=== PATIENT | female | born 1940 | race Caucasian/White ===

== ENCOUNTER → 2018-03-03 10:41 | Outpatient (CLI) | payer MEDICARE, SELFPAY ==
--- NOTE | 2018-03-03 | DI.RAD.S_ITS ---
PROCEDURE: XR CHEST 2V INDICATIONS: LEFT PLEURAL EFFUSION TECHNIQUE: 2 views of the chest were acquired. COMPARISON: [facility], CR, XR CHEST 1V, 02/14/2018, 14:13. Chest CT from 02/02/20 FINDINGS: Surgical changes and devices: None. Lungs and pleura: Small left pleural effusion which is likely partially loculated. Elevation of the left hemidiaphragm. Improved mostly mid left lung pulmonary opacities. The right lung is clear.. Mediastinum: Mediastinal contours are normal. Heart size is normal. Bones and chest wall: No suspicious bony abnormalities. Soft tissues appear unremarkable. IMPRESSION: Improved left pleural effusion which is likely partially loculated. Improving left lung pulmonary opacities. Dictated by: Juan Nova M.D. on 03/03/2018 at 10:24 Approved by: Juan Nova M.D. on 03/03/2018 at 10:26
== END ==
PROVIDERS: PCP Family Medicine; Visit Provider Family Medicine
DX: J90 Pleural effusion, not elsewhere classified (principal)
CPT/HCPCS: 71046

== ENCOUNTER → 2018-04-17 10:15 | Outpatient (CLI) | payer MEDICARE, SELFPAY ==
--- NOTE | 2018-04-17 | DI.RAD.S_ITS ---
PROCEDURE: XR CHEST 2V INDICATIONS: history of left effusion TECHNIQUE: 2 views of the chest were acquired. COMPARISON: [facility], CR, XR CHEST 2V, 03/03/2018, 10:29. FINDINGS: Surgical changes and devices: None. Lungs and pleura: Further improvement in left lung opacities with resolving loculated left pleural effusion. 5 cm rounded opacity in the left parahilar region is likely a pseudotumor from loculated fluid but indeterminate. Right lung field remains clear. Mediastinum: Mediastinal contours are normal. Heart size is normal. Calcifications in the mitral annulus. Aortic calcifications. Bones and chest wall: No suspicious bony abnormalities. Calcification overlies the right humeral head compatible with calcific tendinopathy. Thoracic kyphosis and degenerative changes. Soft tissues appear unremarkable. IMPRESSION: Interval improvement, areas of loculated left pleural effusion remain. Dictated by: Mason Galdamez M.D. on 04/17/2018 at 11:18 Approved by: Mason Galdamez M.D. on 04/17/2018 at 11:22
== END ==
PROVIDERS: Family Provider Family Medicine; PCP Family Medicine; Visit Provider Family Medicine
DX: J90 Pleural effusion, not elsewhere classified (principal)
CPT/HCPCS: 71046

== ENCOUNTER → 2018-05-18 11:04 | Outpatient (CLI) | payer MEDICARE, SELFPAY ==
--- NOTE | 2018-05-18 | DI.RAD.S_ITS ---
PROCEDURE: XR LUMBAR SPINE 2-3V INDICATIONS: LOW BACK PAIN TECHNIQUE: 2 views of the lumbar spine were acquired. COMPARISON: [facility], SAJAN, L-SPINE 2-3 VIEWS, 09/23/2017, 15:33. [facility], BRIANNA, XR L-SPINE 2-3V, 01/07/2006, 13:41. FINDINGS: Bones: 5 [id number] vertebrae are present. There is mild levoconvex curvature with grade 1 anterolisthesis at L3-4. L3 vertebral body compression fracture is unchanged. Degenerative sclerosis facet joints L4-5 and L5-S1. Sclerosis over the inferior right SI joint and chronic lytic and sclerotic appearance of the right ischium and pubic bone appear unchanged. Soft tissues: Overlying bowel gas pattern is normal. Vascular calcifications. IMPRESSION: 1. No acute lumbar fracture, compression deformity of L3 appearing unchanged from prior. Degenerative changes. 2. Lytic and sclerotic lesion in the right pubis and ischium appear stable Dictated by: Mason Galdamez M.D. on 05/18/2018 at 11:24 Approved by: Mason Galdamez M.D. on 05/18/2018 at 11:30
== END ==
PROVIDERS: PCP Family Medicine; Visit Provider Family Medicine
DX: M54.5 Low back pain (principal); M43.16 Spondylolisthesis, lumbar region; M48.56XS Collapsed vertebra, not elsewhere classified, lumbar region, sequela of fracture; M47.816 Spondylosis without myelopathy or radiculopathy, lumbar region; M47.817 Spondylosis without myelopathy or radiculopathy, lumbosacral region
CPT/HCPCS: 72100

== ENCOUNTER → 2018-05-25 10:14 | Outpatient (CLI) | payer MEDICARE, SELFPAY ==
--- NOTE | 2018-05-25 | DI.MG.S_ITS ---
BILATERAL DIGITAL SCREENING MAMMOGRAM 3D/2D WITH CAD POST LUMPECTOMY: 05/25/2018 CLINICAL: Routine screening. Personal history of breast cancer. Comparison is made to exams dated: 05/06/2016 mammogram, 03/19/2015 mammogram, and 03/18/2014 mammogram - [facility]. The tissue of both breasts is heterogeneously dense. This may lower the sensitivity of mammography. Current study was also evaluated with a Computer Aided Detection (CAD) system. There are benign vascular calcifications in both breasts. There also are benign calcifications in the right breast. Additionally, there are post operative findings in the right breast. No significant masses, calcifications, or other findings are seen in either breast. There has been no significant interval change. IMPRESSION: BENIGN There is no mammographic evidence of malignancy. A 1 year screening mammogram is recommended. This exam was interpreted at Station ID: [id number]. NOTE: For mammograms, a report in lay terms will be sent to the patient. Approximately 15% of breast malignancies will not be visualized mammographically. In the management of a palpable breast mass, a negative mammogram must not discourage biopsy of a clinically suspicious lesion. Electronically Signed By: Michelle boone/easton:05/25/2018 10:57:22 letter sent: Normal Exam ACR BI-RADS Category 2: Benign Finding(s) [id number]
== END ==
PROVIDERS: Family Provider Family Medicine; PCP Family Medicine; Visit Provider Family Medicine
DX: Z12.31 Encounter for screening mammogram for malignant neoplasm of breast (principal); Z85.3 Personal history of malignant neoplasm of breast
CPT/HCPCS: 77063; 77067

== ENCOUNTER 2018-06-21 11:09 | Inpatient (IN) | payer MEDICARE, SELFPAY ==
[2018-06-21] VITALS (19 sets, daily range): BP systolic 99–174; BP diastolic 50–119; PULSE 77–180; RESP 15–21; TEMP 36.3–37.3; O2SAT 90–99; BMI 22.4
--- NOTE | 2018-06-21 | DI.RAD.S_ITS ---
PROCEDURE: XR CHEST 1V INDICATIONS: FRACTURE LEFT HIP TECHNIQUE: One view of the chest was acquired. COMPARISON: [facility], CT, THORAX WITHOUT CONTRAST, 02/01/2018, 17:49. [facility], CR, XR CHEST 1V, 02/14/2018, 14:13. [facility], CR, XR CHEST 2V, 04/17/2018, 10:46. FINDINGS: Surgical changes and devices: None. Lungs and pleura: No pleural effusions or pneumothorax. No change in the left mid and upper lung density with left pleural thickening. Mediastinum: Mediastinal contours appear normal. Heart size is normal. Bones and chest wall: No suspicious bony lesions. Overlying soft tissues appear unremarkable. IMPRESSION: 1. No change in left pleural-parenchymal density. Dictated by: Regino Roberts M.D. on 06/21/2018 at 12:08 Approved by: Regino Roberts M.D. on 06/21/2018 at 12:08
--- NOTE | 2018-06-21 11:30 | ED.FALL ---
HPI - Fall General Chief Complaint: Fall Stated Complaint: GLF/ hip injury Time Seen by Provider: 06/21/18 11:30 Source: patient and EMS Mode of arrival: EMS Limitations: no limitations History of Present Illness HPI Narrative: Patient states she fell 2 nights ago after losing her balance on the toilet. She states that her is away on a hunting trip, and she is not able to get herself up off the floor. She scooted into the kitchen and then to her bedroom, but could not get back up on the bed. She states her cellphone was out of reach. She states that her finally called someone to come check on her after trying to reach her for day and a half and not been able to. Patient states the main thing that is bothering her is that her left hip has been hurting. She denies any chest pain or shortness of breath. She was not ill at the time of the fall. No cough, fever, nausea, vomiting, or diarrhea. No dysuria. She has not been dizzy. Patient states she was not able to eat or drink during the time since she fell. Related Data Home Medications Medication Instructions Recorded Confirmed citalopram 20 mg PO QDAY #0 10/14/17 06/21/18 diltiazem HCl 300 mg PO QDAY #0 10/14/17 06/21/18 metoprolol tartrate 100 mg PO BID #0 10/14/17 06/21/18 warfarin [Coumadin] 5 mg PO QDAY #0 10/14/17 06/21/18 mirtazapine 15 mg PO HS #0 01/31/18 06/21/18 furosemide 20 mg PO DAILY 06/21/18 06/21/18 Allergies Allergy/AdvReac Type Severity Reaction Status Date / Time cefuroxime [CEFUROXIME] Allergy Intermediate Unverified 01/18/18 13:07 doxycycline [DOXYCYCLINE] Allergy Intermediate Unverified 01/18/18 13:07 Review of Systems Review of Systems All systems reviewed & are unremarkable except as noted in HPI and below Constitutional Denies chills, Denies fever(s), Denies lethargy and Denies weakness Eyes Denies change in vision, Denies eye discharge, Denies irritation and Denies loss of vision ENT Ears, Nose, Mouth, and Throat: Denies change in voice, Denies neck pain and Denies sore throat Cardiovascular Denies chest pain, Denies irregular heart rhythm, Denies lightheadedness, Denies palpitations, Denies dyspnea, Denies dyspnea on exertion and Denies orthopnea Respiratory Denies cough, Denies dyspnea, Denies dyspnea on exertion and Denies wheezing Gastrointestinal Gastrointestinal: Denies abdominal pain, Denies change in bowel habits, Denies diarrhea, Denies nausea and Denies vomiting Genitourinary Denies hematuria, Denies flank pain, Denies urinary incontinence and Denies urinary urgency Musculoskeletal Denies neck pain Comments: left hip pain Integumentary/Breasts Denies pruritus, Denies erythema, Denies rash and Denies wounds Neurologic Denies confusion, Denies loss of vision and Denies weakness Psychiatric Denies anxiety, Denies confusion, Denies depression, Denies homicidal ideation and Denies suicidal ideation Endocrine Denies palpitations Hematologic/Lymphatic Denies easy bruising Allergic/Immunologic Denies wheezing Exam Initial Vital Signs Initial Vital Signs: Vital Signs Temperature 97.5 F L 06/21/18 11:25 Pulse Rate 172 H 06/21/18 11:25 Respiratory Rate 20 06/21/18 11:25 Blood Pressure 163/119 H 06/21/18 11:25 Pulse Oximetry 99 06/21/18 11:25 Const General: cooperative and well developed Nutritional Appearance: well nourished Orientation: alert, awake ( patient answers questions appropriately, is grossly oriented.) and not confused [facility] [place] Head: normocephalic and atraumatic Ears: external ears normal Nose: external nose normal and No nasal discharge Face and sinus: face symmetric and No dry mucous membranes Mouth: oral mucosae normal and moist mucous membranes Eyes General: appearance normal, both eyes and all related structures Eyelids: eyelids normal Conjunctivae: conjunctivae normal Sclera: sclerae normal Pupils: PERRL EOM: EOM intact bilaterally Neck Neck: normal visual inspection, trachea midline, No lymphadenopathy, No midline deformity and No JVD Lymphatic: No lymphedema Chest Chest: normal inspection of the chest Resp Effort & Inspection: normal respiratory effort, able to speak in complete sentences, no respiratory distress and no use of accessory muscles Auscultation: clear to auscultation bilaterally, no rales, no rhonchi and no wheezes Cardio Rate: regular rate and tachycardic Rhythm: abnormal rhythm irregularly irregular Heart Sounds: no click, no gallops, no murmurs and no rubs Pulses: normal peripheral pulses GI Inspection: non-distended Palpation: soft, no hepatosplenomegaly, No guarding, No pulsatile mass and No tender Auscultation: normal bowel sounds Back/Spine/Pelvis Back: No CVA tenderness Cervical Spine: cervical ROM normal and No pain with cervical ROM Thoracic/Lumbar Spine: thoracic and lumbar spine normal to inspection Skin General: no rashes or lesions noted, No jaundice and No petechiae Neuro General: alert, oriented x3, gait normal and no focal motor deficits Speech: speech normal Extrem General: no pedal edema and no calf tenderness Other: Tenderness over left hip. Mild shortening and external rotation. Distal pulses intact in bilateral lower extremities. Psych Appearance: well kempt Mental Status: mental status grossly normal Attitude: cooperative Thought Content: normal and suicidality Judgment: judgment good [facility] Medical History Chronic atrial fibrillation (Acute) History of alcohol dependence (Acute) Hypertension (Acute) Nicotine dependence with current use (Acute) Surgical History History of bowel resection (Acute) Social History household members: spouse Smoking Status: Current every day smoker alcohol intake: current Course Course Narrative: patient was worked up for her fall and tachycardia, as well as her hip pain. She was found to have a fractured left hip, and a mildly elevated CPK. She was given 2 L of IV normal saline in the emergency department, and was treated 1st with 20 mg and then 25 mg of Cardizem for her atrial fib with rapid ventricular response. The patient responded initially to the 2nd dose of Cardizem, but her heart rate began to climb back up again, into the 120s to 140s. At this point I ordered a diltiazem drip. I spoke with Dr. Moreira who was construction operations manager for Internal Medicine, and she agreed to admit the patient to her service. I also spoke with Dr. Tovar, who was on-call for Orthopedics, and he stated that he would consult on the patient for her hip fracture well admitted. Orders Ordered: ED Orders 06/21/18 11:30 Complete Blood Count AUTO DIFF Stat Comprehensive Metabolic Panel Stat Troponin & CK Cardiac Panel Stat 06/21/18 11:42 XR hip w pel if done LT 2V Stat 06/21/18 11:46 CT head/brain wo con Stat 06/21/18 12:16 Urinalysis and Microscopic Stat Urine Culture Stat 06/21/18 16:55 MRSA PCR Urgent 06/21/18 17:15 Consult to Technician'S Helper Routine 06/22/18 06:00 Comprehensive Metabolic Panel Routine Prothrombin Time INR Routine Acetaminophen (Tylenol) 650 mg PO Q6HR PRN PRN Reason: As Needed for Fever/Mild Pain Bisacodyl (Dulcolax) 10 mg [place] DAILY PRN PRN Reason: Constipation Citalopram Hydrobromide (Celexa) 20 mg PO DAILY HANNAH Enoxaparin Sodium (Lovenox) 40 mg SUBCUT DAILY HANNAH Famotidine (Pepcid) 20 mg in 50 mls @ 200 mls/hr IV Q12HR HANNAH Lactated Ringer's (Lactated Ringers) 1,000 mls @ 100 mls/hr IV CONT HANNAH Last Admin: 06/21/18 16:49 Dose: 100 mls/hr Diltiazem HCl 125 mg/ Dextrose 125 mls @ 5 mls/hr IV TITRATE HANNAH; Protocol Lorazepam (Ativan) 1.2 mg 0.02 mg/kg (1.2 mg) IV Q6HR PRN PRN Reason: Sedation Lorazepam (Ativan) 0 mg IV CIWAPRN PRN; Protocol PRN Reason: Alcohol Withdrawal Last Admin: 06/21/18 18:09 Dose: 1 mg Lorazepam (Ativan) 0 mg PO CIWAPRN PRN; Protocol PRN Reason: Alcohol Withdrawal Metoprolol Tartrate (Lopressor) 50 mg PO Q6HR HANNAH Last Admin: 06/21/18 18:08 Dose: 50 mg Mirtazapine (Remeron) 15 mg PO BEDTIME HANNAH Morphine Sulfate (Morphine) 2 mg IV Q4HR PRN PRN Reason: Pain, Moderate (4-6) Last Admin: 06/21/18 16:05 Dose: 2 mg Discontinued Medications Diltiazem HCl (Cardizem) 20 mg IV NOW ONE Stop: 06/21/18 11:42 Last Admin: 06/21/18 11:42 Dose: 20 mg Diltiazem HCl (Cardizem) 25 mg IV NOW ONE Stop: 06/21/18 13:10 Last Admin: 06/21/18 13:11 Dose: 25 mg Hydromorphone HCl (Dilaudid) 1 mg IV NOW ONE Stop: 06/21/18 14:30 Last Admin: 06/21/18 14:34 Dose: 1 mg Sodium Chloride (Normal Saline 0.9%) 1,000 mls @ 1,000 mls/hr IV BOLUS ONE Stop: 06/21/18 12:41 Last Infusion: 06/21/18 13:18 Dose: 0 mls/hr Admin: 06/21/18 12:20 Dose: 1,000 mls/hr Sodium Chloride (Normal Saline 0.9%) 1,000 mls @ 1,000 mls/hr IV BOLUS ONE Stop: 06/21/18 13:55 Last Infusion: 06/21/18 14:47 Dose: 0 mls/hr Admin: 06/21/18 13:10 Dose: 1,000 mls/hr Sodium Chloride (Normal Saline 0.9%) 1,000 mls @ 1,000 mls/hr IV BOLUS ONE Stop: 06/21/18 14:09 Last Infusion: 06/21/18 14:25 Dose: 0 mls/hr Admin: 06/21/18 13:20 Dose: 1,000 mls/hr Diltiazem HCl 125 mg/ Dextrose 125 mls @ 5 mls/hr IV TITRATE HANNAH; Protocol Last Admin: 06/21/18 16:00 Dose: 5 mg/hr, 5 mls/hr Metoprolol Tartrate (Lopressor) 50 mg PO NOW ONE Stop: 06/21/18 15:25 Last Admin: 06/21/18 15:31 Dose: 50 mg Trimethoprim/Sulfamethoxazole (Bactrim Ds) 1 tab PO NOW ONE Stop: 06/21/18 14:40 Last Admin: 06/21/18 14:45 Dose: 1 tab Vital Signs - 8 hr 06/21/18 12:44 06/21/18 13:11 06/21/18 13:12 Temperature Pulse Rate 141 H 156 H 106 H Respiratory Rate 21 19 Blood Pressure 169/104 H Blood Pressure [Right Arm] 174/115 H 139/82 Pulse Oximetry 97 95 06/21/18 13:40 06/21/18 14:21 06/21/18 14:39 Temperature Pulse Rate 119 H 135 H 135 H Respiratory Rate 18 20 16 Blood Pressure Blood Pressure [Right Arm] 144/92 H 165/79 H 110/83 Pulse Oximetry 94 95 91 06/21/18 15:16 06/21/18 15:40 06/21/18 16:13 Temperature 99.1 F Pulse Rate 152 H 140 H 125 H Respiratory Rate 15 18 Blood Pressure 148/77 H 146/102 H Blood Pressure [Right Arm] 147/90 H Pulse Oximetry 90 L 93 06/21/18 16:17 06/21/18 17:00 06/21/18 18:02 Temperature Pulse Rate 115 H 95 H 84 Respiratory Rate 18 Blood Pressure 143/69 H 117/58 L 149/50 H Blood Pressure [Right Arm] Pulse Oximetry 06/21/18 19:00 Temperature Pulse Rate 77 Respiratory Rate Blood Pressure 99/66 Blood Pressure [Right Arm] Pulse Oximetry MDM - Fall Medical Records Attestation: I reviewed the patient's medical records. Lab Data Attestation: I reviewed the patient's lab results. Result diagrams: 06/21/18 11:30 06/21/18 11:30 Lab Results 06/21/18 06/21/18 06/21/18 Range/Units 11:30 11:30 12:16 WBC 16.8 H (4.5-11.0) X10^3/uL RBC 4.53 (4.0-5.2) X10^6/uL Hgb 15.1 (12.0-16.0) g/dL Hct 44.2 (36-46) % MCV 97.7 (80-100) fL MCH 33.3 (26-34) PG MCHC 34.1 (30-36) % RDW 14.0 (11.6-14.8) % Plt Count 284 (150-400) X10^3/uL Neut % (Auto) 87.9 H (50-75) % Lymph % (Auto) 5.1 L (25-40) % [place] % (Auto) 6.6 (3-14) % Eos % (Auto) 0.0 L (2-4) % Baso % (Auto) 0.4 (0-2) % Neut # (Auto) 54684 H (6154-1065) /uL Sodium 136 L (137-145) mmol/L Potassium 4.6 (3.4-5.1) mmol/L Chloride 95 L (98-107) mmol/L Carbon Dioxide 27 (22-32) mmol/L BUN 15 (7-17) mg/dL Creatinine 0.70 (0.52-1.04) mg/dL Estimated GFR > 60.0 (>60) mL/min BUN/Creatinine Ratio 21.4 (6-22) Glucose 136 H (80-110) mg/dL Calcium 10.4 H (8.4-10.2) mg/dL Total Bilirubin 1.7 H (0.2-1.3) mg/dL AST 39 H (14-36) IU/L ALT 22 (9-52) IU/L Alkaline Phosphatase 101 (38-126) U/L Total Creatine Kinase 170 H (30-135) U/L CK-MB (CK-2) 3.93 H (<2.37) ng/mL CK-MB (CK-2) Rel Index 2.3 (1.5-5.0) % Troponin I 0.038 H (0.01-0.034) ng/mL Total Protein 8.1 (6.3-8.2) g/dL Albumin 4.5 (3.5-5.0) g/dL Globulin 3.6 (1.7-4.1) g/dL Albumin/Globulin Ratio 1.3 (1.0-2.8) Urine Color Yellow Urine Appearance Sl cloudy Urine pH 7.5 (4.5-8.0) Ur Specific Lucinda 1.010 (1.000-1.035) Urine Protein 1+ H (Negative) Urine Glucose (UA) Negative (Normal) g/dL Urine Ketones 1+ H (NEGATIVE) Urine Occult Blood 1+ H (Negative) Urine Nitrate Negative (Negative) Urine Bilirubin Negative (NEGATIVE) Urine Urobilinogen 0.2 (0.2) E.U./dL Ur Leukocyte Esterase 1+ H (NEGATIVE) Urine RBC 1-5/hpf (0-5/HPF) Urine WBC 5-10/hpf H (0-5/HPF) Urine Bacteria None seen (None) Granular Casts 1-5/lpf (None) Ur Culture Indicated? Specimen cultured Micro UA Comment Not Reportable Nasal Screen MRSA (PCR) (Negative) 06/21/18 Range/Units 16:55 WBC (4.5-11.0) X10^3/uL RBC (4.0-5.2) X10^6/uL Hgb (12.0-16.0) g/dL Hct (36-46) % MCV (80-100) fL MCH (26-34) PG MCHC (30-36) % RDW (11.6-14.8) % Plt Count (150-400) X10^3/uL Neut % (Auto) (50-75) % Lymph % (Auto) (25-40) % [place] % (Auto) (3-14) % Eos % (Auto) (2-4) % Baso % (Auto) (0-2) % Neut # (Auto) (7326-4131) /uL Sodium (137-145) mmol/L Potassium (3.4-5.1) mmol/L Chloride (98-107) mmol/L Carbon Dioxide (22-32) mmol/L BUN (7-17) mg/dL Creatinine (0.52-1.04) mg/dL Estimated GFR (>60) mL/min BUN/Creatinine Ratio (6-22) Glucose (80-110) mg/dL Calcium (8.4-10.2) mg/dL Total Bilirubin (0.2-1.3) mg/dL AST (14-36) IU/L ALT (9-52) IU/L Alkaline Phosphatase (38-126) U/L Total Creatine Kinase (30-135) U/L CK-MB (CK-2) (<2.37) ng/mL CK-MB (CK-2) Rel Index (1.5-5.0) % Troponin I (0.01-0.034) ng/mL Total Protein (6.3-8.2) g/dL Albumin (3.5-5.0) g/dL Globulin (1.7-4.1) g/dL Albumin/Globulin Ratio (1.0-2.8) Urine Color Urine Appearance Urine pH (4.5-8.0) Ur Specific Lucinda (1.000-1.035) Urine Protein (Negative) Urine Glucose (UA) (Normal) g/dL Urine Ketones (NEGATIVE) Urine Occult Blood (Negative) Urine Nitrate (Negative) Urine Bilirubin (NEGATIVE) Urine Urobilinogen (0.2) E.U./dL Ur Leukocyte Esterase (NEGATIVE) Urine RBC (0-5/HPF) Urine WBC (0-5/HPF) Urine Bacteria (None) Granular Casts (None) Ur Culture Indicated? Micro UA Comment Nasal Screen MRSA (PCR) Positive for mrsa H (Negative) Imaging Data CT scan - head: Attestation: I personally reviewed and interpreted this imaging study as follows: My impression: Negative Radiologist's impression: PROCEDURE: CT HEAD/BRAIN WO CON INDICATIONS: trauma TECHNIQUE: Noncontrast 4.5 mm thick angled axial sections acquired from the foramen magnum to the vertex, with coronal and sagittal reformats. For radiation dose reduction, the following was used: automated exposure control, adjustment of mA and/or kV according to patient size. COMPARISON: None. FINDINGS: Image quality: Excellent. CSF spaces: Basal cisterns are patent. No extra-axial fluid collections. The ventricles are symmetric in size and shape. Brain: No intracranial bleeds or masses. There is cerebral volume loss for age, with resultant ventricular and sulcal prominence. There are periventricular and deep white matter chronic small vessel ischemic changes. There is intracranial internal carotid artery atherosclerosis. Skull and face: Calvarium and visualized facial bones appear intact, without suspicious lesions. Sinuses: Visualized sinuses and mastoids are clear. IMPRESSION: No acute intracranial abnormality. Dictated by: Regino Roberts M.D. on 06/21/2018 at 12:09 Approved by: Regino Roberts M.D. on 06/21/2018 at 12:09 left hip x-ray with pelvis: Attestation: I personally reviewed and interpreted this imaging study as follows: My impression: left hip fracture Radiologist's impression: ROCEDURE: XR HIP W PEL IF DONE LT 2V INDICATIONS: fall/pain TECHNIQUE: AP pelvis with lateral view(s) of the left hip(s). COMPARISON: None. FINDINGS: Bones: Moderately displaced left intertrochanteric and subtrochanteric hip fracture. Soft tissues: The visualized bowel gas pattern is normal. No suspicious soft tissue calcifications. IMPRESSION: Left hip fracture. Dictated by: Regino Roberts M.D. on 06/21/2018 at 12:07 Approved by: Regino Roberts M.D. on 06/21/2018 at 12:08 Chest x-ray: Attestation: I personally reviewed and interpreted this imaging study as follows: My impression: negative Radiologist's impression: PROCEDURE: XR CHEST 1V INDICATIONS: FRACTURE LEFT HIP TECHNIQUE: One view of the chest was acquired. COMPARISON: [facility], CT, THORAX WITHOUT CONTRAST, 02/01/2018, 17:49. [facility], CR, XR CHEST 1V, 02/14/2018, 14:13. [facility], CR, XR CHEST 2V, 04/17/2018, 10:46. FINDINGS: Surgical changes and devices: None. Lungs and pleura: No pleural effusions or pneumothorax. No change in the left mid and upper lung density with left pleural thickening. Mediastinum: Mediastinal contours appear normal. Heart size is normal. Bones and chest wall: No suspicious bony lesions. Overlying soft tissues appear unremarkable. IMPRESSION: 1. No change in left pleural-parenchymal density. Dictated by: Regino Roberts M.D. on 06/21/2018 at 12:08 Approved by: Regino Roberts M.D. on 06/21/2018 at 12:08 ECG Data Attestation: I personally reviewed and interpreted this ECG as follows: ( see below) Prior ECG tracings: not available for review Interpretation: 12 lead EKG performed on June 21, 2018 at 11:21 a.m.: irregular ventricular rhythm with a rate of 164 beats per minute . Pr interval not calculated P-waves not present QRS duration 72 millisecond QTC interval 352 milliseconds axis normal interpretation: Atrial fibrillation with rapid ventricular response, septal myocardial infarction, probably old; abnormal EKG interpreted by ED MD Critical Care Time Critical Care Time: Yes Total Critical Care Time: 45 ( min) Attestation: cardiovascular instability with high probability of deterioration and demise; critical care time includes ordering of EKG, labs, and imaging studies; interpretation of the above studies; discussion of case with consultants; discussion of case with patient; treatment of condition. Discharge Plan Departure Patient Disposition: Admitted As Inpatient Clinical Impression: Atrial fibrillation with rapid ventricular response, Closed hip fracture requiring operative repair, Acute UTI Discharge Date/Time: 06/21/18 15:51 Interventions: ED Discharge Assessment Last Done: 06/21/18 15:51 Admit Date/Time: 06/21/18 15:25 Admit Provider: Sis Moreira
[2018-06-21] MEDS: dilTIAZem 5 MG/ML SDV 20 MG IV (11:42)
--- NOTE | 2018-06-21 11:42 | DI.RAD.S_ITS ---
PROCEDURE: XR HIP W PEL IF DONE LT 2V INDICATIONS: fall/pain TECHNIQUE: AP pelvis with lateral view(s) of the left hip(s). COMPARISON: None. FINDINGS: Bones: Moderately displaced left intertrochanteric and subtrochanteric hip fracture. Soft tissues: The visualized bowel gas pattern is normal. No suspicious soft tissue calcifications. IMPRESSION: Left hip fracture. Dictated by: Regino Roberts M.D. on 06/21/2018 at 12:07 Approved by: Regino Roberts M.D. on 06/21/2018 at 12:08
--- NOTE | 2018-06-21 11:46 | DI.CT.S_ITS ---
PROCEDURE: CT HEAD/BRAIN WO CON INDICATIONS: trauma TECHNIQUE: Noncontrast 4.5 mm thick angled axial sections acquired from the foramen magnum to the vertex, with coronal and sagittal reformats. For radiation dose reduction, the following was used: automated exposure control, adjustment of mA and/or kV according to patient size. COMPARISON: None. FINDINGS: Image quality: Excellent. CSF spaces: Basal cisterns are patent. No extra-axial fluid collections. The ventricles are symmetric in size and shape. Brain: No intracranial bleeds or masses. There is cerebral volume loss for age, with resultant ventricular and sulcal prominence. There are periventricular and deep white matter chronic small vessel ischemic changes. There is intracranial internal carotid artery atherosclerosis. Skull and face: Calvarium and visualized facial bones appear intact, without suspicious lesions. Sinuses: Visualized sinuses and mastoids are clear. IMPRESSION: No acute intracranial abnormality. Dictated by: Regino Roberts M.D. on 06/21/2018 at 12:09 Approved by: Regino Roberts M.D. on 06/21/2018 at 12:09
[2018-06-21 11:51] LABS: Add Manual Diff / Slide Review NO; Basophils Percent Auto 0.4 % (0-2); Hematocrit 44.2 % (36-46); Hemoglobin 15.1 g/dL (12.0-16.0); Lymphocytes Percent Auto 5.1 % (25-40); Mean Corpuscular HGB Conc 34.1 % (30-36); Mean Corpuscular Hemoglobin 33.3 PG (26-34); Mean Corpuscular Volume 97.7 fL (80-100); Monocytes Percent Auto 6.6 % (3-14); Neutrophils Absolute Auto 14800 /uL (3000-5900); Neutrophils Percent Auto 87.9 % (50-75); Platelet Count 284 X10^3/uL (150-400); Red Blood Cell Count 4.53 X10^6/uL (4.0-5.2); White Blood Cell Count 16.8 X10^3/uL (4.5-11.0)
[2018-06-21 11:57] LABS: Alanine Aminotransferase 22 IU/L (9-52); Albumin 4.5 g/dL (3.5-5.0); Albumin Globulin Ratio 1.3 (1.0-2.8); Alkaline Phosphatase 101 U/L (38-126); Aspartate Aminotransferase 39 IU/L (14-36); BUN Creatinine Ratio 21.4 (6-22); Bilirubin Total 1.7 mg/dL (0.2-1.3); Blood Urea Nitrogen 15 mg/dL (7-17); Calcium 10.4 mg/dL (8.4-10.2); Carbon Dioxide 27 mmol/L (22-32); Chloride 95 mmol/L (98-107); Creatine Kinase 170 U/L (30-135); Estimated Glomerular Filt Rate > 60.0 mL/min (>60); Globulin 3.6 g/dL (1.7-4.1); Glucose 136 mg/dL (80-110); Potassium 4.6 mmol/L (3.4-5.1); Sodium 136 mmol/L (137-145); Total Protein 8.1 g/dL (6.3-8.2)
[2018-06-21 12:09] LABS: Troponin I 0.038 ng/mL (0.01-0.034)
[2018-06-21 12:13] LABS: CKMB % Relative Index 2.3 % (1.5-5.0); Creatine Kinase MB 3.93 ng/mL (<2.37)
[2018-06-21 12:14] LABS: HEMOLYSIS 78 (0-50)
[2018-06-21] MEDS: SODIUM CHLORIDE 0.9% 1,000 ML 1000 ML IV ×3 (12:20→13:20)
[2018-06-21 12:27] LABS: Bacteria Urine None Seen
[2018-06-21 12:28] LABS: Appearance Urine UA SL CLOUDY; Bilirubin Urine UA NEGATIVE (NEGATIVE); Color Urine UA YELLOW; Glucose Urine UA NEGATIVE (Normal); Ketones Urine UA 1+ (NEGATIVE); Leukocyte Esterase Urine UA 1+ (NEGATIVE); Nitrite Urine UA Negative (Negative); Occult Blood Urine UA 1+ (Negative); Protein Urine UA 1+ (Negative); Urobilinogen Urine UA 0.2 E.U./dL (0.2); pH Urine UA 7.5 (4.5-8.0)
[2018-06-21 12:35] LABS: Culture Indicated Urine Specimen Cultured; Granular Casts Urine 1-5/LPF; RBC Urine 1-5/HPF (0-5/HPF); WBC Urine 5-10/HPF (0-5/HPF)
[2018-06-21] MEDS: dilTIAZem 5 MG/ML SDV 25 MG IV (13:11)
[2018-06-21] MEDS: HYDROMORPHONE 1 MG INJ IV (14:34)
[2018-06-21] MEDS: SULFA/TRIMETH 800/160 (DS) TABLET 1 TAB PO (14:45)
[2018-06-21] MEDS: METOPROLOL 50 MG TABLET PO ×2 (15:31→18:08)
--- NOTE | 2018-06-21 15:56 | PM.HP.1 ---
History of Present Illness Date Patient Seen: 06/21/18 Time Patient Seen: 15:57 Chief complaint: GLF/ hip injury Narrative: Patient is a 78 y/o female who was home alone and fell from the toilet. She was down on the ground for 2 days before she could get help and be brought into the hospital. The patient has a history of atrial fibrillation which is managed on cardizem and metoprolol. As she was down on the ground for 2 days the patient was unable to drink or get her usual medications. Upon arrival to the ED she was found to be in rapid atrial fibrillation. The patient was given two doses of IV cardizem without response. In addition, she was found to have a right intratrochanteric fracture. She fell hitting her head. patient takes coumadin for her chronic atrial fibrillation. The head CT was negative for a bleed. The patient was admitted to the hospital for further evaluation. Patient History Medical History Chronic atrial fibrillation (Acute) History of alcohol dependence (Acute) Hypertension (Acute) Nicotine dependence with current use (Acute) Surgical History History of bowel resection (Acute) Family & Social History Safety & Behavioral: Feels Safe in Current Yes Environment Tobacco & Substance use: Smoking Status Current every day smoker alcohol intake frequency a few times a month Substance Use Type does not use Meds Home Medications Medication Instructions Recorded Confirmed Type citalopram 20 mg PO QDAY #0 10/14/17 06/21/18 History diltiazem HCl 300 mg PO QDAY #0 10/14/17 06/21/18 History metoprolol tartrate 100 mg PO BID #0 10/14/17 06/21/18 History warfarin [Coumadin] 5 mg PO QDAY #0 10/14/17 06/21/18 History mirtazapine 15 mg PO HS #0 01/31/18 06/21/18 History furosemide 20 mg PO DAILY 06/21/18 06/21/18 History Allergies Allergy/AdvReac Type Severity Reaction Status Date / Time cefuroxime [CEFUROXIME] Allergy Intermediate Unverified 01/18/18 13:07 doxycycline [DOXYCYCLINE] Allergy Intermediate Unverified 01/18/18 13:07 Review of Systems Review of Systems All systems reviewed & are unremarkable except as noted in HPI and below Exam Vital Signs (past 8 hours): - 06/21/18 11:25 06/21/18 11:42 06/21/18 12:44 Temperature 97.5 F L Pulse Rate 172 H 180 H 141 H Respiratory Rate 20 21 Blood Pressure 163/119 H 159/109 H Blood Pressure [Right Arm] 174/115 H Pulse Oximetry 99 97 06/21/18 13:11 06/21/18 13:12 06/21/18 13:40 Temperature Pulse Rate 156 H 106 H 119 H Respiratory Rate 19 18 Blood Pressure 169/104 H Blood Pressure [Right Arm] 139/82 144/92 H Pulse Oximetry 95 94 06/21/18 14:21 06/21/18 14:39 06/21/18 15:16 Temperature Pulse Rate 135 H 135 H 152 H Respiratory Rate 20 16 15 Blood Pressure Blood Pressure [Right Arm] 165/79 H 110/83 147/90 H Pulse Oximetry 95 91 90 L Oxygen Delivery Method Room Air Narrative Exam Narrative: Patient is awake and alert. AT times she appears to be confused HEENT: NC/AT, EOMI, Oropharyx dry mucus membranes, neck supple Lungs: clear to auscultation CV: tachycardic irregularly, irregular nl S1 S@ Abd: soft/ non tender/ non distended, well healed suprapubic scar, No HSM Ext: multiple excoriations of both lower extremities, multiple ecchymoses of arms, dry scaling lesions of legs, right leg rotated and shortend Neuro: Awake, alert, and appropriate, at times confused Cranial nerves intact. Strength equal unable to move right leg Sensation intact Psychiatric: confused at times, shaky, no active hallucinations Objective Labs Result Diagrams: 06/21/18 11:30 06/21/18 11:30 Labs: Laboratory Results - last 24 hr 06/21/18 06/21/18 06/21/18 11:30 11:30 12:16 WBC 16.8 H RBC 4.53 Hgb 15.1 Hct 44.2 MCV 97.7 MCH 33.3 MCHC 34.1 RDW 14.0 Plt Count 284 Neut % (Auto) 87.9 H Lymph % (Auto) 5.1 L Hickman % (Auto) 6.6 Eos % (Auto) 0.0 L Baso % (Auto) 0.4 Neut # (Auto) 90553 H Sodium 136 L Potassium 4.6 Chloride 95 L Carbon Dioxide 27 BUN 15 Creatinine 0.70 Estimated GFR > 60.0 BUN/Creatinine Ratio 21.4 Glucose 136 H Calcium 10.4 H Total Bilirubin 1.7 H AST 39 H ALT 22 Alkaline Phosphatase 101 Total Creatine Kinase 170 H CK-MB (CK-2) 3.93 H CK-MB (CK-2) Rel Index 2.3 Troponin I 0.038 H Total Protein 8.1 Albumin 4.5 Globulin 3.6 Albumin/Globulin Ratio 1.3 Urine Color Yellow Urine Appearance Sl cloudy Urine pH 7.5 Ur Specific [place] 1.010 Urine Protein 1+ H Urine Glucose (UA) Negative Urine Ketones 1+ H Urine Occult Blood 1+ H Urine Nitrate Negative Urine Bilirubin Negative Urine Urobilinogen 0.2 Ur Leukocyte Esterase 1+ H Urine RBC 1-5/hpf Urine WBC 5-10/hpf H Urine Bacteria None seen Granular Casts 1-5/lpf Ur Culture Indicated? Specimen cultured Micro UA Comment Not Reportable Assessment & Plan (1) Atrial fibrillation with rapid ventricular response: Problem details: Will continue metoprolol 50 mg every six hours. Will start Cardizem drip Coumadin on hold until after surgery Current visit: Yes Status: Acute (2) Acute UTI: Problem details: will start levofloxacin for possible UTI Current visit: Yes Status: Acute (3) Closed hip fracture requiring operative repair: Problem details: Ortho consult, pain control, hold anticoagulation but will place on DVT prophylaxis for tonight Qualifiers: Encounter type: initial encounter Fracture healing: Laterality: left Qualified Code(s): S72.002A - Fracture of unspecified part of neck of left femur, initial encounter for closed fracture Current visit: Yes Status: Acute (4) HTN (hypertension): Problem details: Continue metoprolol and cardizem Current visit: No Status: Acute (5) Alcohol withdrawal: Problem details: Will start Ativan prn as needed for agitation Current visit: Yes Status: Acute (6) Osteoporosis: Problem details: Calcium , vit D, bisphosphonate Current visit: Yes Status: Acute
[2018-06-21] MEDS: dilTIAZem 125 MG in DEXTROSE 5 % IN WATER 100 ML IV (16:00)
[2018-06-21] MEDS: MORPHINE 2 MG/ML INJ IV (16:05)
[2018-06-21] MEDS: LACTATED RINGERS 1,000 ML 100 ML IV (16:49)
--- NOTE | 2018-06-21 17:41 | PC.NURSE ---
1540- Patient arrived to unit via stretcher. Patient is alert and cooperative. Patient moved to the bed in room 105 using a sliding board. Left hip is externally rotated and painful. Left elbow abrasion noted and left shoulder contusion. Patient states her hip is where her pain is right now. Will monitor.
--- NOTE | 2018-06-21 17:43 | PC.NURSE ---
1740- Patient states she is seeing worms in her strawberry dessert. Patient is adament that there are worms crawling and she sees them. Patient is aware she is in [place] and she knows that she fell at home and fractured her left hip. Patient has no tremors or sweats. Dr. Moreira notified and CIDCA protocol is ordered. Will monitor.
[2018-06-21] MEDS: LORazepam 2 MG/ML SYRINGE IV (18:09)
[2018-06-21] MEDS: MIRTAZAPINE 15 MG TABLET PO (21:47)
[2018-06-22] VITALS (24 sets, daily range): BP systolic 118–180; BP diastolic 63–94; PULSE 84–133; RESP 16–22; TEMP 35.9–37.2; O2SAT 94–99; BMI 24.7
--- NOTE | 2018-06-22 | DI.RAD.S_ITS ---
PROCEDURE: XR HIP W PEL IF DONE LT 2V INDICATIONS: LEFT HIP ORIF IMN TECHNIQUE: 4 views of the hip were acquired. COMPARISON: [facility], CR, XR HIP W PEL IF DONE LT 2V, 06/21/2018, 11:25. FINDINGS: 4 intraoperative fluoroscopy images demonstrate open reduction and internal fixation of left femoral neck fracture. There is improved alignment. Surgical hardware are in expected position. IMPRESSION: Open reduction and internal fixation of left femoral neck fracture. Dictated by: Amanda Castaneda M.D. on 06/22/2018 at 18:51 Approved by: Amanda Castaneda M.D. on 06/22/2018 at 18:52
[2018-06-22] MEDS: METOPROLOL 50 MG TABLET PO ×3 (00:01→12:31)
[2018-06-22] MEDS: FAMOTIDINE 20 MG/50 ML PIGGYBACK 200 MG IV ×2 (00:01→12:31)
[2018-06-22] MEDS: LORazepam 2 MG/ML SYRINGE IV (00:24)
[2018-06-22] MEDS: LACTATED RINGERS 1,000 ML 100 ML IV ×2 (02:15→12:31)
[2018-06-22 06:20] LABS: INR 1.4 (0.9-1.3); Prothrombin Time 15.6 SECONDS (10.1-12.7)
[2018-06-22 06:31] LABS: Alanine Aminotransferase 27 IU/L (9-52); Albumin 2.7 g/dL (3.5-5.0); Albumin Globulin Ratio 1.1 (1.0-2.8); Alkaline Phosphatase 57 U/L (38-126); Aspartate Aminotransferase 27 IU/L (14-36); Bilirubin Total 0.6 mg/dL (0.2-1.3); Blood Urea Nitrogen 12 mg/dL (7-17); Calcium 8.6 mg/dL (8.4-10.2); Carbon Dioxide 28 mmol/L (22-32); Chloride 106 mmol/L (98-107); Estimated Glomerular Filt Rate > 60.0 mL/min (>60); Globulin 2.4 g/dL (1.7-4.1); Glucose 90 mg/dL (80-110); HEMOLYSIS < 15 (0-50); Potassium 3.9 mmol/L (3.4-5.1); Sodium 136 mmol/L (137-145); Total Protein 5.1 g/dL (6.3-8.2)
[2018-06-22] MEDS: dilTIAZem 125 MG in DEXTROSE 5 % IN WATER 100 ML IV ×2 (07:55→20:29)
[2018-06-22] MEDS: MORPHINE 2 MG/ML INJ IV ×2 (08:23→12:31)
--- NOTE | 2018-06-22 09:21 | PC.NURSE ---
Addendum entered by [place] Markham R.N. 06/22/18 15:25: Pt left to OR 1515 with OR staff in no acute distress. Original Note: Addendum entered by [place] Markham R.N. 06/22/18 12:18: Dr. Tovar rounded. Consent obtained. Plan for OR today approx 1530. Original Note: Called and spoke with Dr. Moreira [id number] requesting clarification of orders for consult to ortho and pt/family requesting to be seen by Dr. Montelongo (pt's PCP). No consult order in chart for either. Dr. Moreira states that she spoke with Dr. Tovar yesterday about this patient. TO received for consult to ortho. Dr. Moreira instructs to call Dr. Montelongo and let him know about patient. Spoke with Dr. Doherty to ensure pt on the list to be seen today. Dr. Caputo states she will e-mail Dr. Tovar regarding pt and that she is not national secretary for ortho today. Called to Dr. Montelongo's office and left message for Dr. Mccaryt to return phone call regarding pt. Spoke with Dr. Mccarty at 0930- he states he will round either at noon or after clinic today. Gave update to Dr. Mccarty about assessment findings, VS, labs, plan of care.
--- NOTE | 2018-06-22 13:25 | P.PN_ITS ---
Subjective Date Patient Seen: 06/22/18 Time Patient Seen: 13:18 Interval history: Patient admitted from emergency room following a ground level fall and that unable to get up for approximately 2 days. Patient's alcoholic with alcohol abuse and had been drinking prior. Subsequently suggestion of urinary tract infection not treated at this point inter patient also has history of atrial fibrillation and had continued fib with a rapid ventricular rate. Has been getting some diltiazem over the last 24 hr. Rate is in the 90- 100 range now negative cardiac enzymes. Patient is back on her oral medications consisting of metoprolol for rate control as well. trochanteric hip fracture which will be repaired this afternoon sedation secondary to pain medications alcohol withdrawal issues. MRSA positive nasal screening. Exam Vital Signs (past 8 hours): - 06/22/18 06:00 06/22/18 07:14 06/22/18 07:55 Temperature 97.6 F Pulse Rate 100 H 98 H 91 H Respiratory Rate 17 19 Blood Pressure 118/73 133/67 133/67 Pulse Oximetry 98 98 06/22/18 08:00 06/22/18 08:25 06/22/18 09:12 Temperature Pulse Rate 97 H 92 H Respiratory Rate 22 17 Blood Pressure 159/94 H 180/79 H Pulse Oximetry 96 98 99 06/22/18 11:00 06/22/18 12:06 Temperature 98.7 F Pulse Rate 87 94 H Respiratory Rate 20 16 Blood Pressure 132/94 H 132/94 H Pulse Oximetry 98 97 Oxygen Delivery Method Nasal Cannula Oxygen Flow Rate 2 Narrative Exam Narrative: Patient is sedated from pain meds PERRLA line Speech a little bit sedated but clear Neck without significant bruising or mass Lungs Clear little bit of crackles at bases Heart shows an irregularly irregular rate rhythm no murmur some good distal edema Abdomen nontender no hepatosplenomegaly or mass Neuro shows patient responded well answer questions appropriately speech is a little bit groggy but I think that is sedation from her pain meds. Patient does have history of alcohol abuse and had been drinking up to her admission is on a CIWA protocol and had did get a dose of benzodiazepine last evening. Objective Labs Result Diagrams: 06/21/18 11:30 06/22/18 06:00 Labs: Laboratory Results - last 24 hr 06/21/18 06/21/18 06/22/18 16:55 21:38 06:00 PT 15.6 H INR 1.4 H Sodium Potassium Chloride Carbon Dioxide BUN Creatinine Estimated GFR BUN/Creatinine Ratio Glucose Calcium Total Bilirubin AST ALT Alkaline Phosphatase Troponin I 0.030 Total Protein Albumin Globulin Albumin/Globulin Ratio Nasal Screen MRSA (PCR) Positive for mrsa H 06/22/18 06:00 PT INR Sodium 136 L Potassium 3.9 Chloride 106 Carbon Dioxide 28 BUN 12 Creatinine 0.60 Estimated GFR > 60.0 BUN/Creatinine Ratio 20.0 Glucose 90 Calcium 8.6 Total Bilirubin 0.6 AST 27 ALT 27 Alkaline Phosphatase 57 Troponin I Total Protein 5.1 L Albumin 2.7 L Globulin 2.4 Albumin/Globulin Ratio 1.1 Nasal Screen MRSA (PCR) Assessment & Plan Plan: Assessment/Plan Narrative: Assessment 1. Intertrochanteric hip fracture left side going to have surgical repair of that this afternoon. Complicating factors could be her atrial fibrillation which she has good rate control at this point her anticoagulation and his gutter INR is down into the 1 6 range. Assessment 2. Atrial fibrillation is think that her rate control is good probably will be adequate to manage with oral medicines after her hip repair Assessment 3. Urinary tract infection. Will continue with the oral antibiotics consisting of Levaquin Assessment 4. Alcoholism again on withdrawal protocols Assessment 5. Hypertension treated with calcium channel mitchel and and beta- mitchel will monitor pressure for now with good rate control Assessment 6. Urinary tract infection Assessment 7. Depression will continue on current antidepressant medication. Quality VTE Deep Vein Thrombosis/Pulmonary Embolism Present on Admission: No
--- NOTE | 2018-06-22 15:53 | CM.IDA ---
Addendum entered by ANA Miranda 06/23/18 14:04: Dr Hester would like this LIGHT FIXTURE SERVICER to review ETOH treatment options w/pt and spouse tomorrow when pt more awake and alert. This LIGHT FIXTURE SERVICER requested a conversation together so that Dr Hester can discuss his concerns to include the negative impact of pt's ongoing heavy drinking. Dr Hester agreeable to this. Pt will require SNF stay. Attempted to reach spouse Jake, had to LM. Will continue to check in at bedside. PT eval was pending during this LIGHT FIXTURE SERVICER's visit to ICU this morning. Following closely. BRANDON Original Note: DCP Assessment Note: Pt is a 78 yo female, resident of [place] and patient of Dr Hester. Pt admitted after a GLF at home and found down for two days. Insurance is Medicare. Holding DCP assessment today, pt scheduled in the OR to repair hip. Pt's baseline and DCP options TBD. Following closely. ANA Miranda Discharge Planning/Care Management CM Discharge Assessment Start: 06/22/18 15:41 Freq: Status: Active Protocol: Document 06/22/18 15:41 BRANDON (Rec: 06/22/18 15:53 BRANDON [id number]) Discharge Planning Assessment Assigned Validation Intern ANA Jiang DPOA/Assigned Designee Name jaylyn Vaughan Contact Information [phone] Advance Directives? No Advance Directives on File No History Provided By Patient Medical Record Prior Living Arrangements House Household Members spouse Type of transporation used prior to Drives own vehicle admit Independent with ADL's Yes: According to prior notes Is patient alert and oriented? Yes: According to prior notes Comment Surgery today, will f/u w/pt and spouse Tuesday to complete assessment and discuss DCP options. Comment ETOH up to admit, amount of use unknown. CIWA protocal Barriers to Discharge Yes Comment ETOH w/ h/o falls and fractures. Admits to drinking before her fall off the toilet , down for two days. Hip surgery today, likely require SNF if pt agreeable. Discharge Plan [facility] Additional Comment Pending further assessment after hip surgery. Inpatient Status as of 06/21/18 Comment Will likely need SNF after surgery. Will assess further Whiteboard Updated in Patient Room with Yes name and ext. # of Validation Intern Review Status In Process
[2018-06-22] MEDS: CEFAZOLIN 2 GM/100 ML FROZ.PIGGY IV (16:51)
--- NOTE | 2018-06-22 18:48 | P.OP_ITS ---
Operative Date/Time/Diagnoses Date of procedure: 06/22/18 Time of procedure: 17:44 Pre-op diagnosis: left femur intertrochanter fracture Post-op diagnosis: same Procedure & Clinicians Procedure: Left femur open reduction internal fixation with intramedullary nailing Same procedure as scheduled: Yes Indications: Ms. Kent had a fall from standing and sustained displaced left femur intertrochanteric fracture. After discussing risks benefits of treatment options, patient elected proceed with surgical treatment. Surgeon: Hiram Tovar Click Yes if Unassisted: Yes Anesthesia Type: General Operative Notes Closure Type: primary Specimen(s): none sent Implants & Drains: Synthes TFN nail Applied: catheter Estimated Blood Loss (mL): 50 Blood products transfused: none Procedure in detail: Patient was seen in the preoperative area. Risks and benefits of the surgery was discussed with the patient. Informed consent was obtained from the patient and placed in the chart. Surgical site was marked. Patient was taken to the operative room. General anesthesia was administered. Prophylactic antibiotic was given to the patient less than 30 min before the incision was made. Patient was placed into a supine position on the fracture table. Patient's hip was then prepped and draped in the sterile fashion. Time- out was performed at this time. Using the fracture table, a closed reduction maneuver was performed to the left proximal femur fracture. This was done by distracting internally rotating and adducting the left hip. After the fracture reduction was completed and confirmed with AP and lateral C-arm imaging, Patient's hip was then prepped and draped in the sterile fashion. A 3 in incision just proximal to the greater trochanter was made on the lateral aspect of the patient's hip. Starting guidewire was inserted through the incision onto the greater trochanter. The guidewire was driven into the intramedullary canal and confirmed with AP and lateral C-arm imaging. The canal opening Reamer was used to open the canal from the proximal to distal fashion. A 11 mm 130 degree synthes TFN nail was assembled on the back table and inserted into the mid intramedullary canal from a proximal distal fashion. The lateral targeting guide was used to place the cephalomedullary device by placing a lateral incision after targeting guide was used to measure the location of the incision. The fascia was incised in line with skin incision the targeting guide was inserted and docked onto the lateral aspect of the lateral cortex of the proximal femur and a guidewire was drilled through the lateral cortex into the femoral head through the femoral neck in the center location on both AP and lateral imaging. Depth gauge was used to measure the length of the cephalomedullary device a 90 mm cephalomedullary piece was chosen and placed through the lateral cortex into the femoral head through the IM nail. A distal locking screw was then placed using the same targeting guide after drilling in bicortical fashion. Depth gauge was used to measure the length. 38 mm screw was inserted. After all the hardware was placed, AP and lateral C-arm imaging was used to confirm placement of the hardware and reduction of the fracture. Good placement of the hardware and good reduction of the fracture was confirmed. The wound was then irrigated with sterile normal saline. The deep fascia was closed with 1-0 Vicryl, subcutaneous tissue was closed with 2-0 Vicryl and skin was closed with skin meet. Sterile dressing was applied the patient's skin and patient was woken up from sedation and transferred to recovery room stable condition. Complications: none Condition: stable Disposition: ICU Plan for aftercare: Admit to ICU for a-fib management
[2018-06-22] MEDS: LACTATED RINGERS 1,000 ML 125 ML IV (19:00)
[2018-06-22] MEDS: HYDROMORPHONE 2 MG INJ 0.5 MG IV ×2 (20:42→22:56)
--- NOTE | 2018-06-22 20:44 | PC.NURSE ---
Addendum entered by Antoinette Myrick R.N. 06/22/18 23:01: 2240 - Pt awake calm and pleasant. Able to talk about her dogs. Able to follow directions. Allowing a new IV to be placed in left forearm. Pt states that her leg hurts, and again asking were her bottle of beer went. IV diluadid given for pain. Cardizem gtt reinitated at 5 mg/hr. BP on right ankle 140/95 hr 119. Set up for sips of water. Agreeable to have NC replaced at 2L. Original Note: Addendum entered by Antoinette Myrick R.N. 06/22/18 22:14: 2200 - Pt continues to be agitated. Thinking that we are trying to kill her, also repeatedly asking for a beer, or anything we have to drink. Pt pulling at tubes and wires. Dislodged both wrist IV's that were secured with coban and gauze wraps. HR 120's elevating intermittently to the 140's during increased agitation. Pt stating that she wants to go home and go to bed. Pinching and attempting to scratch staff. 4 staff members in room attempting to maintain lines and prevent pt injury. Dr. Church notified. Orders obtained. UE pre-operatively with multiple scattered bruises and skin tears, increasing with restlessness and agitation. Pt not allowing for any time drsg, repeatedly picking at skin and dressing. Original Note: 1829 - Pt arrived from OR. Drowsy. O2 sats on cool fingers in the 80's on RA. Heart rate with pulse ox correlating with nurse behavioral health care. Place on NC, sats remain below 90%. Placed on Non-rebreather encouraging pt to deep breath and cough. Weak moist cough, snoring-type breathing. Pt disoriented to place and situation. brand strategist showing a-fib. Anesthesiologist reports Cardizem gtt was off in OR, pt currently hypertensive. Awaiting transfer orders. Clarified orders with Dr. Tovar. Dr. Tovar request clarification of rate control medication be review with hospitalist. 2014 - Dr. Church notified of pt current vital signs, reviewed medications. Also notified that pt is confused and paranoid, Pt states that we are trying to poison her and that she needs to go home. Pt refusing to take po meds, you are trying to put a spell on me. Calling out Leave me alone. 2039 - Restarted Cardizem gtt at 5mg. Pt restless and anxious. Pulling at tubes and wires. HR 110-120, BP 151/77. Pt reports being in pain. Attempt to reorient to place and situation pt states, Why are you trying to kill me? Pt dislodged IV to right wrist. Unable to remove IV at this time r/t agitation. 2099 - BP on right LE. 168/109, HR 125. Pt continues to be agitated. one on one at this time to maintain current IV.
[2018-06-22] MEDS: LORazepam 2 MG/ML SYRINGE 1 MG IM (22:20)
[2018-06-23] VITALS (11 sets, daily range): BP systolic 106–144; BP diastolic 48–89; PULSE 65–120; RESP 12–27; TEMP 36.2–36.4; O2SAT 90–98
[2018-06-23] MEDS: CLINDAMYCIN 900 MG/50 ML PIGGYBACK 50 MG IV ×2 (01:15→09:20)
[2018-06-23] MEDS: LACTATED RINGERS 1,000 ML 125 ML IV ×3 (02:47→19:55)
[2018-06-23] MEDS: HYDROMORPHONE 2 MG INJ 0.5 MG IV ×2 (03:39→13:52)
[2018-06-23 05:37] LABS: Hematocrit 30.3 % (36-46); Hemoglobin 10.2 g/dL (12.0-16.0); Mean Corpuscular HGB Conc 33.8 % (30-36); Mean Corpuscular Volume 100.7 fL (80-100); Platelet Count 198 X10^3/uL (150-400); Red Blood Cell Count 3.01 X10^6/uL (4.0-5.2); Red Cell Distribution Width 13.6 % (11.6-14.8); White Blood Cell Count 10.9 X10^3/uL (4.5-11.0)
[2018-06-23] MEDS: METOPROLOL 50 MG TABLET 100 MG PO ×2 (08:10→21:46)
[2018-06-23] MEDS: OXYCODONE IR 5 MG TABLET PO (08:10)
[2018-06-23] MEDS: ENOXAPARIN 40 MG/0.4 ML SYRINGE SUBCUT (08:11)
[2018-06-23] MEDS: dilTIAZem CD 120 MG CAP PO (08:11)
[2018-06-23] MEDS: CITALOPRAM 20 MG TABLET PO (08:11)
[2018-06-23] MEDS: dilTIAZem CD 180 MG CAP PO (08:12)
[2018-06-23] MEDS: FUROSEMIDE 20 MG TABLET PO (08:12)
--- NOTE | 2018-06-23 10:40 | PT.IIE ---
Current Diagnoses Alcohol dependence with withdrawal, unspecified (06/21/18) Essential (primary) hypertension (06/21/18) Unspecified atrial fibrillation (06/21/18) Age-related osteoporosis without current pathological fracture (06/21/18) Urinary tract infection, site not specified (06/21/18) Fracture of unspecified part of neck of left femur, initial encounter for closed fracture (06/21/18) Surgery Performed Operation Date: 06/22/18 16:45 Actual Procedures p Hip IMN(Left) - Hiram Tovar MD Surgical History (Last Reviewed 06/21/18 @ 19:54 by Natalie Black MD) History of bowel resection (Acute) Medical History (Last Reviewed 06/21/18 @ 19:54 by Natalie Black MD) Chronic atrial fibrillation (Acute) History of alcohol dependence (Acute) Hypertension (Acute) Nicotine dependence with current use (Acute) Physical Therapy Inpatient Evaluation/Re-Eval M1 PT/OT-IP Prior Functional Status Start: 06/23/18 14:30 Freq: NEEDED Status: Active Protocol: Document 06/23/18 10:40 AB (Rec: 06/23/18 14:45 AB [id number]) Medical Review Prior Functional Status Medical History Reviewed Yes Communication able to make needs know but pt is with confusion Mobility and Gait stated that she is modified independent with all mobilities and ambulation without AD Social History Household Members spouse Living Arrangements House Number of Floors (Floors) One Floor Number of Stairs To Enter/Railing? no steps to enter Home Environment Standard Height Toilet Walk in Shower Home Equipment Four Wheel Walker Shower Seat without Backrest Hand Held Shower Grab Bars In Shower Employment Status Retired M2 PT-IP Current Condition Start: 06/23/18 14:30 Freq: NEEDED Status: Active Protocol: Document 06/23/18 10:40 AB (Rec: 06/23/18 14:45 AB [id number]) Physical Therapy Current Condition Current Condition Evaluation Date 06/23/18 Treatment Diagnosis s/p L hip ORIF with intramedullary nailing; difficulty in walking Onset Date 06/22/18 Weight Bearing Status Weight Bearing Status Touch Down Weight Bearing M3 PT-IP Subjective Start: 06/23/18 14:30 Freq: NEEDED Status: Active Protocol: Document 06/23/18 10:40 AB (Rec: 06/23/18 14:45 AB [id number]) Subjective Physical Therapy Visit Type Type Initial Evaluation Visit Start Time 10:40 Visit Stop Time 12:03 Total Visit Minutes 83 Number of LOSS PREVENTION LEAD Visits 0 Therapy Pain Assessment Pain When Pain Assessed During Mobility Pain Present Pain Present Pain Reported Location Left Hip Scale Used pain scale not stated Pain Behaviors Guarding Pain Management Techniques Re-positioning Timing of Activity with Medications M4 PT-IP Mobility and Gait Start: 06/23/18 14:30 Freq: NEEDED Status: Active Protocol: Document 06/23/18 10:40 AB (Rec: 06/23/18 14:45 AB [id number]) PT-Bed Mobility Assessment Rolling Level of Assist Maximal Assistance 2 Person Assistance Supine to Sit Supine to Sit Total Assistance Bedrails Sit to Supine Sit to Supine Total Assistance 2 Person Assistance Scooting Scooting to Edge of Bed Dependent PT-Transfer Assessment Sit to and From Stand Sit to and from Stand Maximum Assistance Total Assistance 2 Person Assistance Use of Upper Extremities Equipment Transfer Assistive Device Gait Belt Front Wheeled Walker Orthotic/Prosthetic Devices or Brace: No Transfers Transfer Destination Chair Transfer Technique Stand Pivot Transfer Ability Level of Assist Maximum Assistance Total Assistance 2 Person Assistance Use of Upper Extremities Comments Mobility Comments pt required several attempts for si to stand needing 2person max to total A and another person to maintain NWB on LLE. pt is touch down wt bearing per ortho doctor's order but pt unable to maintain and follow weight bearing restriction and PT opted to just do NWB for safety. Gait Assessment Comments Gait Comments unable at this time PT-Balance Assessment Sitting Balance and Reactions Static Sitting Balance Ability Fair Dynamic Sitting Balance Ability Fair Standing Balance and Reactions Static Standing Balance Ability Poor Dynamic Standing Balance Ability Poor Device Used FWW M5 PT-IP Objective Assessments Start: 06/23/18 14:30 Freq: NEEDED Status: Active Protocol: Document 06/23/18 10:40 AB (Rec: 06/23/18 14:45 AB [id number]) Orientation Orientation/Cognition Level of Alertness Confusional State Orientation Name Safety Awareness Decreased Safety Awareness Memory Description Short Term Impaired Custodial Impaired Gross Range of Motion Lower Extremity ROM Assessment Left Impaired Impairments pain and tightness limiting mobility on LLE Strength Lower Extremity Strength Assessment Bilaterally Impaired M6 PT-IP Treatment Start: 06/23/18 14:30 Freq: NEEDED Status: Active Protocol: Document 06/23/18 10:40 AB (Rec: 06/23/18 14:45 AB [id number]) Physical Therapy Treatment Education Education Provided Precautions Weight Bearing Status Post-Op Packet Safety M7 PT-IP Assessment and Plan Start: 06/23/18 14:30 Freq: NEEDED Status: Active Protocol: Document 06/23/18 10:40 AB (Rec: 06/23/18 14:45 AB [id number]) PT Summary Assessment and Plan Potential Rehabilitation Potential Fair Status of Condition at Evaluation Evolving Summary Impairments Pain ROM Strength Balance Coordination Sensation Tone Cognition Bed Mobility Transfers Gait Activity Tolerance Assessment Summary pt requiring extensive assist x 2-3 person for mobility and will require SNF rehab to improve strength and function. Goals Bed Mobility Goal Moderate Assistance Transfer Goal Moderate Assistance Front Wheeled Walker Gait Goal Moderate Assistance Front Wheel Walker Gait Distance 20 Days to Meet Goals 5 Frequency of Treatment Frequency Of Treatment Twice a Day Treatment Plan Physical Therapy Treatment Plan Bed Mobility Training Transfer Training Gait Training Therapeutic Exercise Balance Retraining Post Op Education Discharge Planning Hot or Cold Pack Neuromuscular Re-ed Coordination Retraining Manual Therapy Recommendations To Nursing Amount of Assist Needed 3 or More Person Assist Mechanical Lift Discharge Recommendations PT Discharge Recommendations SNF Rehab
--- NOTE | 2018-06-23 10:58 | PM.PNPO.1 ---
Subjective Date Patient Seen: 06/23/18 Time Patient Seen: 10:58 Interval history: Patient is HS 2, PD 1. S/P ORIF left hip for intertrochanteric fracture. Nurse on duty would like oxycodone 10mg ordered for patient if needed. She has oxycodone 5 mg for pain and dilaudid for breakthrough pain which in combo is making her too drowsy. PT will work with her today. In ICU to monitor AFib. Under hospitalist service. 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 In bed. A&O x3. Appears comfortable. Reid in. Ecchymosis in left shoulder. Able to move Left UE without problems. Left hip dressing CDI. Mod swelling in left thigh. 5/5 left ankle strength. NV status intact. Prosper calves soft and nontender. Objective Labs Result Diagrams: 06/23/18 04:37 06/22/18 06:00 Labs: Laboratory Results - last 24 hr 06/23/18 04:37 WBC 10.9 RBC 3.01 L Hgb 10.2 L Hct 30.3 L MCV 100.7 H D MCH 34.0 MCHC 33.8 RDW 13.6 Plt Count 198 Assessment & Plan Post-op Postoperative Procedures Operation Date: 06/22/18 16:45 Actual Procedures Side Surgeon p Hip IMN Left Hiram Tovar MD PD 1. Oxycodone 10mg q3h prn ordered as needed. Ambulate with PT, Toe touch WTB. D/C reid when more mobile. DVT prophylaxis. May need SNF. Quality VTE Deep Vein Thrombosis/Pulmonary Embolism Present on Admission: No
[2018-06-23] MEDS: OXYCODONE IR 5 MG TABLET 10 MG PO ×3 (11:17→21:58)
--- NOTE | 2018-06-23 13:21 | PC.NURSE ---
Addendum entered by Felton Markham R.N. 06/23/18 15:27: Pt c/o urinary urgency. Decreased UOP this shift. Currently receiving LR bolus. Irrigated reid per aseptic technique with 60ml of SNS. Reid flushed easily and drained back yellow tinged fluid of 60 ML. Plan to bladder scan. Reported to oncoming RN. Original Note: Addendum entered by Felton Markham R.N. 06/23/18 14:04: Dr. Hester rounded. Reported low UOP. Orders received for IVF bolus. Reviewed Urine Cx sensitivity and abx with respect to allergies. Clarified ICU status vs floor care status. VORB for floor care with tele. Original Note: Pt forgetful at times. Can you help me move some of these things? I need to go home. Pt is reoriented very easily and then able to recall yesterdays events with minimal cues. Denies hallucinations/delusions. No tremors, sweats, or tactile/auditory disturbances. CIWA rating 3. C/o L hip pain relieved by oxycodone administration, rest, and ice. Pt intermittently pulls of nasal cannula and desats to 85%. With reapplication, SPO2 remains 95% and greater. Up to chair with physical therapy requiring extensive assistance. PT only for transfers or with use of mech lift. Pt is using call light appropriately.
--- NOTE | 2018-06-23 13:29 | PM.PN.1 ---
Subjective Date Patient Seen: 06/23/18 Time Patient Seen: 13:29 Interval history: Patient waking and somewhat sleepy this morning. Had a rough day yesterday. No pain today. Overall feeling well. Knows where she is. No other changes. Exam Vital Signs (past 8 hours): - 06/23/18 06:00 06/23/18 08:00 06/23/18 12:27 Temperature 97.2 F L 97.4 F L 97.6 F Pulse Rate 94 H 102 H 93 H Respiratory Rate 27 H 21 16 Blood Pressure 110/54 L 136/65 129/88 Pulse Oximetry 97 96 94 Oxygen Delivery Method Nasal Cannula Oxygen Flow Rate 2 Narrative Exam Narrative: Alert fatigued elderly female no acute distress. Pupils are equal response to light. Mucous membranes moist. Neck supple without adenopathy. Lungs are clear. Heart regular rhythm with moderately well controlled rate. Abdomen is soft positive bowel sounds nontender. Extremities with multiple bruises but no definitive abnormality. Left elbow with 10 cm eschar area no signs of infection nontender. Neurologic exam nonfocal. Does alert and oriented x3. Objective Labs Result Diagrams: 06/23/18 04:37 06/22/18 06:00 Labs: Laboratory Results - last 24 hr 06/23/18 04:37 WBC 10.9 RBC 3.01 L Hgb 10.2 L Hct 30.3 L MCV 100.7 H D MCH 34.0 MCHC 33.8 RDW 13.6 Plt Count 198 Assessment & Plan Plan: Assessment/Plan Narrative: Alcoholism. On CIWA protocol. Will watch today closely this should be the worst day of all if this is going to be and will follow from there. We will discuss treatment with patient tomorrow. Atrial fibrillation. Rate control moderately good will switch to orals today and follow from there. Urinary tract infection. Will follow culture currently culture not available for February. Hypertension. Stable. Will follow. Depression. Continue current meds. Intratrochanteric hip fracture left side. Stable. Lead as per orthopedist. Disposition. I suspect this will be a few more days. Get together clear and then follow from there. Will probably need residential placement will see how things go. Quality VTE Deep Vein Thrombosis/Pulmonary Embolism Present on Admission: No
--- NOTE | 2018-06-23 13:30 | PT.IPTN ---
Current Diagnoses Alcohol dependence with withdrawal, unspecified (06/21/18) Essential (primary) hypertension (06/21/18) Unspecified atrial fibrillation (06/21/18) Age-related osteoporosis without current pathological fracture (06/21/18) Urinary tract infection, site not specified (06/21/18) Fracture of unspecified part of neck of left femur, initial encounter for closed fracture (06/21/18) Surgery Performed Operation Date: 06/22/18 16:45 Actual Procedures p Hip IMN(Left) - Hiram Tovar MD Physical Therapy Treatment Note M2 PT-IP Current Condition Start: 06/23/18 14:30 Freq: NEEDED Status: Active Protocol: Document 06/23/18 10:40 AB (Rec: 06/23/18 14:45 AB [id number]) Physical Therapy Current Condition Current Condition Evaluation Date 06/23/18 Treatment Diagnosis s/p L hip ORIF with intramedullary nailing; difficulty in walking Onset Date 06/22/18 Weight Bearing Status Weight Bearing Status Touch Down Weight Bearing M3 PT-IP Subjective Start: 06/23/18 14:30 Freq: NEEDED Status: Active Protocol: Document 06/23/18 13:30 AB (Rec: 06/23/18 14:58 AB [id number]) Subjective Physical Therapy Visit Type Type Treatment Note Visit Start Time 13:30 Visit Stop Time 13:45 Total Visit Minutes 15 Number of APPLICATION ENGINEER Visits 0 Therapy Pain Assessment Pain When Pain Assessed During Mobility Pain Present Pain Present Pain Reported Location Left Hip Scale Used pain scale not stated Pain Management Techniques Re-positioning M4 PT-IP Mobility and Gait Start: 06/23/18 14:30 Freq: NEEDED Status: Active Protocol: Document 06/23/18 13:30 AB (Rec: 06/23/18 14:58 AB [id number]) PT-Bed Mobility Assessment Sit to Supine Sit to Supine Total Assistance 2 Person Assistance Bedrails Scooting Scooting to Edge of Bed Dependent PT-Transfer Assessment Sit to and From Stand Sit to and from Stand Maximum Assistance Total Assistance 2 Person Assistance Use of Upper Extremities Equipment Transfer Assistive Device Gait Belt Front Wheeled Walker Orthotic/Prosthetic Devices or Brace: No Transfers Transfer Destination Bed Transfer Technique Stand Pivot Transfer Ability Level of Assist Maximum Assistance Total Assistance 2 Person Assistance Use of Upper Extremities Comments Mobility Comments pt required assist to maintain NWB on LLE. completed stand pivot transfer using FWW with 2 person max to total A and another person support LLE for NWB. M5 PT-IP Objective Assessments Start: 06/23/18 14:30 Freq: NEEDED Status: Active Protocol: Document 06/23/18 10:40 AB (Rec: 06/23/18 14:45 AB [id number]) Orientation Orientation/Cognition Level of Alertness Confusional State Orientation Name Safety Awareness Decreased Safety Awareness Memory Description Short Term Impaired Ballast Cleaning Machine Operator Impaired Gross Range of Motion Lower Extremity ROM Assessment Left Impaired Impairments pain and tightness limiting mobility on LLE Strength Lower Extremity Strength Assessment Bilaterally Impaired M6 PT-IP Treatment Start: 06/23/18 14:30 Freq: NEEDED Status: Active Protocol: Document 06/23/18 10:40 AB (Rec: 06/23/18 14:45 AB [id number]) Physical Therapy Treatment Education Education Provided Precautions Weight Bearing Status Post-Op Packet Safety M7 PT-IP Assessment and Plan Start: 06/23/18 14:30 Freq: NEEDED Status: Active Protocol: Document 06/23/18 13:30 AB (Rec: 06/23/18 14:58 AB [id number]) PT Summary Assessment and Plan Potential Rehabilitation Potential Fair Summary Impairments Pain ROM Strength Balance Coordination Sensation Cognition Bed Mobility Transfers Gait Activity Tolerance Assessment Summary pt continues to require 2 person max A to total A with transfers and bed mobility. pt will require SNF rehab to improve strength and mobility. Goals Bed Mobility Goal Moderate Assistance Transfer Goal Moderate Assistance Front Wheeled Walker Gait Goal Moderate Assistance Front Wheel Walker Gait Distance 20 Days to Meet Goals 5 Frequency of Treatment Frequency Of Treatment Twice a Day Treatment Plan Physical Therapy Treatment Plan Bed Mobility Training Transfer Training Gait Training Therapeutic Exercise Balance Retraining Post Op Education Discharge Planning Hot or Cold Pack Neuromuscular Re-ed Coordination Retraining Manual Therapy Recommendations To Nursing Amount of Assist Needed 3 or More Person Assist Mechanical Lift Discharge Recommendations PT Discharge Recommendations SNF Rehab
[2018-06-23] MEDS: LACTATED RINGERS 1,000 ML 500 ML IV (14:14)
[2018-06-23] MEDS: MOXIFLOXACIN HCL 400 MG TABLET PO (14:14)
[2018-06-23] MEDS: MIRTAZAPINE 15 MG TABLET PO (21:46)
--- NOTE | 2018-06-23 22:40 | PC.NURSE ---
Pt awake, HS care and repositioning. Snack of pudding provided. Pt with sats in the 80's on 3L. Assist with I.S. weak response. Vol. 500. O2 increased to 4L NC, pt is primarily a mouth breather. Urine output 100cc, pt denies pressure. BP 125/69 HR 95. Positioned for comfort. Refusing SCD's. Call light in reach. [id number] - paged to notify of low urine output.
[2018-06-24] VITALS (15 sets, daily range): BP systolic 95–123; BP diastolic 45–80; PULSE 71–97; RESP 14–95; TEMP 35.9–37.2; O2SAT 18–96
--- NOTE | 2018-06-24 | DI.RAD.S_ITS ---
PROCEDURE: XR CHEST 1V INDICATIONS: increase O2 TECHNIQUE: One view of the chest was acquired. COMPARISON: [facility], CR, XR CHEST 1V, 06/21/2018, 11:25. FINDINGS: Surgical changes and devices: None. Lungs and pleura: Bilateral airspace infiltrates, right and left, consistent with pneumonia. Compared to the last exam on 06/21/2018, airspace opacities are increased in left lung and new in right lung. No pleural effusions or pneumothorax. Mediastinum: Mediastinal contours appear normal. Heart size is normal. Bones and chest wall: No suspicious bony lesions. Overlying soft tissues appear unremarkable. IMPRESSION: Worsening of left pneumonia and new right pneumonia. Dictated by: Amanda Castaneda M.D. on 06/24/2018 at 11:20 Approved by: Amanda Castaneda M.D. on 06/24/2018 at 11:21
[2018-06-24] MEDS: LORazepam 2 MG/ML SYRINGE 1 MG IV (00:28)
[2018-06-24] MEDS: OXYCODONE IR 5 MG TABLET PO ×2 (01:09→21:04)
[2018-06-24] MEDS: ONDANSETRON 4 MG ODT PO (01:12)
[2018-06-24] MEDS: LACTATED RINGERS 1,000 ML 125 ML IV (03:48)
[2018-06-24 05:27] LABS: Add Manual Diff / Slide Review NO; Basophils Percent Auto 0.1 % (0-2); Eosinophils Percent Auto 0.1 % (2-4); Hematocrit 28.3 % (36-46); Hemoglobin 9.8 g/dL (12.0-16.0); Lymphocytes Percent Auto 6.9 % (25-40); Mean Corpuscular HGB Conc 34.6 % (30-36); Mean Corpuscular Hemoglobin 34.6 PG (26-34); Monocytes Percent Auto 6.5 % (3-14); Neutrophils Absolute Auto 15300 /uL (3000-5900); Neutrophils Percent Auto 86.4 % (50-75); Platelet Count 207 X10^3/uL (150-400); Red Blood Cell Count 2.83 X10^6/uL (4.0-5.2); Red Cell Distribution Width 13.2 % (11.6-14.8); White Blood Cell Count 17.7 X10^3/uL (4.5-11.0)
[2018-06-24 05:31] LABS: Blood Urea Nitrogen 23 mg/dL (7-17); Calcium 8.8 mg/dL (8.4-10.2); Carbon Dioxide 26 mmol/L (22-32); Chloride 103 mmol/L (98-107); Estimated Glomerular Filt Rate 53.6 mL/min (>60); Glucose 112 mg/dL (80-110); HEMOLYSIS < 15 (0-50); Potassium 4.1 mmol/L (3.4-5.1); Sodium 135 mmol/L (137-145)
--- NOTE | 2018-06-24 07:20 | PC.NURSE ---
NOC Shift: Pt awake, confused hallucinating seeing boats, family in room. CIWA 6 to 11. VSS, Afib on tele. Having trouble clearing secretions and decreased sats. RT notified to increase O2 with [place] NC, assess. IVF's continue, urine output adaquate, reid catheter advanced. Left hip dsg CDI. Floor care/tele.
[2018-06-24] MEDS: METOPROLOL 50 MG TABLET 100 MG PO ×2 (08:30→21:05)
[2018-06-24] MEDS: FUROSEMIDE 20 MG TABLET PO (08:30)
[2018-06-24] MEDS: MOXIFLOXACIN HCL 400 MG TABLET PO (08:30)
[2018-06-24] MEDS: CITALOPRAM 20 MG TABLET PO (08:30)
[2018-06-24] MEDS: dilTIAZem CD 180 MG CAP PO (08:31)
[2018-06-24] MEDS: dilTIAZem CD 120 MG CAP PO (08:31)
[2018-06-24] MEDS: ALBUTEROL/IPRATROPIUM 3 ML AMPUL INH ×4 (08:33→21:15)
--- NOTE | 2018-06-24 09:59 | PM.PN.1 ---
Subjective Date Patient Seen: 06/24/18 Time Patient Seen: 09:59 Interval history: Patient groggy this morning but alert and oriented. Otherwise had a better night but was hallucinating yesterday. O2 requirement has been increasing over the last 24 hr. He did have Respiratory therapy in this morning and seemed to help. Patient not complaining of any chest pain headaches visual changes numbness or tingling. Overall pain control is good. Exam Vital Signs (past 8 hours): - 06/24/18 04:22 06/24/18 04:43 06/24/18 08:00 Temperature 97.9 F 97.9 F Pulse Rate 79 97 H Respiratory Rate 17 14 Blood Pressure 106/59 L 123/60 Pulse Oximetry 89 L 92 87 L 06/24/18 08:47 Temperature Pulse Rate Respiratory Rate Blood Pressure Pulse Oximetry 91 Oxygen Delivery Method High Flow Nasal Cannula Oxygen Flow Rate 8 Narrative Exam Narrative: Alert elderly female in no acute distress Eyes are equal posterior pharynx was normal mucous membranes moist neck supple without adenopathy lungs show diffuse expiratory wheeze and crackles no retractions. Heart irregular rhythm with no murmurs clicks rubs or gallops. Controlled rate. Abdomen is soft positive bowel sounds nontender. Extremities without cyanosis clubbing edema. Objective Labs Result Diagrams: 06/24/18 04:49 06/24/18 04:49 Labs: Laboratory Results - last 24 hr 06/24/18 06/24/18 04:49 04:49 WBC 17.7 H D RBC 2.83 L Hgb 9.8 L Hct 28.3 L MCV 100.0 MCH 34.6 H MCHC 34.6 RDW 13.2 Plt Count 207 Neut % (Auto) 86.4 H Lymph % (Auto) 6.9 L [place] % (Auto) 6.5 Eos % (Auto) 0.1 L Baso % (Auto) 0.1 Neut # (Auto) 49731 H Sodium 135 L Potassium 4.1 Chloride 103 Carbon Dioxide 26 BUN 23 H Creatinine 1.00 Estimated GFR 53.6 L BUN/Creatinine Ratio 23.0 H Glucose 112 H Calcium 8.8 Assessment & Plan Plan: Assessment/Plan Narrative: Increased oxygen requirement. Possible pneumonia. Borderline coverage of staph in urine will add vancomycin. Moxifloxacin should give us good coverage was going to switch to Rocephin but she is allergic will hold for now but may need to increase coverage depending on how things go. Chest x-ray today. We will obtain BNP. Give Lasix 20 mg with increased weight and decreased urine output. Not helping us that she is having to require benzodiazepines for respiratory depression. Will continue respiratory therapy and re-evaluate in the next few hours. Atrial fibrillation. Overall appears to be stable. On orals. We will follow. Alcoholic withdrawal. Still having some issues. Hopefully today will be the last day will have to aggressively treat and can slowly pull benzodiazepines which should help her respiratory status or ability to move. Urinary tract infection. Now on Vanco and moxifloxacin should be covered. Discussed with pharmacist. Hypertension stable. Intertrochanteric hip fracture left side stable. As per orthopedist. Depression. Stable. Disposition. Pretty sick at this time. Seems to be slightly worse. I discussed with . Certainly in a bad combination of needing to give respiratory depressants in the time when she needs her respiratory status improved. Hopefully antibiotics which will help. Will follow and re-evaluate. Biggest issue right now is also fluid status. If can't get an idea of where we are will need lat[place] [employer] studies professor. understands. Questions answered. Certainly will be a few days. Quality VTE Deep Vein Thrombosis/Pulmonary Embolism Present on Admission: No
[2018-06-24] MEDS: ENOXAPARIN 100 MG/ML SYRINGE 75 MG SUBCUT (10:25)
[2018-06-24] MEDS: FUROSEMIDE 20 MG/2 ML VIAL IV (10:25)
[2018-06-24] MEDS: VANCOMYCIN 1,000 MG/200 ML FROZ.PIGGY 200 MG IV (11:39)
--- NOTE | 2018-06-24 11:52 | OT.IP.TRT ---
Current Diagnoses Alcohol dependence with withdrawal, unspecified (06/21/18) Essential (primary) hypertension (06/21/18) Unspecified atrial fibrillation (06/21/18) Age-related osteoporosis without current pathological fracture (06/21/18) Urinary tract infection, site not specified (06/21/18) Fracture of unspecified part of neck of left femur, initial encounter for closed fracture (06/21/18) Surgery Performed Operation Date: 06/22/18 16:45 Actual Procedures p Hip IMN(Left) - Hiram Tovar MD Occupational Therapy Treatment Note M3 OT- IP Subjective and Pain Start: 06/24/18 11:46 Freq: Status: Active Protocol: Document 06/24/18 11:47 [facility] (Rec: 06/24/18 11:51 [facility] [id number]) OT- Subjective Occupational Therapy Visit Type Type Patient Unavailable Notes Pt on HOLD due to medical issues, to reattempt OT eval when pt medically stable.
--- NOTE | 2018-06-24 12:10 | PM.PNPO.1 ---
Subjective Date Patient Seen: 06/24/18 Time Patient Seen: 12:11 Interval history: Pt is HD 3, PD 2. S/P Left hip ORIF for intertrochanter fracture by Dr. Tovar. Patient is on nasal O2 for depressed respiratory status to pneumonia. Is receivng IV antibiotics and Lasix. Exam Vital Signs (past 8 hours): - 06/24/18 04:22 06/24/18 04:43 06/24/18 08:00 Temperature 97.9 F 97.9 F Pulse Rate 79 97 H Respiratory Rate 17 14 Blood Pressure 106/59 L 123/60 Pulse Oximetry 89 L 92 87 L 06/24/18 08:47 06/24/18 12:00 Temperature 97.8 F Pulse Rate 88 Respiratory Rate 21 Blood Pressure 121/66 Pulse Oximetry 91 91 Oxygen Delivery Method High Flow Nasal Cannula Oxygen Flow Rate 8 Narrative Exam Narrative: Pt in bed. Very groggy. Cannot really follow commands. Appears comfortable. Left hip dressing CDI. Mod swelling in left thigh. Prosper calves soft and nontender. Cas[place] in. Objective Labs Result Diagrams: 06/24/18 04:49 06/24/18 04:49 Labs: Laboratory Results - last 24 hr 06/24/18 06/24/18 06/24/18 04:49 04:49 04:49 WBC 17.7 H D RBC 2.83 L Hgb 9.8 L Hct 28.3 L MCV 100.0 MCH 34.6 H MCHC 34.6 RDW 13.2 Plt Count 207 Neut % (Auto) 86.4 H Lymph % (Auto) 6.9 L [place] % (Auto) 6.5 Eos % (Auto) 0.1 L Baso % (Auto) 0.1 Neut # (Auto) 89773 H Sodium 135 L Potassium 4.1 Chloride 103 Carbon Dioxide 26 BUN 23 H Creatinine 1.00 Estimated GFR 53.6 L BUN/Creatinine Ratio 23.0 H Glucose 112 H Calcium 8.8 B-Natriuretic Peptide 343.0 H Assessment & Plan Post-op Postoperative Procedures Operation Date: 06/22/18 16:45 Actual Procedures Side Surgeon p Hip IMN Left Hiram Tovar MD PD 2. Continue DVT prophylaxis. PT with TTWTB when able. Medical issues being managed by Family. Continue pain med as needed. Continue IV abx for pnuemonia. May need SNF when medically stable. Quality VTE Deep Vein Thrombosis/Pulmonary Embolism Present on Admission: No
--- NOTE | 2018-06-24 12:28 | PT.IPTN ---
Current Diagnoses Alcohol dependence with withdrawal, unspecified (06/21/18) Essential (primary) hypertension (06/21/18) Unspecified atrial fibrillation (06/21/18) Age-related osteoporosis without current pathological fracture (06/21/18) Urinary tract infection, site not specified (06/21/18) Fracture of unspecified part of neck of left femur, initial encounter for closed fracture (06/21/18) Surgery Performed Operation Date: 06/22/18 16:45 Actual Procedures p Hip IMN(Left) - Hiram Tovar MD Physical Therapy Treatment Note M2 PT-IP Current Condition Start: 06/23/18 14:30 Freq: NEEDED Status: Active Protocol: Document 06/23/18 10:40 AB (Rec: 06/23/18 14:45 AB [id number]) Physical Therapy Current Condition Current Condition Evaluation Date 06/23/18 Treatment Diagnosis s/p L hip ORIF with intramedullary nailing; difficulty in walking Onset Date 06/22/18 Weight Bearing Status Weight Bearing Status Touch Down Weight Bearing M3 PT-IP Subjective Start: 06/23/18 14:30 Freq: NEEDED Status: Active Protocol: Document 06/24/18 12:26 AB (Rec: 06/24/18 12:28 AB [id number]) Subjective Physical Therapy Visit Type Notes check with nurse and stated that pt will be on hold for PT for today due to decrease O2 sat and they are trying to decrease fluid out of her.
--- NOTE | 2018-06-24 12:58 | CM.DPC ---
DCP Cont: Spoke w/spouse Jake yesterday at pt's bedside, explained role. Pt sitting up, pretty groggy and difficult to understand. Gave medicare choice list for SNF, pt and spouse agreeable to SNF stay upon pt's DC. Jake would like [facility]. Encouraged a b/u choice as [facility] has been full. Jake unable to give any b/u choices yesterday but planned to talk to a few friends to get other recommendations. LM w/Jake this morning requesting call back to discuss SNF planning. LM for [facility] to give referral. DEREJE Sommers states Jake was here when Dr Hester was here and likely will not come back today. Pt will likely remain here for at least another 48 hrs, she has clinically worsened and may require a Hospitalist consult. Following closely. Still need to secure SNF. PASSR complete. Sasha Tabares, APPLICATIONS INSTRUCTOR
[2018-06-24] MEDS: methylPREDNISolone 125 MG/2 ML VIAL 60 MG IV (13:45)
[2018-06-24] MEDS: levoFLOXacin 500 MG/100 ML PIGGYBACK 100 MG IV (13:45)
[2018-06-24] MEDS: LACTATED RINGERS 1,000 ML 100 ML IV (13:50)
--- NOTE | 2018-06-24 14:44 | PC.NURSE ---
Day Shift Note Pt has exhibited increasing oxygen needs throughout shift. Initially required 8L HFNC to keep oxygen sats at 92%. Lungs coarse bilaterally with exp. wheezes and rhonchi. Wheezing improved after neb treatment given by RT. Lasix administered per MD order w/ good urine output resulting and CXR obtained. Pt confused asking who's house am I at?, unable to reorient. Did recognize , Jake. Drowsy and sleeping most of shift. Oxygen sats decreased to 68% when head put down to reposition this afternoon, very slow to recover. Currently 86% on 15L NC, RT placing on heated high flow at this time. Dr. Hester notified of the above, ABG obtained per order and repeated back to MD. Pt ICU status.
[2018-06-24 15:14] LABS: HCO3 ABG 25 mmol/L (23-27); PCO2 ABG 38.4 mmHg (35-45); PO2 ABG 48 mmHg (80-105); TCO2 ABG 26 mmol/L (23-27); pH ABG 7.42 (7.35-7.45)
[2018-06-24 15:15] LABS: Oxygen Saturation ABG 84 % (95-100)
--- NOTE | 2018-06-24 16:14 | PM.CN ---
History of Present Illness Date Patient Seen: 06/24/18 Time Patient Seen: 16:15 Chief complaint: GLF/ hip injury Reason for consult: Pneumonia and respiratory failure Requesting provider: Santiago Hester Narrative: Patient is a 78-year-old female admitted on 06/21/2018 due to left hip fracture after ground level fall. She was found down at home and apparently was on the ground for 2 days before able to get help. She had hip fracture repair the following day after admission. Her hospital course was initially complicated by chronic atrial fibrillation with RVR and acute alcohol withdrawal. Yesterday evening she became more hypoxic with significant increase in her O2 requirement up to point where today she is on 90% high-flow nasal cannula. Her arterial blood gas this afternoon showed pH 7.42, pCO2 38 and PO2 48 on 50% FiO2. Her chest x-ray on admission showed rounded left upper lobe and left mid lung densities which were apparently present on a thoracic CT in January 2018. At that time she had been admitted for pneumonia with a left pleural effusion. However her chest x-ray today shows bilateral airspace infiltrates concerning for pneumonia. Also her WBC was 16.8 on admission, down to 10.0 on June 23, and today up to 17.7 with left shift. Patient is on Levaquin and vancomycin at this time. She did have urine culture from admission which grew staphylococcal epidermidis 100,000 organisms although no bacteria and only 5-10 WBC on microscopic UA. In regards to atrial fibrillation she was initially on IV diltiazem but has been rate controlled back on her oral Cardizem and metoprolol. She had transthoracic ECHO during admission on 02/03/2018 which showed LVEF 55-60%, severe LAE, left pleural effusion. Also she has been getting IV fluids preop and postop with drop in urine output today but did put out 900 cc after 20 mg IV Lasix earlier today. Also blood pressure has been dropping. Most recent vitals with BP 95/45, pulse 75, respiration 21, sat low 90s on 90% FiO2. She has been afebrile. [facility] Medical History Chronic atrial fibrillation (Acute) History of alcohol dependence (Acute) Hypertension (Acute) Nicotine dependence with current use (Acute) Surgical History History of bowel resection (Acute) Social History household members: spouse Smoking Status: Current every day smoker alcohol intake: current Meds Home Medications Medication Instructions Recorded Confirmed Type citalopram 20 mg PO QDAY #0 10/14/17 06/21/18 History diltiazem HCl 300 mg PO QDAY #0 10/14/17 06/21/18 History metoprolol tartrate 100 mg PO BID #0 10/14/17 06/21/18 History warfarin [Coumadin] 5 mg PO QDAY #0 10/14/17 06/21/18 History mirtazapine 15 mg PO HS #0 01/31/18 06/21/18 History furosemide 20 mg PO DAILY 06/21/18 06/21/18 History Allergies Allergy/AdvReac Type Severity Reaction Status Date / Time cefuroxime [CEFUROXIME] Allergy Intermediate Verified 06/24/18 11:57 doxycycline [DOXYCYCLINE] Allergy Intermediate Verified 06/24/18 11:57 Review of Systems Review of Systems Unable to obtain due to altered mental status but nurses do mention a cough Exam Vital Signs (past 8 hours): - 06/24/18 08:47 06/24/18 12:00 06/24/18 13:11 Temperature 97.8 F Pulse Rate 88 Respiratory Rate 21 Blood Pressure 121/66 Pulse Oximetry 91 91 93 06/24/18 15:30 Temperature 98.9 F Pulse Rate 75 Respiratory Rate 75 H Blood Pressure 95/45 L Pulse Oximetry 18 L Oxygen Delivery Method High Flow Nasal Cannula Oxygen Flow Rate 10 Narrative Exam Narrative: GENERAL: Alert but confused female with labored breathing HEAD: Atraumatic. Normocephalic. EYES: Pupils equal, round and reactive. Extraocular motions intact. No scleral icterus. No injection or drainage. OROPHARYNX: Unremarkable NECK: Trachea midline. No JVD or lymphadenopathy. CARDIOVASCULAR: Regular rate and rhythm without murmurs, gallops, or rubs. RESPIRATORY: Bilateral diminished breath sounds with scattered crackles, no wheeze GASTROINTESTINAL: Abdomen nondistended, soft, non-tender. No organomegaly. EXTREMITIES: Trace to 1+ bilateral pretibial edema NEUROLOGICAL: Oriented x1 to person only, nonfocal SKIN: warm, dry, no rash Objective Imaging Chest x-ray: My impression: No cardiomegaly, bilateral airspace infiltrates, no obvious effusion Radiologist's impression: Surgical changes and devices: None. Lungs and pleura: Bilateral airspace infiltrates, right and left, consistent with pneumonia. Compared to the last exam on 06/21/2018, airspace opacities are increased in left lung and new in right lung. No pleural effusions or pneumothorax. Mediastinum: Mediastinal contours appear normal. Heart size is normal. Bones and chest wall: No suspicious bony lesions. Overlying soft tissues appear unremarkable. IMPRESSION: Worsening of left pneumonia and new right pneumonia. Labs Result Diagrams: 06/24/18 04:49 06/24/18 04:49 Labs: Laboratory Results - last 24 hr 06/24/18 06/24/18 06/24/18 04:49 04:49 04:49 WBC 17.7 H D RBC 2.83 L Hgb 9.8 L Hct 28.3 L MCV 100.0 MCH 34.6 H MCHC 34.6 RDW 13.2 Plt Count 207 Neut % (Auto) 86.4 H Lymph % (Auto) 6.9 L [place] % (Auto) 6.5 Eos % (Auto) 0.1 L Baso % (Auto) 0.1 Neut # (Auto) 08804 H ABG pH ABG pCO2 ABG pO2 ABG HCO3 ABG Total CO2 ABG O2 Saturation ABG Base Excess FiO2 Sodium 135 L Potassium 4.1 Chloride 103 Carbon Dioxide 26 BUN 23 H Creatinine 1.00 Estimated GFR 53.6 L BUN/Creatinine Ratio 23.0 H Glucose 112 H Calcium 8.8 B-Natriuretic Peptide 343.0 H 06/24/18 14:36 WBC RBC Hgb Hct MCV MCH MCHC RDW Plt Count Neut % (Auto) Lymph % (Auto) [place] % (Auto) Eos % (Auto) Baso % (Auto) Neut # (Auto) ABG pH 7.42 ABG pCO2 38.4 ABG pO2 48 L* ABG HCO3 25 ABG Total CO2 26 ABG O2 Saturation 84 L* ABG Base Excess 0.0 FiO2 0.50 Sodium Potassium Chloride Carbon Dioxide BUN Creatinine Estimated GFR BUN/Creatinine Ratio Glucose Calcium B-Natriuretic Peptide Assessment & Plan Plan: Assessment/Plan Narrative: 1. Acute hypoxic respiratory failure likely due to pneumonia: Patient developed respiratory failure in hospital. Chest x-ray with bilateral infiltrates consistent with pneumonia. She may have aspirated perioperative Robyn and also when she was heavily sedated on lorazepam for alcohol withdrawal. Differential diagnosis of pulmonary embolism less likely with these chest x-ray findings. Also dropping blood pressure and lack of improvement in saturations with IV Lasix more consistent with sepsis and pneumonia diagnosis. Current O2 requirement 90% FiO2 very concerning for patient potentially requiring intubation. However, at this time she is maintaining saturations on high-flow nasal cannula. She had significant wheezing when examined earlier by Dr. Hester and started on IV Solu-Medrol and at this time not having wheezing. Plan: Continue treatment of pneumonia as below and supportive therapy with supplemental O2 nebulizer and Solu-Medrol. 2. Probable aspiration pneumonia: Recommend continue IV Levaquin but increase dose to 750 mg daily. Also add clindamycin 600 mg IV every 8 hr for anaerobic coverage due to severity of her pneumonia. 3. Sepsis due to pneumonia: Patient with acute hypotension, hypoxia and elevated WBC in setting of severe pneumonia. Treat pneumonia as above and provide IV fluids to maintain blood pressure. She may need intermittent IV Lasix while on IV fluids. 4. Urinary tract infection, unlikely: I do not think she has UTI. She grew Staph epidermidis on admission urine culture but no bacteria and only 5-10 WBC on microscopic. Staph saprophyticus would be more common type of staph in UTI. Recommend discontinuing vancomycin to avoid renal toxicity. 5. Chronic atrial fibrillation with RVR: Heart rate controlled with long-acting diltiazem 300 mg daily and metoprolol tartrate 100 mg twice daily. May need to hold her cut back on rate control medications while patient hypotensive. She is on full-dose Lovenox for stroke prophylaxis. 6. Acute alcohol withdrawal: She has has not needed IV lorazepam today. She does not appear in active withdrawal at this time. 7. Acute encephalopathy: Patient quite confused likely due to pneumonia and sepsis. Patient is critically ill due to severe respiratory failure, sepsis and pneumonia. Total critical care management of about 60 min during course of today's encounter. Will review recommendations with consulting provider, Dr. Santiago Hester.
[2018-06-24] MEDS: CLINDAMYCIN 600 MG/50 ML PIGGYBACK 50 MG IV (17:45)
[2018-06-24 17:49] LABS: Procalcitonin 0.08 ng/mL (<0.5)
[2018-06-24] MEDS: levoFLOXacin 250 MG/50 ML PIGGYBACK 50 MG IV (18:37)
--- NOTE | 2018-06-24 18:42 | PC.NURSE ---
Addendum entered by Eloisa Max R.N. 06/24/18 22:05: Gave pt meds crushed in applesauce with a few teaspoons of pudding thick cranberry juice. No s/s aspiration. No coughing. Pt has been asking for water, says she has not eaten in 4 days. Original Note: greta note pt repositioned to right side and sats dropped to 83%. Now using only the bed for turning with a thin pillow under hip. Dr. Schaffer in to see pt. Notified Dr. Schaffer of B/P and HR trending down. Pt is very confused, does not know that she is in the hospital. When told she is in the hospital, pt says, well, shouldn't I see a doctor or something? This happened [address] Schaffer left.
[2018-06-24] MEDS: MIRTAZAPINE 15 MG TABLET PO (21:05)
[2018-06-24] MEDS: ENOXAPARIN 80 MG/0.8 ML SYRINGE 75 MG SUBCUT (21:05)
[2018-06-24] MEDS: LACTATED RINGERS 1,000 ML 40 ML IV (22:45)
[2018-06-25] VITALS (23 sets, daily range): BP systolic 100–122; BP diastolic 38–77; PULSE 61–113; RESP 10–21; TEMP 30–37.4; O2SAT 72–99
[2018-06-25] MEDS: ALBUTEROL/IPRATROPIUM 3 ML AMPUL INH ×6 (00:57→21:21)
[2018-06-25] MEDS: LORazepam 2 MG/ML SYRINGE 1 MG IV ×2 (01:40→19:48)
[2018-06-25] MEDS: CLINDAMYCIN 600 MG/50 ML PIGGYBACK 50 MG IV ×3 (01:41→18:21)
[2018-06-25] MEDS: HYDROMORPHONE 2 MG INJ 0.5 MG IV (02:37)
[2018-06-25] MEDS: OXYCODONE IR 5 MG TABLET PO ×5 (03:24→22:09)
--- NOTE | 2018-06-25 04:36 | PC.NURSE ---
NOC Shift: Pt. awake, confused and restless throughout most of the shift. Continues to require increased O2 needs. Currently increased per RT to 50L flow, 85% FIO2 per heated HiFlo NC. Sats labile to pt activity 85% to 94%. Pt continues to pull off NC, wants to get up asking for a cigarette and needing to make dinner for . Difficult to re-orient with cues. Pt also having increased pain in Left hip w/o relief w/IV Diluadid. Given po Percolone crushed in carrier while sitting up at 90 degrees. No difficulties noted w/swallow. ICU status for resp. status.
[2018-06-25 05:32] LABS: Add Manual Diff / Slide Review NO; Basophils Percent Auto 0.2 % (0-2); Hematocrit 27.6 % (36-46); Hemoglobin 9.4 g/dL (12.0-16.0); Lymphocytes Percent Auto 3.1 % (25-40); Mean Corpuscular Hemoglobin 33.9 PG (26-34); Mean Corpuscular Volume 99.8 fL (80-100); Monocytes Percent Auto 5.2 % (3-14); Neutrophils Absolute Auto 13800 /uL (3000-5900); Neutrophils Percent Auto 91.5 % (50-75); Platelet Count 201 X10^3/uL (150-400); Red Blood Cell Count 2.76 X10^6/uL (4.0-5.2); Red Cell Distribution Width 13.5 % (11.6-14.8); White Blood Cell Count 15.1 X10^3/uL (4.5-11.0)
[2018-06-25 05:43] LABS: Alanine Aminotransferase 29 IU/L (9-52); Albumin 2.7 g/dL (3.5-5.0); Albumin Globulin Ratio 1.1 (1.0-2.8); Alkaline Phosphatase 61 U/L (38-126); Aspartate Aminotransferase 44 IU/L (14-36); BUN Creatinine Ratio 25.6 (6-22); Bilirubin Total 0.5 mg/dL (0.2-1.3); Blood Urea Nitrogen 23 mg/dL (7-17); Calcium 8.8 mg/dL (8.4-10.2); Carbon Dioxide 26 mmol/L (22-32); Chloride 104 mmol/L (98-107); Estimated Glomerular Filt Rate > 60.0 mL/min (>60); Globulin 2.5 g/dL (1.7-4.1); Glucose 146 mg/dL (80-110); HEMOLYSIS < 15 (0-50); Sodium 137 mmol/L (137-145); Total Protein 5.2 g/dL (6.3-8.2)
[2018-06-25 05:58] LABS: Procalcitonin < 0.05 ng/mL (<0.5)
--- NOTE | 2018-06-25 07:57 | PM.PN.1 ---
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 This morning she seems less confused, oriented to person and place, though not completely out of delirium. O2 requirements remain at 85%. Blood pressure is improved. Noted to have some brief 2 sec pauses on cardiac monitoring during the night. Exam Vital Signs (past 8 hours): - 06/25/18 00:40 06/25/18 00:58 06/25/18 01:00 Temperature 98.2 F Pulse Rate 70 62 61 Respiratory Rate 18 18 16 Blood Pressure 100/51 L 120/59 L Pulse Oximetry 82 L 95 06/25/18 02:04 06/25/18 03:53 06/25/18 03:55 Temperature 97.5 F L Pulse Rate 66 Respiratory Rate 21 Blood Pressure 108/66 Pulse Oximetry 97 94 94 06/25/18 04:36 06/25/18 05:35 06/25/18 06:59 Temperature Pulse Rate 85 89 Respiratory Rate 20 16 Blood Pressure Pulse Oximetry 96 92 95 06/25/18 07:25 Temperature 99.3 F Pulse Rate 86 Respiratory Rate 16 Blood Pressure 122/43 L Pulse Oximetry 98 Fraction of Inspired Oxygen 0.9 Oxygen Delivery Method Heated High Flow Oxygen Flow Rate 50 Narrative Exam Narrative: GENERAL: Patient is fatigued and falls asleep easily EYES: Pupils equal CARDIOVASCULAR: Regular rate and rhythm RESPIRATORY: Faint bilateral wheezing GASTROINTESTINAL: Abdomen nondistended, soft, non-tender. No organomegaly. EXTREMITIES: Trace bilateral pretibial edema NEUROLOGICAL: Oriented x [address], nonfocal SKIN: warm, dry, no rash Objective Labs Result Diagrams: 06/25/18 05:05 06/25/18 05:05 Labs: Laboratory Results - last 24 hr 06/24/18 06/24/18 06/24/18 04:49 04:49 14:36 WBC RBC Hgb Hct MCV MCH MCHC RDW Plt Count Neut % (Auto) Lymph % (Auto) [place] % (Auto) Eos % (Auto) Baso % (Auto) Neut # (Auto) ABG pH 7.42 ABG pCO2 38.4 ABG pO2 48 L* ABG HCO3 25 ABG Total CO2 26 ABG O2 Saturation 84 L* ABG Base Excess 0.0 FiO2 0.50 Sodium Potassium Chloride Carbon Dioxide BUN Creatinine Estimated GFR BUN/Creatinine Ratio Glucose Calcium Total Bilirubin AST ALT Alkaline Phosphatase B-Natriuretic Peptide 343.0 H Total Protein Albumin Globulin Albumin/Globulin Ratio Procalcitonin 0.08 06/25/18 06/25/18 06/25/18 05:05 05:05 05:05 WBC 15.1 H RBC 2.76 L Hgb 9.4 L Hct 27.6 L MCV 99.8 MCH 33.9 MCHC 34.0 RDW 13.5 Plt Count 201 Neut % (Auto) 91.5 H Lymph % (Auto) 3.1 L [place] % (Auto) 5.2 Eos % (Auto) 0.0 L Baso % (Auto) 0.2 Neut # (Auto) 71367 H ABG pH ABG pCO2 ABG pO2 ABG HCO3 ABG Total CO2 ABG O2 Saturation ABG Base Excess FiO2 Sodium 137 Potassium 4.0 Chloride 104 Carbon Dioxide 26 BUN 23 H Creatinine 0.90 Estimated GFR > 60.0 BUN/Creatinine Ratio 25.6 H Glucose 146 H Calcium 8.8 Total Bilirubin 0.5 AST 44 H ALT 29 Alkaline Phosphatase 61 B-Natriuretic Peptide Total Protein 5.2 L Albumin 2.7 L Globulin 2.5 Albumin/Globulin Ratio 1.1 Procalcitonin < 0.05 Assessment & Plan Plan: Assessment/Plan Narrative: 1. Acute hypoxic respiratory failure: Patient developed respiratory failure in hospital presumed due to aspiration with subsequent ARDS and possible aspiration pneumonia. Chest x-ray with diffuse bilateral infiltrates. Current O2 requirement 85% FiO2 is marginally better from yesterday. 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 Plan: Continue high-flow nasal cannula, antibiotics, nebulizers, Solu-Medrol 60 mg b.i.d.. Ordered additional Lasix 20 mg IV x1. LR is running at 40 cc/hour while she is NPO. 2. Possible aspiration pneumonia: She remains afebrile, improving WBC. Her calcitonin is less than 0.05 which makes me uncertain whether she has pneumonia or just ARDS from aspiration. However, it makes sense to continue the Levaquin and clindamycin for 5-7 day course due to severity of her respiratory failure. 3. Sepsis: Patient has improvement in her blood pressures. 4. Urinary tract infection, unlikely: I do not think she has UTI. She grew Staph epidermidis on admission urine culture but no bacteria and only 5-10 WBC on microscopic. Staph saprophyticus would be more common type of staph in UTI. Recommend discontinuing vancomycin to avoid renal toxicity. 5. Chronic atrial fibrillation with RVR: Heart rate has been controlled with long-acting diltiazem 300 mg daily and metoprolol tartrate 100 mg twice daily. She did have some brief pauses on cardiac monitoring. Recommend decreasing her diltiazem ER to 180 mg daily (stopping the 120 mg tablet) while continuing current dose of metoprolol. She is on full-dose Lovenox for stroke prophylaxis. 6. Acute alcohol withdrawal: She received lorazepam during the night. It is somewhat difficult to separate out acute withdrawal from other encephalopathy. More oriented this a.m.. 7. Acute encephalopathy: Continue judicious use of lorazepam for significant agitation. Patient is critically ill due to severe respiratory failure, sepsis and pneumonia. Total critical care management of 30-60 min during course of today's encounter. Quality VTE Deep Vein Thrombosis/Pulmonary Embolism Present on Admission: No
[2018-06-25] MEDS: CITALOPRAM 20 MG TABLET PO (08:17)
[2018-06-25] MEDS: ENOXAPARIN 80 MG/0.8 ML SYRINGE 75 MG SUBCUT ×2 (08:17→22:03)
[2018-06-25] MEDS: dilTIAZem CD 180 MG CAP PO (08:17)
--- NOTE | 2018-06-25 08:17 | P.PN_ITS ---
Subjective Date Patient Seen: 06/25/18 Time Patient Seen: 07:57 Interval history: Patient with persistent confusion and restlessness during the date night sitter. This morning she seems less confused, oriented to person and place , though not completely out of delirium. O2 requirements remain at 85%. Blood pressure is improved. Noted to have some brief 2 sec pauses on cardiac monitoring during the night. Exam Vital Signs (past 8 hours): - 06/25/18 00:40 06/25/18 00:58 06/25/18 01:00 Temperature 98.2 F Pulse Rate 70 62 61 Respiratory Rate 18 18 16 Blood Pressure 100/51 L 120/59 L Pulse Oximetry 82 L 95 06/25/18 02:04 06/25/18 03:53 06/25/18 03:55 Temperature 97.5 F L Pulse Rate 66 Respiratory Rate 21 Blood Pressure 108/66 Pulse Oximetry 97 94 94 06/25/18 04:36 06/25/18 05:35 06/25/18 06:59 Temperature Pulse Rate 85 89 Respiratory Rate 20 16 Blood Pressure Pulse Oximetry 96 92 95 06/25/18 07:25 Temperature 99.3 F Pulse Rate 86 Respiratory Rate 16 Blood Pressure 122/43 L Pulse Oximetry 98 Fraction of Inspired Oxygen 0.9 Oxygen Delivery Method Heated High Flow Oxygen Flow Rate 50 Narrative Exam Narrative: GENERAL: Patient is fatigued and falls asleep easily EYES: Pupils equal CARDIOVASCULAR: Regular rate and rhythm RESPIRATORY: Faint bilateral wheezing GASTROINTESTINAL: Abdomen nondistended, soft, non-tender. No organomegaly. EXTREMITIES: Trace bilateral pretibial edema NEUROLOGICAL: Oriented x [address], nonfocal SKIN: warm, dry, no rash Objective Labs Result Diagrams: 06/25/18 05:05 06/25/18 05:05 Labs: Laboratory Results - last 24 hr 06/24/18 06/24/18 06/24/18 04:49 04:49 14:36 WBC RBC Hgb Hct MCV MCH MCHC RDW Plt Count Neut % (Auto) Lymph % (Auto) [place] % (Auto) Eos % (Auto) Baso % (Auto) Neut # (Auto) ABG pH 7.42 ABG pCO2 38.4 ABG pO2 48 L* ABG HCO3 25 ABG Total CO2 26 ABG O2 Saturation 84 L* ABG Base Excess 0.0 FiO2 0.50 Sodium Potassium Chloride Carbon Dioxide BUN Creatinine Estimated GFR BUN/Creatinine Ratio Glucose Calcium Total Bilirubin AST ALT Alkaline Phosphatase B-Natriuretic Peptide 343.0 H Total Protein Albumin Globulin Albumin/Globulin Ratio Procalcitonin 0.08 06/25/18 06/25/18 06/25/18 05:05 05:05 05:05 WBC 15.1 H RBC 2.76 L Hgb 9.4 L Hct 27.6 L MCV 99.8 MCH 33.9 MCHC 34.0 RDW 13.5 Plt Count 201 Neut % (Auto) 91.5 H Lymph % (Auto) 3.1 L [place] % (Auto) 5.2 Eos % (Auto) 0.0 L Baso % (Auto) 0.2 Neut # (Auto) 03777 H ABG pH ABG pCO2 ABG pO2 ABG HCO3 ABG Total CO2 ABG O2 Saturation ABG Base Excess FiO2 Sodium 137 Potassium 4.0 Chloride 104 Carbon Dioxide 26 BUN 23 H Creatinine 0.90 Estimated GFR > 60.0 BUN/Creatinine Ratio 25.6 H Glucose 146 H Calcium 8.8 Total Bilirubin 0.5 AST 44 H ALT 29 Alkaline Phosphatase 61 B-Natriuretic Peptide Total Protein 5.2 L Albumin 2.7 L Globulin 2.5 Albumin/Globulin Ratio 1.1 Procalcitonin < 0.05 Assessment & Plan Plan: Assessment/Plan Narrative: 1. Acute hypoxic respiratory failure: Patient developed respiratory failure in hospital presumed due to aspiration with subsequent ARDS and possible aspiration pneumonia. Chest x-ray with diffuse bilateral infiltrates. Current O2 requirement 85% FiO2 is marginally better from yesterday. Low urine output 200 cc on date night sitter. Plan: Continue high-flow nasal cannula, antibiotics, nebulizers, Solu-Medrol 60 mg b.i.d.. Ordered additional Lasix 20 mg IV x1. LR is running at 40 cc/hour while she is NPO. 2. Possible aspiration pneumonia: She remains afebrile, improving WBC. Her calcitonin is less than 0.05 which makes me uncertain whether she has pneumonia or just ARDS from aspiration. However, it makes sense to continue the Levaquin and clindamycin for 5-7 day course due to severity of her respiratory failure. 3. Sepsis: Patient has improvement in her blood pressures. 4. Urinary tract infection, unlikely: I do not think she has UTI. She grew Staph epidermidis on admission urine culture but no bacteria and only 5-10 WBC on microscopic. Staph saprophyticus would be more common type of staph in UTI. Recommend discontinuing vancomycin to avoid renal toxicity. 5. Chronic atrial fibrillation with RVR: Heart rate has been controlled with long-acting diltiazem 300 mg daily and metoprolol tartrate 100 mg twice daily. She did have some brief pauses on cardiac monitoring. Recommend decreasing her diltiazem ER to 180 mg daily (stopping the 120 mg tablet) while continuing current dose of metoprolol. She is on full-dose Lovenox for stroke prophylaxis. 6. Acute alcohol withdrawal: She received lorazepam during the night. It is somewhat difficult to separate out acute withdrawal from other encephalopathy. More oriented this a.m.. 7. Acute encephalopathy: Continue judicious use of lorazepam for significant agitation. Patient is critically ill due to severe respiratory failure, sepsis and pneumonia. Total critical care management of 30-60 min during course of today' s encounter. Quality VTE Deep Vein Thrombosis/Pulmonary Embolism Present on Admission: No
[2018-06-25] MEDS: FUROSEMIDE 20 MG TABLET PO (08:18)
[2018-06-25] MEDS: METOPROLOL 50 MG TABLET 100 MG PO ×2 (08:18→22:06)
[2018-06-25] MEDS: FUROSEMIDE 20 MG/2 ML VIAL IV ×2 (08:18→15:53)
[2018-06-25] MEDS: methylPREDNISolone 125 MG/2 ML VIAL 60 MG IV ×2 (08:18→22:10)
--- NOTE | 2018-06-25 08:51 | P.PN_ITS ---
Subjective Date Patient Seen: 06/25/18 Time Patient Seen: 08:50 Interval history: She is still in the ICU for respiratory depression and pneumonia. Not moving very well with physical therapy. Exam Vital Signs (past 8 hours): - 06/25/18 00:58 06/25/18 01:00 06/25/18 02:04 Temperature Pulse Rate 62 61 Respiratory Rate 18 16 Blood Pressure 120/59 L Pulse Oximetry 95 97 06/25/18 03:53 06/25/18 03:55 06/25/18 04:36 Temperature 97.5 F L Pulse Rate 66 Respiratory Rate 21 Blood Pressure 108/66 Pulse Oximetry 94 94 96 06/25/18 05:35 06/25/18 06:59 06/25/18 07:25 Temperature 99.3 F Pulse Rate 85 89 86 Respiratory Rate 20 16 16 Blood Pressure 122/43 L Pulse Oximetry 92 95 98 Fraction of Inspired Oxygen 0.9 Oxygen Delivery Method Heated High Flow Oxygen Flow Rate 50 Const Orientation: alert and confused Extrem Other: Left hip dressing clean dry intact. Easily wiggles ankle and toes. 1+ DP pulse. Soft calf Objective Labs Result Diagrams: 06/25/18 05:05 06/25/18 05:05 Labs: Laboratory Results - last 24 hr 06/24/18 06/24/18 06/24/18 04:49 04:49 14:36 WBC RBC Hgb Hct MCV MCH MCHC RDW Plt Count Neut % (Auto) Lymph % (Auto) Bartholomew % (Auto) Eos % (Auto) Baso % (Auto) Neut # (Auto) ABG pH 7.42 ABG pCO2 38.4 ABG pO2 48 L* ABG HCO3 25 ABG Total CO2 26 ABG O2 Saturation 84 L* ABG Base Excess 0.0 FiO2 0.50 Sodium Potassium Chloride Carbon Dioxide BUN Creatinine Estimated GFR BUN/Creatinine Ratio Glucose Calcium Total Bilirubin AST ALT Alkaline Phosphatase B-Natriuretic Peptide 343.0 H Total Protein Albumin Globulin Albumin/Globulin Ratio Procalcitonin 0.08 06/25/18 06/25/18 06/25/18 05:05 05:05 05:05 WBC 15.1 H RBC 2.76 L Hgb 9.4 L Hct 27.6 L MCV 99.8 MCH 33.9 MCHC 34.0 RDW 13.5 Plt Count 201 Neut % (Auto) 91.5 H Lymph % (Auto) 3.1 L Bartholomew % (Auto) 5.2 Eos % (Auto) 0.0 L Baso % (Auto) 0.2 Neut # (Auto) 47725 H ABG pH ABG pCO2 ABG pO2 ABG HCO3 ABG Total CO2 ABG O2 Saturation ABG Base Excess FiO2 Sodium 137 Potassium 4.0 Chloride 104 Carbon Dioxide 26 BUN 23 H Creatinine 0.90 Estimated GFR > 60.0 BUN/Creatinine Ratio 25.6 H Glucose 146 H Calcium 8.8 Total Bilirubin 0.5 AST 44 H ALT 29 Alkaline Phosphatase 61 B-Natriuretic Peptide Total Protein 5.2 L Albumin 2.7 L Globulin 2.5 Albumin/Globulin Ratio 1.1 Procalcitonin < 0.05 Assessment & Plan Post-op Postoperative Procedures Operation Date: 06/22/18 16:45 Actual Procedures Side Surgeon p Hip IMN Left Hiram Tovar MD from an orthopedic standpoint, she is stable with respect to the hip fracture. Continue to mobilize with physical therapy. The main issue really is her respiratory function and pneumonia. Continue with ICU care. Quality VTE Deep Vein Thrombosis/Pulmonary Embolism Present on Admission: No
--- NOTE | 2018-06-25 10:39 | P.PN_ITS ---
Subjective Date Patient Seen: 06/25/18 Time Patient Seen: 10:32 Interval history: Patient sleepy but alert this morning. Does know where she is. Still having some hallucinations. Some difficulty with movement. Denies any chest pain or shortness of breath. Orthopnea or other change. Still on moderate respiratory support. Tele shows 2 sec pauses today Exam Vital Signs (past 8 hours): - 06/25/18 03:53 06/25/18 03:55 06/25/18 04:36 Temperature 97.5 F L Pulse Rate 66 Respiratory Rate 21 Blood Pressure 108/66 Pulse Oximetry 94 94 96 06/25/18 05:35 06/25/18 06:59 06/25/18 07:25 Temperature 99.3 F Pulse Rate 85 89 86 Respiratory Rate 20 16 16 Blood Pressure 122/43 L Pulse Oximetry 92 95 98 06/25/18 08:00 06/25/18 10:05 Temperature Pulse Rate 78 Respiratory Rate 16 Blood Pressure Pulse Oximetry 99 94 Fraction of Inspired Oxygen 90 Oxygen Delivery Method Heated High Flow Oxygen Flow Rate 50 Narrative Exam Narrative: Alert female fatigued in appearance in no acute respiratory distress with high-flow oxygen in place. Mucous membranes moist. Neck supple without adenopathy JVD or bruits. Lungs show diffuse decreased breath sounds but no definitive rhonchi or wheeze. Heart irregular rhythm rate controlled. Abdomen is soft positive bowel sounds nontender. Extremities without cyanosis clubbing edema. Objective Labs Result Diagrams: 06/25/18 05:05 06/25/18 05:05 Labs: Laboratory Results - last 24 hr 06/24/18 06/24/18 06/24/18 04:49 04:49 14:36 WBC RBC Hgb Hct MCV MCH MCHC RDW Plt Count Neut % (Auto) Lymph % (Auto) [place] % (Auto) Eos % (Auto) Baso % (Auto) Neut # (Auto) ABG pH 7.42 ABG pCO2 38.4 ABG pO2 48 L* ABG HCO3 25 ABG Total CO2 26 ABG O2 Saturation 84 L* ABG Base Excess 0.0 FiO2 0.50 Sodium Potassium Chloride Carbon Dioxide BUN Creatinine Estimated GFR BUN/Creatinine Ratio Glucose Calcium Total Bilirubin AST ALT Alkaline Phosphatase B-Natriuretic Peptide 343.0 H Total Protein Albumin Globulin Albumin/Globulin Ratio Procalcitonin 0.08 06/25/18 06/25/18 06/25/18 05:05 05:05 05:05 WBC 15.1 H RBC 2.76 L Hgb 9.4 L Hct 27.6 L MCV 99.8 MCH 33.9 MCHC 34.0 RDW 13.5 Plt Count 201 Neut % (Auto) 91.5 H Lymph % (Auto) 3.1 L [place] % (Auto) 5.2 Eos % (Auto) 0.0 L Baso % (Auto) 0.2 Neut # (Auto) 30158 H ABG pH ABG pCO2 ABG pO2 ABG HCO3 ABG Total CO2 ABG O2 Saturation ABG Base Excess FiO2 Sodium 137 Potassium 4.0 Chloride 104 Carbon Dioxide 26 BUN 23 H Creatinine 0.90 Estimated GFR > 60.0 BUN/Creatinine Ratio 25.6 H Glucose 146 H Calcium 8.8 Total Bilirubin 0.5 AST 44 H ALT 29 Alkaline Phosphatase 61 B-Natriuretic Peptide Total Protein 5.2 L Albumin 2.7 L Globulin 2.5 Albumin/Globulin Ratio 1.1 Procalcitonin < 0.05 Assessment & Plan Plan: Assessment/Plan Narrative: acute hypoxic respiratory failure. Secondary to pneumonia. Possible aspiration. O2 requirements slightly improved. Could be combination of COPD, aspiration pneumonia and possible ARDS. Relatively sick. His fluid status has been better with Lasix yesterday and will be repeated today. Will follow from there. Appreciate Dr. Schaffer help and input. Atrial fibrillation. Decreased diltiazem today. Otherwise seems to be stable. Rate is pretty well controlled. Lovenox for stroke prevention. I think initial troponin and CPK elevation was secondary to combination of being down and rapid heart rate with atrial fibrillation. Aspiration pneumonia possible. On antibiotic should be covered well. Combination of clindamycin and Levaquin. Will continue. Sepsis. Blood pressures have stabilized. We will see how things go. Really depends on her oxygen status. Bacteria. Do not feel the is a UTI will follow. Acute alcoholic withdrawal. Really complicating her respiratory status secondary to Ativan. Will need to watch closely and follow from there. Metabolic encephalopathy. Probably combination of infection and acute withdrawal syndrome and lorazepam. Will watch closely. DVT prophylaxis. On treatment. GI prophylaxis will hold for now. Disposition. Still very sick. Have not turned the full corner but will need to watch closely. Appreciate Internal Medicine help. Hopefully will improve over the next Quality VTE Deep Vein Thrombosis/Pulmonary Embolism Present on Admission: No
--- NOTE | 2018-06-25 11:30 | PT.IPTN ---
Current Diagnoses Alcohol dependence with withdrawal, unspecified (06/21/18) Essential (primary) hypertension (06/21/18) Unspecified atrial fibrillation (06/21/18) Age-related osteoporosis without current pathological fracture (06/21/18) Urinary tract infection, site not specified (06/21/18) Fracture of unspecified part of neck of left femur, initial encounter for closed fracture (06/21/18) Surgery Performed Operation Date: 06/22/18 16:45 Actual Procedures p Hip IMN(Left) - Hiram Tovar MD Physical Therapy Treatment Note M2 PT-IP Current Condition Start: 06/23/18 14:30 Freq: NEEDED Status: Active Protocol: Document 06/23/18 10:40 AB (Rec: 06/23/18 14:45 AB [id number]) Physical Therapy Current Condition Current Condition Evaluation Date 06/23/18 Treatment Diagnosis s/p L hip ORIF with intramedullary nailing; difficulty in walking Onset Date 06/22/18 Weight Bearing Status Weight Bearing Status Touch Down Weight Bearing M3 PT-IP Subjective Start: 06/23/18 14:30 Freq: NEEDED Status: Active Protocol: Document 06/25/18 11:30 RCC (Rec: 06/25/18 12:20 RCC [id number]) Subjective Physical Therapy Visit Type Type Cancellation Notes pt up to chair with nursing just prior to this PT attempting treatment, O2 saturation down to the 70s. Josefina lift was utilized, which at this point is likely the safest option for pt and staff given medical condition. Will attempt to assist later with mobility, possibly manual transfer if improving medically, if not, likely Josefina back to bed. Goals Bed Mobility Goal Moderate Assistance Transfer Goal Moderate Assistance Front Wheeled Walker Gait Goal Moderate Assistance Front Wheel Walker Gait Distance 20 Days to Meet Goals 5 Frequency of Treatment Frequency Of Treatment Twice a Day Treatment Plan Physical Therapy Treatment Plan Bed Mobility Training Transfer Training Gait Training Therapeutic Exercise Balance Retraining Post Op Education Discharge Planning Hot or Cold Pack Neuromuscular Re-ed Coordination Retraining Manual Therapy Recommendations To Nursing Amount of Assist Needed 3 or More Person Assist Mechanical Lift Discharge Recommendations PT Discharge Recommendations SNF Rehab
[2018-06-25] MEDS: levoFLOXacin 750 MG/150 ML PIGGYBACK 100 MG IV (13:02)
--- NOTE | 2018-06-25 15:25 | PT.IPTN ---
Current Diagnoses Alcohol dependence with withdrawal, unspecified (06/21/18) Essential (primary) hypertension (06/21/18) Unspecified atrial fibrillation (06/21/18) Age-related osteoporosis without current pathological fracture (06/21/18) Urinary tract infection, site not specified (06/21/18) Fracture of unspecified part of neck of left femur, initial encounter for closed fracture (06/21/18) Surgery Performed Operation Date: 06/22/18 16:45 Actual Procedures p Hip IMN(Left) - Hiram Tovar MD Physical Therapy Treatment Note M2 PT-IP Current Condition Start: 06/23/18 14:30 Freq: NEEDED Status: Active Protocol: Document 06/25/18 15:25 RCC (Rec: 06/25/18 15:38 RCC [id number]) Physical Therapy Current Condition Current Condition Evaluation Date 06/23/18 Treatment Diagnosis s/p L hip ORIF with intramedullary nailing; difficulty in walking Onset Date 06/22/18 Weight Bearing Status Weight Bearing Status Touch Down Weight Bearing M3 PT-IP Subjective Start: 06/23/18 14:30 Freq: NEEDED Status: Active Protocol: Document 06/25/18 15:25 RCC (Rec: 06/25/18 15:38 RCC [id number]) Subjective Physical Therapy Visit Type Type Treatment Note Visit Start Time 15:15 Visit Stop Time 15:25 Total Visit Minutes 10 Notes CNAs with pt in sling on arrival. Number of [employer] NET DEVELOPER Visits 0 Physical Therapy Visit Comments Patient Comments pt states ouch with movement of the LLE. M4 PT-IP Mobility and Gait Start: 06/23/18 14:30 Freq: NEEDED Status: Active Protocol: Document 06/25/18 15:25 RCC (Rec: 06/25/18 15:38 RCC [id number]) PT-Bed Mobility Assessment Rolling Level of Assist Maximal Assistance 2 Person Assistance Scooting Scooting to Edge of Bed Dependent PT-Transfer Assessment Transfers Transfer Destination Bed Bedside Commode Transfer Technique Mechanical Lift Comments Mobility Comments Overhead lift utilized due to pt's lethargy, decreasing O2 saturation with just mechanical lift. M5 PT-IP Objective Assessments Start: 06/23/18 14:30 Freq: NEEDED Status: Active Protocol: Document 06/23/18 10:40 AB (Rec: 06/23/18 14:45 AB [id number]) Orientation Orientation/Cognition Level of Alertness Confusional State Orientation Name Safety Awareness Decreased Safety Awareness Memory Description Short Term Impaired Contracts Law Professor Impaired Gross Range of Motion Lower Extremity ROM Assessment Left Impaired Impairments pain and tightness limiting mobility on LLE Strength Lower Extremity Strength Assessment Bilaterally Impaired M6 PT-IP Treatment Start: 06/23/18 14:30 Freq: NEEDED Status: Active Protocol: Document 06/23/18 10:40 AB (Rec: 06/23/18 14:45 AB [id number]) Physical Therapy Treatment Education Education Provided Precautions Weight Bearing Status Post-Op Packet Safety M7 PT-IP Assessment and Plan Start: 06/23/18 14:30 Freq: NEEDED Status: Active Protocol: Document 06/25/18 15:25 RCC (Rec: 06/25/18 15:38 RCC [id number]) PT Summary Assessment and Plan Summary Assessment Summary Pt was transferred using mechanical lift this date due to decreasing O2 saturation with any level of activity on high flow of O2. Pt likely to not tolerate manual transfer today, therefore mechanical lift utilized. Pt requires 2 assist with all bed mobility. Goals Bed Mobility Goal Moderate Assistance Transfer Goal Moderate Assistance Front Wheeled Walker Gait Goal Moderate Assistance Front Wheel Walker Gait Distance 20 Days to Meet Goals 5 Treatment Plan Other Recommendations and Next Treatment sitting activities- sitting Focus EOB, static balance; if medically ready, may attempt transfer (has required 2-3 assist) Recommendations To Nursing Amount of Assist Needed 3 or More Person Assist Mechanical Lift Discharge Recommendations PT Discharge Recommendations SNF Rehab
[2018-06-25 17:27] LABS: pH ABG 7.45 (7.35-7.45)
[2018-06-25 17:28] LABS: Fractionated Inspired Oxygen 0.5; HCO3 ABG 27 mmol/L (23-27); Oxygen Saturation ABG 90 % (95-100); PCO2 ABG 37.9 mmHg (35-45); PO2 ABG 55 mmHg (80-105); TCO2 ABG 28 mmol/L (23-27)
--- NOTE | 2018-06-25 21:31 | PC.NURSE ---
Addendum entered by Eloisa Max R.N. 06/26/18 16:00: Pt partially pulled off left hip drsg, with small amount of serosanguinous fluid seen on sheets. Bulky drsg removed, leaving Xeroform gauze in place over sutures. Gauze drsg mostly saturated with serosanguinous fluid. New gauze pads applied and cover with [place] barrier drsgs. Original Note: Addendum entered by Eloisa Max R.N. 06/25/18 22:23: pt given pills whole in pudding thick juice. Pt chewed up pills and spit them out. HR running 110s sustained. O2 sats 88-91 on 90% FiO2. Original Note: greta note pt's high flow nasal cannula came partially dislodged during transfer from chair to bed with mechanical lift. O2 sats down to 76%. Pt alert and confused. Pt slow to recover back on heated high flow cannula. Resp rate 17. Discussed bipap pros/cons with RT Sarkis. Called Dr. Schaffer and received order for bipap per RT. Current B/P 100/61, HR 93. Bipap started per RT. ABG done one hour post bipap initiation. Results called to Dr. Schaffer. New order received to increase epap to 10. Settings now 60%, rate 10, 12/10 pressures. Duoderm applied to bridge of nose for ulcer prevention. 19:40- pt pulled off bipap, says I can't breathe with that on. Refusing to wear bipap. Staff trying to put heated high flow cannula back on pt due to sats of 72% on room air. Pt scratching and trying to bite staff. 3 person assist to get cannula on pt. Pt intermittently removing cannula, saying it makes her nose itch. Ativan given.
[2018-06-25] MEDS: MIRTAZAPINE 15 MG TABLET PO (22:05)
[2018-06-25] MEDS: SODIUM CHLORIDE 0.9% FLUSH 10 ML IV (22:07)
[2018-06-26] VITALS (15 sets, daily range): BP systolic 112–148; BP diastolic 58–94; PULSE 92–114; RESP 14–25; TEMP 36.2–36.8; O2SAT 91–97
--- NOTE | 2018-06-26 | DI.ECHO.S_ITS ---
[place] [facility]---------+ [facility] +---------+ : : [address] : [place] : : : : [id number] : : : : Phone: [phone]---------+ Echocardiogram Report + + :Name: GILMAR GALLOWAY Study Date: 06/26/2018 Height: 65 in : :[facility] Weight: 166 lb : : Gender: Female BSA: 1.8 m2 : :: 1940 Age: 78 yrs BP: 128/79 mmHg: :Reason For Study: Assess volume and ejection fraction : :Ordering Physician: Dr. Diggs : :Sarbjit Performed By: Oriana Roman : + + Interpretation Summary The limited echocardiogram is done to assess volume status and ejection fraction in the setting of atrial fibrillation with RVR. The ejection fraction is estimated to be 70-75%. There are no focal wall motion abnormalities. The left atrium is severely dilated. Procedure: A two-dimensional transthoracic echocardiogram with color flow and Doppler was performed in limited views only. The limited echocardiogram is done to assess volume status and ejection fraction in the setting of atrial fibrillation with RVR. The study quality was technically adequate. A contrast injection of Definity was performed to improve assessment of LV function. Comparison is made with the echocardiogram of 02/03/2018. The patient was in atrial fibrillation with heart rates between 100-130 bpm during the exam. Left Ventricle: The left ventricular cavity is small. The ejection fraction is estimated to be 70-75%. There are no focal wall motion abnormalities. Atria: The left atrium is severely dilated. MMode/2D Measurements & Calculations LVIDd: 3.1 cm LVIDs: 1.7 cm FS: 45.1 % IVSd: 0.87 cm LVPWd: 1.00 cm LV santiago. diameter/BSA (cm/m^2): 1.7 LV sys. diameter/BSA (cm/m^2): 0.92 Reading Physician:04:53 PM
[2018-06-26] MEDS: CLINDAMYCIN 600 MG/50 ML PIGGYBACK 50 MG IV ×3 (01:06→17:25)
[2018-06-26] MEDS: ALBUTEROL/IPRATROPIUM 3 ML AMPUL INH ×6 (01:21→21:22)
[2018-06-26] MEDS: LACTATED RINGERS 1,000 ML 40 ML IV (04:41)
[2018-06-26 05:53] LABS: Add Manual Diff / Slide Review NO; Basophils Percent Auto 0.1 % (0-2); Hematocrit 28.8 % (36-46); Hemoglobin 9.7 g/dL (12.0-16.0); Lymphocytes Percent Auto 2.8 % (25-40); Mean Corpuscular HGB Conc 33.7 % (30-36); Mean Corpuscular Hemoglobin 33.3 PG (26-34); Mean Corpuscular Volume 98.6 fL (80-100); Monocytes Percent Auto 4.7 % (3-14); Neutrophils Absolute Auto 13800 /uL (3000-5900); Neutrophils Percent Auto 92.4 % (50-75); Platelet Count 275 X10^3/uL (150-400); Red Blood Cell Count 2.92 X10^6/uL (4.0-5.2); Red Cell Distribution Width 13.7 % (11.6-14.8)
[2018-06-26 05:54] LABS: BUN Creatinine Ratio 27.5 (6-22); Blood Urea Nitrogen 22 mg/dL (7-17); Carbon Dioxide 31 mmol/L (22-32); Chloride 103 mmol/L (98-107); Estimated Glomerular Filt Rate > 60.0 mL/min (>60); Glucose 151 mg/dL (80-110); HEMOLYSIS < 15 (0-50); Potassium 3.2 mmol/L (3.4-5.1); Sodium 140 mmol/L (137-145)
--- NOTE | 2018-06-26 07:52 | PM.PN.1 ---
Subjective Date Patient Seen: 06/26/18 Time Patient Seen: 07:52 Interval history: Patient did okay overnight and not required any lorazepam. Not much improvement in O2 requirements, still on around 80% FiO2 with high-flow nasal cannula. I think RT tried her on BiPAP last night but seems like she could not tolerate. Complains of pain in her leg. Exam Vital Signs (past 8 hours): - 06/26/18 00:20 06/26/18 01:21 06/26/18 04:01 Temperature 97.2 F L Pulse Rate 98 H 105 H Respiratory Rate 17 18 Blood Pressure 117/58 L Pulse Oximetry 92 94 95 06/26/18 05:24 Temperature Pulse Rate 100 H Respiratory Rate 22 Blood Pressure Pulse Oximetry 92 Fraction of Inspired Oxygen 75 Oxygen Delivery Method Heated High Flow Oxygen Flow Rate 45 Narrative Exam Narrative: GENERAL: Patient is asleep but awakens easily but then dozes off in mid sentence EYES: Pupils equal CARDIOVASCULAR: Regular rate and rhythm RESPIRATORY: Few scattered rhonchi GASTROINTESTINAL: Abdomen nondistended, soft, non-tender. No organomegaly. EXTREMITIES: Trace bilateral pretibial edema NEUROLOGICAL: Oriented to person and maybe place, nonfocal SKIN: warm, dry, no rash Objective Labs Result Diagrams: 06/26/18 05:10 06/26/18 05:10 Labs: Laboratory Results - last 24 hr 06/25/18 06/26/18 06/26/18 17:15 05:10 05:10 WBC 15.0 H RBC 2.92 L Hgb 9.7 L Hct 28.8 L MCV 98.6 MCH 33.3 MCHC 33.7 RDW 13.7 Plt Count 275 Neut % (Auto) 92.4 H Lymph % (Auto) 2.8 L [place] % (Auto) 4.7 Eos % (Auto) 0.0 L Baso % (Auto) 0.1 Neut # (Auto) 20748 H ABG pH 7.45 ABG pCO2 37.9 ABG pO2 55 L ABG HCO3 27 ABG Total CO2 28 H ABG O2 Saturation 90 L ABG Base Excess 3.0 FiO2 0.5 Sodium 140 Potassium 3.2 L Chloride 103 Carbon Dioxide 31 BUN 22 H Creatinine 0.80 Estimated GFR > 60.0 BUN/Creatinine Ratio 27.5 H Glucose 151 H Calcium 9.0 Assessment & Plan Plan: Assessment/Plan Narrative: 1. Acute hypoxic respiratory failure: Patient developed respiratory failure on or around 06/24/2018 presumed due to aspiration with subsequent ARDS and possible aspiration pneumonia. Chest x-ray with bilateral infiltrates. Continued very high O2 requirement 80-90% FiO2 over last few days. She is also positive on her fluid balance, probably 10 kg up on her weight, and getting daily IV Lasix. IV steroids seemed to help the wheezing. Plan: Continue high-flow nasal cannula, antibiotics, nebulizers, Solu-Medrol 60 mg b.i.d.. Ordered additional Lasix 40 mg IV x1. LR is now running at 21 cc/hour while she is NPO in addition to fluids she is getting from IV antibiotics. Continue IV Lasix as BP tolerates with monitoring of lytes and renal function. Ordered oral potassium for low K. 2. Possible aspiration pneumonia: She remains afebrile, improving or stable WBC. Her calcitonin was less than 0.05 which makes me uncertain whether she has pneumonia or just ARDS from aspiration. However, it makes sense to continue the Levaquin and clindamycin (antibiotics started on 06/24/2018) for 5-7 day course due to severity of her respiratory failure. 3. Systemic inflammatory response syndrome: Patient has normalization of blood pressures since June 25. 4. Urinary tract infection, unlikely: I do not think she has UTI. She grew Staph epidermidis on admission urine culture but no bacteria and only 5-10 WBC on microscopic. Staph saprophyticus would be more common type of staph in UTI. Vancomycin was previous discontinued. 5. Chronic atrial fibrillation with RVR: Heart rate is controlled with long-acting diltiazem 180 mg daily and metoprolol tartrate 100 mg twice daily. I reduced Lovenox dose for stroke prophylaxis to 75 mg once daily. BMP in 300 range. She had transthoracic ECHO during prior admission on 02/03/2018 which showed LVEF 55-60%, severe LAE, left pleural effusion. 6. Acute alcohol withdrawal: This seems resolved her improving. It is somewhat difficult to separate out acute withdrawal from other encephalopathy. More oriented the past couple of days. 7. Acute encephalopathy: Improving. Did well yesterday sitting up in chair. 8. Nutrition: Currently NPO except pills awaiting speech therapy swallow evaluation. Consider short-term TPN. PICC line placement 06/26/2018. Patient is critically ill due to severe respiratory failure, sepsis and pneumonia. Total critical care management of 30-60 min during course of today's encounter. Quality VTE Deep Vein Thrombosis/Pulmonary Embolism Present on Admission: No
--- NOTE | 2018-06-26 08:01 | PM.PN.1 ---
Subjective Date Patient Seen: 06/26/18 Time Patient Seen: 08:01 Interval history: Patient with no complaints today. No other significant new changes. Did not require any Ativan last night. Sleepy this morning. Has not got up and move. No other changes. Was in the chair for a couple hours yesterday. Sats still completely drop despite 90% O2. Exam Vital Signs (past 8 hours): - 06/26/18 00:20 06/26/18 01:21 06/26/18 04:01 Temperature 97.2 F L Pulse Rate 98 H 105 H Respiratory Rate 17 18 Blood Pressure 117/58 L Pulse Oximetry 92 94 95 06/26/18 05:24 Temperature Pulse Rate 100 H Respiratory Rate 22 Blood Pressure Pulse Oximetry 92 Fraction of Inspired Oxygen 75 Oxygen Delivery Method Heated High Flow Oxygen Flow Rate 45 Narrative Exam Narrative: Alert female elderly sleepy but interactive appropriate no acute distress. Mucous membranes moist. Neck is supple without adenopathy. Lungs are with basilar crackles worse on the right with rhonchi. No wheeze. Heart is irregular rate is overall controlled. Abdomen is soft positive bowel sounds nontender. Extremities without cyanosis clubbing edema. No calf tenderness. Objective Labs Result Diagrams: 06/26/18 05:10 06/26/18 05:10 Labs: Laboratory Results - last 24 hr 06/25/18 06/26/18 06/26/18 17:15 05:10 05:10 WBC 15.0 H RBC 2.92 L Hgb 9.7 L Hct 28.8 L MCV 98.6 MCH 33.3 MCHC 33.7 RDW 13.7 Plt Count 275 Neut % (Auto) 92.4 H Lymph % (Auto) 2.8 L [place] % (Auto) 4.7 Eos % (Auto) 0.0 L Baso % (Auto) 0.1 Neut # (Auto) 16923 H ABG pH 7.45 ABG pCO2 37.9 ABG pO2 55 L ABG HCO3 27 ABG Total CO2 28 H ABG O2 Saturation 90 L ABG Base Excess 3.0 FiO2 0.5 Sodium 140 Potassium 3.2 L Chloride 103 Carbon Dioxide 31 BUN 22 H Creatinine 0.80 Estimated GFR > 60.0 BUN/Creatinine Ratio 27.5 H Glucose 151 H Calcium 9.0 Assessment & Plan Plan: Assessment/Plan Narrative: Hypokalemia. Potassium ordered this morning. Will recheck a.m.. acute hypoxic respiratory failure. Not greatly improved. White count about the same. IV Lasix this morning. Patient is on Lovenox she would not be pulmonary embolus. Probably ARDS versus COPD with pneumonia. We will see how things go. No change in antibiotics at this time. Atrial fibrillation. Adequately controlled. On Lovenox. Will not make any changes at this time. Aspiration pneumonia possible. White count is stable. No real change otherwise. Will continue antibiotics and hopefully slowly make change. Sepsis. Blood pressures have stabilized. We will see how things go. Really depends on her oxygen status. Bacteria. Do not feel the is a UTI will follow. Acute alcoholic withdrawal. Still somewhat slow to respond but alert and oriented. I am hoping her withdrawal should be either over or done today. Will see how things go. Metabolic encephalopathy. Probably combination of infection and acute withdrawal syndrome has not received a lot a lorazepam. We will follow. DVT prophylaxis. On treatment. GI prophylaxis will hold for now. Disposition. S lungs really not changing quickly. This could be a slow process. Certainly if it worsens will be a big deal. Will follow from here. Re-evaluate in a.m.. Appreciate senior professional services consultant help. Quality VTE Deep Vein Thrombosis/Pulmonary Embolism Present on Admission: No
[2018-06-26] MEDS: METOPROLOL 50 MG TABLET 100 MG PO ×2 (08:05→21:50)
[2018-06-26] MEDS: dilTIAZem CD 180 MG CAP PO (08:05)
[2018-06-26] MEDS: CITALOPRAM 20 MG TABLET PO (08:05)
[2018-06-26] MEDS: POTASSIUM CHLORIDE 20 MEQ TAB PO ×2 (08:05→21:49)
[2018-06-26] MEDS: FUROSEMIDE 40 MG/4 ML VIAL IV (08:05)
--- NOTE | 2018-06-26 08:09 | P.PN_ITS ---
Subjective Date Patient Seen: 06/26/18 Time Patient Seen: 07:52 Interval history: Patient did okay overnight and not required any lorazepam. Not much improvement in O2 requirements, still on around 80% FiO2 with high- flow nasal cannula. I think RT tried her on BiPAP last night but seems like she could not tolerate. Complains of pain in her leg. Exam Vital Signs (past 8 hours): - 06/26/18 00:20 06/26/18 01:21 06/26/18 04:01 Temperature 97.2 F L Pulse Rate 98 H 105 H Respiratory Rate 17 18 Blood Pressure 117/58 L Pulse Oximetry 92 94 95 06/26/18 05:24 Temperature Pulse Rate 100 H Respiratory Rate 22 Blood Pressure Pulse Oximetry 92 Fraction of Inspired Oxygen 75 Oxygen Delivery Method Heated High Flow Oxygen Flow Rate 45 Narrative Exam Narrative: GENERAL: Patient is asleep but awakens easily but then dozes off in mid sentence EYES: Pupils equal CARDIOVASCULAR: Regular rate and rhythm RESPIRATORY: Few scattered rhonchi GASTROINTESTINAL: Abdomen nondistended, soft, non-tender. No organomegaly. EXTREMITIES: Trace bilateral pretibial edema NEUROLOGICAL: Oriented to person and maybe place, nonfocal SKIN: warm, dry, no rash Objective Labs Result Diagrams: 06/26/18 05:10 06/26/18 05:10 Labs: Laboratory Results - last 24 hr 06/25/18 06/26/18 06/26/18 17:15 05:10 05:10 WBC 15.0 H RBC 2.92 L Hgb 9.7 L Hct 28.8 L MCV 98.6 MCH 33.3 MCHC 33.7 RDW 13.7 Plt Count 275 Neut % (Auto) 92.4 H Lymph % (Auto) 2.8 L [place] % (Auto) 4.7 Eos % (Auto) 0.0 L Baso % (Auto) 0.1 Neut # (Auto) 03233 H ABG pH 7.45 ABG pCO2 37.9 ABG pO2 55 L ABG HCO3 27 ABG Total CO2 28 H ABG O2 Saturation 90 L ABG Base Excess 3.0 FiO2 0.5 Sodium 140 Potassium 3.2 L Chloride 103 Carbon Dioxide 31 BUN 22 H Creatinine 0.80 Estimated GFR > 60.0 BUN/Creatinine Ratio 27.5 H Glucose 151 H Calcium 9.0 Assessment & Plan Plan: Assessment/Plan Narrative: 1. Acute hypoxic respiratory failure: Patient developed respiratory failure on or around 06/24/2018 presumed due to aspiration with subsequent ARDS and possible aspiration pneumonia. Chest x-ray with bilateral infiltrates. Continued very high O2 requirement 80-90% FiO2 over last few days. She is also positive on her fluid balance, probably 10 kg up on her weight, and getting daily IV Lasix. IV steroids seemed to help the wheezing. Plan: Continue high- flow nasal cannula, antibiotics, nebulizers, Solu-Medrol 60 mg b.i.d.. Ordered additional Lasix 40 mg IV x1. LR is now running at 21 cc/hour while she is NPO in addition to fluids she is getting from IV antibiotics. Continue IV Lasix as BP tolerates with monitoring of lytes and renal function. Ordered oral potassium for low K. 2. Possible aspiration pneumonia: She remains afebrile, improving or stable WBC. Her calcitonin was less than 0.05 which makes me uncertain whether she has pneumonia or just ARDS from aspiration. However, it makes sense to continue the Levaquin and clindamycin (antibiotics started on 06/24/2018) for 5- 7 day course due to severity of her respiratory failure. 3. Systemic inflammatory response syndrome: Patient has normalization of blood pressures since June 25. 4. Urinary tract infection, unlikely: I do not think she has UTI. She grew Staph epidermidis on admission urine culture but no bacteria and only 5-10 WBC on microscopic. Staph saprophyticus would be more common type of staph in UTI. Vancomycin was previous discontinued. 5. Chronic atrial fibrillation with RVR: Heart rate is controlled with long- acting diltiazem 180 mg daily and metoprolol tartrate 100 mg twice daily. I reduced Lovenox dose for stroke prophylaxis to 75 mg once daily. BMP in 300 range. She had transthoracic ECHO during prior admission on 02/03/2018 which showed LVEF 55-60%, severe LAE, left pleural effusion. 6. Acute alcohol withdrawal: This seems resolved her improving. It is somewhat difficult to separate out acute withdrawal from other encephalopathy. More oriented the past couple of days. 7. Acute encephalopathy: Improving. Did well yesterday sitting up in chair. 8. Nutrition: Currently NPO except pills awaiting speech therapy swallow evaluation. Consider short-term TPN. PICC line placement 06/26/2018. Patient is critically ill due to severe respiratory failure, sepsis and pneumonia. Total critical care management of 30-60 min during course of today' s encounter. Quality VTE Deep Vein Thrombosis/Pulmonary Embolism Present on Admission: No
[2018-06-26] MEDS: OXYCODONE IR 5 MG TABLET 10 MG PO (08:20)
[2018-06-26 08:22] LABS: Magnesium 1.6 mg/dL (1.6-2.3)
--- NOTE | 2018-06-26 09:00 | SLP.IPNOTE ---
Attempted clinical bedside swallow evaluation. Pt receiving PICC line. Will re-attempt later this morning.
--- NOTE | 2018-06-26 09:42 | DI.RAD.S_ITS ---
PROCEDURE: XR CHEST FOR PICC 1V INDICATIONS: picc line placement COMPARISON: [facility], , CHEST FOR PICC PLACEMENT, 04/29/2017, 2:17. FINDINGS: PICC was placed by the intravenous therapy team from the right side. Fluoroscopic spot film demonstrates tip of PICC in the proximal axillary vein. IMPRESSION: 1. Tip of PICC lies within the proximal axillary vein. 2. Diffuse opacification noted in the visualized right lung compatible with pulmonary edema. ARDS cannot be excluded. Dictated by: Lisa Chavez MD, PhD on 06/26/2018 at 10:04 Approved by: Lisa Chavez MD, PhD on 06/26/2018 at 10:05
[2018-06-26] MEDS: methylPREDNISolone 125 MG/2 ML VIAL 60 MG IV ×2 (09:58→21:47)
[2018-06-26] MEDS: SODIUM CHLORIDE 0.9% FLUSH 10 ML IV ×2 (10:59→21:46)
--- NOTE | 2018-06-26 11:13 | OT.IP.EVAL ---
Current Diagnoses Alcohol dependence with withdrawal, unspecified (06/21/18) Essential (primary) hypertension (06/21/18) Unspecified atrial fibrillation (06/21/18) Age-related osteoporosis without current pathological fracture (06/21/18) Urinary tract infection, site not specified (06/21/18) Fracture of unspecified part of neck of left femur, initial encounter for closed fracture (06/21/18) Surgery Performed Operation Date: 06/22/18 16:45 Actual Procedures p Hip IMN(Left) - Hiram Tovar MD Past Medical History (Last Reviewed 06/21/18 @ 19:54 by Natalie Black MD) Chronic atrial fibrillation (Acute) History of alcohol dependence (Acute) Hypertension (Acute) Nicotine dependence with current use (Acute) Surgical History (Last Reviewed 06/21/18 @ 19:54 by Natalie Black MD) History of bowel resection (Acute) Occupational Therapy Inpatient Evaluation/Re-Eval M1 PT/OT-IP Prior Functional Status Start: 06/23/18 14:30 Freq: NEEDED Status: Active Protocol: Document 06/23/18 10:40 AB (Rec: 06/23/18 14:45 AB [id number]) Medical Review Prior Functional Status Medical History Reviewed Yes Communication able to make needs know but pt is with confusion Mobility and Gait stated that she is modified independent with all mobilities and ambulation without AD Social History Household Members spouse Living Arrangements House Number of Floors (Floors) One Floor Number of Stairs To Enter/Railing? no steps to enter Home Environment Standard Height Toilet Walk in Shower Home Equipment Four Wheel Walker Shower Seat without Backrest Hand Held Shower Grab Bars In Shower Employment Status Retired M1 PT/OT-IP Prior Functional Status Start: 06/24/18 11:46 Freq: NEEDED Status: Active Protocol: Document 06/26/18 10:49 [facility] (Rec: 06/26/18 11:12 [facility] [email or web address]) Medical Review Prior Functional Status Medical History Reviewed Yes Communication able to make needs know but pt is with confusion Mobility and Gait stated that she is modified independent with all mobilities and ambulation without AD Social History Household Members spouse Living Arrangements House Number of Floors (Floors) One Floor Number of Stairs To Enter/Railing? no steps to enter Home Environment Standard Height Toilet Walk in Shower Home Equipment Four Wheel Walker Shower Seat without Backrest Hand Held Shower Grab Bars In Shower Employment Status Retired M2 OT-IP Current Condition Start: 06/24/18 11:46 Freq: Status: Active Protocol: Document 06/26/18 10:49 CCC (Rec: 06/26/18 11:12 [facility] [id number]) Occupational Therapy Current Condition Current Condition Evaluation Date 06/26/18 Treatment Diagnosis weakness,s/p Left hip ORIF Diagnosis Onset Date 06/21/18 Weight Bearing Status Weight Bearing Status Touch Down Weight Bearing M3 OT- IP Subjective and Pain Start: 06/24/18 11:46 Freq: Status: Active Protocol: Document 06/26/18 10:49 [facility] (Rec: 06/26/18 11:12 [facility] [id number]) OT- Subjective Occupational Therapy Visit Type Type Initial Evaluation Visit Start Time 10:03 Visit Stop Time 10:26 Total Visit Minutes 23 Occupational Therapy Visit Comments Patient Comments Pt agreeable to get up after nurse encouraging pt to work with therapy. OT Pain Assessment Pain When Pain Assessed At Rest Pain Present Pain Present Denied Pain M4 OT- IP ADL's Start: 06/24/18 11:46 Freq: Status: Active Protocol: Document 06/26/18 10:49 CCC (Rec: 06/26/18 11:12 [facility] [id number]) OT [id number] Comments OT Self-Feeding Comments NPO at this time, TBA by [employer] for swallowing. OT ADL-Dressing General Eval Lower Body Dressing Ability Total Assistance Comments OT Dressing Comments Total assist for LB dressing able to help minimally for UB dressing needs of gown due to weakness. OT ADL-Toileting General Evaluation Toileting Ability Total Assistance Comments OT Toileting Comments Pt has catheter. M6 OT- IP Functional Cognition Start: 06/24/18 11:46 Freq: Status: Active Protocol: Document 06/26/18 10:49 CCC (Rec: 06/26/18 11:12 [facility] [email or web address]) Cognitive Factors Limiting Selfcare Function Cognitive Ability Level of Alertness Alert Patient Orientation Name Attention Span Ability Capable of Focused Attention Unable to Sustain Attention Ability to Follow Commands Able to Follow One Step Commands with Increased Time Able to Follow One Step Commands with Repetition Cognitive Comments Cognitive Assessment Comments Pt able to follow simple concrete commands and having to need lots of encouragement to participate in engaging in therapy at this time. OT- Vision and Hearing OT- Hearing Assessment OT- Hearing Assessment WFL M7 OT- IP Mobility and Balance Start: 06/24/18 11:46 Freq: Status: Active Protocol: Document 06/26/18 10:49 [facility] (Rec: 06/26/18 11:12 [facility] [id number]) OT- Bed Mobility Assessment Supine to Sit Supine to Sit Assist Maximum Assistance 2 Person Assistance Scooting Scooting to Edge of Bed Maximum Assistance 2 Person Assistance OT-Transfer Assessment Technique Transfer Destination Chair Transfer Technique Mechanical Lift Comments Mobility Comments Pt able to initiate to move RLE and needing assist to move LLE and for trunk as HOB up. OT- Balance Assessment Sitting Balance and Reactions Static Sitting Balance Ability Poor Dynamic Sitting Balance Ability Poor Comments Other Balance Tests/Deviations/Treatment Initially pt needing MODA : after set-up to sit at edge of bed and briefly able to sit with close SBA. Pt's posture flexed and tends to lean to the right. M8 OT- IP Objective Assessments Start: 06/24/18 11:46 Freq: Status: Active Protocol: Document 06/26/18 10:49 [facility] (Rec: 06/26/18 11:12 [facility] [id number]) OT Gross Range of Motion Upper Extremity Range of Motion Assessment Bilaterally Impaired ROM Impairments AROM 0-100 shoulder flexion. OT Strength Hand Crew Lead Strength Hand Dominance Left Comments Strength Comments BUE strength 3+/5 for LUE and 4-/5 for RUE. * Pt has skin very fragile. M9 OT- IP Assessment and Plan Start: 06/24/18 11:46 Freq: Status: Active Protocol: Document 06/26/18 10:49 [facility] (Rec: 06/26/18 11:12 [facility] [email or web address]) OT Summary Assessment and Plan Potential Rehabilitation Potential Fair Analytic Complexity at Evaluation Moderate Summary OT Impairments Strength Balance Functional Cognition Functional Mobility Grooming Dressing Toileting Bathing Toilet Transfers Shower Transfers Progress Towards Goals Slow Progress due to Pain Slow Progress due to Medical Issues Slow Progress due to Activity Tolerance Slow Progress due to Cognition Assessment Summary Pt MOD complexity due to main barriers of pain, decreased trunk control, strength, activity tolerance and needing extensive assist for all ADl' s and functional mobility and needing use of Josefina Lift to transfer at this time. Once medically stable pt will require skilled rehab. Goals Grooming Goal Standby Assistance Patient/Caregiver Education Goal Demonstrate Post-Op Precautions Caregiver Independent Assisting Patient OT-Other Goals BUE exercises to help improve ADL and transfer function. MODA X 2 with FWW to be able to transfer to recliner, BSC , and bed. Days to Meet Goals 10 Frequency of Treatment Frequency Of Treatment Once a Day Treatment Plan OT Treatment Plan ADL Training Functional Cognition Training Functional Mobility Therapeutic Exercises Patient/Family Education Discharge Planning Other Treatment Recommendations and Next Show pt BUE exercises. Treatment Focus Attempt grooming needs while sitting at edge of bed. Discharge Recommendations OT Discharge Recommendations SNF Rehab
--- NOTE | 2018-06-26 11:57 | PM.PNPO.1 ---
Subjective Date Patient Seen: 06/26/18 Time Patient Seen: 11:57 Interval history: Patient states her pain is mild. Denies fever chills. Exam Vital Signs (past 8 hours): - 06/26/18 04:01 06/26/18 05:24 06/26/18 08:00 Temperature 97.2 F L 97.8 F Pulse Rate 105 H 100 H 110 H Respiratory Rate 18 22 24 Blood Pressure 117/58 L 138/79 Pulse Oximetry 95 92 92 06/26/18 08:51 06/26/18 10:42 Temperature Pulse Rate 102 H Respiratory Rate 16 Blood Pressure Pulse Oximetry 95 91 Fraction of Inspired Oxygen 80 Oxygen Delivery Method Heated High Flow Oxygen Flow Rate 45 Narrative Exam Narrative: 70-year-old female resting comfortably in bedside chair. Patient is in no apparent distress. Left hip dressing is clean, dry and intact. Motor functions intact distal left lower extremity. Sensation is grossly intact to light touch distal left lower extremity. Objective Labs Result Diagrams: 06/26/18 05:10 06/26/18 05:10 Labs: Laboratory Results - last 24 hr 06/25/18 06/26/18 06/26/18 17:15 05:10 05:10 WBC 15.0 H RBC 2.92 L Hgb 9.7 L Hct 28.8 L MCV 98.6 MCH 33.3 MCHC 33.7 RDW 13.7 Plt Count 275 Neut % (Auto) 92.4 H Lymph % (Auto) 2.8 L [place] % (Auto) 4.7 Eos % (Auto) 0.0 L Baso % (Auto) 0.1 Neut # (Auto) 46261 H ABG pH 7.45 ABG pCO2 37.9 ABG pO2 55 L ABG HCO3 27 ABG Total CO2 28 H ABG O2 Saturation 90 L ABG Base Excess 3.0 FiO2 0.5 Sodium 140 Potassium 3.2 L Chloride 103 Carbon Dioxide 31 BUN 22 H Creatinine 0.80 Estimated GFR > 60.0 BUN/Creatinine Ratio 27.5 H Glucose 151 H Calcium 9.0 Magnesium 06/26/18 05:10 WBC RBC Hgb Hct MCV MCH MCHC RDW Plt Count Neut % (Auto) Lymph % (Auto) [place] % (Auto) Eos % (Auto) Baso % (Auto) Neut # (Auto) ABG pH ABG pCO2 ABG pO2 ABG HCO3 ABG Total CO2 ABG O2 Saturation ABG Base Excess FiO2 Sodium Potassium Chloride Carbon Dioxide BUN Creatinine Estimated GFR BUN/Creatinine Ratio Glucose Calcium Magnesium 1.6 Assessment & Plan Post-op Postoperative Procedures Operation Date: 06/22/18 16:45 Actual Procedures Side Surgeon p Hip IMN Left Hiram Tovar MD Postop day 4.Status post left femur open reduction internal fixation with intramedullary nailing. Mobilize with physical therapy. Patient to be toe-touch weight-bearing. Patient being monitored by Medicine for multiple medical issues. Will likely need [facility] facility placement when stable for discharge. Quality VTE Deep Vein Thrombosis/Pulmonary Embolism Present on Admission: No
--- NOTE | 2018-06-26 12:01 | P.PN_ITS ---
Subjective Date Patient Seen: 06/26/18 Time Patient Seen: 11:57 Interval history: Patient states her pain is mild. Denies fever chills. Exam Vital Signs (past 8 hours): - 06/26/18 04:01 06/26/18 05:24 06/26/18 08:00 Temperature 97.2 F L 97.8 F Pulse Rate 105 H 100 H 110 H Respiratory Rate 18 22 24 Blood Pressure 117/58 L 138/79 Pulse Oximetry 95 92 92 06/26/18 08:51 06/26/18 10:42 Temperature Pulse Rate 102 H Respiratory Rate 16 Blood Pressure Pulse Oximetry 95 91 Fraction of Inspired Oxygen 80 Oxygen Delivery Method Heated High Flow Oxygen Flow Rate 45 Narrative Exam Narrative: 70-year-old female resting comfortably in bedside chair. Patient is in no apparent distress. Left hip dressing is clean, dry and intact. Motor functions intact distal left lower extremity. Sensation is grossly intact to light touch distal left lower extremity. Objective Labs Result Diagrams: 06/26/18 05:10 06/26/18 05:10 Labs: Laboratory Results - last 24 hr 06/25/18 06/26/18 06/26/18 17:15 05:10 05:10 WBC 15.0 H RBC 2.92 L Hgb 9.7 L Hct 28.8 L MCV 98.6 MCH 33.3 MCHC 33.7 RDW 13.7 Plt Count 275 Neut % (Auto) 92.4 H Lymph % (Auto) 2.8 L [place] % (Auto) 4.7 Eos % (Auto) 0.0 L Baso % (Auto) 0.1 Neut # (Auto) 50806 H ABG pH 7.45 ABG pCO2 37.9 ABG pO2 55 L ABG HCO3 27 ABG Total CO2 28 H ABG O2 Saturation 90 L ABG Base Excess 3.0 FiO2 0.5 Sodium 140 Potassium 3.2 L Chloride 103 Carbon Dioxide 31 BUN 22 H Creatinine 0.80 Estimated GFR > 60.0 BUN/Creatinine Ratio 27.5 H Glucose 151 H Calcium 9.0 Magnesium 06/26/18 05:10 WBC RBC Hgb Hct MCV MCH MCHC RDW Plt Count Neut % (Auto) Lymph % (Auto) [place] % (Auto) Eos % (Auto) Baso % (Auto) Neut # (Auto) ABG pH ABG pCO2 ABG pO2 ABG HCO3 ABG Total CO2 ABG O2 Saturation ABG Base Excess FiO2 Sodium Potassium Chloride Carbon Dioxide BUN Creatinine Estimated GFR BUN/Creatinine Ratio Glucose Calcium Magnesium 1.6 Assessment & Plan Post-op Postoperative Procedures Operation Date: 06/22/18 16:45 Actual Procedures Side Surgeon p Hip IMN Left Hiram Tovar MD Postop day 4.Status post left femur open reduction internal fixation with intramedullary nailing. Mobilize with physical therapy. Patient to be toe- touch weight-bearing. Patient being monitored by Medicine for multiple medical issues. Will likely need [facility] facility placement when stable for discharge. Quality VTE Deep Vein Thrombosis/Pulmonary Embolism Present on Admission: No
[2018-06-26] MEDS: OXYCODONE IR 5 MG TABLET PO ×3 (13:01→21:46)
[2018-06-26] MEDS: levoFLOXacin 750 MG/150 ML PIGGYBACK 150 MG IV (13:02)
--- NOTE | 2018-06-26 14:05 | ST.IPIE ---
Care Team Visit Care Team Role Provider Type Hiram Tovar MD Other Providers Physician Specialty: Orthopedic Surgery Address: [address] [place] [address], [id number] Email: [email or web address] Black MD Emergency Provider Physician Specialty: Emergency Medicine Address: [address] [place] [address], [id number] Email: Santiago Hester MD Attending Provider Physician Family Provider Primary Care Provider Specialty: Family Practice Address: [facility] [place], [address] Email: [email or web address] [email or web address] MD Admit Provider Physician Other Providers Specialty: Internal Medicine Address: [address] [place] [address], [id number] Email: Current Diagnoses Alcohol dependence with withdrawal, unspecified (06/21/18) Essential (primary) hypertension (06/21/18) Unspecified atrial fibrillation (06/21/18) Age-related osteoporosis without current pathological fracture (06/21/18) Urinary tract infection, site not specified (06/21/18) Fracture of unspecified part of neck of left femur, initial encounter for closed fracture (06/21/18) Past Medical History (Last Reviewed 06/21/18 @ 19:54 by Natalie Black MD) Chronic atrial fibrillation (Acute Medical) History of alcohol dependence (Acute Medical) Hypertension (Acute Medical) Nicotine dependence with current use (Acute Medical) ST IP Initial Evaulation Report MANAGER MACHINE Clinical Swallow Evaluation Start: 06/26/18 09:00 Freq: Status: Active Protocol: Document 06/26/18 13:39 MRM (Rec: 06/26/18 14:05 MRM [id number]) Clinical Swallow Evaluation Session Time Visit Start Time 12:30 Visit Stop Time 13:10 Total Visit Minutes [address] Hester Reason for Referral Aspriation Pneumonia Setting Assessment Location Acute Care Visit Type Note Type Initial Evaluation Next Note Type Next Note Type Treatment Note Patient Information Identification Type Name ID Wristband History Patient is a 78 year old female admitted to [facility] after falling at home . She was down for 2 days before being found. When she arrived at the ER, it was determined that she had a left hip fracture and was afibrile . Over the course of her stay, she developed a UTI, sepsis and metabolic encephalopathy. She also went into alcoholic withdrawal. On 06/24/18, she went into respiratory failure with suspected aspiration/ aspiration pneumonia. She was made NPO until speech could evaluate. PAST MEDICAL HISTORY: Chronic atrial fibrillation History of alcohol dependence (Acute) Hypertension Nicotine dependence with current use (Acute) Subjective Observations Patient was awake and alert, sitting in chair with feet up. MANAGER MACHINE repositioned with feet down to improve sitting posture. Patient complained of pain during evaluation and RN provided pain medication. Patient awake and oriented, able to state name, location, and recount what happened prior to coming to the hospital. Able to follow verbal directions well. Became tired during evaluation and requested to discontinue before all trials were administered. Patient's 02 sats averaged 78- 85 througout the evaluation. With cues to close her mouth and take deep breaths, she was able to improve 02 saturations. Evaluation Liquids Trialed Ice Chips Thin Solids Trialed Puree Dysphagia Mechanical Administration Type Tea Spoon Straw Dependent Feeding Oral Impairment WFL Oral Strategies Upright at 90 degrees Double Swallow Lingual Sweep Controlled Bite/Sip Size Alternate Liquids/Solids Oral Phase Comments Mildly reduced lingual coordination and strength. Pharyngeal Impairment WFL Pharyngeal Strategies Sitting Upright (90 deg) Effortful Swallow Small Bites and Sips Alternate Liquids/Solids Pharyngeal Phase Comments Mildly reduced hyolaryngeal excursion Findings Dysphagia Type Mild oropharyngeal dysphagia Rehabilitation Potential Excellent Impressions Patient presents with mild oropharyngeal dysphagia significant for mildly reduced hyolaryngeal excursion and mildly reduced lingual coordination and strength. TRIALS: Ice chips, thin liquid via tsp and straw, puree applesauce, soft fruit, medication whole in applesauce. Patient dependent for feeding, by request. Able to tolerate oral care by MANAGER MACHINE, but observed difficulty with mouth wash swish and spit. Suction provided to assist. Able to tolerate thin liquids via spoon and straw. Observed cough with thin liquids x1, largely due to patient's repositioning in chair due to pain. MANAGER MACHINE and PARAFFIN PLANT SWEATER OPERATOR repositioned patient and RN provided pain medication. After this, no further s/s of aspiration observed throughout evaluation . Able to tolerate additional trials of thin liquid via straw, puree textures via spoon and soft fruit successfully. No change in vocal quality, no significant decline in respiratory status. RECOMMEND: Thin liquids, straw okay, dysphagia advanced textures. Medications in carrier. Please monitor patient during meals for assistance and cues for alertness to maintain safe intake. Position upright at 90 degrees for all meals to assist in safety. Slow rate of intake, small bites and sips, assist with tray setup. Cues for double swallow, effortful swallow. Check mouth for pocketing. Monitor patient's vitals and lungs. If any decline, MANAGER MACHINE will reassess. If no change, MANAGER MACHINE will continue to follow up for treatment. MANAGER MACHINE will follow up. Diet Recommendations Liquids Order Thin Diet Order Dysphagia Advanced Medication Recommendations Whole in Carrier Additional Dietary Needs Chopped Food 1:1 Assistance Encourage to Self-Feed Reminders to Use Strategies Aspiration Precautions Recommended Precautions Upright at 90 Degrees Alternate Liquids/Solids Frequent Rest Periods Small Bites/Sips Effortful Swallow Double Swallow Lingual Sweep Check for Pocketing Additional Precautions Cue for alertness Treatment Plan Placement Recommendations after Usp Facility Discharge Appropriate for Therapy Yes Therapy Recommendations Dysphagia treatment Dysphagia Goals Patient will tolerate the safest, least restrictive diet without overt s/s of aspiration. Patient will implement effortful swallow/tunde maneuvor to improve hyolaryngeal excurion. Patient will trial more solid textures for potential diet upgrade, when appropriate. MANAGER MACHINE Oral Motor Exam Start: 06/26/18 09:00 Freq: Status: Active Protocol: Document 06/26/18 13:39 [facility] (Rec: 06/26/18 14:05 [facility] [id number]) Oral Motor Examination Face Facial Symmetry Symmetrical Facial Movement Controlled Mouth Teeth Characteristics Intact/Normal Pucker Lips Reduced ROM Smile Reduced ROM Puff Cheeks Reduced Strength Tongue Size Normal Comments Overall strength reduced, but functional for use Tongue Movement Protrusion/Retraction Strength Mildly Reduced Protrusion/Retraction Range of Movement Reduced Protrusion/Retraction Coordination WFL Lateralization Strength Mildly Reduced Lateralization Range of Movement Reduced Comments Overall strength reduced, but functional for use Palate Soft Palate Description Normal Hard Palate Description Normal Velopharyngeal Movement Normal Hyolaryngeal Movement Hyolaryngeal Movement Normal Elevation Reduced Excursion Hyolaryngeal Movement Comments Mildly reduced hyolaryngeal excursion observed through palpation Volitional Cough/Swallow Comments Cough/throat clear productive
--- NOTE | 2018-06-26 15:29 | PT.IPTN ---
Current Diagnoses Alcohol dependence with withdrawal, unspecified (06/21/18) Essential (primary) hypertension (06/21/18) Unspecified atrial fibrillation (06/21/18) Age-related osteoporosis without current pathological fracture (06/21/18) Urinary tract infection, site not specified (06/21/18) Fracture of unspecified part of neck of left femur, initial encounter for closed fracture (06/21/18) Surgery Performed Operation Date: 06/22/18 16:45 Actual Procedures p Hip IMN(Left) - Hiram Tovar MD Physical Therapy Treatment Note M2 PT-IP Current Condition Start: 06/23/18 14:30 Freq: NEEDED Status: Active Protocol: Document 06/25/18 15:25 RCC (Rec: 06/25/18 15:38 RCC [id number]) Physical Therapy Current Condition Current Condition Evaluation Date 06/23/18 Treatment Diagnosis s/p L hip ORIF with intramedullary nailing; difficulty in walking Onset Date 06/22/18 Weight Bearing Status Weight Bearing Status Touch Down Weight Bearing M3 PT-IP Subjective Start: 06/23/18 14:30 Freq: NEEDED Status: Active Protocol: Document 06/26/18 10:03 CLB (Rec: 06/26/18 15:28 CLB [id number]) Subjective Physical Therapy Visit Type Type Treatment Note Visit Start Time 10:03 Visit Stop Time 10:26 Total Visit Minutes 23 Notes Pt agreed to transfer to chair with RN encouragement. Number of COATING OPERATOR Visits 1 Physical Therapy Visit Comments Patient Comments pt states ouch with movement of the LLE. Therapy Pain Assessment Pain When Pain Assessed During Mobility Pain Present Pain Present Pain Reported Location Left Hip Scale Used unable to give number Pain Behaviors Calling Out Facial Grimacing Pain Management Techniques Modification of Treatment Re-positioning Timing of Activity with Medications M4 PT-IP Mobility and Gait Start: 06/23/18 14:30 Freq: NEEDED Status: Active Protocol: Document 06/26/18 10:03 CLB (Rec: 06/26/18 15:28 CLB [id number]) PT-Bed Mobility Assessment Rolling Level of Assist Maximal Assistance 2 Person Assistance Supine to Sit Supine to Sit Maximum Assistance 2 Person Assistance Scooting Scooting to Edge of Bed Dependent PT-Transfer Assessment Transfers Transfer Destination Chair Transfer Technique Mechanical Lift Comments Mobility Comments Mechanical lift used due to pt 's decrease in O2 sats with sitting up. M5 PT-IP Objective Assessments Start: 06/23/18 14:30 Freq: NEEDED Status: Active Protocol: Document 06/23/18 10:40 AB (Rec: 06/23/18 14:45 AB [id number]) Orientation Orientation/Cognition Level of Alertness Confusional State Orientation Name Safety Awareness Decreased Safety Awareness Memory Description Short Term Impaired Customer Support Engineer Impaired Gross Range of Motion Lower Extremity ROM Assessment Left Impaired Impairments pain and tightness limiting mobility on LLE Strength Lower Extremity Strength Assessment Bilaterally Impaired M6 PT-IP Treatment Start: 06/23/18 14:30 Freq: NEEDED Status: Active Protocol: Document 06/23/18 10:40 AB (Rec: 06/23/18 14:45 AB [id number]) Physical Therapy Treatment Education Education Provided Precautions Weight Bearing Status Post-Op Packet Safety M7 PT-IP Assessment and Plan Start: 06/23/18 14:30 Freq: NEEDED Status: Active Protocol: Document 06/26/18 10:03 CLB (Rec: 06/26/18 15:28 CLB [id number]) PT Summary Assessment and Plan Summary Assessment Summary Pt was transferred using mechanical lift this date due to decreasing O2 saturation with any level of activity on high flow of O2. Pt requires 2 assist with all bed mobility . Goals Bed Mobility Goal Moderate Assistance Transfer Goal Moderate Assistance Front Wheeled Walker Gait Goal Moderate Assistance Front Wheel Walker Gait Distance 20 Days to Meet Goals 5 Frequency of Treatment Frequency Of Treatment Twice a Day Treatment Plan Other Recommendations and Next Treatment sitting activities- sitting Focus EOB, static balance; if medically ready, may attempt transfer (has required 2-3 assist) Recommendations To Nursing Amount of Assist Needed 3 or More Person Assist Mechanical Lift Discharge Recommendations PT Discharge Recommendations SNF Rehab
--- NOTE | 2018-06-26 16:14 | PT.IPTN ---
Current Diagnoses Alcohol dependence with withdrawal, unspecified (06/21/18) Essential (primary) hypertension (06/21/18) Unspecified atrial fibrillation (06/21/18) Age-related osteoporosis without current pathological fracture (06/21/18) Urinary tract infection, site not specified (06/21/18) Fracture of unspecified part of neck of left femur, initial encounter for closed fracture (06/21/18) Surgery Performed Operation Date: 06/22/18 16:45 Actual Procedures p Hip IMN(Left) - Hiram Tovar MD Physical Therapy Treatment Note M2 PT-IP Current Condition Start: 06/23/18 14:30 Freq: NEEDED Status: Active Protocol: Document 06/25/18 15:25 RCC (Rec: 06/25/18 15:38 RCC [id number]) Physical Therapy Current Condition Current Condition Evaluation Date 06/23/18 Treatment Diagnosis s/p L hip ORIF with intramedullary nailing; difficulty in walking Onset Date 06/22/18 Weight Bearing Status Weight Bearing Status Touch Down Weight Bearing M3 PT-IP Subjective Start: 06/23/18 14:30 Freq: NEEDED Status: Active Protocol: Document 06/26/18 16:04 LJ (Rec: 06/26/18 16:13 LJ [id number]) Subjective Physical Therapy Visit Type Type Treatment Note Visit Start Time 15:30 Visit Stop Time 15:52 Total Visit Minutes 22 Notes Pt just returned to bed by nursing Physical Therapy Visit Comments Patient Comments Pt agreeable to do therapy exercises in bed M4 PT-IP Mobility and Gait Start: 06/23/18 14:30 Freq: NEEDED Status: Active Protocol: Document 06/26/18 16:13 LJ (Rec: 06/26/18 16:14 LJ [id number]) PT-Transfer Assessment Comments Mobility Comments Pt remained in bed for exercises Gait Assessment Comments Gait Comments unable at this time M5 PT-IP Objective Assessments Start: 06/23/18 14:30 Freq: NEEDED Status: Active Protocol: Document 06/23/18 10:40 AB (Rec: 06/23/18 14:45 AB [id number]) Orientation Orientation/Cognition Level of Alertness Confusional State Orientation Name Safety Awareness Decreased Safety Awareness Memory Description Short Term Impaired Nursing Home Impaired Gross Range of Motion Lower Extremity ROM Assessment Left Impaired Impairments pain and tightness limiting mobility on LLE Strength Lower Extremity Strength Assessment Bilaterally Impaired M6 PT-IP Treatment Start: 06/23/18 14:30 Freq: NEEDED Status: Active Protocol: Document 06/26/18 16:04 FIDELINA (Rec: 06/26/18 16:13 LJ [id number]) Physical Therapy Treatment Exercises Exercises Ankle Pumps Gluteal Sets Quad Sets Heel Slides Supine Hip Abduction M7 PT-IP Assessment and Plan Start: 06/23/18 14:30 Freq: NEEDED Status: Active Protocol: Document 06/26/18 16:04 FIDELINA (Rec: 06/26/18 16:13 LJ [id number]) PT Summary Assessment and Plan Summary Assessment Summary Pt very sleepy during exercises. Required ModA with LLE during AAROM. Pt able to complete 5 reps of heel slides , GS,QS and pelvic tilts before fatiguing. Goals Bed Mobility Goal Moderate Assistance Transfer Goal Moderate Assistance Front Wheeled Walker Gait Goal Moderate Assistance Front Wheel Walker Gait Distance 20 Days to Meet Goals 5 Frequency of Treatment Frequency Of Treatment Twice a Day Treatment Plan Other Recommendations and Next Treatment sitting activities- sitting Focus EOB, static balance; if medically ready, may attempt transfer (has required 2-3 assist) Recommendations To Nursing Amount of Assist Needed 3 or More Person Assist Mechanical Lift Discharge Recommendations PT Discharge Recommendations SNF Rehab
[2018-06-26] MEDS: SODIUM CHLORIDE 0.9% 500 ML 1000 ML IV (17:29)
[2018-06-26] MEDS: ENOXAPARIN 80 MG/0.8 ML SYRINGE 75 MG SUBCUT (21:50)
[2018-06-26] MEDS: MIRTAZAPINE 15 MG TABLET PO (21:51)
[2018-06-27] VITALS (12 sets, daily range): BP systolic 111–133; BP diastolic 58–80; PULSE 78–128; RESP 10–21; TEMP 36.3–36.7; O2SAT 92–98
[2018-06-27] MEDS: OXYCODONE IR 5 MG TABLET 10 MG PO ×6 (00:40→19:15)
[2018-06-27] MEDS: CLINDAMYCIN 600 MG/50 ML PIGGYBACK 50 MG IV ×3 (00:50→17:17)
[2018-06-27] MEDS: ALBUTEROL/IPRATROPIUM 3 ML AMPUL INH ×5 (02:01→17:51)
[2018-06-27 05:42] LABS: Hematocrit 28.6 % (36-46); Hemoglobin 9.6 g/dL (12.0-16.0); Mean Corpuscular HGB Conc 33.7 % (30-36); Mean Corpuscular Hemoglobin 33.5 PG (26-34); Mean Corpuscular Volume 99.6 fL (80-100); Platelet Count 313 X10^3/uL (150-400); Red Blood Cell Count 2.87 X10^6/uL (4.0-5.2); Red Cell Distribution Width 13.6 % (11.6-14.8); White Blood Cell Count 12.1 X10^3/uL (4.5-11.0)
[2018-06-27 05:43] LABS: Add Manual Diff / Slide Review YES
[2018-06-27 05:45] LABS: BUN Creatinine Ratio 38.8 (6-22); Blood Urea Nitrogen 31 mg/dL (7-17); Calcium 9.1 mg/dL (8.4-10.2); Carbon Dioxide 33 mmol/L (22-32); Chloride 101 mmol/L (98-107); Estimated Glomerular Filt Rate > 60.0 mL/min (>60); Glucose 169 mg/dL (80-110); HEMOLYSIS 20 (0-50); Potassium 3.7 mmol/L (3.4-5.1); Sodium 140 mmol/L (137-145)
[2018-06-27 06:31] LABS: Hypochromasia 1+; Nucleated Red Blood Cells 1 #/Diff
--- NOTE | 2018-06-27 06:33 | PC.NURSE ---
Patient has been awake most of the night, oriented to person and place, but became more forgetful and restless toward am. Medicated with oxycodone per prn order for Lt hip pain, she dozed briefly after administration. HHFNC on 70-75% FIO2, 50L, SpO2 >92% when able to get a good pleth, oximeter is on forehead. A-fib RVR, rate goes up to 120 briefly after neb tx.
--- NOTE | 2018-06-27 07:37 | PM.PNPO.1 ---
Subjective Date Patient Seen: 06/27/18 Time Patient Seen: 07:37 Interval history: Patient's pain is moderate. Denies fever chills. Exam Vital Signs (past 8 hours): - 06/26/18 23:40 06/26/18 23:45 06/27/18 02:01 Temperature 97.9 F Pulse Rate 92 H 97 H Respiratory Rate 22 18 Blood Pressure 148/94 H Pulse Oximetry 92 92 06/27/18 04:00 06/27/18 05:34 06/27/18 07:15 Temperature 97.4 F L 98.1 F Pulse Rate 100 H 108 H 128 H Respiratory Rate 20 20 21 Blood Pressure 130/63 133/71 Pulse Oximetry 92 95 Fraction of Inspired Oxygen 75 Oxygen Delivery Method Heated High Flow Oxygen Flow Rate 50 Narrative Exam Narrative: 70-year-old female resting comfortably in bed in no apparent distress. Left hip dressing is clean, dry and intact. Motor functions intact distal left lower extremity. The left leg is warm and dry. Sensation is grossly intact to light touch. Objective Labs Result Diagrams: 06/27/18 05:15 06/27/18 05:15 Labs: Laboratory Results - last 24 hr 06/26/18 06/27/18 06/27/18 05:10 05:15 05:15 WBC 12.1 H RBC 2.87 L Hgb 9.6 L Hct 28.6 L MCV 99.6 MCH 33.5 MCHC 33.7 RDW 13.6 Plt Count 313 Neut % (Auto) Not Reportable Lymph % (Auto) Not Reportable [place] % (Auto) Not Reportable Eos % (Auto) Not Reportable Baso % (Auto) Not Reportable Seg Neutrophils % 83.0 H Band Neutrophils % 6.0 Lymphocytes % (Manual) 8.0 L Monocytes % (Manual) 3.0 Nucleated RBCs 1 H RBC Morphology Not Reportable Hypochromasia 1+ H Sodium 140 Potassium 3.7 Chloride 101 Carbon Dioxide 33 H BUN 31 H Creatinine 0.80 Estimated GFR > 60.0 BUN/Creatinine Ratio 38.8 H Glucose 169 H Calcium 9.1 Magnesium 1.6 Assessment & Plan Post-op Postoperative Procedures Operation Date: 06/22/18 16:45 Actual Procedures Side Surgeon p Hip IMN Left Hiram Tovar MD postop day 5. Status post left femur open reduction internal fixation with intramedullary nailing. Mobilize with physical therapy. Patient to be toe-touch weight-bearing. Patient continues to be monitored by [facility] for acute hypoxic respiratory failure, atrial fibrillation, possible aspiration pneumonia, sepsis, acute alcohol withdrawal, metabolic encephalopathy. Quality VTE Deep Vein Thrombosis/Pulmonary Embolism Present on Admission: No
--- NOTE | 2018-06-27 07:41 | P.PN_ITS ---
Subjective Date Patient Seen: 06/27/18 Time Patient Seen: 07:37 Interval history: Patient's pain is moderate. Denies fever chills. Exam Vital Signs (past 8 hours): - 06/26/18 23:40 06/26/18 23:45 06/27/18 02:01 Temperature 97.9 F Pulse Rate 92 H 97 H Respiratory Rate 22 18 Blood Pressure 148/94 H Pulse Oximetry 92 92 06/27/18 04:00 06/27/18 05:34 06/27/18 07:15 Temperature 97.4 F L 98.1 F Pulse Rate 100 H 108 H 128 H Respiratory Rate 20 20 21 Blood Pressure 130/63 133/71 Pulse Oximetry 92 95 Fraction of Inspired Oxygen 75 Oxygen Delivery Method Heated High Flow Oxygen Flow Rate 50 Narrative Exam Narrative: 70-year-old female resting comfortably in bed in no apparent distress. Left hip dressing is clean, dry and intact. Motor functions intact distal left lower extremity. The left leg is warm and dry. Sensation is grossly intact to light touch. Objective Labs Result Diagrams: 06/27/18 05:15 06/27/18 05:15 Labs: Laboratory Results - last 24 hr 06/26/18 06/27/18 06/27/18 05:10 05:15 05:15 WBC 12.1 H RBC 2.87 L Hgb 9.6 L Hct 28.6 L MCV 99.6 MCH 33.5 MCHC 33.7 RDW 13.6 Plt Count 313 Neut % (Auto) Not Reportable Lymph % (Auto) Not Reportable [place] % (Auto) Not Reportable Eos % (Auto) Not Reportable Baso % (Auto) Not Reportable Seg Neutrophils % 83.0 H Band Neutrophils % 6.0 Lymphocytes % (Manual) 8.0 L Monocytes % (Manual) 3.0 Nucleated RBCs 1 H RBC Morphology Not Reportable Hypochromasia 1+ H Sodium 140 Potassium 3.7 Chloride 101 Carbon Dioxide 33 H BUN 31 H Creatinine 0.80 Estimated GFR > 60.0 BUN/Creatinine Ratio 38.8 H Glucose 169 H Calcium 9.1 Magnesium 1.6 Assessment & Plan Post-op Postoperative Procedures Operation Date: 06/22/18 16:45 Actual Procedures Side Surgeon p Hip IMN Left Hiram Tovar MD postop day 5. Status post left femur open reduction internal fixation with intramedullary nailing. Mobilize with physical therapy. Patient to be toe- touch weight-bearing. Patient continues to be [place] [facility] for acute hypoxic respiratory failure, atrial fibrillation, possible aspiration pneumonia, sepsis, acute alcohol withdrawal, metabolic encephalopathy. Quality VTE Deep Vein Thrombosis/Pulmonary Embolism Present on Admission: No
[2018-06-27] MEDS: POTASSIUM CHLORIDE 20 MEQ TAB PO (07:53)
[2018-06-27] MEDS: dilTIAZem CD 180 MG CAP PO (07:54)
[2018-06-27] MEDS: CITALOPRAM 20 MG TABLET PO (07:54)
[2018-06-27] MEDS: methylPREDNISolone 125 MG/2 ML VIAL 60 MG IV ×2 (07:55→20:13)
[2018-06-27] MEDS: METOPROLOL 50 MG TABLET 100 MG PO ×2 (07:56→20:13)
[2018-06-27] MEDS: SODIUM CHLORIDE 0.9% FLUSH 10 ML IV ×2 (07:57→20:14)
[2018-06-27] MEDS: FUROSEMIDE 40 MG TABLET PO (07:58)
[2018-06-27] MEDS: FUROSEMIDE 20 MG/2 ML VIAL IV (08:19)
--- NOTE | 2018-06-27 08:33 | PM.PN.1 ---
Subjective Date Patient Seen: 06/27/18 Time Patient Seen: 08:33 Interval history: Patient more alert today. Oxygen requirement is down to 60%. No complaints of pain except in her back from sitting. Has not been mobilizing much. No other significant changes or complaints. Heart rate is in the 120s this morning. Exam Vital Signs (past 8 hours): - 06/27/18 02:01 06/27/18 04:00 06/27/18 05:34 Temperature 97.4 F L Pulse Rate 97 H 100 H 108 H Respiratory Rate 18 20 20 Blood Pressure 130/63 Pulse Oximetry 92 92 06/27/18 07:15 Temperature 98.1 F Pulse Rate 128 H Respiratory Rate 21 Blood Pressure 133/71 Pulse Oximetry 95 Fraction of Inspired Oxygen 75 Oxygen Delivery Method Heated High Flow Oxygen Flow Rate 50 Narrative Exam Narrative: Alert mildly fatigued female no acute distress. HEENT exam is unremarkable. Neck supple without adenopathy. Lungs diffuse crackles. Heart irregular rhythm with increased rate no murmurs clicks rubs or gallops . abdomen is soft positive bowel sounds nontender. Extremities no cyanosis or clubbing. Mild edema bilaterally. Objective Labs Result Diagrams: 06/27/18 05:15 06/27/18 05:15 Labs: Laboratory Results - last 24 hr 06/27/18 06/27/18 05:15 05:15 WBC 12.1 H RBC 2.87 L Hgb 9.6 L Hct 28.6 L MCV 99.6 MCH 33.5 MCHC 33.7 RDW 13.6 Plt Count 313 Neut % (Auto) Not Reportable Lymph % (Auto) Not Reportable [place] % (Auto) Not Reportable Eos % (Auto) Not Reportable Baso % (Auto) Not Reportable Seg Neutrophils % 83.0 H Band Neutrophils % 6.0 Lymphocytes % (Manual) 8.0 L Monocytes % (Manual) 3.0 Nucleated RBCs 1 H RBC Morphology Not Reportable Hypochromasia 1+ H Sodium 140 Potassium 3.7 Chloride 101 Carbon Dioxide 33 H BUN 31 H Creatinine 0.80 Estimated GFR > 60.0 BUN/Creatinine Ratio 38.8 H Glucose 169 H Calcium 9.1 Assessment & Plan Plan: Assessment/Plan Narrative: acute hypoxic respiratory failure. Secondary to pneumonia. Possible aspiration. O2 requirement is improved today. Patient actually looks a lot better. Hopefully with more mobilization will get better. Continue steroids antibiotics and respiratory therapy. We will just take time. No significant change at this time. Atrial fibrillation. Heart rate is up. Unclear what this represents whether not we will need to increase her Cardizem back again. We will see how the day goes. Overall is tolerating it. Question long-term will be whether or not to restart Coumadin with her history of falls and alcohol use. Certainly high risk. Will have to discuss with her and . Aspiration pneumonia possible. Slowly improving. Hip fracture. Need to mobilize more. Will get up and mobilize today hopefully start. Sepsis. Resolving. Appears to be mostly stable. Bacteria. Do not feel the is a UTI will follow. Acute alcoholic withdrawal. I think today's the 1st day where things seem to be improved. Will need as much medicine will see how things go. Will have to discuss treatment if she is interested Metabolic encephalopathy. Improved today. Still not completely back to her normal self. We will see how things go. DVT prophylaxis. On treatment. GI prophylaxis will hold for now. Disposition. Still not completely out of the perkins but making progress. There is really no change other than time suspect will be ready to discharge until later this week if not early next week. Quality VTE Deep Vein Thrombosis/Pulmonary Embolism Present on Admission: No
--- NOTE | 2018-06-27 09:55 | OT.IP.TRT ---
Current Diagnoses Alcohol dependence with withdrawal, unspecified (06/21/18) Essential (primary) hypertension (06/21/18) Unspecified atrial fibrillation (06/21/18) Age-related osteoporosis without current pathological fracture (06/21/18) Urinary tract infection, site not specified (06/21/18) Fracture of unspecified part of neck of left femur, initial encounter for closed fracture (06/21/18) Surgery Performed Operation Date: 06/22/18 16:45 Actual Procedures p Hip IMN(Left) - Hiram Tovar MD Occupational Therapy Treatment Note M2 OT-IP Current Condition Start: 06/24/18 11:46 Freq: Status: Active Protocol: Document 06/26/18 10:49 CCC (Rec: 06/26/18 11:12 [facility] [id number]) Occupational Therapy Current Condition Current Condition Evaluation Date 06/26/18 Treatment Diagnosis weakness,s/p Left hip ORIF Diagnosis Onset Date 06/21/18 Weight Bearing Status Weight Bearing Status Touch Down Weight Bearing M3 OT- IP Subjective and Pain Start: 06/24/18 11:46 Freq: Status: Active Protocol: Document 06/27/18 09:55 PJM (Rec: 06/27/18 14:24 PJM [id number]) OT- Subjective Occupational Therapy Visit Type Type Treatment Note Visit Start Time 09:15 Visit Stop Time 09:55 Total Visit Minutes 40 Notes Pt now on DMA diet with thin liquids as long as sitting upright per RN. Occupational Therapy Visit Comments Patient/Caregiver Goals to go home OT Pain Assessment Pain When Pain Assessed After Treatment Pain Present Pain Present Pain Reported Location Left Hip Scale Used pt unable to rate pain, c/o mild discomfort M4 OT- IP ADL's Start: 06/24/18 11:46 Freq: Status: Active Protocol: Document 06/27/18 09:55 PJM (Rec: 06/27/18 14:24 PJM [id number]) OT ADL-Grooming General Evaluation Grooming Ability Minimal Assistance Areas Needing Assistance Retrieving/Set-up of Grooming Items Combing/Brushing Hair Face Washing Comments OT Grooming Comments Pt needs verbal cues to avoid O2 tubing and oximeter. OT ADL-Dressing General Eval Upper Body Dressing Ability Maximum Assistance Lower Body Dressing Ability Total Assistance OT ADL-Toileting General Evaluation Toileting Ability Total Assistance Areas Needing Assistance Empty Catheter or Colostomy Perform Perineal Hygiene Comments OT Toileting Comments pt has reid OT ADL-Bathing General Evaluation Bathing Ability Total Assistance M6 OT- IP Functional Cognition Start: 06/24/18 11:46 Freq: Status: Active Protocol: Document 06/26/18 10:49 CCC (Rec: 06/26/18 11:12 [facility] [id number]) Cognitive Factors Limiting Selfcare Function Cognitive Ability Level of Alertness Alert Patient Orientation Name Attention Span Ability Capable of Focused Attention Unable to Sustain Attention Ability to Follow Commands Able to Follow One Step Commands with Increased Time Able to Follow One Step Commands with Repetition Cognitive Comments Cognitive Assessment Comments Pt able to follow simple concrete commands and having to need lots of encouragement to participate in engaging in therapy at this time. OT- Vision and Hearing OT- Hearing Assessment OT- Hearing Assessment WFL M7 OT- IP Mobility and Balance Start: 06/24/18 11:46 Freq: Status: Active Protocol: Document 06/27/18 09:55 PJM (Rec: 06/27/18 14:24 PJM [id number]) OT- Bed Mobility Assessment Rolling Type of Rolling Roll to Right Roll to Left Level of Assistance Maximum Assistance 2 Person Assistance Bedrails Supine to Sit Supine to Sit Assist Maximum Assistance 2 Person Assistance Scooting Scooting to Edge of Bed Maximum Assistance 2 Person Assistance OT-Transfer Assessment Technique Transfer Technique Mechanical Lift OT- Gait Assessment Comments Gait Ability Comments Pt non ambulatory at present. OT- Balance Assessment Sitting Balance and Reactions Static Sitting Balance Ability Fair Dynamic Sitting Balance Ability Poor Comments Other Balance Tests/Deviations/Treatment Pt demonstrating improved : sitting balacne once up on EOB today. Pt able to sit with CGA to close SBA for 2-3 min at a time but fatigues quickly . M9 OT- IP Assessment and Plan Start: 06/24/18 11:46 Freq: Status: Active Protocol: Document 06/27/18 09:55 PJM (Rec: 06/27/18 14:24 PJM [id number]) OT Summary Assessment and Plan Potential Rehabilitation Potential Good Summary OT Impairments Pain Strength Balance Functional Cognition Functional Mobility Grooming Dressing Toileting Bathing Toilet Transfers Shower Transfers Progress Towards Goals Slow Progress due to Medical Issues Assessment Summary Pt continues to require max assist of 2 for bed mobility but with much improved sitting balance once seated edge of bed today. Pt able to participate in grooming tasks seated EOB with min assist. Pt desats on 70% FIO2 to 70's when sidelying and to low 80's /high 70's with bed mobility. RN increased O2 to 80% with pt then keeping sats in mid 80's to low 90's with verbal cues for pursed lip breathing. Pt with O2 sats in high 90's once pt seated comfortably in recliner. Pt not yet able to tolerate standing trials; requires mechanical lift for transfers today. Pt intermittently drowsy but able to state place, month, min cues for date. Conversation mildy confused at times. Pt will need SNF at discharge for further rehab services. Discharge Recommendations OT Discharge Recommendations SNF Rehab
--- NOTE | 2018-06-27 11:54 | PT.IPTN ---
Current Diagnoses Alcohol dependence with withdrawal, unspecified (06/21/18) Essential (primary) hypertension (06/21/18) Unspecified atrial fibrillation (06/21/18) Age-related osteoporosis without current pathological fracture (06/21/18) Urinary tract infection, site not specified (06/21/18) Fracture of unspecified part of neck of left femur, initial encounter for closed fracture (06/21/18) Surgery Performed Operation Date: 06/22/18 16:45 Actual Procedures p Hip IMN(Left) - Hiram Tovar MD Physical Therapy Treatment Note M2 PT-IP Current Condition Start: 06/23/18 14:30 Freq: NEEDED Status: Active Protocol: Document 06/25/18 15:25 RCC (Rec: 06/25/18 15:38 RCC [id number]) Physical Therapy Current Condition Current Condition Evaluation Date 06/23/18 Treatment Diagnosis s/p L hip ORIF with intramedullary nailing; difficulty in walking Onset Date 06/22/18 Weight Bearing Status Weight Bearing Status Touch Down Weight Bearing M3 PT-IP Subjective Start: 06/23/18 14:30 Freq: NEEDED Status: Active Protocol: Document 06/27/18 11:25 CLB (Rec: 06/27/18 11:54 CLB [id number]) Subjective Physical Therapy Visit Type Type Treatment Note Visit Start Time 09:25 Visit Stop Time 09:50 Total Visit Minutes 25 Notes Co-treated with OT Number of INTERNET DEVELOPER Visits 3 Physical Therapy Visit Comments Patient Comments Pt agreeable to sit on EOB for sitting balance. Therapy Pain Assessment Pain When Pain Assessed During Mobility Pain Present Pain Present Pain Reported Location Left Hip Scale Used unable to give number Pain Management Techniques Modification of Treatment Re-positioning Timing of Activity with Medications M4 PT-IP Mobility and Gait Start: 06/23/18 14:30 Freq: NEEDED Status: Active Protocol: Document 06/27/18 11:25 CLB (Rec: 06/27/18 11:54 CLB [id number]) PT-Bed Mobility Assessment Rolling Level of Assist Maximal Assistance 2 Person Assistance Supine to Sit Supine to Sit Maximum Assistance 2 Person Assistance Scooting Scooting to Edge of Bed Maximum Assistance PT-Transfer Assessment Transfers Transfer Destination Chair Transfer Technique Mechanical Lift Comments Mobility Comments Pt O2 sats continue to decrease with rolling and sitting. Gait Assessment Comments Gait Comments unable at this time M5 PT-IP Objective Assessments Start: 06/23/18 14:30 Freq: NEEDED Status: Active Protocol: Document 06/23/18 10:40 AB (Rec: 06/23/18 14:45 AB [id number]) Orientation Orientation/Cognition Level of Alertness Confusional State Orientation Name Safety Awareness Decreased Safety Awareness Memory Description Short Term Impaired Detention Impaired Gross Range of Motion Lower Extremity ROM Assessment Left Impaired Impairments pain and tightness limiting mobility on LLE Strength Lower Extremity Strength Assessment Bilaterally Impaired M6 PT-IP Treatment Start: 06/23/18 14:30 Freq: NEEDED Status: Active Protocol: Document 06/26/18 16:04 LJ (Rec: 06/26/18 16:13 LJ [id number]) Physical Therapy Treatment Exercises Exercises Ankle Pumps Gluteal Sets Quad Sets Heel Slides Supine Hip Abduction M7 PT-IP Assessment and Plan Start: 06/23/18 14:30 Freq: NEEDED Status: Active Protocol: Document 06/27/18 11:25 CLB (Rec: 06/27/18 11:54 CLB [id number]) PT Summary Assessment and Plan Summary Assessment Summary Pt was transferred using mechanical lift due to decreasing O2 saturation with any level of activity on high flow of O2. However pt was able to sit CGA at EOB for several minutes with cues for breathing and was able to increase O2 sats quicker than yesterday. Goals Bed Mobility Goal Moderate Assistance Transfer Goal Moderate Assistance Front Wheeled Walker Gait Goal Moderate Assistance Front Wheel Walker Gait Distance 20 Days to Meet Goals 5 Frequency of Treatment Frequency Of Treatment Twice a Day Treatment Plan Other Recommendations and Next Treatment sitting activities- sitting Focus EOB, static balance; if medically ready, may attempt transfer (has required 2-3 assist) Recommendations To Nursing Amount of Assist Needed 3 or More Person Assist Mechanical Lift Discharge Recommendations PT Discharge Recommendations SNF Rehab
--- NOTE | 2018-06-27 13:00 | ST.IPDYTX ---
Care Team Visit Care Team Role Provider Type Hiram Tovar MD Other Providers Physician Specialty: Orthopedic Surgery Address: [address] [place] [address], [id number] Email: [email or web address] Natalie Black MD Emergency Provider Physician Specialty: Emergency Medicine Address: [address] [place] [address], [id number] Email: Santiago Hester MD Attending Provider Physician Family Provider Primary Care Provider Specialty: Family Practice Address: [facility] [place], [address] Email: [email or web address] Sis Moreira MD Admit Provider Physician Other Providers Specialty: Internal Medicine Address: [address] [place] [address], [facility] Email: INSTRUCTOR BALLROOM DANCING Dysphagia Treatment INSTRUCTOR BALLROOM DANCING Dysphagia Treatment Start: 06/26/18 09:00 Freq: Status: Active Protocol: Document 06/27/18 12:50 MRM (Rec: 06/27/18 12:59 MRM [id number]) Dysphagia Treatment Session Time Visit Start Time 12:20 Visit Stop Time 12:35 Total Visit Minutes 15 Setting Assessment Location Acute Care Visit Type Note Type Treatment Note Next Note Type Next Note Type Treatment Note Patient Information Identification Type Name ID Card Treatment Liquids Trialed Thin Solids Trialed Dysphagia Advanced Administration Type Cup Single Sip Oral Strategies Upright at 90 degrees Lingual Sweep Controlled Bite/Sip Size Alternate Liquids/Solids Pharyngeal Strategies Sitting Upright (90 deg) Double Swallow Effortful Swallow Small Bites and Sips Alternate Liquids/Solids Treatment Activities Independent in trials of thin liquid, soup and dysphagia advanced sandwich. Assessment Patient Response to Treatment Excellent Rehab Potential Excellent Assessment of Improvement Patient is currently tolerating diet of thin liquids and dysphagia advanced textures without difficulty. Patient reported posisitvely when asked about how she feels she is able to eat and drink. Nursing reported that she has consistently tolerated current diet without difficulty. Tolerating medication whole in carrier without difficulty. Patient stated she prefers this way of taking medication. INSTRUCTOR BALLROOM DANCING observed patient eating lunch. Independent in all PO intake. Able to toleate thin liquids via cup, split pea soup and soft sandwich. No overt s/s of aspiration. No change in vocal quality, no oral residue observed. Patient currently tolerating diet without difficult and improved overall strength. At this time, no diet change is required. Patient pleased with diet and nursing continues to report good tolerance. INSTRUCTOR BALLROOM DANCING obsereved no difficutly or insufficient textures. Continue current diet; INSTRUCTOR BALLROOM DANCING will follow up tomorrow. Diet Recommendations Recommendations Continue Current Diet Liquids Order Thin Diet Order Dysphagia Advanced Medication Recommendations Whole in Carrier Aspiration Precautions Recommended Precautions Upright at 90 Degrees Alternate Liquids/Solids Small Bites/Sips Effortful Swallow Double Swallow Check for Pocketing Treatment Plan Placement Recommendation after Discharge [facility] Facility Appropriate for Continued Therapy Yes Therapy Recommendations Dysphagia treatment Dysphagia Goals Patient will tolerate the safest, least restrictive diet without overt s/s of aspiration. Patient will implement effortful swallow/tunde maneuvor to improve hyolaryngeal excurion. Patient will trial more solid textures for potential diet upgrade, when appropriate.
[2018-06-27] MEDS: levoFLOXacin 750 MG/150 ML PIGGYBACK 150 MG IV (13:10)
--- NOTE | 2018-06-27 13:10 | CM.DPC ---
DCP/continued: Reviewed chart. Spoke with Dr. Hester this AM. He reports that patient doing better but that he does not anticipate d/c anytime this week. Possibly over the weekend or next week. AUTO MECHANICS TEACHER spoke with [facility] yesterday and they confirm that they can accept when patient medically stable. Spoke with spouse/Jake over the phone and he is aware and agreeable. [facility] brochure left in room. P: [facility] when medically stable. CM to follow closely and continue to update spouse every few days. ANA Amado
[2018-06-27] MEDS: SODIUM CHLORIDE 0.9% 250 ML 21 ML IV (13:15)
[2018-06-27] MEDS: dilTIAZem CD 120 MG CAP PO (14:17)
[2018-06-27] MEDS: BISACODYL 5 MG TABLET 10 MG PO (16:10)
--- NOTE | 2018-06-27 17:29 | PT.IPTN ---
Current Diagnoses Alcohol dependence with withdrawal, unspecified (06/21/18) Essential (primary) hypertension (06/21/18) Unspecified atrial fibrillation (06/21/18) Age-related osteoporosis without current pathological fracture (06/21/18) Urinary tract infection, site not specified (06/21/18) Fracture of unspecified part of neck of left femur, initial encounter for closed fracture (06/21/18) Surgery Performed Operation Date: 06/22/18 16:45 Actual Procedures p Hip IMN(Left) - Hiram Tovar MD Physical Therapy Treatment Note M2 PT-IP Current Condition Start: 06/23/18 14:30 Freq: NEEDED Status: Active Protocol: Document 06/25/18 15:25 RCC (Rec: 06/25/18 15:38 RCC [id number]) Physical Therapy Current Condition Current Condition Evaluation Date 06/23/18 Treatment Diagnosis s/p L hip ORIF with intramedullary nailing; difficulty in walking Onset Date 06/22/18 Weight Bearing Status Weight Bearing Status Touch Down Weight Bearing M3 PT-IP Subjective Start: 06/23/18 14:30 Freq: NEEDED Status: Active Protocol: Document 06/27/18 16:15 CLB (Rec: 06/27/18 17:29 CLB [id number]) Subjective Physical Therapy Visit Type Type Treatment Note Visit Start Time 16:15 Visit Stop Time 16:38 Total Visit Minutes 23 Number of SOLDERER PRODUCTION LINE Visits 4 Physical Therapy Visit Comments Patient Comments Pt willing to try to stand from chair. Therapy Pain Assessment Pain When Pain Assessed During Mobility Pain Present Pain Present Pain Reported Location Left Hip Intensity 9 Scale Used Numeric (1 - 10) Pain Management Techniques Modification of Treatment Re-positioning Timing of Activity with Medications M4 PT-IP Mobility and Gait Start: 06/23/18 14:30 Freq: NEEDED Status: Active Protocol: Document 06/27/18 16:15 CLB (Rec: 06/27/18 17:29 CLB [id number]) PT-Transfer Assessment Sit to and From Stand Sit to and from Stand Maximum Assistance 2 Person Assistance Use of Upper Extremities Equipment Transfer Assistive Device Gait Belt Front Wheeled Walker Transfers Transfer Destination Bed Transfer Technique Mechanical Lift Comments Mobility Comments Pt O2 sats decrease with activity. Pt able to stand x1 with assist x3 but needed to sit due to pain. Pt placed in bed with mechanical lift. Gait Assessment Comments Gait Comments unable at this time M5 PT-IP Objective Assessments Start: 06/23/18 14:30 Freq: NEEDED Status: Active Protocol: Document 06/23/18 10:40 AB (Rec: 06/23/18 14:45 AB [id number]) Orientation Orientation/Cognition Level of Alertness Confusional State Orientation Name Safety Awareness Decreased Safety Awareness Memory Description Short Term Impaired Night Nurse Impaired Gross Range of Motion Lower Extremity ROM Assessment Left Impaired Impairments pain and tightness limiting mobility on LLE Strength Lower Extremity Strength Assessment Bilaterally Impaired M6 PT-IP Treatment Start: 06/23/18 14:30 Freq: NEEDED Status: Active Protocol: Document 06/27/18 16:15 CLB (Rec: 06/27/18 17:29 CLB [id number]) Physical Therapy Treatment Exercises Exercises Ankle Pumps Quad Sets Heel Slides Supine Hip Abduction Other Treatments Other Treatment Performed Pt able to sit on edge of chair SBA M7 PT-IP Assessment and Plan Start: 06/23/18 14:30 Freq: NEEDED Status: Active Protocol: Document 06/27/18 16:15 CLB (Rec: 06/27/18 17:29 CLB [id number]) PT Summary Assessment and Plan Summary Assessment Summary Pt was able to stand x1 Max A x3 but was unable to maintain standing. Mechanical lift used for transfers. RN and HIGH SCHOOL LIBRARY MEDIA SPECIALIST assisted with transfer. Goals Bed Mobility Goal Moderate Assistance Transfer Goal Moderate Assistance Front Wheeled Walker Gait Goal Moderate Assistance Front Wheel Walker Gait Distance 20 Days to Meet Goals 5 Frequency of Treatment Frequency Of Treatment Twice a Day Treatment Plan Other Recommendations and Next Treatment sitting activities- sitting Focus EOB, static balance; if medically ready, may attempt transfer (has required 2-3 assist) Recommendations To Nursing Amount of Assist Needed 3 or More Person Assist Mechanical Lift Discharge Recommendations PT Discharge Recommendations SNF Rehab
--- NOTE | 2018-06-27 19:50 | PC.NURSE ---
Pt intermittently removes NC. Sats decreased quickly into the 70's, with continued downward trend, without supplemental O2. Needs encouragement to leave O2 in place. Recovers with replacement of NC and deep breath. HR in the low 100's. A-fib. Reinforced safety and call light use. Call light in reach.
[2018-06-27] MEDS: ENOXAPARIN 80 MG/0.8 ML SYRINGE 75 MG SUBCUT (20:12)
[2018-06-27] MEDS: MIRTAZAPINE 15 MG TABLET PO (20:13)
[2018-06-27] MEDS: HYDROMORPHONE 2 MG INJ 0.5 MG IV (23:52)
[2018-06-28] VITALS (14 sets, daily range): BP systolic 95–153; BP diastolic 62–87; PULSE 73–106; RESP 12–19; TEMP 36.1–36.8; O2SAT 93–100
[2018-06-28] MEDS: SODIUM CHLORIDE 0.9% 250 ML 21 ML IV ×2 (00:30→13:27)
[2018-06-28] MEDS: CLINDAMYCIN 600 MG/50 ML PIGGYBACK 50 MG IV ×3 (00:30→17:18)
[2018-06-28] MEDS: HYDROMORPHONE 2 MG INJ 0.5 MG IV (03:50)
[2018-06-28 06:04] LABS: Add Manual Diff / Slide Review NO; Basophils Percent Auto 0.2 % (0-2); Hemoglobin 9.7 g/dL (12.0-16.0); Lymphocytes Percent Auto 4.2 % (25-40); Mean Corpuscular HGB Conc 33.4 % (30-36); Mean Corpuscular Hemoglobin 33.2 PG (26-34); Mean Corpuscular Volume 99.6 fL (80-100); Monocytes Percent Auto 5.1 % (3-14); Neutrophils Absolute Auto 10200 /uL (3000-5900); Neutrophils Percent Auto 90.5 % (50-75); Platelet Count 318 X10^3/uL (150-400); Red Blood Cell Count 2.91 X10^6/uL (4.0-5.2); Red Cell Distribution Width 13.7 % (11.6-14.8); White Blood Cell Count 11.3 X10^3/uL (4.5-11.0)
[2018-06-28] MEDS: ALBUTEROL/IPRATROPIUM 3 ML AMPUL INH ×3 (06:04→19:19)
[2018-06-28 06:10] LABS: BUN Creatinine Ratio 42.2 (6-22); Blood Urea Nitrogen 38 mg/dL (7-17); Calcium 9.2 mg/dL (8.4-10.2); Carbon Dioxide 35 mmol/L (22-32); Chloride 101 mmol/L (98-107); Estimated Glomerular Filt Rate > 60.0 mL/min (>60); Glucose 142 mg/dL (80-110); HEMOLYSIS 21 (0-50); Potassium 3.9 mmol/L (3.4-5.1); Sodium 140 mmol/L (137-145)
[2018-06-28] MEDS: OXYCODONE IR 5 MG TABLET 10 MG PO ×4 (06:20→21:42)
--- NOTE | 2018-06-28 06:28 | PC.NURSE ---
Patient slept much better than previous night, 0.5mg IV Dilaudid given twice for Lt hip pain 8/10m 10mg PO oxycodone given with applesauce in am. HHFNC 55% with SpO2 >90% while she is sleeping, oximeter on earlobe. Coarse crackles throughout, harsh loose non-productive cough.
[2018-06-28] MEDS: dilTIAZem CD 180 MG CAP PO (08:16)
[2018-06-28] MEDS: FUROSEMIDE 40 MG TABLET PO (08:16)
[2018-06-28] MEDS: methylPREDNISolone 125 MG/2 ML VIAL 60 MG IV ×2 (08:16→21:39)
[2018-06-28] MEDS: CITALOPRAM 20 MG TABLET PO (08:16)
[2018-06-28] MEDS: METOPROLOL 50 MG TABLET 100 MG PO ×2 (08:17→21:40)
[2018-06-28] MEDS: FUROSEMIDE 20 MG/2 ML VIAL IV (08:17)
[2018-06-28] MEDS: SODIUM CHLORIDE 0.9% FLUSH 10 ML IV ×2 (08:18→21:41)
[2018-06-28] MEDS: DOCUSATE 100 MG CAPSULE PO (08:19)
[2018-06-28] MEDS: dilTIAZem CD 120 MG CAP PO (08:19)
[2018-06-28] MEDS: BISACODYL 5 MG TABLET 10 MG PO (08:19)
--- NOTE | 2018-06-28 10:15 | P.PN_ITS ---
Subjective Date Patient Seen: 06/28/18 Time Patient Seen: 10:09 Interval history: Patient actually up in chair this morning. Feeling better. More alert. Reading. Alert and oriented. Oxygen down to 42% which is a significant reduction. No other significant change. No chest pain. No shortness of breath. Exam Vital Signs (past 8 hours): - 06/28/18 03:58 06/28/18 06:10 06/28/18 07:21 Temperature 97.6 F 97 F L Pulse Rate 105 H 100 H 98 H Respiratory Rate 17 14 12 Blood Pressure 153/87 H 125/73 Pulse Oximetry 94 97 100 06/28/18 08:32 06/28/18 08:33 Temperature Pulse Rate Respiratory Rate Blood Pressure Pulse Oximetry 98 96 Fraction of Inspired Oxygen 45 Oxygen Delivery Method Heated High Flow Oxygen Flow Rate 50 Narrative Exam Narrative: Alert female no acute distress elderly much more awake and alert this morning. HEENT exam is mucous membranes moist. Neck supple without adenopathy. Lungs with diffuse mild crackles but otherwise no rhonchi or wheeze much better air exchange. Heart irregular rate and rhythm without murmurs clicks rubs or gallops. Abdomen is soft positive bowel sounds nontender. Extremities without cyanosis clubbing edema. Objective Labs Result Diagrams: 06/28/18 05:40 06/28/18 05:40 Labs: Laboratory Results - last 24 hr 06/28/18 06/28/18 05:40 05:40 WBC 11.3 H RBC 2.91 L Hgb 9.7 L Hct 29.0 L MCV 99.6 MCH 33.2 MCHC 33.4 RDW 13.7 Plt Count 318 Neut % (Auto) 90.5 H Lymph % (Auto) 4.2 L [place] % (Auto) 5.1 Eos % (Auto) 0.0 L Baso % (Auto) 0.2 Neut # (Auto) 37284 H Sodium 140 Potassium 3.9 Chloride 101 Carbon Dioxide 35 H BUN 38 H Creatinine 0.90 Estimated GFR > 60.0 BUN/Creatinine Ratio 42.2 H Glucose 142 H Calcium 9.2 Assessment & Plan Plan: Assessment/Plan Narrative: acute hypoxic respiratory failure. Secondary to pneumonia. Possible aspiration. O2 requirement much improved today. Looking much better. Hoping we can get her to a nasal cannulae. Can switch her to floor care. Hoping tomorrow can switch to p.o. steroids. Depending on how long she stays made to stay on IV antibiotics until discharge. Would like to get at least 10 days of treatment. Will see how she does. Atrial fibrillation. Heart rate control is improved today. Seems to be much better we will see how the afternoon goes. I think around okay rate control. I am not sure how well she was controlled prior but it is difficult to say with her drinking. Also question now is whether to put her back on Coumadin or not. She states she will quit drinking will have to kind of see if we have trouble need to just stop treatment if stable can start Coumadin tomorrow. Aspiration pneumonia possible. Will need 10 days of treatment. Seems to be doing well at this time. White count is going down. Still not out of the perkins yet. Although she is on steroids. Hopefully can either consider oral or discontinue IV until discharge. Anticipate discharge will be at least a few more days. Hip fracture. Need to mobilize more. Will need to mobilize Sepsis. Resolving. Appears to be mostly stable. Bacteria. Do not feel the is a UTI will follow. Acute alcoholic withdrawal. She is not interested in treatment. Will see how things go. We discussed importance of her stopping drinking impact on her life she understands we will continue to follow Metabolic encephalopathy. Much improved. Will follow DVT prophylaxis. On treatment. GI prophylaxis will hold for now. Disposition. Appears to be making significant progress. Tomorrow can hopefully switch to orals will continue physical therapy and anticipate discharge later this week to [facility]. Quality VTE Deep Vein Thrombosis/Pulmonary Embolism Present on Admission: No
--- NOTE | 2018-06-28 11:38 | PM.PNPO.1 ---
Subjective Date Patient Seen: 06/28/18 Time Patient Seen: 09:50 Interval history: Patient's pain is mild. Otherwise without complaints. Exam Vital Signs (past 8 hours): - 06/28/18 03:58 06/28/18 06:10 06/28/18 07:21 Temperature 97.6 F 97 F L Pulse Rate 105 H 100 H 98 H Respiratory Rate 17 14 12 Blood Pressure 153/87 H 125/73 Pulse Oximetry 94 97 100 06/28/18 08:32 06/28/18 08:33 Temperature Pulse Rate Respiratory Rate Blood Pressure Pulse Oximetry 98 96 Fraction of Inspired Oxygen 45 Oxygen Delivery Method Heated High Flow Oxygen Flow Rate 50 Narrative Exam Narrative: Patient resting comfortably in bed. Patient in no apparent distress. Left hip dressing is clean, dry and intact. Left leg is warm and dry. Sensation grossly intact to light touch distal left lower extremity. Objective Labs Result Diagrams: 06/28/18 05:40 06/28/18 05:40 Labs: Laboratory Results - last 24 hr 06/28/18 06/28/18 05:40 05:40 WBC 11.3 H RBC 2.91 L Hgb 9.7 L Hct 29.0 L MCV 99.6 MCH 33.2 MCHC 33.4 RDW 13.7 Plt Count 318 Neut % (Auto) 90.5 H Lymph % (Auto) 4.2 L [place] % (Auto) 5.1 Eos % (Auto) 0.0 L Baso % (Auto) 0.2 Neut # (Auto) 36061 H Sodium 140 Potassium 3.9 Chloride 101 Carbon Dioxide 35 H BUN 38 H Creatinine 0.90 Estimated GFR > 60.0 BUN/Creatinine Ratio 42.2 H Glucose 142 H Calcium 9.2 Assessment & Plan Post-op Postoperative Procedures Operation Date: 06/22/18 16:45 Actual Procedures Side Surgeon p Hip IMN Left Hiram Tovar MD Postop day 6. Patient is status post left femur open reduction internal fixation with intramedullary nailing. Patient may mobilize with physical therapy with toe-touch weight-bearing only. Patient should follow up with [facility] in 10-14 days. Patient continues to be managed by hospitalist for other medical issues. Patient will be discharged likely to alf facility when stable. Quality VTE Deep Vein Thrombosis/Pulmonary Embolism Present on Admission: No
--- NOTE | 2018-06-28 11:42 | P.PN_ITS ---
Subjective Date Patient Seen: 06/28/18 Time Patient Seen: 09:50 Interval history: Patient's pain is mild. Otherwise without complaints. Exam Vital Signs (past 8 hours): - 06/28/18 03:58 06/28/18 06:10 06/28/18 07:21 Temperature 97.6 F 97 F L Pulse Rate 105 H 100 H 98 H Respiratory Rate 17 14 12 Blood Pressure 153/87 H 125/73 Pulse Oximetry 94 97 100 06/28/18 08:32 06/28/18 08:33 Temperature Pulse Rate Respiratory Rate Blood Pressure Pulse Oximetry 98 96 Fraction of Inspired Oxygen 45 Oxygen Delivery Method Heated High Flow Oxygen Flow Rate 50 Narrative Exam Narrative: Patient resting comfortably in bed. Patient in no apparent distress. Left hip dressing is clean, dry and intact. Left leg is warm and dry. Sensation grossly intact to light touch distal left lower extremity. Objective Labs Result Diagrams: 06/28/18 05:40 06/28/18 05:40 Labs: Laboratory Results - last 24 hr 06/28/18 06/28/18 05:40 05:40 WBC 11.3 H RBC 2.91 L Hgb 9.7 L Hct 29.0 L MCV 99.6 MCH 33.2 MCHC 33.4 RDW 13.7 Plt Count 318 Neut % (Auto) 90.5 H Lymph % (Auto) 4.2 L [place] % (Auto) 5.1 Eos % (Auto) 0.0 L Baso % (Auto) 0.2 Neut # (Auto) 28550 H Sodium 140 Potassium 3.9 Chloride 101 Carbon Dioxide 35 H BUN 38 H Creatinine 0.90 Estimated GFR > 60.0 BUN/Creatinine Ratio 42.2 H Glucose 142 H Calcium 9.2 Assessment & Plan Post-op Postoperative Procedures Operation Date: 06/22/18 16:45 Actual Procedures Side Surgeon p Hip IMN Left Hiram Tovar MD Postop day 6. Patient is status post left femur open reduction internal fixation with intramedullary nailing. Patient may mobilize with physical therapy with toe-touch weight-bearing only. Patient should follow up with [facility] in 10-14 days. Patient continues to be managed by hospitalist for other medical issues. Patient will be discharged likely to alf facility when stable. Quality VTE Deep Vein Thrombosis/Pulmonary Embolism Present on Admission: No
[2018-06-28] MEDS: levoFLOXacin 750 MG/150 ML PIGGYBACK 100 MG IV (13:27)
--- NOTE | 2018-06-28 14:01 | OT.IP.TRT ---
Current Diagnoses Alcohol dependence with withdrawal, unspecified (06/21/18) Essential (primary) hypertension (06/21/18) Unspecified atrial fibrillation (06/21/18) Age-related osteoporosis without current pathological fracture (06/21/18) Urinary tract infection, site not specified (06/21/18) Fracture of unspecified part of neck of left femur, initial encounter for closed fracture (06/21/18) Surgery Performed Operation Date: 06/22/18 16:45 Actual Procedures p Hip IMN(Left) - Hiram Tovar MD Occupational Therapy Treatment Note M2 OT-IP Current Condition Start: 06/24/18 11:46 Freq: Status: Active Protocol: Document 06/26/18 10:49 [facility] (Rec: 06/26/18 11:12 [facility] [id number]) Occupational Therapy Current Condition Current Condition Evaluation Date 06/26/18 Treatment Diagnosis weakness,s/p Left hip ORIF Diagnosis Onset Date 06/21/18 Weight Bearing Status Weight Bearing Status Touch Down Weight Bearing M3 OT- IP Subjective and Pain Start: 06/24/18 11:46 Freq: Status: Active Protocol: Document 06/28/18 14:01 PJM (Rec: 06/28/18 15:48 PJ [id number]) OT- Subjective Occupational Therapy Visit Type Type Treatment Note Visit Start Time 12:34 Visit Stop Time 14:01 Total Visit Minutes 27 Notes Pt awake and alert in recliner ; mildly restless and wants to get back into bed soon. Pt on ~35% FIO2 via high flow nasal cannula today per RN. Occupational Therapy Visit Comments Patient/Caregiver Goals to go home, be able to walk OT Pain Assessment Pain When Pain Assessed After Treatment Pain Present Pain Present Pain Reported Location Left Hip Intensity 4 Scale Used Numeric (1 - 10) Description Aching Acute Pain Behaviors Holding Area Restlessness Management Techniques Distraction Re-positioning Timing of Activity with Medications M4 OT- IP ADL's Start: 06/24/18 11:46 Freq: Status: Active Protocol: Document 06/28/18 14:01 PJM (Rec: 06/28/18 15:48 PJ [id number]) OT ADL-Grooming General Evaluation Grooming Ability Standby Assistance Areas Needing Assistance Combing/Brushing Hair Face Washing Comments OT Grooming Comments Occasional cues to avoid O2 line with washcloth. OT ADL-Oral Care Comments Oral Care Comments pt declined this session OT ADL-Toileting General Evaluation Toileting Ability Total Assistance Areas Needing Assistance Empty Catheter or Colostomy Perform Perineal Hygiene M6 OT- IP Functional Cognition Start: 06/24/18 11:46 Freq: Status: Active Protocol: Document 06/28/18 14:01 PJ (Rec: 06/28/18 15:48 [facility] [id number]) Cognitive Factors Limiting Selfcare Function Cognitive Ability Level of Alertness Alert Patient Orientation Name Year Place Attention Span Ability Capable of Focused Attention Ability to Follow Commands Able to Follow One Step Commands Memory Description Short Term Impaired Safety Awareness Decreased Recall of Precautions Decreased Ability to Apply Precautions Underestimates Need for Assistance Problem Solving Ability Needs Assist to Identify Solutions Cognitive Comments Cognitive Assessment Comments Pt more alert today, conversation still confused at times. Needs cues for month, date today. Able to read wall clock accurately. . M9 OT- IP Assessment and Plan Start: 06/24/18 11:46 Freq: Status: Active Protocol: Document 06/28/18 14:01 PJ (Rec: 06/28/18 15:48 [facility] [id number]) OT Summary Assessment and Plan Potential Rehabilitation Potential Good Summary OT Impairments Pain Strength Balance Functional Cognition Functional Mobility Grooming Dressing Toileting Bathing Toilet Transfers Shower Transfers Progress Towards Goals Progressing Toward Goals Assessment Summary Pt making slow steady daily progress with improved alertness today but conversation still confused at times and pt needs min verbal cues for orientation facts. Pt SBA for seated grooming and able to participate in BUE ex with 1/2# weight for unilateral shoulder flexion and biceps curls x 10 reps. Pt also completed seated knee extension ex with full excursion on RLE and ~1/2 range on LLE x10 reps and seated ankle pumps x10. Pt asking for exercise bands for BUE to increase strength/ endurance. Supplemental O2 requirement significantly decreased today to ~35% FIO2 with O2 sats in high 80's/low 90's throughout seated grooming and BUE ex. Pt continues to need mechanical lift for transfers. Goals Grooming Goal Standby Assistance Dressing Goal Minimal Assistance Bathing Goal Minimal Assistance OT-Other Goals Dressing goal is for upper body only. Bathing goal is for upper body sponge bath. Days to Meet Goals 10 Frequency of Treatment Frequency Of Treatment Once a Day Treatment Plan OT Treatment Plan ADL Training Functional Cognition Training Functional Mobility Therapeutic Exercises Patient/Family Education Discharge Planning Discharge Recommendations OT Discharge Recommendations SNF Rehab
--- NOTE | 2018-06-28 15:01 | PT.IPTN ---
Current Diagnoses Alcohol dependence with withdrawal, unspecified (06/21/18) Essential (primary) hypertension (06/21/18) Unspecified atrial fibrillation (06/21/18) Age-related osteoporosis without current pathological fracture (06/21/18) Urinary tract infection, site not specified (06/21/18) Fracture of unspecified part of neck of left femur, initial encounter for closed fracture (06/21/18) Surgery Performed Operation Date: 06/22/18 16:45 Actual Procedures p Hip IMN(Left) - Hiram Tovar MD Physical Therapy Treatment Note M2 PT-IP Current Condition Start: 06/23/18 14:30 Freq: NEEDED Status: Active Protocol: Document 06/25/18 15:25 [facility] (Rec: 06/25/18 15:38 [facility] [id number]) Physical Therapy Current Condition Current Condition Evaluation Date 06/23/18 Treatment Diagnosis s/p L hip ORIF with intramedullary nailing; difficulty in walking Onset Date 06/22/18 Weight Bearing Status Weight Bearing Status Touch Down Weight Bearing M3 PT-IP Subjective Start: 06/23/18 14:30 Freq: NEEDED Status: Active Protocol: Document 06/28/18 09:15 LJ (Rec: 06/28/18 15:01 LJ [id number]) Subjective Physical Therapy Visit Type Type Treatment Note Visit Start Time 09:15 Visit Stop Time 09:38 Total Visit Minutes 23 Number of CREAM GATHERER Visits 5 Physical Therapy Visit Comments Patient Comments Pt willing to try to stand from bed M4 PT-IP Mobility and Gait Start: 06/23/18 14:30 Freq: NEEDED Status: Active Protocol: Document 06/28/18 09:15 LJ (Rec: 06/28/18 15:01 LJ [id number]) PT-Bed Mobility Assessment Supine to Sit Supine to Sit Moderate Assistance 2 Person Assistance Scooting Scooting to Edge of Bed Moderate Assistance PT-Transfer Assessment Sit to and From Stand Sit to and from Stand Maximum Assistance 2 Person Assistance Use of Upper Extremities Equipment Transfer Assistive Device Gait Belt Front Wheeled Walker Gait Assessment Comments Gait Comments unable at this time M5 PT-IP Objective Assessments Start: 06/23/18 14:30 Freq: NEEDED Status: Active Protocol: Document 06/23/18 10:40 AB (Rec: 06/23/18 14:45 AB [id number]) Orientation Orientation/Cognition Level of Alertness Confusional State Orientation Name Safety Awareness Decreased Safety Awareness Memory Description Short Term Impaired Network Operations Analyst Impaired Gross Range of Motion Lower Extremity ROM Assessment Left Impaired Impairments pain and tightness limiting mobility on LLE Strength Lower Extremity Strength Assessment Bilaterally Impaired M6 PT-IP Treatment Start: 06/23/18 14:30 Freq: NEEDED Status: Active Protocol: Document 06/28/18 09:15 FIDELINA (Rec: 06/28/18 15:01 LJ [id number]) Physical Therapy Treatment Exercises Exercises Gluteal Sets Short Arc Quads Other Treatments Other Treatment Performed Pt hoyered from bed to chair after 3 times sit<>clinical science consultant bed M7 PT-IP Assessment and Plan Start: 06/23/18 14:30 Freq: NEEDED Status: Active Protocol: Document 06/28/18 09:15 FIDELINA (Rec: 06/28/18 15:01 [id number]) PT Summary Assessment and Plan Summary Assessment Summary Pt able to stand at side of bed w/maxA x 2 max cues and blocking knee. Nurses used genie to transfer to chair Goals Bed Mobility Goal Moderate Assistance Transfer Goal Moderate Assistance Front Wheeled Walker Gait Goal Moderate Assistance Front Wheel Walker Gait Distance 20 Days to Meet Goals 5 Frequency of Treatment Frequency Of Treatment Twice a Day Treatment Plan Other Recommendations and Next Treatment sitting activities- sitting Focus EOB, static balance; if medically ready, may attempt transfer (has required 2-3 assist) Recommendations To Nursing Amount of Assist Needed 3 or More Person Assist Mechanical Lift Discharge Recommendations PT Discharge Recommendations SNF Rehab
--- NOTE | 2018-06-28 15:04 | PT.IPTN ---
Current Diagnoses Alcohol dependence with withdrawal, unspecified (06/21/18) Essential (primary) hypertension (06/21/18) Unspecified atrial fibrillation (06/21/18) Age-related osteoporosis without current pathological fracture (06/21/18) Urinary tract infection, site not specified (06/21/18) Fracture of unspecified part of neck of left femur, initial encounter for closed fracture (06/21/18) Surgery Performed Operation Date: 06/22/18 16:45 Actual Procedures p Hip IMN(Left) - Hiram Tovar MD Physical Therapy Treatment Note M2 PT-IP Current Condition Start: 06/23/18 14:30 Freq: NEEDED Status: Active Protocol: Document 06/25/18 15:25 RCC (Rec: 06/25/18 15:38 RCC [id number]) Physical Therapy Current Condition Current Condition Evaluation Date 06/23/18 Treatment Diagnosis s/p L hip ORIF with intramedullary nailing; difficulty in walking Onset Date 06/22/18 Weight Bearing Status Weight Bearing Status Touch Down Weight Bearing M3 PT-IP Subjective Start: 06/23/18 14:30 Freq: NEEDED Status: Active Protocol: Document 06/28/18 16:21 AB (Rec: 06/28/18 16:25 AB [id number]) Subjective Physical Therapy Visit Type Type Treatment Note Visit Start Time 15:04 Visit Stop Time 15:31 Total Visit Minutes 27 Number of HOUSE MOVING SUPERVISOR Visits 0 Therapy Pain Assessment Pain When Pain Assessed During Mobility Pain Present Pain Present Pain Reported Location Left Hip Scale Used pain scale not stated Description Tightness Pain Behaviors Guarding Pain Management Techniques Re-positioning M4 PT-IP Mobility and Gait Start: 06/23/18 14:30 Freq: NEEDED Status: Active Protocol: Document 06/28/18 16:21 AB (Rec: 06/28/18 16:25 AB [id number]) PT-Bed Mobility Assessment Supine to Sit Supine to Sit Maximum Assistance 1 Person Assistance 2 Person Assistance Head of Bed Elevated Bedrails Sit to Supine Sit to Supine Maximum Assistance 2 Person Assistance Bedrails Scooting Scooting to Edge of Bed Maximum Assistance Scooting Up and Down in Bed Maximum Assistance PT-Transfer Assessment Sit to and From Stand Sit to and from Stand Maximum Assistance 2 Person Assistance Use of Upper Extremities Comments Mobility Comments attempted sit<>stand x 3 provided max A x 2 and max cues but pt unable to fully stand despite max A x 2 provided. pt also not able to maintain LLE weight bearing restriction of touch down weight bearing. Gait Assessment Comments Gait Comments unable at this time M5 PT-IP Objective Assessments Start: 06/23/18 14:30 Freq: NEEDED Status: Active Protocol: Document 06/23/18 10:40 AB (Rec: 06/23/18 14:45 AB [id number]) Orientation Orientation/Cognition Level of Alertness Confusional State Orientation Name Safety Awareness Decreased Safety Awareness Memory Description Short Term Impaired Hairspring Setter Impaired Gross Range of Motion Lower Extremity ROM Assessment Left Impaired Impairments pain and tightness limiting mobility on LLE Strength Lower Extremity Strength Assessment Bilaterally Impaired M6 PT-IP Treatment Start: 06/23/18 14:30 Freq: NEEDED Status: Active Protocol: Document 06/28/18 16:21 AB (Rec: 06/28/18 16:25 AB [id number]) Physical Therapy Treatment Education Education Provided Weight Bearing Status Safety M7 PT-IP Assessment and Plan Start: 06/23/18 14:30 Freq: NEEDED Status: Active Protocol: Document 06/28/18 16:21 AB (Rec: 06/28/18 16:25 AB [id number]) PT Summary Assessment and Plan Potential Rehabilitation Potential Fair Summary Impairments Pain ROM Strength Balance Coordination Sensation Tone Cognition Bed Mobility Transfers Gait Activity Tolerance Progress Towards Goals Slow Progress due to Medical Issues Assessment Summary pt continues to require 2 person assist with mobility and unable to stand fully despite 2 person extensive assist provided. pt will require SNF rehab to improve strength and function. Goals Bed Mobility Goal Moderate Assistance Transfer Goal Moderate Assistance Front Wheeled Walker Gait Goal Moderate Assistance Front Wheel Walker Gait Distance 20 Days to Meet Goals 5 Frequency of Treatment Frequency Of Treatment Twice a Day Treatment Plan Other Recommendations and Next Treatment sitting activities- sitting Focus EOB, static balance; if medically ready, may attempt transfer (has required 2-3 assist) Recommendations To Nursing Amount of Assist Needed 3 or More Person Assist Mechanical Lift Discharge Recommendations PT Discharge Recommendations SNF Rehab
[2018-06-28] MEDS: ENOXAPARIN 80 MG/0.8 ML SYRINGE 75 MG SUBCUT (21:36)
[2018-06-28] MEDS: MIRTAZAPINE 15 MG TABLET PO (21:41)
[2018-06-29] VITALS (15 sets, daily range): BP systolic 114–147; BP diastolic 34–89; PULSE 95–114; RESP 16–23; TEMP 36.2–36.7; O2SAT 87–100
[2018-06-29] MEDS: CLINDAMYCIN 600 MG/50 ML PIGGYBACK 50 MG IV ×3 (01:00→18:16)
[2018-06-29] MEDS: ALBUTEROL/IPRATROPIUM 3 ML AMPUL INH ×3 (05:55→18:16)
[2018-06-29 08:48] LABS: Add Manual Diff / Slide Review NO; Basophils Percent Auto 0.1 % (0-2); Hematocrit 29.4 % (36-46); Lymphocytes Percent Auto 4.9 % (25-40); Mean Corpuscular HGB Conc 33.9 % (30-36); Mean Corpuscular Hemoglobin 33.5 PG (26-34); Mean Corpuscular Volume 98.6 fL (80-100); Monocytes Percent Auto 5.6 % (3-14); Neutrophils Absolute Auto 10600 /uL (3000-5900); Neutrophils Percent Auto 89.4 % (50-75); Platelet Count 293 X10^3/uL (150-400); Red Blood Cell Count 2.98 X10^6/uL (4.0-5.2); Red Cell Distribution Width 13.8 % (11.6-14.8); White Blood Cell Count 11.8 X10^3/uL (4.5-11.0)
--- NOTE | 2018-06-29 08:51 | P.PN_ITS ---
Subjective Date Patient Seen: 06/29/18 Time Patient Seen: 08:45 Interval history: Patient rested better through the night still on 42% oxygen with heated and humidified in maintaining good saturations. No fevers chills still resting this morning with a heart rate blood pressure been good and oxygen saturations have been stable will continue to wean slowly patient has only been sitting at the edge of the bed once since she has been here morning labs still pending Exam Vital Signs (past 8 hours): - 06/29/18 04:00 06/29/18 05:55 06/29/18 07:52 Temperature 97.1 F L 97.8 F Pulse Rate 95 H 109 H Respiratory Rate 23 20 Blood Pressure 144/89 H 147/88 H Pulse Oximetry 96 94 96 Fraction of Inspired Oxygen 45 Oxygen Delivery Method Heated High Flow Oxygen Flow Rate 45 Narrative Exam Narrative: PERRLA Patient sleeping fairly comfortably until aroused Lungs with decreased breath sounds and some crackles Cardiovascular shows good rate control except for the increased rate in the morning right prior to her medications when she is rising around it should probably get over 100 the rest of the time staying down into the 80s and 90s fairly regular for a sip with good blood pressure Abdomen nontender Hip fracture stable with appropriate care from Ortho Neuro shows no withdrawal issues her agitation at this point Objective Labs Result Diagrams: 06/28/18 05:40 06/28/18 05:40 Assessment & Plan Plan: Assessment/Plan Narrative: Assessment 1. Gradually improving respiratory failure with hypoxia probably secondary to pneumonia superimposed over COPD and long-term smoker. Patient's pressure and heart rate have improved and her oxygenation is fairly stable on the current percentage of oxygen high flow with heated humidified component. Will slowly taper that through the course of today. Since she still transitioning and has been so sick will probably leave her on her IV steroids through today and switch to orals tomorrow she continues to make progress Assessment 2 pneumonia continues to improve slowly white count is pending. Will keep on her IV antibiotics at this point. He will have a WBC 1st number full CBC for morning. Assessment 3 atrial fibrillation in good control overall continue on her beta- mitchel and diltiazem combination. Hope to see her move a little more this morning and see if heart rate control and blood pressure remained good with her being up out of bed Is assessment 4. Hip fracture post repair probably triggered by intoxication and alcohol-related fall. Seems to be doing stable per ortho at this point Shows 5. Alcohol abuse with early signs of withdrawal during this admission. Has cleared mentally of a fair bit although she is drowsy this morning has not been requiring much by way of medication terms of sedation prevention of agitation. Continue current CIWA protocol Assessment 6. Today's labs pending will review those as they arise Assessment 7. GI prophylaxis will continue Assessment 8. DVT prophylaxis will continue. Quality VTE Deep Vein Thrombosis/Pulmonary Embolism Present on Admission: No
[2018-06-29 08:55] LABS: BUN Creatinine Ratio 43.3 (6-22); Blood Urea Nitrogen 39 mg/dL (7-17); Calcium 8.9 mg/dL (8.4-10.2); Carbon Dioxide 32 mmol/L (22-32); Chloride 103 mmol/L (98-107); Estimated Glomerular Filt Rate > 60.0 mL/min (>60); Glucose 141 mg/dL (80-110); HEMOLYSIS < 15 (0-50); Potassium 3.4 mmol/L (3.4-5.1); Sodium 140 mmol/L (137-145)
[2018-06-29] MEDS: OXYCODONE IR 5 MG TABLET 10 MG PO ×5 (09:54→23:30)
[2018-06-29] MEDS: CITALOPRAM 20 MG TABLET PO (09:54)
[2018-06-29] MEDS: SODIUM CHLORIDE 0.9% FLUSH 10 ML IV ×2 (09:55→20:24)
[2018-06-29] MEDS: SODIUM CHLORIDE 0.9% 250 ML 21 ML IV ×2 (09:55→22:33)
[2018-06-29] MEDS: FUROSEMIDE 20 MG/2 ML VIAL IV (09:55)
[2018-06-29] MEDS: dilTIAZem CD 180 MG CAP PO (09:55)
[2018-06-29] MEDS: dilTIAZem CD 120 MG CAP PO (09:55)
[2018-06-29] MEDS: FUROSEMIDE 40 MG TABLET PO (09:56)
[2018-06-29] MEDS: methylPREDNISolone 125 MG/2 ML VIAL 60 MG IV ×2 (09:56→20:22)
[2018-06-29] MEDS: METOPROLOL 50 MG TABLET 100 MG PO ×2 (09:58→20:23)
[2018-06-29] MEDS: BISACODYL 10 MG SUPP PR (09:59)
[2018-06-29] MEDS: DOCUSATE 100 MG CAPSULE PO ×2 (09:59→20:23)
[2018-06-29] MEDS: BISACODYL 5 MG TABLET 10 MG PO (09:59)
--- NOTE | 2018-06-29 11:15 | PT.IPTN ---
Current Diagnoses Alcohol dependence with withdrawal, unspecified (06/21/18) Essential (primary) hypertension (06/21/18) Unspecified atrial fibrillation (06/21/18) Age-related osteoporosis without current pathological fracture (06/21/18) Urinary tract infection, site not specified (06/21/18) Fracture of unspecified part of neck of left femur, initial encounter for closed fracture (06/21/18) Surgery Performed Operation Date: 06/22/18 16:45 Actual Procedures p Hip IMN(Left) - Hiram Tovar MD Physical Therapy Treatment Note M2 PT-IP Current Condition Start: 06/23/18 14:30 Freq: NEEDED Status: Active Protocol: Document 06/25/18 15:25 RCC (Rec: 06/25/18 15:38 RCC [id number]) Physical Therapy Current Condition Current Condition Evaluation Date 06/23/18 Treatment Diagnosis s/p L hip ORIF with intramedullary nailing; difficulty in walking Onset Date 06/22/18 Weight Bearing Status Weight Bearing Status Touch Down Weight Bearing M3 PT-IP Subjective Start: 06/23/18 14:30 Freq: NEEDED Status: Active Protocol: Document 06/29/18 11:15 AB (Rec: 06/29/18 13:12 AB [id number]) Subjective Physical Therapy Visit Type Type Treatment Note Visit Start Time 11:15 Visit Stop Time 11:55 Total Visit Minutes 40 Number of LAND MANAGER Visits 0 Therapy Pain Assessment Pain When Pain Assessed During Mobility Pain Present Pain Present Pain Reported Location Left Hip Scale Used pain scale not stated M4 PT-IP Mobility and Gait Start: 06/23/18 14:30 Freq: NEEDED Status: Active Protocol: Document 06/29/18 11:15 AB (Rec: 06/29/18 13:12 AB [id number]) PT-Bed Mobility Assessment Supine to Sit Supine to Sit Maximum Assistance Head of Bed Elevated Bedrails Scooting Scooting to Edge of Bed Maximum Assistance PT-Transfer Assessment Sit to and From Stand Sit to and from Stand Maximum Assistance Total Assistance 2 Person Assistance Use of Upper Extremities Equipment Transfer Assistive Device Gait Belt Orthotic/Prosthetic Devices or Brace: No Transfers Transfer Destination Chair Bedside Commode Transfer Technique Squat Pivot Transfer Ability Level of Assist Maximum Assistance Total Assistance 2 Person Assistance Use of Upper Extremities Comments Mobility Comments sttempted sit to stand x 3 reps requiring 3 person max A. pt unable to stand fully upright and staed that she cannot do it. pt is unable to maintain touch down/wieght bearing on LLE despite assistance to maintain LLE elevated. opted to do NWB on LLE since pt is unable to follow touch down weight bearing. pt moved her bowel and have to be transferred to a bedside commode. Pt assistted with transfer max to total A x 3 for partial squat pivot transfer with PT in front of pt and nurses assisting pt from behind and holding LLE to maintain NWB. Attempted sit to stand again from bedside commode with FWW but pt unable to stand fully upright despite max A x 3 provided. Assisted pt with sit to stand with PT in front of pt and pt required max A x 3 for sit to stand from the bedside commode and nursing assisting with LLE and another doing hygiene care. pt again completed sit to stand with max A x 3 and completed partial squat pivot transfer from bedside commode to chair. pt required max cues with all activities and unable to maintain weight bearing restriction on LLE. M5 PT-IP Objective Assessments Start: 06/23/18 14:30 Freq: NEEDED Status: Active Protocol: Document 06/23/18 10:40 AB (Rec: 06/23/18 14:45 AB [id number]) Orientation Orientation/Cognition Level of Alertness Confusional State Orientation Name Safety Awareness Decreased Safety Awareness Memory Description Short Term Impaired Group Home Impaired Gross Range of Motion Lower Extremity ROM Assessment Left Impaired Impairments pain and tightness limiting mobility on LLE Strength Lower Extremity Strength Assessment Bilaterally Impaired M6 PT-IP Treatment Start: 06/23/18 14:30 Freq: NEEDED Status: Active Protocol: Document 06/29/18 11:15 AB (Rec: 06/29/18 13:12 AB [id number]) Physical Therapy Treatment Education Education Provided Precautions Weight Bearing Status Safety M7 PT-IP Assessment and Plan Start: 06/23/18 14:30 Freq: NEEDED Status: Active Protocol: Document 06/29/18 11:15 AB (Rec: 06/29/18 13:12 AB [id number]) PT Summary Assessment and Plan Potential Rehabilitation Potential Fair Summary Impairments Pain ROM Strength Balance Coordination Tone Cognition Bed Mobility Transfers Gait Activity Tolerance Progress Towards Goals Slow Progress due to Medical Issues Assessment Summary pt requires 3 person extensive assist for transfers and uanble to maintain weight bearing restriction on LLE. pt will require SNF rehab to improve mobility. Goals Bed Mobility Goal Moderate Assistance Transfer Goal Moderate Assistance Front Wheeled Walker Gait Goal Moderate Assistance Front Wheel Walker Gait Distance 20 Days to Meet Goals 5 Frequency of Treatment Frequency Of Treatment Twice a Day Treatment Plan Other Recommendations and Next Treatment sitting activities- sitting Focus EOB, static balance; if medically ready, may attempt transfer (has required 2-3 assist) Recommendations To Nursing Amount of Assist Needed 3 or More Person Assist Mechanical Lift Discharge Recommendations PT Discharge Recommendations SNF Rehab
[2018-06-29] MEDS: levoFLOXacin 750 MG/150 ML PIGGYBACK 100 MG IV (13:17)
--- NOTE | 2018-06-29 13:57 | PM.PNPO.1 ---
Subjective Date Patient Seen: 06/29/18 Time Patient Seen: 13:57 Interval history: Patient is S/P left hip closed reduction and percutaneous pinning by Dr. Tovar. No complaints of pain in left hip. Has been able to get up and sit at the side of the bed with physical therapy. She is being treated for pneumonia along with other medical issues which is being managed the [facility]. Has been on O2. Will need a halfway facility at discharge when medically stable. Exam Vital Signs (past 8 hours): - 06/29/18 07:52 06/29/18 08:40 06/29/18 09:53 Temperature 97.8 F Pulse Rate 109 H Respiratory Rate 20 Blood Pressure 147/88 H Pulse Oximetry 96 98 94 06/29/18 10:14 06/29/18 11:59 06/29/18 13:19 Temperature 98 F Pulse Rate 108 H 101 H Respiratory Rate 23 16 Blood Pressure 114/34 L Pulse Oximetry 96 98 96 06/29/18 13:28 Temperature Pulse Rate Respiratory Rate Blood Pressure Pulse Oximetry 97 Fraction of Inspired Oxygen 35 Oxygen Delivery Method High Flow Nasal Cannula Oxygen Flow Rate 7 Narrative Exam Narrative: Left hip dressing with serous drainage. Dressings changed. Mod swelling in left thihg. NV status intact. Objective Labs Result Diagrams: 06/29/18 Unknown 06/29/18 Unknown Labs: Laboratory Results - last 24 hr 06/29/18 06/29/18 Unknown Unknown WBC 11.8 H RBC 2.98 L Hgb 10.0 L Hct 29.4 L MCV 98.6 MCH 33.5 MCHC 33.9 RDW 13.8 Plt Count 293 Neut % (Auto) 89.4 H Lymph % (Auto) 4.9 L [place] % (Auto) 5.6 Eos % (Auto) 0.0 L Baso % (Auto) 0.1 Neut # (Auto) 45662 H Sodium 140 Potassium 3.4 Chloride 103 Carbon Dioxide 32 BUN 39 H Creatinine 0.90 Estimated GFR > 60.0 BUN/Creatinine Ratio 43.3 H Glucose 141 H Calcium 8.9 Assessment & Plan Post-op Postoperative Procedures Operation Date: 06/22/18 16:45 Actual Procedures Side Surgeon p Hip IMN Left Hiram Tovar MD PD 7. Continue PT with toe touch weight bearing. F/U with [facility] on 10-14 days. May need SNF at discharge. Medical issues being managed by [facility]. Quality VTE Deep Vein Thrombosis/Pulmonary Embolism Present on Admission: No
--- NOTE | 2018-06-29 13:58 | ST.IPDYTX ---
Care Team Visit Care Team Role Provider Type Hiram Tovar MD Other Providers Physician Specialty: Orthopedic Surgery Address: [address] [place] [address], [id number] Email: [email or web address] Natalie Black MD Emergency Provider Physician Specialty: Emergency Medicine Address: [address] [place] [address], [id number] Email: Santiago Hester MD Attending Provider Physician Family Provider Primary Care Provider Specialty: Family Practice Address: [facility] [place], [address] Email: [email or web address] MD Admit Provider Physician Other Providers Specialty: Internal Medicine Address: [address] [place] [address] Email: CHANNEL CEMENTER INSOLE MACHINE Dysphagia Treatment CHANNEL CEMENTER [employer]SOLE MACHINE Dysphagia Treatment Start: 06/26/18 09:00 Freq: Status: Active Protocol: Document 06/29/18 13:53 MRM (Rec: 06/29/18 13:58 [facility] [id number]) Dysphagia Treatment Session Time Visit Start Time 13:40 Visit Stop Time 13:50 Total Visit Minutes 10 Setting Assessment Location Acute Care Visit Type Note Type Treatment Note Patient Information Identification Type Name ID Wristband Subjective Observations Patient awake and alert, reclining in chair with GLUE BONE CRUSHER present. Minimal appetite noted today by RN, GLUE BONE CRUSHER, CHANNEL CEMENTER INSOLE MACHINE. RN reported that the patient had just had a BM after not going for a week. As a result, she likely had very little appetite due to this. Patient ate minimal amount from lunch tray (a few bites of a sandwich, etc). Treatment Liquids Trialed Thin Oral Strategies Upright at 90 degrees Double Swallow Controlled Bite/Sip Size Alternate Liquids/Solids Pharyngeal Strategies Effortful Swallow Treatment Activities CHANNEL CEMENTER INSOLE MACHINE present 2 hours after lunch to trial regular textures. Patient declined trials of cracker, cookie or sandwich due to no appetite. She did trial regular water without difficulty. However, after 1 sip, she declined to participate further and requested to lie back and rest . CHANNEL CEMENTER INSOLE MACHINE will follow up x1 to assess tolerance of new diet with a meal. Suspect D/C after this. No difficulty observed at this time. Assessment Patient Response to Treatment Excellent Rehab Potential Excellent Assessment of Improvement Good progress. No difficulty reported from patient or staff . Follow up at a meal to confirm new diet tolerance. Likely d/c after this if patient continues to present this way. Diet Recommendations Recommendations Continue Current Diet Liquids Order Thin Diet Order Regular Medication Recommendations As Tolerated Aspiration Precautions Recommended Precautions Upright at 90 Degrees Alternate Liquids/Solids Small Bites/Sips Chin Tuck Effortful Swallow Treatment Plan Placement Recommendation after Discharge [facility] Facility Appropriate for Continued Therapy Yes Therapy Recommendations Follow up 1 for assessment of ongoing tolerance of upgraded diet texture from 05/28/18. Dysphagia Goals Patient will tolerate regular diet, thin liquids without overt s/s of aspiration. Patient will implement effortful swallow/tunde maneuvor to improve hyolaryngeal excurion.
--- NOTE | 2018-06-29 14:03 | P.PN_ITS ---
Subjective Date Patient Seen: 06/29/18 Time Patient Seen: 13:57 Interval history: Patient is S/P left hip closed reduction and percutaneous pinning by Dr. Tovar. No complaints of pain in left hip. Has been able to get up and sit at the side of the bed with physical therapy. She is being treated for pneumonia along with other medical issues which is being managed the [facility]. Has been on O2. Will need a prison facility at discharge when medically stable. Exam Vital Signs (past 8 hours): - 06/29/18 07:52 06/29/18 08:40 06/29/18 09:53 Temperature 97.8 F Pulse Rate 109 H Respiratory Rate 20 Blood Pressure 147/88 H Pulse Oximetry 96 98 94 06/29/18 10:14 06/29/18 11:59 06/29/18 13:19 Temperature 98 F Pulse Rate 108 H 101 H Respiratory Rate 23 16 Blood Pressure 114/34 L Pulse Oximetry 96 98 96 06/29/18 13:28 Temperature Pulse Rate Respiratory Rate Blood Pressure Pulse Oximetry 97 Fraction of Inspired Oxygen 35 Oxygen Delivery Method High Flow Nasal Cannula Oxygen Flow Rate 7 Narrative Exam Narrative: Left hip dressing with serous drainage. Dressings changed. Mod swelling in left thihg. NV status intact. Objective Labs Result Diagrams: 06/29/18 Unknown 06/29/18 Unknown Labs: Laboratory Results - last 24 hr 06/29/18 06/29/18 Unknown Unknown WBC 11.8 H RBC 2.98 L Hgb 10.0 L Hct 29.4 L MCV 98.6 MCH 33.5 MCHC 33.9 RDW 13.8 Plt Count 293 Neut % (Auto) 89.4 H Lymph % (Auto) 4.9 L [place] % (Auto) 5.6 Eos % (Auto) 0.0 L Baso % (Auto) 0.1 Neut # (Auto) 10867 H Sodium 140 Potassium 3.4 Chloride 103 Carbon Dioxide 32 BUN 39 H Creatinine 0.90 Estimated GFR > 60.0 BUN/Creatinine Ratio 43.3 H Glucose 141 H Calcium 8.9 Assessment & Plan Post-op Postoperative Procedures Operation Date: 06/22/18 16:45 Actual Procedures Side Surgeon p Hip IMN Left Hiram Tovar MD PD 7. Continue PT with toe touch weight bearing. F/U with [facility] on 10-14 days. May need SNF at discharge. Medical issues being managed by [facility]. Quality VTE Deep Vein Thrombosis/Pulmonary Embolism Present on Admission: No
--- NOTE | 2018-06-29 14:29 | OT.IP.TRT ---
Current Diagnoses Alcohol dependence with withdrawal, unspecified (06/21/18) Essential (primary) hypertension (06/21/18) Unspecified atrial fibrillation (06/21/18) Age-related osteoporosis without current pathological fracture (06/21/18) Urinary tract infection, site not specified (06/21/18) Fracture of unspecified part of neck of left femur, initial encounter for closed fracture (06/21/18) Surgery Performed Operation Date: 06/22/18 16:45 Actual Procedures p Hip IMN(Left) - Hiram Tovar MD Occupational Therapy Treatment Note M2 OT-IP Current Condition Start: 06/24/18 11:46 Freq: Status: Active Protocol: Document 06/26/18 10:49 CCC (Rec: 06/26/18 11:12 [facility] [id number]) Occupational Therapy Current Condition Current Condition Evaluation Date 06/26/18 Treatment Diagnosis weakness,s/p Left hip ORIF Diagnosis Onset Date 06/21/18 Weight Bearing Status Weight Bearing Status Touch Down Weight Bearing M3 OT- IP Subjective and Pain Start: 06/24/18 11:46 Freq: Status: Active Protocol: Document 06/29/18 14:29 PJM (Rec: 06/29/18 15:55 PJ [id number]) OT- Subjective Occupational Therapy Visit Type Type Treatment Note Visit Start Time 14:15 Visit Stop Time 14:29 Total Visit Minutes 14 Notes Per RN, pt had multiple BM's earlier today requiring extensive cleanup. Occupational Therapy Visit Comments Patient Comments I am tired and I ache all over. I am ready to get back in bed. OT Pain Assessment Pain When Pain Assessed After Treatment Pain Present Pain Present Pain Reported Location Left Hip Scale Used does not rate on scale; generalized pain M6 OT- IP Functional Cognition Start: 06/24/18 11:46 Freq: Status: Active Protocol: Document 06/29/18 14:29 PJM (Rec: 06/29/18 15:55 PJ [id number]) Cognitive Factors Limiting Selfcare Function Cognitive Ability Level of Alertness Drowsy Patient Orientation Name Month Year Place Ability to Follow Commands Able to Follow One Step Commands Cognitive Comments Cognitive Assessment Comments Wrote more specific orientation facts on white board to provide cues to pt. Pt needing mod verbal cues to use familiar cell phone to find her 's phone number. . M8 OT- IP Objective Assessments Start: 09/15/18 11:46 Freq: Status: Active Protocol: Document 06/29/18 14:29 PJM (Rec: 06/29/18 15:55 PJM [id number]) OT Strength Comments BUE Strength Comments Provided lightly resistive theraband and pt completed 2 sets of 5 reps for B horiz abd , 2 sets of 5 for unilateral triceps and 3 sets of 5 for unilateral biceps. M9 OT- IP Assessment and Plan Start: 06/24/18 11:46 Freq: Status: Active Protocol: Document 06/29/18 14:29 PJM (Rec: 06/29/18 15:55 PJM [id number]) OT Summary Assessment and Plan Summary Progress Towards Goals Slow Progress due to Pain Slow Progress due to Medical Issues Assessment Summary Pt's participation limited by fatigue from events of day. Ability to recall basic orientation facts remains inconsistent. Will complete cognitive screening test. Pt's O2 requirements now decreased to 7L via standard nasal cannula with O2 sats 95-100 this session. Will see pt earlier in day tomorrow to maximize participation. Goals Toilet Transfer Goal Moderate Assistance OT-Other Goals Toilet transfer goal is to [facility] with assist of 2 Days to Meet Goals 10 Frequency of Treatment Frequency Of Treatment Once a Day Treatment Plan OT Treatment Plan ADL Training Functional Cognition Training Functional Mobility Therapeutic Exercises Patient/Family Education Discharge Planning Discharge Recommendations OT Discharge Recommendations [facility] Rehab
--- NOTE | 2018-06-29 14:38 | PT.IPTN ---
Current Diagnoses Alcohol dependence with withdrawal, unspecified (06/21/18) Essential (primary) hypertension (06/21/18) Unspecified atrial fibrillation (06/21/18) Age-related osteoporosis without current pathological fracture (06/21/18) Urinary tract infection, site not specified (06/21/18) Fracture of unspecified part of neck of left femur, initial encounter for closed fracture (06/21/18) Surgery Performed Operation Date: 06/22/18 16:45 Actual Procedures p Hip IMN(Left) - Hiram Tovar MD Physical Therapy Treatment Note M2 PT-IP Current Condition Start: 06/23/18 14:30 Freq: NEEDED Status: Active Protocol: Document 06/25/18 15:25 RCC (Rec: 06/25/18 15:38 RCC [id number]) Physical Therapy Current Condition Current Condition Evaluation Date 06/23/18 Treatment Diagnosis s/p L hip ORIF with intramedullary nailing; difficulty in walking Onset Date 06/22/18 Weight Bearing Status Weight Bearing Status Touch Down Weight Bearing M3 PT-IP Subjective Start: 06/23/18 14:30 Freq: NEEDED Status: Active Protocol: Document 06/29/18 14:38 AB (Rec: 06/29/18 16:53 AB [id number]) Subjective Physical Therapy Visit Type Type Treatment Note Visit Start Time 14:38 Visit Stop Time 15:21 Total Visit Minutes 43 Number of REFUELER Visits 0 Physical Therapy Visit Comments Patient Comments pt requesting to go back to bed Therapy Pain Assessment Pain When Pain Assessed During Mobility Pain Present Pain Present Pain Reported Location Left Hip Scale Used pain scale not stated Pain Management Techniques Re-positioning M4 PT-IP Mobility and Gait Start: 06/23/18 14:30 Freq: NEEDED Status: Active Protocol: Document 06/29/18 14:38 AB (Rec: 06/29/18 16:53 AB [id number]) PT-Bed Mobility Assessment Sit to Supine Sit to Supine Maximum Assistance Total Assistance 2 Person Assistance Head of Bed Elevated Scooting Scooting to Edge of Bed Maximum Assistance Scooting Up and Down in Bed Dependent PT-Transfer Assessment Sit to and From Stand Sit to and from Stand Maximum Assistance Total Assistance 2 Person Assistance Use of Upper Extremities Equipment Transfer Assistive Device Gait Belt Orthotic/Prosthetic Devices or Brace: No Transfers Transfer Destination Bed Transfer Technique Squat Pivot Transfer Ability Level of Assist Maximum Assistance Total Assistance 2 Person Assistance Use of Upper Extremities Comments Mobility Comments pt required max A to total A x 2-3 with partial squat pivot transfer chair to bed and max cues required. pt was not able to maintain weight bearing restriction on LLE. M5 PT-IP Objective Assessments Start: 06/23/18 14:30 Freq: NEEDED Status: Active Protocol: Document 06/23/18 10:40 AB (Rec: 06/23/18 14:45 AB [id number]) Orientation Orientation/Cognition Level of Alertness Confusional State Orientation Name Safety Awareness Decreased Safety Awareness Memory Description Short Term Impaired Halfway Impaired Gross Range of Motion Lower Extremity ROM Assessment Left Impaired Impairments pain and tightness limiting mobility on LLE Strength Lower Extremity Strength Assessment Bilaterally Impaired M6 PT-IP Treatment Start: 06/23/18 14:30 Freq: NEEDED Status: Active Protocol: Document 06/29/18 14:38 AB (Rec: 06/29/18 16:53 AB [id number]) Physical Therapy Treatment Exercises Exercises Quad Sets Heel Slides Supine Hip Abduction Education Education Provided Precautions Weight Bearing Status Safety M7 PT-IP Assessment and Plan Start: 06/23/18 14:30 Freq: NEEDED Status: Active Protocol: Document 06/29/18 14:38 AB (Rec: 06/29/18 16:53 AB [id number]) PT Summary Assessment and Plan Potential Rehabilitation Potential Fair Summary Impairments Pain ROM Strength Balance Coordination Tone Cognition Bed Mobility Transfers Gait Activity Tolerance Progress Towards Goals Slow Progress due to Medical Issues Assessment Summary pt requires 3 person extensive assist for transfers and uanble to maintain weight bearing restriction on LLE. pt will require SNF rehab to improve mobility. Goals Bed Mobility Goal Moderate Assistance Transfer Goal Moderate Assistance Front Wheeled Walker Gait Goal Moderate Assistance Front Wheel Walker Gait Distance 20 Days to Meet Goals 5 Frequency of Treatment Frequency Of Treatment Twice a Day Treatment Plan Other Recommendations and Next Treatment sitting activities- sitting Focus EOB, static balance; if medically ready, may attempt transfer (has required 2-3 assist) Recommendations To Nursing Amount of Assist Needed 3 or More Person Assist Mechanical Lift Discharge Recommendations PT Discharge Recommendations SNF Rehab
--- NOTE | 2018-06-29 15:11 | CM.DPC ---
DCP Cont: According to [facility]; they are expecting pt on Tuesday of next week. No admissions over the w/e. Keep pt and spouse Jake updated. ANA Miranda
[2018-06-29] MEDS: ENOXAPARIN 80 MG/0.8 ML SYRINGE 75 MG SUBCUT (20:21)
[2018-06-29] MEDS: MIRTAZAPINE 15 MG TABLET PO (20:25)
[2018-06-30] VITALS (9 sets, daily range): BP systolic 135–143; BP diastolic 67–79; PULSE 78–118; RESP 15–96; TEMP 36.4–36.9; O2SAT 87–98
[2018-06-30] MEDS: CLINDAMYCIN 600 MG/50 ML PIGGYBACK 50 MG IV ×3 (01:18→17:10)
[2018-06-30] MEDS: SODIUM CHLORIDE 0.9% FLUSH 10 ML IV ×3 (01:19→09:42)
[2018-06-30] MEDS: OXYCODONE IR 5 MG TABLET 10 MG PO ×3 (02:50→21:16)
--- NOTE | 2018-06-30 02:57 | PC.NURSE ---
Addendum entered by Althea Ramirez R.N. 06/30/18 06:49: Medicated with Oxycodone for 9/10 pain in left hip. Oximeter alarming more frequently and finding sats as low as 84% so O2 increased back to 4L/min. Original Note: 0140 Patient is alert and oriented. Breath sounds with inspiratory crackles and diminished throughout with sat of 100% on 4L/min oxygen per HFNC so O2 decreased to 3L/min with sat declining intermittently down to 90 so increased back to 3.5L/min. Is on continuous pulse oximetry. HR irregular and intermittently tachy in low 100's. Tele reading at 0000 was afib CVR. Denies nausea. BT present and abdomen is soft. Indwelling catheter is patent with clear yellow urine. Is able to move herself in bed. Dressing to left hip saturated with serosanguinous drainage so dressing changed. Incision with meet and well approximated with very bruised skin surrounding. Has multiple bruises on all extremities and scabbed abrasions on bilateral UE. Wearing bilateral SCD's. 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 Fall risk score is high and bed alarm is activated. 0302 Received Oxycodone at shift change and now medicated again for complaint of 8/10 left hip pain. Fall risk score is high and bed alarm is on.
[2018-06-30] MEDS: ALBUTEROL/IPRATROPIUM 3 ML AMPUL INH ×3 (05:09→18:44)
[2018-06-30 06:53] LABS: Add Manual Diff / Slide Review NO; Basophils Percent Auto 0.4 % (0-2); Hematocrit 30.9 % (36-46); Hemoglobin 10.4 g/dL (12.0-16.0); Lymphocytes Percent Auto 3.3 % (25-40); Mean Corpuscular HGB Conc 33.5 % (30-36); Mean Corpuscular Volume 98.5 fL (80-100); Monocytes Percent Auto 4.2 % (3-14); Neutrophils Absolute Auto 13900 /uL (3000-5900); Neutrophils Percent Auto 92.1 % (50-75); Platelet Count 288 X10^3/uL (150-400); Red Blood Cell Count 3.14 X10^6/uL (4.0-5.2); Red Cell Distribution Width 13.7 % (11.6-14.8)
[2018-06-30 07:04] LABS: Alanine Aminotransferase 29 IU/L (9-52); Albumin 2.7 g/dL (3.5-5.0); Albumin Globulin Ratio 1.1 (1.0-2.8); Alkaline Phosphatase 66 U/L (38-126); Aspartate Aminotransferase 19 IU/L (14-36); Bilirubin Total 0.6 mg/dL (0.2-1.3); Blood Urea Nitrogen 36 mg/dL (7-17); Calcium 8.6 mg/dL (8.4-10.2); Carbon Dioxide 34 mmol/L (22-32); Chloride 101 mmol/L (98-107); Estimated Glomerular Filt Rate > 60.0 mL/min (>60); Globulin 2.4 g/dL (1.7-4.1); Glucose 154 mg/dL (80-110); HEMOLYSIS < 15 (0-50); Potassium 2.9 mmol/L (3.4-5.1); Sodium 141 mmol/L (137-145); Total Protein 5.1 g/dL (6.3-8.2)
--- NOTE | 2018-06-30 08:22 | PM.PNPO.1 ---
Subjective Date Patient Seen: 06/30/18 Time Patient Seen: 08:22 Interval history: Patient is hospital day 9, postop day 8. She is status post left femur open reduction and internal fixation with intramedullary nailing by Dr. Tovar. She has been transferred to the floor from ICU. Currently on oxygen. She is recovering from pneumonia. States pain is tolerable left hip. Casas in. Exam Vital Signs (past 8 hours): - 06/30/18 05:09 06/30/18 06:02 Temperature 98.4 F Pulse Rate 111 H 116 H Respiratory Rate 20 18 Blood Pressure 135/76 Pulse Oximetry 98 96 Fraction of Inspired Oxygen 35 Oxygen Delivery Method High Flow Nasal Cannula Oxygen Flow Rate 3 Narrative Exam Narrative: Patient in bed. On nasal cannula O2. Alert and orient x3. Left hip dressing dry but has started to come off. Moderate swelling in left thigh. Bilateral calves soft and nontender. 5/5 left ankle strength. Neurovascular status intact. Objective Labs Result Diagrams: 06/30/18 06:51 06/30/18 06:51 Labs: Laboratory Results - last 24 hr 06/29/18 06/29/18 06/30/18 Unknown Unknown 06:51 WBC 11.8 H 15.0 H RBC 2.98 L 3.14 L Hgb 10.0 L 10.4 L Hct 29.4 L 30.9 L MCV 98.6 98.5 MCH 33.5 33.0 MCHC 33.9 33.5 RDW 13.8 13.7 Plt Count 293 288 Neut % (Auto) 89.4 H 92.1 H Lymph % (Auto) 4.9 L 3.3 L [place] % (Auto) 5.6 4.2 Eos % (Auto) 0.0 L 0.0 L Baso % (Auto) 0.1 0.4 Neut # (Auto) 60699 H 21962 H Sodium 140 Potassium 3.4 Chloride 103 Carbon Dioxide 32 BUN 39 H Creatinine 0.90 Estimated GFR > 60.0 BUN/Creatinine Ratio 43.3 H Glucose 141 H Calcium 8.9 Total Bilirubin AST ALT Alkaline Phosphatase Total Protein Albumin Globulin Albumin/Globulin Ratio 06/30/18 06:51 WBC RBC Hgb Hct MCV MCH MCHC RDW Plt Count Neut % (Auto) Lymph % (Auto) [place] % (Auto) Eos % (Auto) Baso % (Auto) Neut # (Auto) Sodium 141 Potassium 2.9 L Chloride 101 Carbon Dioxide 34 H BUN 36 H Creatinine 0.90 Estimated GFR > 60.0 BUN/Creatinine Ratio 40.0 H Glucose 154 H Calcium 8.6 Total Bilirubin 0.6 AST 19 ALT 29 Alkaline Phosphatase 66 Total Protein 5.1 L Albumin 2.7 L Globulin 2.4 Albumin/Globulin Ratio 1.1 Assessment & Plan Post-op Postoperative Procedures Operation Date: 06/22/18 16:45 Actual Procedures Side Surgeon p Hip IMN Left Hiram Tovar MD Postop day 8. Continue with toe-touch weight-bearing status. Continue physical therapy. Continue DVT prophylaxis. Patient may need a [facility] facility after discharge from the hospital. Medical issues are being managed by [facility]. Quality VTE Deep Vein Thrombosis/Pulmonary Embolism Present on Admission: No
--- NOTE | 2018-06-30 08:28 | P.PN_ITS ---
Subjective Date Patient Seen: 06/30/18 Time Patient Seen: 08:22 Interval history: Patient is hospital day 9, postop day 8. She is status post left femur open reduction and internal fixation with intramedullary nailing by Dr. Tovar. She has been transferred to the floor from ICU. Currently on oxygen. She is recovering from pneumonia. States pain is tolerable left hip. Casas in. Exam Vital Signs (past 8 hours): - 06/30/18 05:09 06/30/18 06:02 Temperature 98.4 F Pulse Rate 111 H 116 H Respiratory Rate 20 18 Blood Pressure 135/76 Pulse Oximetry 98 96 Fraction of Inspired Oxygen 35 Oxygen Delivery Method High Flow Nasal Cannula Oxygen Flow Rate 3 Narrative Exam Narrative: Patient in bed. On nasal cannula O2. Alert and orient x3. Left hip dressing dry but has started to come off. Moderate swelling in left thigh. Bilateral calves soft and nontender. 5/5 left ankle strength. Neurovascular status intact. Objective Labs Result Diagrams: 06/30/18 06:51 06/30/18 06:51 Labs: Laboratory Results - last 24 hr 06/29/18 06/29/18 06/30/18 Unknown Unknown 06:51 WBC 11.8 H 15.0 H RBC 2.98 L 3.14 L Hgb 10.0 L 10.4 L Hct 29.4 L 30.9 L MCV 98.6 98.5 MCH 33.5 33.0 MCHC 33.9 33.5 RDW 13.8 13.7 Plt Count 293 288 Neut % (Auto) 89.4 H 92.1 H Lymph % (Auto) 4.9 L 3.3 L [place] % (Auto) 5.6 4.2 Eos % (Auto) 0.0 L 0.0 L Baso % (Auto) 0.1 0.4 Neut # (Auto) 95984 H 15239 H Sodium 140 Potassium 3.4 Chloride 103 Carbon Dioxide 32 BUN 39 H Creatinine 0.90 Estimated GFR > 60.0 BUN/Creatinine Ratio 43.3 H Glucose 141 H Calcium 8.9 Total Bilirubin AST ALT Alkaline Phosphatase Total Protein Albumin Globulin Albumin/Globulin Ratio 06/30/18 06:51 WBC RBC Hgb Hct MCV MCH MCHC RDW Plt Count Neut % (Auto) Lymph % (Auto) [place] % (Auto) Eos % (Auto) Baso % (Auto) Neut # (Auto) Sodium 141 Potassium 2.9 L Chloride 101 Carbon Dioxide 34 H BUN 36 H Creatinine 0.90 Estimated GFR > 60.0 BUN/Creatinine Ratio 40.0 H Glucose 154 H Calcium 8.6 Total Bilirubin 0.6 AST 19 ALT 29 Alkaline Phosphatase 66 Total Protein 5.1 L Albumin 2.7 L Globulin 2.4 Albumin/Globulin Ratio 1.1 Assessment & Plan Post-op Postoperative Procedures Operation Date: 06/22/18 16:45 Actual Procedures Side Surgeon p Hip IMN Left Hiram Tovar MD Postop day 8. Continue with toe-touch weight-bearing status. Continue physical therapy. Continue DVT prophylaxis. Patient may need a [facility] facility after discharge from the hospital. Medical issues are being managed by [facility]. Quality VTE Deep Vein Thrombosis/Pulmonary Embolism Present on Admission: No
--- NOTE | 2018-06-30 08:47 | PM.PN.1 ---
Subjective Date Patient Seen: 06/30/18 Time Patient Seen: 08:47 Interval history: Patient doing better yet today more alert. Not requiring any sedation for CIWA protocol. Vital signs are good. Heart rate has been in good range. White count a little bit elevated but no signs of fever or recurrent infection. Oxygen saturation good in the been able to continue to wean her oxygen intensity and pressure. Will discontinue some of her x-ray is like telemetry IV fluids and because of her severity of infection and elevated white count will continue on her IV antibiotics for 1 more day. Patient has not been able to get up so we will leave her Casas in as well. She denies chest pain significant feeling of shortness of breath this morning does have hip pain complaint with movement and her fractured hip area. Patient also is hypokalemic this morning will give her today some potassium supplementation Exam Vital Signs (past 8 hours): - 06/30/18 05:09 06/30/18 06:02 06/30/18 07:00 Temperature 98.4 F 98.2 F Pulse Rate 111 H 116 H 118 H Respiratory Rate 20 18 16 Blood Pressure 135/76 135/79 Pulse Oximetry 98 96 97 Fraction of Inspired Oxygen 35 Oxygen Delivery Method High Flow Nasal Cannula Oxygen Flow Rate 3 Narrative Exam Narrative: Sitting up alert knows where she is at asked appropriate questions this morning PERRLA Neck without mass line Lungs little decreased but better than yesterday CVS shows heart rate 90-116 range fairly evenly spaced usually associated with movement her pain Abdomen soft nontender Extremities without significant edema left leg not being moved much secondary to a postop discomfort Neuro patient seems alert and more oriented speaking clearly anticipate in the next day or so will be able to transfer over to [facility] Objective Labs Result Diagrams: 06/30/18 06:51 06/30/18 06:51 Labs: Laboratory Results - last 24 hr 06/29/18 06/29/18 06/30/18 Unknown Unknown 06:51 WBC 11.8 H 15.0 H RBC 2.98 L 3.14 L Hgb 10.0 L 10.4 L Hct 29.4 L 30.9 L MCV 98.6 98.5 MCH 33.5 33.0 MCHC 33.9 33.5 RDW 13.8 13.7 Plt Count 293 288 Neut % (Auto) 89.4 H 92.1 H Lymph % (Auto) 4.9 L 3.3 L [place] % (Auto) 5.6 4.2 Eos % (Auto) 0.0 L 0.0 L Baso % (Auto) 0.1 0.4 Neut # (Auto) 10748 H 09669 H Sodium 140 Potassium 3.4 Chloride 103 Carbon Dioxide 32 BUN 39 H Creatinine 0.90 Estimated GFR > 60.0 BUN/Creatinine Ratio 43.3 H Glucose 141 H Calcium 8.9 Total Bilirubin AST ALT Alkaline Phosphatase Total Protein Albumin Globulin Albumin/Globulin Ratio 06/30/18 06:51 WBC RBC Hgb Hct MCV MCH MCHC RDW Plt Count Neut % (Auto) Lymph % (Auto) [place] % (Auto) Eos % (Auto) Baso % (Auto) Neut # (Auto) Sodium 141 Potassium 2.9 L Chloride 101 Carbon Dioxide 34 H BUN 36 H Creatinine 0.90 Estimated GFR > 60.0 BUN/Creatinine Ratio 40.0 H Glucose 154 H Calcium 8.6 Total Bilirubin 0.6 AST 19 ALT 29 Alkaline Phosphatase 66 Total Protein 5.1 L Albumin 2.7 L Globulin 2.4 Albumin/Globulin Ratio 1.1 Assessment & Plan Plan: Assessment/Plan Narrative: Assessment 1. Gradually but in continuing improvement in her respiratory failure and severe hypoxia. Probably was a result of aspiration secondary pneumonia and perhaps sedation and alcohol status at that point. Assessment 2. Pneumonia seems to continue to improve. Little bump in her white count today again she is on IV steroids no real sign of decreasing oxygenation or shortness of breath no coughing no fevers Assessment 3 atrial fibrillation continues to be in fairly good control activity bones that up to slightly over 100 but makes no impact on lowering her blood pressure causing her symptoms Assessment for hip fracture sore but stable ortho following along seems to be making appropriate progress. Anticipate residential care with physical therapy for that 1 really get patient off her IV meds and stabilized potassium Assessment 5. Alcohol abuse patient did have withdrawal symptoms was on CIIL protocol but has not required any sedation for that in the last 2 days Assessment 6. Hypokalemia today's patient's potassium is 2.9. Will replace with oral potassium recheck in morning. Assessment 7 GI and DVT prophylaxis continue Quality VTE Deep Vein Thrombosis/Pulmonary Embolism Present on Admission: No
--- NOTE | 2018-06-30 08:53 | P.PN_ITS ---
Subjective Date Patient Seen: 06/30/18 Time Patient Seen: 08:47 Interval history: Patient doing better yet today more alert. Not requiring any sedation for CIWA protocol. Vital signs are good. Heart rate has been in good range. White count a little bit elevated but no signs of fever or recurrent infection. Oxygen saturation good in the been able to continue to wean her oxygen intensity and pressure. Will discontinue some of her x-ray is like telemetry IV fluids and because of her severity of infection and elevated white count will continue on her IV antibiotics for 1 more day. Patient has not been able to get up so we will leave her Csaas in as well. She denies chest pain significant feeling of shortness of breath this morning does have hip pain complaint with movement and her fractured hip area. Patient also is hypokalemic this morning will give her today some potassium supplementation Exam Vital Signs (past 8 hours): - 06/30/18 05:09 06/30/18 06:02 06/30/18 07:00 Temperature 98.4 F 98.2 F Pulse Rate 111 H 116 H 118 H Respiratory Rate 20 18 16 Blood Pressure 135/76 135/79 Pulse Oximetry 98 96 97 Fraction of Inspired Oxygen 35 Oxygen Delivery Method High Flow Nasal Cannula Oxygen Flow Rate 3 Narrative Exam Narrative: Sitting up alert knows where she is at asked appropriate questions this morning PERRLA Neck without mass line Lungs little decreased but better than yesterday CVS shows heart rate 90-116 range fairly evenly spaced usually associated with movement her pain Abdomen soft nontender Extremities without significant edema left leg not being moved much secondary to a postop discomfort Neuro patient seems alert and more oriented speaking clearly anticipate in the next day or so will be able to transfer over to custodial Objective Labs Result Diagrams: 06/30/18 06:51 06/30/18 06:51 Labs: Laboratory Results - last 24 hr 06/29/18 06/29/18 06/30/18 Unknown Unknown 06:51 WBC 11.8 H 15.0 H RBC 2.98 L 3.14 L Hgb 10.0 L 10.4 L Hct 29.4 L 30.9 L MCV 98.6 98.5 MCH 33.5 33.0 MCHC 33.9 33.5 RDW 13.8 13.7 Plt Count 293 288 Neut % (Auto) 89.4 H 92.1 H Lymph % (Auto) 4.9 L 3.3 L [place] % (Auto) 5.6 4.2 Eos % (Auto) 0.0 L 0.0 L Baso % (Auto) 0.1 0.4 Neut # (Auto) 63707 H 88332 H Sodium 140 Potassium 3.4 Chloride 103 Carbon Dioxide 32 BUN 39 H Creatinine 0.90 Estimated GFR > 60.0 BUN/Creatinine Ratio 43.3 H Glucose 141 H Calcium 8.9 Total Bilirubin AST ALT Alkaline Phosphatase Total Protein Albumin Globulin Albumin/Globulin Ratio 06/30/18 06:51 WBC RBC Hgb Hct MCV MCH MCHC RDW Plt Count Neut % (Auto) Lymph % (Auto) [place] % (Auto) Eos % (Auto) Baso % (Auto) Neut # (Auto) Sodium 141 Potassium 2.9 L Chloride 101 Carbon Dioxide 34 H BUN 36 H Creatinine 0.90 Estimated GFR > 60.0 BUN/Creatinine Ratio 40.0 H Glucose 154 H Calcium 8.6 Total Bilirubin 0.6 AST 19 ALT 29 Alkaline Phosphatase 66 Total Protein 5.1 L Albumin 2.7 L Globulin 2.4 Albumin/Globulin Ratio 1.1 Assessment & Plan Plan: Assessment/Plan Narrative: Assessment 1. Gradually but in continuing improvement in her respiratory failure and severe hypoxia. Probably was a result of aspiration secondary pneumonia and perhaps sedation and alcohol status at that point. Assessment 2. Pneumonia seems to continue to improve. Little bump in her white count today again she is on IV steroids no real sign of decreasing oxygenation or shortness of breath no coughing no fevers Assessment 3 atrial fibrillation continues to be in fairly good control activity bones that up to slightly over 100 but makes no impact on lowering her blood pressure causing her symptoms Assessment for hip fracture sore but stable ortho following along seems to be making appropriate progress. Anticipate correction care with physical therapy for that 1 really get patient off her IV meds and stabilized potassium Assessment 5. Alcohol abuse patient did have withdrawal symptoms was on CIMN protocol but has not required any sedation for that in the last 2 days Assessment 6. Hypokalemia today's patient's potassium is 2.9. Will replace with oral potassium recheck in morning. Assessment 7 GI and DVT prophylaxis continue Quality VTE Deep Vein Thrombosis/Pulmonary Embolism Present on Admission: No
[2018-06-30] MEDS: METOPROLOL 50 MG TABLET 100 MG PO ×2 (09:39→21:00)
[2018-06-30] MEDS: dilTIAZem CD 180 MG CAP PO (09:40)
[2018-06-30] MEDS: dilTIAZem CD 120 MG CAP PO (09:40)
[2018-06-30] MEDS: CITALOPRAM 20 MG TABLET PO (09:40)
[2018-06-30] MEDS: FUROSEMIDE 40 MG TABLET PO (09:40)
[2018-06-30] MEDS: POTASSIUM CHLORIDE 20 MEQ TAB PO (09:48)
[2018-06-30] MEDS: predniSONE 20 MG TABLET 40 MG PO (09:48)
--- NOTE | 2018-06-30 09:53 | OT.IP.TRT ---
Current Diagnoses Alcohol dependence with withdrawal, unspecified (06/21/18) Essential (primary) hypertension (06/21/18) Unspecified atrial fibrillation (06/21/18) Age-related osteoporosis without current pathological fracture (06/21/18) Urinary tract infection, site not specified (06/21/18) Fracture of unspecified part of neck of left femur, initial encounter for closed fracture (06/21/18) Surgery Performed Operation Date: 06/22/18 16:45 Actual Procedures p Hip IMN(Left) - Hiram Tovar MD Occupational Therapy Treatment Note M2 OT-IP Current Condition Start: 06/24/18 11:46 Freq: Status: Active Protocol: Document 06/26/18 10:49 [facility] (Rec: 06/26/18 11:12 [facility] [id number]) Occupational Therapy Current Condition Current Condition Evaluation Date 06/26/18 Treatment Diagnosis weakness,s/p Left hip ORIF Diagnosis Onset Date 06/21/18 Weight Bearing Status Weight Bearing Status Touch Down Weight Bearing M3 OT- IP Subjective and Pain Start: 06/24/18 11:46 Freq: Status: Active Protocol: Document 06/30/18 09:47 [facility] (Rec: 06/30/18 09:53 [facility] [id number]) OT- Subjective Occupational Therapy Visit Type Type Treatment Note Visit Start Time 09:20 Visit Stop Time 09:45 Occupational Therapy Visit Comments Patient Comments Pt agreeable to try to get up. OT Pain Assessment Pain When Pain Assessed At Rest Pain Present Pain Present Denied Pain M4 OT- IP ADL's Start: 06/24/18 11:46 Freq: Status: Active Protocol: Document 06/28/18 15:37 PJM (Rec: 06/28/18 15:48 PJM [id number]) OT ADL-Grooming General Evaluation Grooming Ability Standby Assistance Areas Needing Assistance Combing/Brushing Hair Face Washing Comments OT Grooming Comments Occasional cues to avoid O2 line with washcloth. OT ADL-Oral Care Comments Oral Care Comments pt declined this session OT ADL-Toileting General Evaluation Toileting Ability Total Assistance Areas Needing Assistance Empty Catheter or Colostomy Perform Perineal Hygiene M6 OT- IP Functional Cognition Start: 06/24/18 11:46 Freq: Status: Active Protocol: Document 06/30/18 09:47 [facility] (Rec: 06/30/18 09:53 [facility] [id number]) Cognitive Factors Limiting Selfcare Function Cognitive Ability Level of Alertness Alert Patient Orientation Name Place Situation Attention Span Ability Capable of Focused Attention Capable of Sustained Attention Ability to Follow Commands Able to Follow One Step Commands Memory Description Short Term Impaired Safety Awareness Decreased Recall of Precautions Decreased Ability to Apply Precautions Underestimates Need for Assistance Problem Solving Ability Needs Assist to Identify Solutions Cognitive Comments Cognitive Assessment Comments Pt needing concrete simple commands to follow. M7 OT- IP Mobility and Balance Start: 06/24/18 11:46 Freq: Status: Active Protocol: Document 06/30/18 09:47 [facility] (Rec: 06/30/18 09:53 [facility] [id number]) OT- Bed Mobility Assessment Rolling Type of Rolling Roll to Right Roll to Left Level of Assistance Maximum Assistance 2 Person Assistance Bedrails Supine to Sit Supine to Sit Assist Maximum Assistance 2 Person Assistance Scooting Scooting to Edge of Bed Maximum Assistance 2 Person Assistance OT-Transfer Assessment Sit to and From Stand Sit to and from Stand Total Assistance 2 Person Assistance Use of Upper Extremities Comments Mobility Comments Pt not able to stand all the way up with bed elevated due difficulty to follow TTWB due to decresed trunk control and strength. Pt complaining of feeling dizzy and wanting to lie down. BP 145/73. HR from 113-141 during treatment, nursing notified. OT- Gait Assessment Comments Gait Ability Comments Pt non ambulatory at present. OT- Balance Assessment Sitting Balance and Reactions Static Sitting Balance Ability Fair Dynamic Sitting Balance Ability Poor M8 OT- IP Objective Assessments Start: 06/24/18 11:46 Freq: Status: Active Protocol: Document 06/29/18 14:29 PJM (Rec: 06/29/18 15:55 PJM [id number]) OT Strength Comments Strength Comments Provided lightly resistive theraband and pt completed 2 sets of 5 reps for B horiz abd , 2 sets of 5 for unilateral triceps and 3 sets of 5 for unilateral biceps. M9 OT- IP Assessment and Plan Start: 06/24/18 11:46 Freq: Status: Active Protocol: Document 06/30/18 09:47 [facility] (Rec: 06/30/18 09:53 [facility] [id number]) OT Summary Assessment and Plan Summary Progress Towards Goals Slow Progress due to Medical Issues Slow Progress due to Activity Tolerance Assessment Summary Pt more alert today and able to follow directions better , however continues to need extensive assist for all Adl and functional mobility needs and requiring use of mechanical lift for transfers. Goals Days to Meet Goals 10 Frequency of Treatment Frequency Of Treatment Once a Day Treatment Plan OT Treatment Plan ADL Training Functional Cognition Training Functional Mobility Therapeutic Exercises Patient/Family Education Discharge Planning Discharge Recommendations OT Discharge Recommendations [facility] Re[facility]
--- NOTE | 2018-06-30 11:19 | PM.PN.1 ---
Subjective Interval history: Patient was admitted by the hospitalist service for her hip fracture. She had alcohol withdrawal and was on the CIWA protocol. Also she had atrial fibrillation or rapid ventricular response and her rhythm has become control with treatment of her ETOH withdrawal and improvement in her pneumonia. In the past 24 hr there has been no new events no new problems. She has no chest tightness chest pain. There is occasional shortness of breath. She remains on O2 but is being weaned down. She has not required any benzodiazepine for withdrawal symptoms in the past 1-2 days. He does continue to have some cold the operative pain. Exam Vital Signs (past 8 hours): - 06/30/18 05:09 06/30/18 06:02 06/30/18 07:00 Temperature 98.4 F 98.2 F Pulse Rate 111 H 116 H 118 H Respiratory Rate 20 18 16 Blood Pressure 135/76 135/79 Pulse Oximetry 98 96 97 06/30/18 09:19 06/30/18 09:20 Temperature Pulse Rate Respiratory Rate Blood Pressure Pulse Oximetry 98 94 Fraction of Inspired Oxygen 35 Oxygen Delivery Method Room Air Oxygen Flow Rate 4 Narrative Exam Narrative: General NAD HEENT: Normocephalic atraumatic PERRLA extraocular movement intact sclera nonicteric oropharynx clear Neck supple without thyromegaly bruits or jugular venous distension Respiratory clear to auscultation. Cardiovascular, irregularly irregular rhythm slightly tachycardic Abdomen soft nontender Extremities trace to 1+ right lower extremity edema 1+ left lower extremity edema. Dressing left hip clean dry and intact Neuro grossly physiologic Psychiatric: Affect normal Objective Labs Result Diagrams: 06/30/18 06:51 06/30/18 06:51 Labs: Laboratory Results - last 24 hr 06/30/18 06/30/18 06:51 06:51 WBC 15.0 H RBC 3.14 L Hgb 10.4 L Hct 30.9 L MCV 98.5 MCH 33.0 MCHC 33.5 RDW 13.7 Plt Count 288 Neut % (Auto) 92.1 H Lymph % (Auto) 3.3 L [place] % (Auto) 4.2 Eos % (Auto) 0.0 L Baso % (Auto) 0.4 Neut # (Auto) 94097 H Sodium 141 Potassium 2.9 L Chloride 101 Carbon Dioxide 34 H BUN 36 H Creatinine 0.90 Estimated GFR > 60.0 BUN/Creatinine Ratio 40.0 H Glucose 154 H Calcium 8.6 Total Bilirubin 0.6 AST 19 ALT 29 Alkaline Phosphatase 66 Total Protein 5.1 L Albumin 2.7 L Globulin 2.4 Albumin/Globulin Ratio 1.1 Assessment & Plan Plan: Assessment/Plan Narrative: 1. POD # 8 ORIF LEFT HIP FRACTURE Hip fracture healing appropriate Plan. Postoperative management per orthopedic surgery 2. Atrial fibrillation with rapid ventricular response Heart rate in the 100s-110s range. It appears that her beta-mitchel and calcium channel mitchel are not being effective. She is on Cardizem 180 mg +100 20 mg daily. Also she is on metoprolol 100 mg p.o. b.i.d Her blood pressure these agents. However will not increase them but will add digoxin to her medical management Plan Start digoxin 3. Acute hypoxic respiratory failure secondary to pneumonia Her respiratory failure is improving and her FiO2 is being weaned down. Plan Continue to wean O2. 4. Pneumonia Overall clinically she would appear to be doing well. Her pulmonary status is stable. She has no tachypnea. Her O2 sats are stable and her FiO2 was being weaned. Her white count has bumped today but there is no obvious infection will continue to follow her WBC Plan Continue her IV clindamycin and IV Levaquin Probable changed to p.o. antibiotics tomorrow CBC in a.m. Follow-up chest x-ray in a.m. 5. Leukocytosis As mentioned above there has been a bump in her white count. She remains afebrile. Clinically as relates to her pneumonia this appears to be improving O2 sat are stabilized and the FiO2 was being weaned down. With patient on clindamycin need to be observing for any potential signs symptoms of C diff. Plan CBC in a.m. Chest x-ray in a.m. 6. Hypokalemia Is pretty low this morning at 2.9. K+ is being replaced but will give additional potassium Plan KCl 40 mEq p.o. q.4h x4 today BMP in a.m. Quality VTE Deep Vein Thrombosis/Pulmonary Embolism Present on Admission: No
--- NOTE | 2018-06-30 11:46 | CM.DPC ---
Referral faxed to [facility]
--- NOTE | 2018-06-30 12:22 | CM.DPNOTE ---
Per [facility] unable to accept patient over weekend but patient able to be discharge possible today or tomorrow (Tuesday). Provided Medicare Choice List to patient and patient was agreeable to alternative plan of [facility] 2[facility]King faxed referral to [facility]. [facility] will not have bed over weekend. [facility] accepted patient and is anticipating discharge tuesday and will set up cabulance when notified. GISSELLE Faxed to [facility] and patient and RN notified of acceptance. Plan: Patient to discharge to [facility] when medically stable.
--- NOTE | 2018-06-30 12:46 | ST.IPDYTX ---
Addendum entered and electronically signed by Morenita Aguilera 06/30/18 12:48: Updated information: Patient no longer planned to D/C to [facility]. Now planned to D/C to [facility] when medially stable. Please see documentation for further details. Original Note: Care Team Visit Care Team Role Provider Type Hiram Tovar MD Other Providers Physician Specialty: Orthopedic Surgery Address: [address] [place] [address], [id number] Email: [email or web address] Natalie Black MD Emergency Provider Physician Specialty: Emergency Medicine Address: [address] [place] [address], [id number] Email: Santiago Hester MD Attending Provider Physician Family Provider Primary Care Provider Specialty: Family Practice Address: [address] [place], [place] [address], [address] Email: [email or web address] Sis Moreira MD Admit Provider Physician Other Providers Specialty: Internal Medicine Address: [address] [place] [address], [id number] Email: [employer] Dysphagia Treatment [employer] Dysphagia Treatment Start: 06/26/18 09:00 Freq: Status: Active Protocol: Document 06/30/18 12:42 [facility] (Rec: 06/30/18 12:46 [facility] [id number]) Dysphagia Treatment Session Time Visit Start Time 12:25 Visit Stop Time 12:40 Total Visit Minutes 15 Setting Assessment Location Acute Care Visit Type Note Type Treatment Note Patient Information Identification Type Name ID Wristband Subjective Observations Patient resting in bed. Transferred from ICU to Acute Care. Per [facility], patient ate most of her breakfast this morning and had no difficulty. She has plans to discharge to [facility], but per RNElla, she is not quite medically stable to go today. Treatment Liquids Trialed Thin Solids Trialed Regular Administration Type Self-Feeding Oral Strategies Upright at 90 degrees Double Swallow Controlled Bite/Sip Size Alternate Liquids/Solids Pharyngeal Strategies Effortful Swallow Small Bites and Sips Alternate Liquids/Solids Treatment Activities Independent in eating lunch. Able to self-feed and tolerate thin liquids via straw and regular textures without difficutly. Mild cues from [employer] for liquid wash due to minimal oral residue observed. Assessment Patient Response to Treatment Excellent Rehab Potential Excellent Assessment of Improvement Patient tolerating upgraded diet of thin liquids and regular textures without difficulty. Able to independently eat and drink with no s/s of aspiration. No change in vocal quality or 02. At this time, patient is able to safely maintain adequate nutrition/hydration without difficulty. No overt s/s of aspiration or dysphagia remain . At this time, recommend discharge patient from speech therapy. Please reconsult if warranted. Diet Recommendations Recommendations Continue Current Diet Liquids Order Thin Diet Order Regular Medication Recommendations As Tolerated Aspiration Precautions Recommended Precautions Upright at 90 Degrees Alternate Liquids/Solids Small Bites/Sips Chin Tuck Effortful Swallow Treatment Plan Placement Recommendation after Discharge [facility] Facility Appropriate for Continued Therapy Yes Therapy Recommendations No further therapy warranted at this time due to patient's consistently safe ability to maintain adequate nutrition/ hydration with regular textures and thin liquids. No further skilled speech therapy warranted. Please reconsult if needed. Dysphagia Goals Goals met.
[2018-06-30] MEDS: POTASSIUM CHLORIDE 20 MEQ TAB 40 MEQ PO ×3 (13:22→20:59)
[2018-06-30] MEDS: levoFLOXacin 750 MG/150 ML PIGGYBACK 100 MG IV (13:23)
[2018-06-30] MEDS: DIGOXIN 500 MCG/2 ML AMPUL IV (13:23)
--- NOTE | 2018-06-30 15:56 | PT.IPTN ---
Current Diagnoses Alcohol dependence with withdrawal, unspecified (06/21/18) Essential (primary) hypertension (06/21/18) Unspecified atrial fibrillation (06/21/18) Age-related osteoporosis without current pathological fracture (06/21/18) Urinary tract infection, site not specified (06/21/18) Fracture of unspecified part of neck of left femur, initial encounter for closed fracture (06/21/18) Surgery Performed Operation Date: 06/22/18 16:45 Actual Procedures p Hip IMN(Left) - Hiram Tovar MD Physical Therapy Treatment Note M2 PT-IP Current Condition Start: 06/23/18 14:30 Freq: NEEDED Status: Active Protocol: Document 06/25/18 15:25 RCC (Rec: 06/25/18 15:38 RCC [id number]) Physical Therapy Current Condition Current Condition Evaluation Date 06/23/18 Treatment Diagnosis s/p L hip ORIF with intramedullary nailing; difficulty in walking Onset Date 06/22/18 Weight Bearing Status Weight Bearing Status Touch Down Weight Bearing M3 PT-IP Subjective Start: 06/23/18 14:30 Freq: NEEDED Status: Active Protocol: Document 06/30/18 09:20 LJ (Rec: 06/30/18 15:56 LJ [id number]) Subjective Physical Therapy Visit Type Type Treatment Note Visit Start Time 09:20 Visit Stop Time 09:45 Total Visit Minutes 25 Number of JEWEL HOLE GAUGER Visits 1 Physical Therapy Visit Comments Patient Comments Pt in bed willing to attempt to stand M4 PT-IP Mobility and Gait Start: 06/23/18 14:30 Freq: NEEDED Status: Active Protocol: Document 06/30/18 09:20 LJ (Rec: 06/30/18 15:56 LJ [id number]) PT-Bed Mobility Assessment Supine to Sit Supine to Sit Maximum Assistance 2 Person Assistance Head of Bed Elevated Bedrails Sit to Supine Sit to Supine Maximum Assistance Total Assistance 2 Person Assistance Head of Bed Elevated Scooting Scooting to Edge of Bed Maximum Assistance Scooting Up and Down in Bed Dependent PT-Transfer Assessment Sit to and From Stand Sit to and from Stand Maximum Assistance Total Assistance 2 Person Assistance Use of Upper Extremities Equipment Transfer Assistive Device Gait Belt M5 PT-IP Objective Assessments Start: 06/23/18 14:30 Freq: NEEDED Status: Active Protocol: Document 06/23/18 10:40 AB (Rec: 06/23/18 14:45 AB [id number]) Orientation Orientation/Cognition Level of Alertness Confusional State Orientation Name Safety Awareness Decreased Safety Awareness Memory Description Short Term Impaired [employer] Impaired Gross Range of Motion Lower Extremity ROM Assessment Left Impaired Impairments pain and tightness limiting mobility on LLE Strength Lower Extremity Strength Assessment Bilaterally Impaired M6 PT-IP Treatment Start: 06/23/18 14:30 Freq: NEEDED Status: Active Protocol: Document 06/30/18 09:20 LJ (Rec: 06/30/18 15:56 LJ [id number]) Physical Therapy Treatment Exercises Exercises Quad Sets Heel Slides Supine Hip Abduction Education Education Provided Precautions Weight Bearing Status Safety M7 PT-IP Assessment and Plan Start: 06/23/18 14:30 Freq: NEEDED Status: Active Protocol: Document 06/30/18 09:20 LJ (Rec: 06/30/18 15:56 LJ [id number]) PT Summary Assessment and Plan Potential Rehabilitation Potential Fair Summary Impairments Pain ROM Strength Balance Coordination Tone Cognition Bed Mobility Transfers Gait Activity Tolerance Progress Towards Goals Slow Progress due to Medical Issues Assessment Summary Pt unable to stand at this time d/t RLE weakness and difficulty adhering to TTWB precautions. Pt requested to get back in bed d/t dizziness . BP 145/73 HR 113-114 during treatment. Nursing notified Goals Bed Mobility Goal Moderate Assistance Transfer Goal Moderate Assistance Front Wheeled Walker Gait Goal Moderate Assistance Front Wheel Walker Gait Distance 20 Days to Meet Goals 5 Frequency of Treatment Frequency Of Treatment Twice a Day Treatment Plan Other Recommendations and Next Treatment sitting activities- sitting Focus EOB, static balance; if medically ready, may attempt transfer (has required 2-3 assist) Recommendations To Nursing Amount of Assist Needed 3 or More Person Assist Mechanical Lift Discharge Recommendations PT Discharge Recommendations SNF Rehab
--- NOTE | 2018-06-30 16:31 | PT.IPTN ---
Current Diagnoses Alcohol dependence with withdrawal, unspecified (06/21/18) Essential (primary) hypertension (06/21/18) Unspecified atrial fibrillation (06/21/18) Age-related osteoporosis without current pathological fracture (06/21/18) Urinary tract infection, site not specified (06/21/18) Fracture of unspecified part of neck of left femur, initial encounter for closed fracture (06/21/18) Surgery Performed Operation Date: 06/22/18 16:45 Actual Procedures p Hip IMN(Left) - Hiram Tovar MD Physical Therapy Treatment Note M2 PT-IP Current Condition Start: 06/23/18 14:30 Freq: NEEDED Status: Active Protocol: Document 06/25/18 15:25 RCC (Rec: 06/25/18 15:38 RCC [id number]) Physical Therapy Current Condition Current Condition Evaluation Date 06/23/18 Treatment Diagnosis s/p L hip ORIF with intramedullary nailing; difficulty in walking Onset Date 06/22/18 Weight Bearing Status Weight Bearing Status Touch Down Weight Bearing M3 PT-IP Subjective Start: 06/23/18 14:30 Freq: NEEDED Status: Active Protocol: Document 06/30/18 16:24 LJ (Rec: 06/30/18 16:31 LJ [id number]) Subjective Physical Therapy Visit Type Type Treatment Note Visit Start Time 16:00 Visit Stop Time 16:25 Total Visit Minutes 25 Physical Therapy Visit Comments Patient Comments Pt reluctant to try to stand M4 PT-IP Mobility and Gait Start: 06/23/18 14:30 Freq: NEEDED Status: Active Protocol: Document 06/30/18 16:24 LJ (Rec: 06/30/18 16:31 LJ [id number]) PT-Bed Mobility Assessment Supine to Sit Supine to Sit Maximum Assistance 2 Person Assistance Head of Bed Elevated Bedrails Sit to Supine Sit to Supine Maximum Assistance Total Assistance 2 Person Assistance Head of Bed Elevated Scooting Scooting Up and Down in Bed Dependent M5 PT-IP Objective Assessments Start: 06/23/18 14:30 Freq: NEEDED Status: Active Protocol: Document 06/23/18 10:40 AB (Rec: 06/23/18 14:45 AB [id number]) Orientation Orientation/Cognition Level of Alertness Confusional State Orientation Name Safety Awareness Decreased Safety Awareness Memory Description Short Term Impaired [employer] Impaired Gross Range of Motion Lower Extremity ROM Assessment Left Impaired Impairments pain and tightness limiting mobility on LLE Strength Lower Extremity Strength Assessment Bilaterally Impaired M6 PT-IP Treatment Start: 06/23/18 14:30 Freq: NEEDED Status: Active Protocol: Document 06/30/18 16:24 FIDELINA (Rec: 06/30/18 16:31 [id number]) Physical Therapy Treatment Exercises Exercises Ankle Pumps Gluteal Sets Quad Sets Heel Slides M7 PT-IP Assessment and Plan Start: 06/23/18 14:30 Freq: NEEDED Status: Active Protocol: Document 06/30/18 16:24 FIDELINA (Rec: 06/30/18 16:31 [id number]) PT Summary Assessment and Plan Potential Rehabilitation Potential Fair Summary Impairments Pain ROM Strength Balance Coordination Tone Cognition Bed Mobility Transfers Gait Activity Tolerance Progress Towards Goals Slow Progress due to Medical Issues Assessment Summary Pt required max assist x 2 to sit up in bed. Was unable/ unwilling to sit at edge of bed. C/o being dizzy. BP 133/ 86. Pt able to bridge and scoot to middle of bed with modA and use of rails. Able to move upper body with modA, rails and pad. Goals Bed Mobility Goal Moderate Assistance Transfer Goal Moderate Assistance Front Wheeled Walker Gait Goal Moderate Assistance Front Wheel Walker Gait Distance 20 Days to Meet Goals 5 Frequency of Treatment Frequency Of Treatment Twice a Day Treatment Plan Other Recommendations and Next Treatment sitting activities- sitting Focus EOB, static balance; if medically ready, may attempt transfer (has required 2-3 assist) Recommendations To Nursing Amount of Assist Needed 3 or More Person Assist Mechanical Lift Discharge Recommendations PT Discharge Recommendations SNF Rehab
[2018-06-30] MEDS: MIRTAZAPINE 15 MG TABLET PO (21:00)
[2018-06-30] MEDS: ENOXAPARIN 80 MG/0.8 ML SYRINGE 75 MG SUBCUT (21:00)
[2018-07-01] VITALS (17 sets, daily range): BP systolic 93–148; BP diastolic 39–80; PULSE 70–99; RESP 16–24; TEMP 36.1–36.7; O2SAT 84–100
--- NOTE | 2018-07-01 | DI.RAD.S_ITS ---
PROCEDURE: XR CHEST 2V INDICATIONS: pneumonia TECHNIQUE: 2 views of the chest were acquired. COMPARISON: [facility], CR, XR CHEST 2V, 04/17/2018, 10:46. [facility], CR, XR CHEST 1V, 06/21/2018, 11:25. [facility], CR, XR CHEST 1V, 06/24/2018, 10:04. [facility], CR, XR CHEST FOR PICC 1V, 06/26/2018, 9:43. FINDINGS: Surgical changes and devices: None. Lungs and pleura: There is a small left-sided pleural effusion. Interstitial prominence is seen throughout, which have improved compared to 06/24/18. Mediastinum: Mediastinal contours are normal. Heart size is mildly enlarged. Bones and chest wall: No suspicious bony abnormalities. Accentuated thoracic kyphosis is seen. Degenerative changes and osteopenia are seen. Soft tissues appear unremarkable. IMPRESSION: Small left-sided pleural effusion. Improved interstitial prominence compared to 06/24/18, which is consistent with decreased pulmonary edema. Dictated by: Dante Kline M.D. on 07/01/2018 at 11:07 Approved by: Dante Kline M.D. on 07/01/2018 at 11:08
--- NOTE | 2018-07-01 | DI.CT.S_ITS ---
PROCEDURE: CT ANGIO CHEST PE PROTOCOL INDICATIONS: Hypoxia, clinical concern for PE TECHNIQUE: After the administration of intravenous contrast, 2 mm thick sections acquired from the pulmonary apices to the posterior costophrenic angles. 3-dimensional maximum intensity projection (MIP) coronal and sagittal reformats were then acquired through the thorax. For radiation dose reduction, the following was used: automated exposure control, adjustment of mA and/or kV according to patient size. COMPARISON: [facility], MG, MM SCREENING MAMMO BI, 05/25/2018, 10:48. [facility], CT, PE STUDY (CTA CHEST), 04/19/2017, 5:09. [facility], CT, PE STUDY (CTA CHEST), 01/17/2016, 4:39. [facility], CR, XR CHEST 2V, 07/01/2018, 9:39. FINDINGS: Image quality: Excellent. Pulmonary arteries: Pulmonary arteries are normal in size, and demonstrate no intraluminal filling defects to suggest central pulmonary embolism. Lungs and pleura: Small bilateral pleural effusions are seen. Overlying enhancing atelectasis is seen. Fluid can also be seen along the left oblique fissure. Poorly defined opacity is seen throughout the right lung. Mediastinum: Heart size is normal, without pericardial effusion. Calcification can be seen of the mitral valve annulus. No mediastinal or hilar adenopathy. Thoracic aorta is normal in caliber and enhancement. Esophagus is normal in caliber, without hiatal hernia. Bones and chest wall: No suspicious bony lesions. Age-appropriate bony degenerative changes are seen. The ribs and thoracic spine appear intact throughout. Thyroid gland demonstrates no significant CT abnormality. No axillary or supraclavicular adenopathy. Right breast calcification can be seen, with a benign appearance. Abdomen: Gallstones are seen. Visualized upper abdominal solid organs appear normal in the early arterial phase of enhancement. IMPRESSION: Negative for pulmonary embolism. Small bilateral pleural effusions are seen, with associated overlying enhancing atelectasis. Fluid is also seen along the left oblique fissure. Poorly defined opacity involves right lung. Differential diagnosis includes infection and less likely asymmetric pulmonary edema. Incidental note is made of: Gallstones Mitral valve annulus calcification Benign-appearing right breast calcification Dictated by: Dante Kline M.D. on 07/01/2018 at 15:35 Approved by: Dante Kline M.D. on 07/01/2018 at 15:42
[2018-07-01] MEDS: POTASSIUM CHLORIDE 20 MEQ TAB 40 MEQ PO (01:24)
[2018-07-01] MEDS: OXYCODONE IR 5 MG TABLET 10 MG PO ×5 (01:36→19:44)
--- NOTE | 2018-07-01 01:52 | PC.NURSE ---
Addendum entered by Althea Ramirez R.N. 07/01/18 06:11: Medicated with Oxycodone for 8/10 aching left hip pain. Repositioned onto back after turning side to side to change pad under patient. RT has patient back on HFNC at 4L/min but sats still dropping down into mid 80's so O2 increased to 5L/min and sat now at 93%; patient reminded to breathe through nose rather than mouth breathing. Original Note: Addendum entered by Althea Ramirez R.N. 07/01/18 04:49: Oximeter alarming and sats down as low as 77% so O2 increased to 4L/min, RT contacted to assess and treat, and had patient working on breathing in through nose, use of I.S. (which she cannot even get to 500) and flutter valve. By time RT arrived patient's sats were back > 92% but drops down into 80's with activity or conversation. Noted to have a moist, congested, non productive cough. Original Note: Patient is drowsy with initially slurred speech upon first waking. Knows self, birthdate, place and year but uncertain as to correct month/year. Breath sounds with inspiratory crackles and expiratory wheezes. Currently on 3L/min oxygen per NC with sat of 97%. HR irregular; telemetry reading at 0000 was afib CVR. BP low at 93/39; will monitor. Denies nausea. BT present and abdomen is soft. Indwelling catheter is patent with clear yellow urine noted. Is able to assist to reposition but does not turn unless assisted. Extensive bruising of all extremities. Left hip dressing is CDI. Allevyn dressings intact to left elbow and right forearm. Complains of 8/10 pain in left hip so medicated with Oxycodone. Wearing bilateral SCD's. Fall risk score is high and bed alarm is activated. On contact isolation as was positive for MRSA on nasal swab. Currently in process of 24h urine collection.
[2018-07-01] MEDS: ALBUTEROL/IPRATROPIUM 3 ML AMPUL INH ×3 (04:40→21:04)
[2018-07-01 07:05] LABS: Add Manual Diff / Slide Review NO; Basophils Percent Auto 0.1 % (0-2); Hematocrit 33.5 % (36-46); Hemoglobin 11.1 g/dL (12.0-16.0); Lymphocytes Percent Auto 5.2 % (25-40); Mean Corpuscular HGB Conc 33.2 % (30-36); Mean Corpuscular Hemoglobin 32.7 PG (26-34); Mean Corpuscular Volume 98.6 fL (80-100); Monocytes Percent Auto 4.7 % (3-14); Neutrophils Absolute Auto 17700 /uL (3000-5900); Platelet Count 311 X10^3/uL (150-400); Red Cell Distribution Width 14.1 % (11.6-14.8); White Blood Cell Count 19.7 X10^3/uL (4.5-11.0)
[2018-07-01 07:09] LABS: Alanine Aminotransferase 30 IU/L (9-52); Albumin 2.9 g/dL (3.5-5.0); Albumin Globulin Ratio 1.2 (1.0-2.8); Alkaline Phosphatase 71 U/L (38-126); Aspartate Aminotransferase 22 IU/L (14-36); Bilirubin Total 0.5 mg/dL (0.2-1.3); Blood Urea Nitrogen 31 mg/dL (7-17); Calcium 9.1 mg/dL (8.4-10.2); Carbon Dioxide 35 mmol/L (22-32); Chloride 104 mmol/L (98-107); Estimated Glomerular Filt Rate 53.6 mL/min (>60); Globulin 2.5 g/dL (1.7-4.1); Glucose 92 mg/dL (80-110); HEMOLYSIS < 15 (0-50); Magnesium 1.9 mg/dL (1.6-2.3); Potassium 4.7 mmol/L (3.4-5.1); Sodium 145 mmol/L (137-145); Total Protein 5.4 g/dL (6.3-8.2)
--- NOTE | 2018-07-01 08:55 | P.PN_ITS ---
Subjective Date Patient Seen: 07/01/18 Time Patient Seen: 08:51 Interval history: Patient is 9 days status post ORIF of femur fracture with IM nail with Dr. Tovar. Her pain is well controlled and she is doing a little more each day with physical therapy. She has been toe-touch weight-bearing. Plan to go to SNF for continued care. Exam Vital Signs (past 8 hours): - 07/01/18 03:30 07/01/18 04:40 07/01/18 07:25 Temperature 98.0 F 97.9 F Pulse Rate 79 89 96 H Respiratory Rate 16 20 19 Blood Pressure 141/80 H 148/76 H Pulse Oximetry 96 92 84 L 07/01/18 07:50 07/01/18 08:00 Temperature Pulse Rate 85 Respiratory Rate 24 Blood Pressure Pulse Oximetry 85 L 93 Fraction of Inspired Oxygen 50 Oxygen Delivery Method Venturi Mask Oxygen Flow Rate 15 Narrative Exam Narrative: Patient lying in bed no acute distress. She is alert and oriented x3. She is wear CPAP machine. Dressing is CDI. Calves are soft, compressible, nontender bilaterally. She is able to actively dorsiflex plantar flex. Objective Labs Result Diagrams: 07/01/18 05:20 07/01/18 05:20 Labs: Laboratory Results - last 24 hr 07/01/18 07/01/18 05:20 05:20 WBC 19.7 H RBC 3.40 L Hgb 11.1 L Hct 33.5 L MCV 98.6 MCH 32.7 MCHC 33.2 RDW 14.1 Plt Count 311 Neut % (Auto) 90.0 H Lymph % (Auto) 5.2 L [place] % (Auto) 4.7 Eos % (Auto) 0.0 L Baso % (Auto) 0.1 Neut # (Auto) 58146 H Sodium 145 Potassium 4.7 D Chloride 104 Carbon Dioxide 35 H BUN 31 H Creatinine 1.00 Estimated GFR 53.6 L BUN/Creatinine Ratio 31.0 H Glucose 92 Calcium 9.1 Magnesium 1.9 Total Bilirubin 0.5 AST 22 ALT 30 Alkaline Phosphatase 71 Total Protein 5.4 L Albumin 2.9 L Globulin 2.5 Albumin/Globulin Ratio 1.2 Assessment & Plan Post-op (1) Closed hip fracture requiring operative repair: Problem details: Patient is 9 days status post ORIF of femur fracture with IM nail with Dr. Tovar. Patient will go to SNF for continued recovery managed by hospitalist service. If patient is still here during that time frame of 10-14 days after surgery we should get an AP pelvis and lateral view of femur fracture. Sutures should also be evaluated. If patient goes to SNF today please make sure patient has an appointment for follow-up with our office for next week. Qualifiers: Encounter type: initial encounter Fracture healing: Laterality: left Qualified Code(s): S72.002A - Fracture of unspecified part of neck of left femur, initial encounter for closed fracture Current Visit: Yes Status: Acute Postoperative Procedures Operation Date: 06/22/18 16:45 Actual Procedures Side Surgeon p Hip IMN Left Hiram Tovar MD Quality VTE Deep Vein Thrombosis/Pulmonary Embolism Present on Admission: No
[2018-07-01] MEDS: dilTIAZem CD 180 MG CAP PO (09:56)
[2018-07-01] MEDS: dilTIAZem CD 120 MG CAP PO (09:56)
[2018-07-01] MEDS: CITALOPRAM 20 MG TABLET PO (09:56)
[2018-07-01] MEDS: predniSONE 20 MG TABLET 40 MG PO (09:57)
[2018-07-01] MEDS: FUROSEMIDE 40 MG TABLET PO (09:57)
[2018-07-01] MEDS: METOPROLOL 50 MG TABLET 100 MG PO ×2 (09:57→21:26)
[2018-07-01] MEDS: levoFLOXacin 500 MG TABLET PO (09:57)
[2018-07-01 10:04] LABS: HCO3 ABG 34 mmol/L (23-27); Oxygen Saturation ABG 91 % (95-100); PCO2 ABG 41.6 mmHg (35-45); PO2 ABG 55 mmHg (80-105); TCO2 ABG 35 mmol/L (23-27); pH ABG 7.52 (7.35-7.45)
[2018-07-01 10:05] LABS: Fractionated Inspired Oxygen 50
--- NOTE | 2018-07-01 10:29 | PC.NURSE ---
Day shift: Pt off unit for x-ray at 1030. Pt unable to stand on her own. 2 person max assist.
--- NOTE | 2018-07-01 11:22 | PT.IPTN ---
Current Diagnoses Alcohol dependence with withdrawal, unspecified (06/21/18) Essential (primary) hypertension (06/21/18) Unspecified atrial fibrillation (06/21/18) Age-related osteoporosis without current pathological fracture (06/21/18) Urinary tract infection, site not specified (06/21/18) Fracture of unspecified part of neck of left femur, initial encounter for closed fracture (06/21/18) Surgery Performed Operation Date: 06/22/18 16:45 Actual Procedures p Hip IMN(Left) - Hiram Tovar MD Physical Therapy Treatment Note M2 PT-IP Current Condition Start: 06/23/18 14:30 Freq: NEEDED Status: Active Protocol: Document 06/25/18 15:25 RCC (Rec: 06/25/18 15:38 RCC [id number]) Physical Therapy Current Condition Current Condition Evaluation Date 06/23/18 Treatment Diagnosis s/p L hip ORIF with intramedullary nailing; difficulty in walking Onset Date 06/22/18 Weight Bearing Status Weight Bearing Status Touch Down Weight Bearing M3 PT-IP Subjective Start: 06/23/18 14:30 Freq: NEEDED Status: Active Protocol: Document 07/01/18 11:22 GGD (Rec: 07/01/18 11:22 GGD [id number]) Subjective Physical Therapy Visit Type Type Patient Unavailable Notes Per NSG, pt going for Xray. Will see in PM. Other Recommendations and Next Treatment sitting activities- sitting Focus EOB, static balance; if medically ready, may attempt transfer (has required 2-3 assist) Recommendations To Nursing Amount of Assist Needed 3 or More Person Assist Mechanical Lift Discharge Recommendations PT Discharge Recommendations SNF Rehab
--- NOTE | 2018-07-01 11:58 | CM.DPC ---
DCP SNF Planning Per MD, pt having some respiratory issues and currently on high flow oxygen and not stable for d/c to SNF yet today and will not be ready to d/c until oxygen levels more stable. SW called [facility] and updated on pt status and not stable for d/c yet today. [facility] confirmed that they can still accept the pt when stable for d/c and requested an update on pt status in the morning. Plan: SW to follow closely for pt d/c to [facility] when medically stable for discharge. SW to update [facility] in the morning if pt stable for d/c or not. ANA Munson
--- NOTE | 2018-07-01 13:16 | PM.PN.1 ---
Subjective Interval history: Patient is having ongoing respiratory problems. She desats and has had to be put on high-flow O2. Even with her de satting and her respiratory rate has not been problematic in the maximal respiratory rate is 24 but earlier this morning it was 16-20. She has also been afebrile and heart rate has remained stable as well in the 70-99 range. She is not having any increased cough or sputum production Exam Vital Signs (past 8 hours): - 07/01/18 07:25 07/01/18 07:50 07/01/18 08:00 Temperature 97.9 F Pulse Rate 96 H 85 Respiratory Rate 19 24 Blood Pressure 148/76 H Pulse Oximetry 84 L 85 L 93 07/01/18 11:24 07/01/18 12:10 Temperature 98 F Pulse Rate 81 99 H Respiratory Rate 24 17 Blood Pressure 118/69 Pulse Oximetry 95 99 Fraction of Inspired Oxygen 80 Oxygen Delivery Method Venturi Mask Oxygen Flow Rate 15 Narrative Exam Narrative: General NAD HEENT: Normocephalic atraumatic PERRLA extraocular movement intact sclera nonicteric oropharynx clear Neck supple without thyromegaly bruits or jugular venous distension Respiratory harsh expiratory breath sounds air entry slightly diminished Cardiovascular, irregularly irregular rhythm Abdomen soft nontender Extremities trace to 1+ right lower extremity edema 1+ left lower extremity edema. Dressing left hip clean dry and intact Neuro grossly physiologic Psychiatric: Affect normal Objective Labs Result Diagrams: 07/01/18 05:20 07/01/18 05:20 Labs: Laboratory Results - last 24 hr 07/01/18 07/01/18 07/01/18 05:20 05:20 09:10 WBC 19.7 H RBC 3.40 L Hgb 11.1 L Hct 33.5 L MCV 98.6 MCH 32.7 MCHC 33.2 RDW 14.1 Plt Count 311 Neut % (Auto) 90.0 H Lymph % (Auto) 5.2 L [place] % (Auto) 4.7 Eos % (Auto) 0.0 L Baso % (Auto) 0.1 Neut # (Auto) 76997 H ABG pH 7.52 H ABG pCO2 41.6 ABG pO2 55 L ABG HCO3 34 H ABG Total CO2 35 H ABG O2 Saturation 91 L ABG Base Excess 11.0 H FiO2 50 Sodium 145 Potassium 4.7 D Chloride 104 Carbon Dioxide 35 H BUN 31 H Creatinine 1.00 Estimated GFR 53.6 L BUN/Creatinine Ratio 31.0 H Glucose 92 Calcium 9.1 Magnesium 1.9 Total Bilirubin 0.5 AST 22 ALT 30 Alkaline Phosphatase 71 Total Protein 5.4 L Albumin 2.9 L Globulin 2.5 Albumin/Globulin Ratio 1.2 Assessment & Plan Plan: Assessment/Plan Narrative: 1. POD # 9 ORIF LEFT HIP FRACTURE Hip fracture healing appropriate Plan. Postoperative management per orthopedic surgery 2. Acute Hypoxic respiratory failure This is been more for problem past 12-24 hours. RT is titrating her FiO2 her ABGs shows that her pH is 7.52 PO2 is 55 bicarb is 34 O2 sats 91% on 50%. Her chest x-ray does not show any increased significant problems. There is only a small left pleural effusion. There is no congestive heart failure pneumonia present. In fact her interstitial changes improved compared to that of 06/24/2018. She would be someone at risk for pulmonary emboli and therefore will obtain CTA of the chest to rule out the possibility of pulmonary emboli as her chest x-ray shows improvement from prior chest x-ray. 3. Atrial fibrillation with rapid ventricular response Heart rate is improved with the addition of digoxin and will continue digoxin as part of her medical management. Plan Continue digoxin Continue her calcium channel antagonist and beta-mitchel 4. Pneumonia Would appear that this has resolved. Chest x-ray does not show any infiltrate only small pleural effusion. She remains afebrile white count remains normal Plan Continue po Levaquin 5. Leukocytosis White count remains up and in fact is somewhat higher. [place] this is most likely related to the steroids that she is on. She is afebrile chest x-ray does not reveal pneumonia. Will continue to monitor her white count. The white count should decrease as her steroids are being decreased Plan CBC in a.m. Urine culture and blood cultures because of the increase WBC 6. Hypokalemia This corrected with potassium replacement Plan BMP in a.m. Quality VTE Deep Vein Thrombosis/Pulmonary Embolism Present on Admission: No
--- NOTE | 2018-07-01 14:09 | PC.NURSE ---
Day shift: Pt went for PE rule out/imaging at approx 1410. Accompanied by DEREJE Singh and sterilisation technician.
--- NOTE | 2018-07-01 14:59 | PC.NURSE ---
Day shift: Pt back on unit at approx 1500 from PE study. Has new IV rt AC. Call light in reach and bed alarm is on.
--- NOTE | 2018-07-01 15:25 | PT.IPTN ---
Current Diagnoses Alcohol dependence with withdrawal, unspecified (06/21/18) Essential (primary) hypertension (06/21/18) Unspecified atrial fibrillation (06/21/18) Age-related osteoporosis without current pathological fracture (06/21/18) Urinary tract infection, site not specified (06/21/18) Fracture of unspecified part of neck of left femur, initial encounter for closed fracture (06/21/18) Surgery Performed Operation Date: 06/22/18 16:45 Actual Procedures p Hip IMN(Left) - Hiram Tovar MD Physical Therapy Treatment Note M2 PT-IP Current Condition Start: 06/23/18 14:30 Freq: NEEDED Status: Active Protocol: Document 06/25/18 15:25 RCC (Rec: 06/25/18 15:38 RCC [id number]) Physical Therapy Current Condition Current Condition Evaluation Date 06/23/18 Treatment Diagnosis s/p L hip ORIF with intramedullary nailing; difficulty in walking Onset Date 06/22/18 Weight Bearing Status Weight Bearing Status Touch Down Weight Bearing M3 PT-IP Subjective Start: 06/23/18 14:30 Freq: NEEDED Status: Active Protocol: Document 07/01/18 15:25 RCC (Rec: 07/01/18 15:33 RCC [id number]) Subjective Physical Therapy Visit Type Type Patient Unavailable Notes pt getting blood draw currently, CT results not available at this time (cannot rule in/out PE at this time). Recommending to hold PT until CT results confirmed and documented due to risk of mobility if (+) for PE. Will attempt tomorrow. Frequency of Treatment Frequency Of Treatment Twice a Day Treatment Plan Other Recommendations and Next Treatment sitting activities- sitting Focus EOB, static balance; if medically ready, may attempt transfer (has required 2-3 assist) Recommendations To Nursing Amount of Assist Needed 3 or More Person Assist Mechanical Lift Discharge Recommendations PT Discharge Recommendations SNF Rehab
[2018-07-01] MEDS: DIGOXIN 0.25 MG TABLET PO (16:41)
[2018-07-01] MEDS: FUROSEMIDE 40 MG/4 ML VIAL IV (17:25)
[2018-07-01] MEDS: MIRTAZAPINE 15 MG TABLET PO (21:26)
[2018-07-01] MEDS: ENOXAPARIN 80 MG/0.8 ML SYRINGE 75 MG SUBCUT (21:27)
[2018-07-01 22:34] LABS: Potassium Urine Random 30.5 mmol/L
[2018-07-01 22:45] LABS: Potassium 24 Hour Urine 87 mmol/day (25-125); Total Volume Urine 2850 mL
[2018-07-01 22:46] LABS: Collection Time Urine 24 Hours
[2018-07-02] VITALS (20 sets, daily range): BP systolic 116–149; BP diastolic 59–96; PULSE 62–88; RESP 14–18; TEMP 35.7–36.7; O2SAT 85–100
[2018-07-02] MEDS: ALBUTEROL/IPRATROPIUM 3 ML AMPUL INH ×3 (05:57→17:18)
--- NOTE | 2018-07-02 07:54 | P.PN_ITS ---
Subjective Interval history: Patient states she is breathing better and feels better. She has no nausea vomiting chest discomfort abdominal discomfort Her oxygenation has improved. She has been on the Oxy mass at approximately 33 % FiO2 oxy mass at 4 liters/minute Her O2 sats have been remaining greater than 95%. RT is in the process of weaning down her O2 and had been successful and she is now at 92% on 2 L. Exam Vital Signs (past 8 hours): - 07/02/18 00:41 07/02/18 03:32 07/02/18 05:58 Temperature 97.6 F 97.6 F Pulse Rate 88 80 74 Respiratory Rate 15 16 18 Blood Pressure 149/83 H 139/87 Pulse Oximetry 99 100 99 07/02/18 07:35 07/02/18 07:44 Temperature Pulse Rate Respiratory Rate Blood Pressure Pulse Oximetry 99 95 Fraction of Inspired Oxygen 33 Oxygen Delivery Method Venturi Mask Oxygen Flow Rate 4 Narrative Exam Narrative: General NAD HEENT: Normocephalic atraumatic PERRLA extraocular movement intact sclera nonicteric oropharynx clear Neck supple without thyromegaly bruits or jugular venous distension Respiratory air entry slightly diminished Cardiovascular, irregularly irregular rhythm Abdomen soft nontender Extremities trace to 1+ right lower extremity edema 1+ left lower extremity edema. Dressing left hip clean dry and intact Neuro grossly physiologic Psychiatric: Affect normal Objective Labs Result Diagrams: 07/02/18 08:40 07/02/18 08:40 Labs: Laboratory Results - last 24 hr 06/30/18 07/01/18 22:00 09:10 ABG pH 7.52 H ABG pCO2 41.6 ABG pO2 55 L ABG HCO3 34 H ABG Total CO2 35 H ABG O2 Saturation 91 L ABG Base Excess 11.0 H FiO2 50 Ur Random Potassium 30.5 Urine Collection Time 24 Urine Total Volume 2850 Ur Potassium 24 Hour 87 Assessment & Plan Plan: Assessment/Plan Narrative: 1. POD # 10 ORIF LEFT HIP FRACTURE Hip fracture healing appropriate Plan. Postoperative management per orthopedic surgery 2. Acute Hypoxic respiratory failure This has improved. Feel that this is probably related to some fluid overload. CT scan does show some increased fluid. Also there is some atelectasis. There was no PE noted. I would wonder if there is a component of underlying COPD. There is nothing mention in her record. She does have a history of tobacco abuse. She did receive an extra dose of Lasix IV yesterday. Think that this probably helped in her oxygenation and removing some additional fluid. Plan Supplemental O2 and titrate down as possible Continue DuoNeb treatments 3. Atrial fibrillation with rapid ventricular response Heart rate is improved with improvement in her oxygenation, diuresis, and the addition of digoxin. In the past 24 hr her heart rate have been 70-96 and in the past 12 hr 74-84. Plan Continue digoxin po at 250 mcg per day Continue her metoprolol and diltiazem Digital level in a.m. 4. Pneumonia Would appear that this has resolved. Chest x-ray does not show any infiltrate only small pleural effusion. She remains afebrile She has been on Levaquin since admission. As her pneumonia is cleared by radiographic studies WELL clinically will discontinue her Levaquin as it has been 11 day Plan Discontinue po Levaquin Discontinue steroids as the patient has no further clinical bronchospasm on exam. 5. Leukocytosis White blood cell count remained elevated. I believe this is secondary to the steroid she is on. There is no evidence of any active infection. Chest x-ray and CT of the chest without evidence of pneumonia. Abdomen is benign on exam. Repeat PT blood cultures from yesterday are pending and no growth today. Follow up urine cultures being obtained as well. I feel the increased white count is secondary to the patient's steroids and should decrease when steroids are discontinued. Plan Prednisone has been discontinued as stated above CBC in a.m. Urine culture Continue to follow blood cultures 6. Hypokalemia This corrected with potassium replacement Plan BMP in a.m. 7. Metabolic alkalosis Patient has a serum CO2 is 40 today. This is related to her metabolic alkalosis. This is most likely based on her diuresis and contraction alkalosis. Arterial blood gases yesterday revealed a PH is 7.52 bicarb of 34 at that time. Therefore briana DC her Lasix and place her on Diamox for diuresis Plan DC Lasix Start Diamox 250 mg p.o. daily BMP in the a.m. Quality VTE Deep Vein Thrombosis/Pulmonary Embolism Present on Admission: No
[2018-07-02 08:57] LABS: Add Manual Diff / Slide Review NO; Basophils Percent Auto 0.2 % (0-2); Eosinophils Percent Auto 0.4 % (2-4); Hematocrit 34.8 % (36-46); Hemoglobin 11.6 g/dL (12.0-16.0); Lymphocytes Percent Auto 5.6 % (25-40); Mean Corpuscular HGB Conc 33.2 % (30-36); Mean Corpuscular Hemoglobin 32.7 PG (26-34); Mean Corpuscular Volume 98.3 fL (80-100); Monocytes Percent Auto 3.3 % (3-14); Neutrophils Absolute Auto 18500 /uL (3000-5900); Neutrophils Percent Auto 90.5 % (50-75); Platelet Count 259 X10^3/uL (150-400); Red Blood Cell Count 3.54 X10^6/uL (4.0-5.2); Red Cell Distribution Width 14.2 % (11.6-14.8); White Blood Cell Count 20.5 X10^3/uL (4.5-11.0)
[2018-07-02 09:04] LABS: Alanine Aminotransferase 28 IU/L (9-52); Albumin 2.7 g/dL (3.5-5.0); Albumin Globulin Ratio 1.1 (1.0-2.8); Alkaline Phosphatase 63 U/L (38-126); Aspartate Aminotransferase 18 IU/L (14-36); BUN Creatinine Ratio 35.6 (6-22); Bilirubin Total 0.5 mg/dL (0.2-1.3); Blood Urea Nitrogen 32 mg/dL (7-17); Calcium 9.2 mg/dL (8.4-10.2); Chloride 99 mmol/L (98-107); Estimated Glomerular Filt Rate > 60.0 mL/min (>60); Globulin 2.4 g/dL (1.7-4.1); Glucose 75 mg/dL (80-110); HEMOLYSIS < 15 (0-50); Potassium 3.9 mmol/L (3.4-5.1); Sodium 142 mmol/L (137-145); Total Protein 5.1 g/dL (6.3-8.2)
[2018-07-02 09:07] LABS: Digoxin 0.9 ng/mL (0.8-2.0)
[2018-07-02 09:18] LABS: Carbon Dioxide 40 mmol/L (22-32)
--- NOTE | 2018-07-02 09:24 | PC.NURSE ---
Day shift: Dr Ayon made aware that CO2 was 40. Also made RT aware.
[2018-07-02] MEDS: OXYCODONE IR 5 MG TABLET 10 MG PO ×2 (09:40→18:54)
[2018-07-02] MEDS: CITALOPRAM 20 MG TABLET PO (09:44)
[2018-07-02] MEDS: METOPROLOL 50 MG TABLET 100 MG PO ×2 (09:45→20:39)
[2018-07-02] MEDS: dilTIAZem CD 120 MG CAP PO (09:45)
[2018-07-02] MEDS: levoFLOXacin 500 MG TABLET PO (09:45)
[2018-07-02] MEDS: predniSONE 20 MG TABLET 40 MG PO (09:45)
[2018-07-02] MEDS: dilTIAZem CD 180 MG CAP PO (09:45)
[2018-07-02] MEDS: FUROSEMIDE 40 MG TABLET PO (09:45)
--- NOTE | 2018-07-02 09:48 | CM.DPC ---
Addendum entered by ANA Hubbard 07/02/18 09:52: SW spoke with [facility]: [facility] confirmed that they can still accept the patient at discharge and requested an update on status in morning. Original Note: DCP SNF Planning Per MD, patient continues to have some respiratory issues and not stable for discharge to SNF today. Goals are to reduce O2 needs to 2-3L prior to discharge. Patient currently on 4L. SW called [facility] and left voicemail updated them on patients status. Plan: SW to follow closely. Plan remains to discharge to [facility] when medically stable. SW to keep [facility] updated on discharge plan.
--- NOTE | 2018-07-02 10:46 | P.PN_ITS ---
Subjective Date Patient Seen: 07/01/18 Time Patient Seen: 09:05 Interval history: Patient little bit foggy this morning has apparently through the night needed increasing oxygen supplementation up to 90 mask with 50% O2. With hospitalist contacted and is embarked on a workup including a blood gas which I have ordered a chest x-ray and that think they are going to get CT scan for evaluation for possible pulmonary embolism. White count has also increased up to 20. All I think this is likely to be steroid related as she certainly could have occult infection. Had been switched to oral antibiotics to her 3 days ago and would wonder about recurrence of her pneumonia possible secondary to urinary tract infection or are other. Will get results on her chest x-ray and anticipate CT scan recheck potassium which is low this morning and will give her some replacement. Hospitalist is following and will just follow along with. Exam Vital Signs (past 8 hours): - 07/02/18 03:32 07/02/18 05:58 07/02/18 07:35 Temperature 97.6 F Pulse Rate 80 74 Respiratory Rate 16 18 Blood Pressure 139/87 Pulse Oximetry 100 99 99 07/02/18 07:44 07/02/18 08:20 07/02/18 08:30 Temperature Pulse Rate Respiratory Rate Blood Pressure Pulse Oximetry 95 95 92 07/02/18 08:31 Temperature 96.3 F L Pulse Rate 84 Respiratory Rate 18 Blood Pressure 145/96 H Pulse Oximetry 93 Fraction of Inspired Oxygen 27 Oxygen Delivery Method Venturi Mask Oxygen Flow Rate 4 Narrative Exam Narrative: Patient is a little more alert than she was yesterday but still gives me an accurate information. She reports that she has been doing fine in breathing easily but she has a Venti mask on and has required a significant titration upward in her oxygen. Also has had increase in her white blood count. PERRLA Neck without mass Lungs is did not sound as though they are significantly worse she has some slight decrease in breath sounds at the bases but not significant rales Cardiovascular shows an irregular irregular rhythm no murmur. No increase in significant edema Abdomen is soft and nontender has bowel sounds present no mass Hip is markedly decreased in range of motion but no sign of infection she has good sensation and motor intact distally Neuro shows patient to be awake and communicating quite clearly but a little bit foggy sensation and motor are intact and symmetrical in speech is clear Objective Labs Result Diagrams: 07/02/18 08:40 07/02/18 08:40 Labs: Laboratory Results - last 24 hr 06/30/18 07/02/18 07/02/18 22:00 08:40 08:40 WBC 20.5 H RBC 3.54 L Hgb 11.6 L Hct 34.8 L MCV 98.3 MCH 32.7 MCHC 33.2 RDW 14.2 Plt Count 259 Neut % (Auto) 90.5 H Lymph % (Auto) 5.6 L [place] % (Auto) 3.3 Eos % (Auto) 0.4 L Baso % (Auto) 0.2 Neut # (Auto) 33336 H Sodium Potassium Chloride Carbon Dioxide BUN Creatinine Estimated GFR BUN/Creatinine Ratio Glucose Calcium Total Bilirubin AST ALT Alkaline Phosphatase Total Protein Albumin Globulin Albumin/Globulin Ratio Ur Random Potassium 30.5 Urine Collection Time 24 Urine Total Volume 2850 Ur Potassium 24 Hour 87 Digoxin 0.9 07/02/18 08:40 WBC RBC Hgb Hct MCV MCH MCHC RDW Plt Count Neut % (Auto) Lymph % (Auto) [place] % (Auto) Eos % (Auto) Baso % (Auto) Neut # (Auto) Sodium 142 Potassium 3.9 Chloride 99 Carbon Dioxide 40 H* BUN 32 H Creatinine 0.90 Estimated GFR > 60.0 BUN/Creatinine Ratio 35.6 H Glucose 75 L Calcium 9.2 Total Bilirubin 0.5 AST 18 ALT 28 Alkaline Phosphatase 63 Total Protein 5.1 L Albumin 2.7 L Globulin 2.4 Albumin/Globulin Ratio 1.1 Ur Random Potassium Urine Collection Time Urine Total Volume Ur Potassium 24 Hour Digoxin Assessment & Plan Plan: Assessment/Plan Narrative: Assessment 1. Increasing hypoxia. Patient went into respiratory failure I think in part because of chronic lung disease combination of infection some respiratory suppression from her sedating medications for her CIWA withdrawal protocol. Had been doing better and worse today. Hospitalist on service Dr. Ayon is evaluating for other causes including pulmonary embolism. Will follow those results Assessment 2. Hip fracture from ground level that seems stable and I do not see that there is any concern for infection at that location Assessment 3. Atrial fibrillation stable with no rate control good for the most part continues to be irregular but runs from about 90 when she is at rest to 110 or so if activities going on her she gets upset will continue with current medications 4. Hypokalemia now had dropped to 2.9 will replace and recheck for tomorrow Anemia seems stable no evidence of undue bleeding could quite consistent with postoperative state Assessment 6 chronic alcoholism does not seem to be at significant risk for withdrawal at this point. Assessment 7. Patient has had pneumonia as part of this whole process all quite possibly due to aspiration will continue to monitor that closely Quality VTE Deep Vein Thrombosis/Pulmonary Embolism Present on Admission: No
--- NOTE | 2018-07-02 10:54 | P.PN_ITS ---
Subjective Date Patient Seen: 07/02/18 Time Patient Seen: 10:46 Interval history: Patient's oxygenation is a small bit better today been able to titrate her oxygen down. White count continues to rise is up to 20 today but I think that is most likely secondary to her steroid utilization. She is still on a Venti-Mask with 3 L and a little bit groggy year this morning may well be related to her just having hands to oxycodone for her pain management. Denies chest pain no significant abdominal pain does complain of some slight pain in her throat but does not have any swelling she says it hurts to swallow. She is on proton pump inhibitor management. Potassium has returned to normal. Chest x-ray showed no real worsening of pneumonia and be an improvement in it looked to be some pulmonary edema. Chest CT scan evaluated for pulmonary embolism and postoperative setting showed no evidence of pulmonary embolism small effusion and mild prep some small residual infiltrate on the right side. Patient has had no fever no diarrhea no urinary symptoms fully continues in place Exam Vital Signs (past 8 hours): - 07/02/18 03:32 07/02/18 05:58 07/02/18 07:35 Temperature 97.6 F Pulse Rate 80 74 Respiratory Rate 16 18 Blood Pressure 139/87 Pulse Oximetry 100 99 99 07/02/18 07:44 07/02/18 08:20 07/02/18 08:30 Temperature Pulse Rate Respiratory Rate Blood Pressure Pulse Oximetry 95 95 92 07/02/18 08:31 Temperature 96.3 F L Pulse Rate 84 Respiratory Rate 18 Blood Pressure 145/96 H Pulse Oximetry 93 Fraction of Inspired Oxygen 27 Oxygen Delivery Method Venturi Mask Oxygen Flow Rate 4 Narrative Exam Narrative: Patient is sitting in bed a little sleepy again just had pain meds but answering fairly clearly. Has been continued to be afebrile heart rate is down into the 70-80 range when she is sitting and resting respiratory rate is slowed is to 16. Heart rate goes up if she gets little bit active wrestling around in bed as does her oxygen saturation dropped a little bit PERRLA and EOMs intact Neck without mass or adenopathy swelling redness Lungs sound a little bit better yet today Yasmeen has crackling decreased at bases Cardiovascular exam shows irregularly irregular rhythm no significant murmur is still stable to diminished and lower extremity edema most consistent with postoperative state Abdomen is soft nontender there is no masses no rebound bowel sounds are present Hip. In Adria no sign of infection she is moving it around some and bed was very active yesterday and tolerated that Neuro is symmetrical and cranial nerves are intact and sensory and motor are symmetrical bilaterally Objective Labs Result Diagrams: 07/02/18 08:40 07/02/18 08:40 Labs: Laboratory Results - last 24 hr 06/30/18 07/02/18 07/02/18 22:00 08:40 08:40 WBC 20.5 H RBC 3.54 L Hgb 11.6 L Hct 34.8 L MCV 98.3 MCH 32.7 MCHC 33.2 RDW 14.2 Plt Count 259 Neut % (Auto) 90.5 H Lymph % (Auto) 5.6 L [place] % (Auto) 3.3 Eos % (Auto) 0.4 L Baso % (Auto) 0.2 Neut # (Auto) 88893 H Sodium Potassium Chloride Carbon Dioxide BUN Creatinine Estimated GFR BUN/Creatinine Ratio Glucose Calcium Total Bilirubin AST ALT Alkaline Phosphatase Total Protein Albumin Globulin Albumin/Globulin Ratio Ur Random Potassium 30.5 Urine Collection Time 24 Urine Total Volume 2850 Ur Potassium 24 Hour 87 Digoxin 0.9 07/02/18 08:40 WBC RBC Hgb Hct MCV MCH MCHC RDW Plt Count Neut % (Auto) Lymph % (Auto) [place] % (Auto) Eos % (Auto) Baso % (Auto) Neut # (Auto) Sodium 142 Potassium 3.9 Chloride 99 Carbon Dioxide 40 H* BUN 32 H Creatinine 0.90 Estimated GFR > 60.0 BUN/Creatinine Ratio 35.6 H Glucose 75 L Calcium 9.2 Total Bilirubin 0.5 AST 18 ALT 28 Alkaline Phosphatase 63 Total Protein 5.1 L Albumin 2.7 L Globulin 2.4 Albumin/Globulin Ratio 1.1 Ur Random Potassium Urine Collection Time Urine Total Volume Ur Potassium 24 Hour Digoxin Assessment & Plan Plan: Assessment/Plan Narrative: Assessment 1. Post respiratory arrest and combination of pneumonia probably due to aspiration COPD sedation. Has had increased oxygen demand over the last 24 hr with titration up with Venti mask. That is a little bit better today they have been able to titrate that down still on Ventimask at 3 L. She seems a little better however still has some findings on chest x-ray consistent with pulmonary edema no new infiltrate and negative evaluation for pulmonary embolism. No other clear focus for infection seems to be present so I suspect her white count is due to steroids Assessment to hip fracture seems stable physical therapy has moved her son is working with her. Assessment 3 hypokalemia is resolved continue to monitor Assessment for atrial fibrillation seems in stable range with good rate control I do think it is safe to stay with her current medications for management of that and monitor oxygenation well continue diuresis. Assessment 5 history of COPD superimposed over all these other issues may be part of the breathing and question that was responsive to her steroids. Will hopefully be able wean those down some Quality VTE Deep Vein Thrombosis/Pulmonary Embolism Present on Admission: No
--- NOTE | 2018-07-02 12:30 | PT.IPTN ---
Current Diagnoses Alcohol dependence with withdrawal, unspecified (06/21/18) Essential (primary) hypertension (06/21/18) Unspecified atrial fibrillation (06/21/18) Age-related osteoporosis without current pathological fracture (06/21/18) Urinary tract infection, site not specified (06/21/18) Fracture of unspecified part of neck of left femur, initial encounter for closed fracture (06/21/18) Surgery Performed Operation Date: 06/22/18 16:45 Actual Procedures p Hip IMN(Left) - Hiram Tovar MD Physical Therapy Treatment Note M2 PT-IP Current Condition Start: 06/23/18 14:30 Freq: NEEDED Status: Active Protocol: Document 07/02/18 12:30 RCC (Rec: 07/02/18 13:13 RCC [id number]) Physical Therapy Current Condition Current Condition Evaluation Date 06/23/18 Treatment Diagnosis s/p L hip ORIF with intramedullary nailing; difficulty in walking Onset Date 06/22/18 Weight Bearing Status Weight Bearing Status Touch Down Weight Bearing M3 PT-IP Subjective Start: 06/23/18 14:30 Freq: NEEDED Status: Active Protocol: Document 07/02/18 12:30 RCC (Rec: 07/02/18 13:13 RCC [id number]) Subjective Physical Therapy Visit Type Type Treatment Note Visit Start Time 12:06 Visit Stop Time 12:30 Total Visit Minutes [address] negative for PE. Physical Therapy Visit Comments Patient Comments Pt states that it feels good sitting up. Therapy Pain Assessment Pain When Pain Assessed During Mobility Pain Present Pain Present Pain Reported M4 PT-IP Mobility and Gait Start: 06/23/18 14:30 Freq: NEEDED Status: Active Protocol: Document 07/02/18 12:30 RCC (Rec: 07/02/18 13:13 RCC [email or web address]) PT-Bed Mobility Assessment Supine to Sit Supine to Sit Maximum Assistance 2 Person Assistance Head of Bed Elevated Bedrails Scooting Scooting to Edge of Bed Moderate Assistance PT-Transfer Assessment Sit to and From Stand Sit to and from Stand Maximum Assistance 2 Person Assistance Equipment Transfer Assistive Device Gait Belt Transfers Transfer Destination Chair Transfer Technique Squat Pivot Transfer Ability Level of Assist Maximum Assistance 2 Person Assistance Use of Upper Extremities Comments Mobility Comments VC for WB status of the LLE, and increased assistance for weight shift onto the RLE for transfer. PT in fron of pt during transfer. M5 PT-IP Objective Assessments Start: 06/23/18 14:30 Freq: NEEDED Status: Active Protocol: Document 06/23/18 10:40 AB (Rec: 06/23/18 14:45 AB [id number]) Orientation Orientation/Cognition Level of Alertness Confusional State Orientation Name Safety Awareness Decreased Safety Awareness Memory Description Short Term Impaired Alf Impaired Gross Range of Motion Lower Extremity ROM Assessment Left Impaired Impairments pain and tightness limiting mobility on LLE Strength Lower Extremity Strength Assessment Bilaterally Impaired M6 PT-IP Treatment Start: 06/23/18 14:30 Freq: NEEDED Status: Active Protocol: Document 07/02/18 12:30 RCC (Rec: 07/02/18 13:13 RCC [email or web address]) Physical Therapy Treatment Education Education Provided Precautions Weight Bearing Status Safety M7 PT-IP Assessment and Plan Start: 06/23/18 14:30 Freq: NEEDED Status: Active Protocol: Document 07/02/18 12:30 RCC (Rec: 07/02/18 13:13 RCC [email or web address]) PT Summary Assessment and Plan Summary Progress Towards Goals Slow Progress due to Pain Slow Progress due to Medical Issues Slow Progress due to Activity Tolerance Assessment Summary Pt continues to require 2 assist with mobility, able to complete a squat-pivot transfer to the R with Max A x2. Pt is still not safe to stand without assistance, and requires ongoing training for WB status and mobility to comply safely with that status . Goals Bed Mobility Goal Moderate Assistance Transfer Goal Moderate Assistance Front Wheeled Walker Gait Goal Moderate Assistance Front Wheel Walker Gait Distance 20 Days to Meet Goals 5 Frequency of Treatment Frequency Of Treatment Twice a Day Treatment Plan Other Recommendations and Next Treatment transfers, post-op exercises Focus Recommendations To Nursing Amount of Assist Needed 2 Person Assist Mechanical Lift Discharge Recommendations PT Discharge Recommendations SNF Rehab
[2018-07-02] MEDS: acetaZOLAMIDE 250 MG TABLET PO (12:55)
--- NOTE | 2018-07-02 14:50 | PT.IPTN ---
Current Diagnoses Alcohol dependence with withdrawal, unspecified (06/21/18) Essential (primary) hypertension (06/21/18) Unspecified atrial fibrillation (06/21/18) Age-related osteoporosis without current pathological fracture (06/21/18) Urinary tract infection, site not specified (06/21/18) Fracture of unspecified part of neck of left femur, initial encounter for closed fracture (06/21/18) Surgery Performed Operation Date: 06/22/18 16:45 Actual Procedures p Hip IMN(Left) - Hiram Tovar MD Physical Therapy Treatment Note M2 PT-IP Current Condition Start: 06/23/18 14:30 Freq: NEEDED Status: Active Protocol: Document 07/02/18 12:30 RCC (Rec: 07/02/18 13:13 RCC [email or web address]) Physical Therapy Current Condition Current Condition Evaluation Date 06/23/18 Treatment Diagnosis s/p L hip ORIF with intramedullary nailing; difficulty in walking Onset Date 06/22/18 Weight Bearing Status Weight Bearing Status Touch Down Weight Bearing M3 PT-IP Subjective Start: 06/23/18 14:30 Freq: NEEDED Status: Active Protocol: Document 07/02/18 14:50 RCC (Rec: 07/02/18 14:51 RCC [id number]) Subjective Physical Therapy Visit Type Type Patient Refusal Notes checked on pt mult. times this afternoon, she requested to stay up in chair and not mobilize at this time. Nursing to use overhead lift back to bed when pt ready. . Goals Bed Mobility Goal Moderate Assistance Transfer Goal Moderate Assistance Front Wheeled Walker Gait Goal Moderate Assistance Front Wheel Walker Gait Distance 20 Days to Meet Goals 5 Frequency of Treatment Frequency Of Treatment Twice a Day Treatment Plan Other Recommendations and Next Treatment transfers, post-op exercises Focus Recommendations To Nursing Amount of Assist Needed 2 Person Assist Mechanical Lift Discharge Recommendations PT Discharge Recommendations SNF Rehab
--- NOTE | 2018-07-02 14:55 | PC.NURSE ---
Day Shift- Rec'd report from Juvenal Rosenberg at 1315 from day shift. Pt A&OX3, up in chair at bedside, moved to room 218 from 208 today. Left hip dressing intact with serous shadowing. Last changed 06/30. BLE edema 1-2+, LLE greater than RLE. O2 sat 93% on 1L NC, on continuous O2 monitoring. Goal above 89% per RT. pt does decreased O2 sats into 80's when using incentive spirometer indep. Upon rest and regular breaths O2 sat increases to low 90's. Tolerated lunch without difficulty. Call light within reach. Isolation precautions.
[2018-07-02] MEDS: ACETAMINOPHEN 325 MG TABLET 650 MG PO (16:43)
[2018-07-02] MEDS: DIGOXIN 0.25 MG TABLET PO (16:43)
[2018-07-02] MEDS: ENOXAPARIN 80 MG/0.8 ML SYRINGE 75 MG SUBCUT (20:37)
[2018-07-02] MEDS: MIRTAZAPINE 15 MG TABLET PO (20:38)
[2018-07-02] MEDS: SODIUM CHLORIDE 0.9% FLUSH 10 ML IV (20:39)
[2018-07-03] VITALS (8 sets, daily range): BP systolic 91–127; BP diastolic 42–63; PULSE 62–88; RESP 14–18; TEMP 36.4–36.8; O2SAT 90–100
[2018-07-03] MEDS: OXYCODONE IR 5 MG TABLET 10 MG PO ×2 (01:37→16:50)
[2018-07-03 05:52] LABS: BUN Creatinine Ratio 32.7 (6-22); Blood Urea Nitrogen 36 mg/dL (7-17); Carbon Dioxide 38 mmol/L (22-32); Chloride 99 mmol/L (98-107); Glucose 96 mg/dL (80-110); HEMOLYSIS 45 (0-50); Potassium 4.2 mmol/L (3.4-5.1); Sodium 140 mmol/L (137-145)
[2018-07-03 05:56] LABS: Add Manual Diff / Slide Review NO; Basophils Percent Auto 0.3 % (0-2); Eosinophils Percent Auto 0.2 % (2-4); Hematocrit 34.4 % (36-46); Hemoglobin 11.2 g/dL (12.0-16.0); Mean Corpuscular HGB Conc 32.6 % (30-36); Mean Corpuscular Hemoglobin 32.4 PG (26-34); Mean Corpuscular Volume 99.4 fL (80-100); Monocytes Percent Auto 3.5 % (3-14); Neutrophils Absolute Auto 20100 /uL (3000-5900); Platelet Count 238 X10^3/uL (150-400); Red Blood Cell Count 3.46 X10^6/uL (4.0-5.2); Red Cell Distribution Width 14.2 % (11.6-14.8); White Blood Cell Count 21.8 X10^3/uL (4.5-11.0)
[2018-07-03] MEDS: ALBUTEROL/IPRATROPIUM 3 ML AMPUL INH ×3 (06:08→18:14)
[2018-07-03 06:17] LABS: Digoxin 1.1 ng/mL (0.8-2.0)
--- NOTE | 2018-07-03 07:21 | P.PN_ITS ---
Subjective Date Patient Seen: 07/03/18 Time Patient Seen: 07:17 Interval history: Denies pain. Otherwise without complaints. Exam Vital Signs (past 8 hours): - 07/02/18 23:52 07/03/18 03:00 07/03/18 06:10 Temperature 98.0 F 97.6 F Pulse Rate 62 62 78 Respiratory Rate 14 16 16 Blood Pressure 118/71 114/63 Pulse Oximetry 90 L 97 93 Fraction of Inspired Oxygen 28 Oxygen Delivery Method Nasal Cannula Oxygen Flow Rate 2 Narrative Exam Narrative: Left hip dressing is clean, dry and intact. Sensation grossly intact to light touch. Motor function is intact distal left lower extremity. Objective Labs Result Diagrams: 07/03/18 05:31 07/03/18 05:31 Labs: Laboratory Results - last 24 hr 07/02/18 07/02/18 07/02/18 08:40 08:40 08:40 WBC 20.5 H RBC 3.54 L Hgb 11.6 L Hct 34.8 L MCV 98.3 MCH 32.7 MCHC 33.2 RDW 14.2 Plt Count 259 Neut % (Auto) 90.5 H Lymph % (Auto) 5.6 L [place] % (Auto) 3.3 Eos % (Auto) 0.4 L Baso % (Auto) 0.2 Neut # (Auto) 85273 H Sodium 142 Potassium 3.9 Chloride 99 Carbon Dioxide 40 H* BUN 32 H Creatinine 0.90 Estimated GFR > 60.0 BUN/Creatinine Ratio 35.6 H Glucose 75 L Calcium 9.2 Total Bilirubin 0.5 AST 18 ALT 28 Alkaline Phosphatase 63 Total Protein 5.1 L Albumin 2.7 L Globulin 2.4 Albumin/Globulin Ratio 1.1 Digoxin 0.9 07/03/18 07/03/18 07/03/18 05:31 05:31 05:31 WBC 21.8 H RBC 3.46 L Hgb 11.2 L Hct 34.4 L MCV 99.4 MCH 32.4 MCHC 32.6 RDW 14.2 Plt Count 238 Neut % (Auto) 92.0 H Lymph % (Auto) 4.0 L [place] % (Auto) 3.5 Eos % (Auto) 0.2 L Baso % (Auto) 0.3 Neut # (Auto) 68753 H Sodium 140 Potassium 4.2 Chloride 99 Carbon Dioxide 38 H BUN 36 H Creatinine 1.10 H Estimated GFR 48.0 L BUN/Creatinine Ratio 32.7 H Glucose 96 Calcium 9.0 Total Bilirubin AST ALT Alkaline Phosphatase Total Protein Albumin Globulin Albumin/Globulin Ratio Digoxin 1.1 D Assessment & Plan Post-op Postoperative Procedures Operation Date: 06/22/18 16:45 Actual Procedures Side Surgeon p Hip IMN Left Hiram Tovar MD Postop day 11. Status post ORIF femur fracture with IM nail. Patient is slow to mobilize. Patient is 2 person assist needing mechanical lift. Patient is toe-touch weight-bearing. Dressing change and wound check in the next couple days recommended. She will also need AP pelvis and lateral view of left femur fracture in the next couple days. Quality VTE Deep Vein Thrombosis/Pulmonary Embolism Present on Admission: No
[2018-07-03] MEDS: ACETAMINOPHEN 325 MG TABLET 650 MG PO (08:27)
[2018-07-03] MEDS: dilTIAZem CD 180 MG CAP PO (08:27)
[2018-07-03] MEDS: METOPROLOL 50 MG TABLET 100 MG PO ×2 (08:28→21:39)
[2018-07-03] MEDS: CITALOPRAM 20 MG TABLET PO (08:28)
[2018-07-03] MEDS: SODIUM CHLORIDE 0.9% FLUSH 10 ML IV ×2 (08:28→21:40)
[2018-07-03] MEDS: dilTIAZem CD 120 MG CAP PO (08:28)
--- NOTE | 2018-07-03 09:12 | P.PN_ITS ---
Subjective Date Patient Seen: 07/04/18 Time Patient Seen: 09:04 Interval history: Patient overall feeling better today. Has not been up moving. No other significant new changes. No chest pain. No complaint shortness breath. Pulse ox has been more stable. On 2 L. No other significant changes or complaints. Patient has been not up more than toe-touch still using Josefina lift. Thinking that she will quit her drinking and does not want to be on Coumadin. Exam Vital Signs (past 8 hours): - 07/03/18 03:00 07/03/18 06:10 07/03/18 08:00 Temperature 97.6 F 98.3 F Pulse Rate 62 78 88 Respiratory Rate 16 16 18 Blood Pressure 114/63 127/63 Pulse Oximetry 97 93 92 Fraction of Inspired Oxygen 28 Oxygen Delivery Method Nasal Cannula Oxygen Flow Rate 8 Narrative Exam Narrative: Alert elderly female no acute distress more alert. Interactive. Mucous membranes moist. Neck supple without adenopathy. Lungs are clear. Heart irregular rhythm and rate. Abdomen is soft positive bowel sounds nontender. Extremities without significant edema. Neurologic exam appears to be intact. Alert oriented and interactive Objective Labs Result Diagrams: 07/03/18 05:31 07/03/18 05:31 Labs: Laboratory Results - last 24 hr 07/02/18 07/02/18 07/03/18 08:40 08:40 05:31 WBC 21.8 H RBC 3.46 L Hgb 11.2 L Hct 34.4 L MCV 99.4 MCH 32.4 MCHC 32.6 RDW 14.2 Plt Count 238 Neut % (Auto) 92.0 H Lymph % (Auto) 4.0 L [place] % (Auto) 3.5 Eos % (Auto) 0.2 L Baso % (Auto) 0.3 Neut # (Auto) 35895 H Sodium 142 Potassium 3.9 Chloride 99 Carbon Dioxide 40 H* BUN 32 H Creatinine 0.90 Estimated GFR > 60.0 BUN/Creatinine Ratio 35.6 H Glucose 75 L Calcium 9.2 Total Bilirubin 0.5 AST 18 ALT 28 Alkaline Phosphatase 63 Total Protein 5.1 L Albumin 2.7 L Globulin 2.4 Albumin/Globulin Ratio 1.1 Digoxin 0.9 07/03/18 07/03/18 05:31 05:31 WBC RBC Hgb Hct MCV MCH MCHC RDW Plt Count Neut % (Auto) Lymph % (Auto) [place] % (Auto) Eos % (Auto) Baso % (Auto) Neut # (Auto) Sodium 140 Potassium 4.2 Chloride 99 Carbon Dioxide 38 H BUN 36 H Creatinine 1.10 H Estimated GFR 48.0 L BUN/Creatinine Ratio 32.7 H Glucose 96 Calcium 9.0 Total Bilirubin AST ALT Alkaline Phosphatase Total Protein Albumin Globulin Albumin/Globulin Ratio Digoxin 1.1 D Assessment & Plan Plan: Assessment/Plan Narrative: Elevated white count. Off antibiotics. Steroids have been discontinued. Still slightly climbing. No fever. O2 requirement has improved CT scan showed no evidence of pneumonia. We will see if she responds to discontinuation of steroids. Recheck tomorrow. If improving and otherwise stable can consider discharge. Acute respiratory failure. Improved. Probably combination of COPD and pneumonia and fluid overload. Recent worsening is probably secondary to fluid overload. Will restart usual Lasix in the morning. Will have to see how she does off of steroids. Appears to have resolved pneumonia. Now off antibiotics. Hopefully will remain stable and will be considered for discharge tomorrow. Hypokalemia. Resolved. Follow-up as needed. History of atrial fibrillation. Appears to be well controlled at this time. Will continue Cardizem and metoprolol. Will start Coumadin at patient's request. Certainly if restart drinking or has any other issues will discontinue specially if we have any question of falls. Hip fracture. Stable. Continue with physical therapy. Appears to be going to be very slow. Will need rehab. History of alcohol abuse. Patient feeling that she can do this alone. We discussed this. If not really what I think is the best opinion but will see how she does. DVT prophylaxis on Lovenox. GI prophylaxis not needed at this time. Disposition. Depending on what happens with white count zamora and respiratory status if stable tomorrow can consider transfer to senior living. Quality VTE Deep Vein Thrombosis/Pulmonary Embolism Present on Admission: No
--- NOTE | 2018-07-03 10:00 | OT.IP.TRT ---
Current Diagnoses Alcohol dependence with withdrawal, unspecified (06/21/18) Essential (primary) hypertension (06/21/18) Unspecified atrial fibrillation (06/21/18) Age-related osteoporosis without current pathological fracture (06/21/18) Urinary tract infection, site not specified (06/21/18) Fracture of unspecified part of neck of left femur, initial encounter for closed fracture (06/21/18) Surgery Performed Operation Date: 06/22/18 16:45 Actual Procedures p Hip IMN(Left) - Hiram Tovar MD Occupational Therapy Treatment Note M2 OT-IP Current Condition Start: 06/24/18 11:46 Freq: Status: Active Protocol: Document 06/26/18 10:49 [facility] (Rec: 06/26/18 11:12 [facility] [id number]) Occupational Therapy Current Condition Current Condition Evaluation Date 06/26/18 Treatment Diagnosis weakness,s/p Left hip ORIF Diagnosis Onset Date 06/21/18 Weight Bearing Status Weight Bearing Status Touch Down Weight Bearing M3 OT- IP Subjective and Pain Start: 06/24/18 11:46 Freq: Status: Active Protocol: Document 07/03/18 09:50 [facility] (Rec: 07/03/18 09:59 [facility] [id number]) OT- Subjective Occupational Therapy Visit Type Type Treatment Note Visit Start Time 09:00 Visit Stop Time 09:25 Total Visit Minutes 25 Occupational Therapy Visit Comments Patient Comments Pt agreeable to get up. M6 OT- IP Functional Cognition Start: 06/24/18 11:46 Freq: Status: Active Protocol: Document 07/03/18 09:50 [facility] (Rec: 07/03/18 09:59 [facility] [id number]) Cognitive Factors Limiting Selfcare Function Cognitive Ability Level of Alertness Alert Patient Orientation Name Place Situation Attention Span Ability Capable of Focused Attention Capable of Sustained Attention Ability to Follow Commands Able to Follow One Step Commands Safety Awareness Underestimates Need for Assistance Problem Solving Ability Needs Assist to Identify Solutions Cognitive Comments Cognitive Assessment Comments Pt doing better to follow commands and able to joke around with therapists today. M7 OT- IP Mobility and Balance Start: 06/24/18 11:46 Freq: Status: Active Protocol: Document 07/03/18 09:50 [facility] (Rec: 07/03/18 09:59 [facility] [id number]) OT- Bed Mobility Assessment Rolling Type of Rolling Roll to Left Level of Assistance Maximum Assistance 2 Person Assistance Supine to Sit Supine to Sit Assist Maximum Assistance 2 Person Assistance Scooting Scooting to Edge of Bed Maximum Assistance 1 Person Assistance OT-Transfer Assessment Comments Mobility Comments Unable to stand today. Noted more active movement to assist to get LLE to the edge of the bed and improved bed mobility now MAX A x 1, sit to supine. Pt initially on 8L and O2 levels fluctuated from 81% to 95% and nurse decreased to 4L and remained at 94%. OT- Gait Assessment Comments Gait Ability Comments Pt non ambulatory at present. OT- Balance Assessment Sitting Balance and Reactions Static Sitting Balance Ability Good M9 OT- IP Assessment and Plan Start: 06/24/18 11:46 Freq: Status: Active Protocol: Document 07/03/18 09:50 [facility] (Rec: 07/03/18 09:59 [facility] [id number]) OT Summary Assessment and Plan Potential Rehabilitation Potential Good Summary OT Impairments Pain Strength Balance Functional Cognition Functional Mobility Grooming Dressing Toileting Bathing Toilet Transfers Shower Transfers Progress Towards Goals Slow Progress due to Medical Issues Slow Progress due to Activity Tolerance Assessment Summary Pt still needing extensive assist for all needs and needing genie lift to transfer otherwise skilled therapists to squat pivot transfer at this time. Pt would greatly benefit from skilled rehab once medically stable. Goals Days to Meet Goals 10 Frequency of Treatment Frequency Of Treatment Once a Day Treatment Plan OT Treatment Plan ADL Training Functional Cognition Training Functional Mobility Therapeutic Exercises Patient/Family Education Discharge Planning Discharge Recommendations OT Discharge Recommendations SNF Rehab
--- NOTE | 2018-07-03 10:03 | PT.IPTN ---
Current Diagnoses Alcohol dependence with withdrawal, unspecified (06/21/18) Essential (primary) hypertension (06/21/18) Unspecified atrial fibrillation (06/21/18) Age-related osteoporosis without current pathological fracture (06/21/18) Urinary tract infection, site not specified (06/21/18) Fracture of unspecified part of neck of left femur, initial encounter for closed fracture (06/21/18) Surgery Performed Operation Date: 06/22/18 16:45 Actual Procedures p Hip IMN(Left) - Hiram Tovar MD Physical Therapy Treatment Note Physical Therapy Current Condition Current Condition Evaluation Date 06/23/18 Treatment Diagnosis s/p L hip ORIF with intramedullary nailing; difficulty in walking Onset Date 06/22/18 Weight Bearing Status Weight Bearing Status Touch Down Weight Bearing Subjective Physical Therapy Visit Type Type Treatment Note Visit Start Time 08:55 Visit Stop Time 09:20 Total Visit Minutes 25 Physical Therapy Visit Comments Patient Comments Pt just finishing talking with MD upon therapist entry to room, MD discussing that the patient will stay here for at least one more day and needs to get moving more. Pt very agreeable to participate in this therapy session, reports recently getting tylenol so pain isn't too bad. Therapy Pain Assessment Pain When Pain Assessed At Rest Pain Present Pain Present Denied Pain PT-Bed Mobility Assessment Rolling Type of Rolling Roll to Right Level of Assist Moderate Assistance 1 Person Assistance Supine to Sit Supine to Sit Maximum Assistance 2 Person Assistance Sit to Supine Sit to Supine Maximum Assistance 1 Person Assistance Scooting Scooting to Edge of Bed Moderate Assistance Scooting Up and Down in Bed Dependent PT-Transfer Assessment Comments Mobility Comments Pt with more voluntary control of the LLE today, able to participate more in bed mobility with slightly less assist. Pt attempted sit>stand from EOB using a FWW but was unable to clear her bottom at all. Gait Assessment Comments Gait Comments not appropriate to assess Stair Climbing Assessment Comments Stair Climbing Comments not appropriate to assess PT-Balance Assessment Sitting Balance and Reactions Static Sitting Balance Ability Good Dynamic Sitting Balance Ability Fair Comments Other Balance Tests/Deviations/Treatment Initially static sitting at : EOB (with feet dangling) was poor, pt needing posterior support. However, once pt scooted forward so toes were touching the floor pt was SBA for both static and dynamic sitting balance. Orientation Orientation/Cognition Level of Alertness Confusional State Orientation Name Safety Awareness Decreased Safety Awareness Memory Description Short Term Impaired Penitentiary Impaired Gross Range of Motion Lower Extremity ROM Assessment Left Impaired Impairments pain and tightness limiting mobility on LLE Strength Lower Extremity Strength Assessment Bilaterally Impaired Physical Therapy Treatment Other Treatments Other Treatment Performed LAQ sitting EOB with SBA, x10 each leg. full arc RLE, partial arc LLE. PT Summary Assessment and Plan Potential Rehabilitation Potential Good Status of Condition at Evaluation Evolving Summary Impairments Pain Strength Balance Bed Mobility Transfers Gait Activity Tolerance Progress Towards Goals Progressing Toward Goals Slow Progress due to Pain Slow Progress due to Activity Tolerance Assessment Summary Pt still requires two person assist for most mobility but is definitely slowly improving . Pt has good potential for further functional improvement and will benefit from transition to SNF rehab once medically ready. Goals Bed Mobility Goal Moderate Assistance Transfer Goal Moderate Assistance Front Wheeled Walker Gait Goal Moderate Assistance Front Wheel Walker Gait Distance 20 Days to Meet Goals 5 Frequency of Treatment Frequency Of Treatment Twice a Day Treatment Plan Physical Therapy Treatment Plan Bed Mobility Training Transfer Training Therapeutic Exercise Balance Retraining Other Recommendations and Next Treatment transfers, post-op exercises Focus Recommendations To Nursing Amount of Assist Needed 2 Person Assist Mechanical Lift Discharge Recommendations PT Discharge Recommendations SNF Rehab
--- NOTE | 2018-07-03 11:33 | P.PN_ITS ---
Subjective Date Patient Seen: 07/03/18 Interval history: Patient is awake and alert. She continues to have hypoxia that fluctuates with activity. She reports some mild hip pain Exam Vital Signs (past 8 hours): - 07/03/18 06:10 07/03/18 08:00 Temperature 98.3 F Pulse Rate 78 88 Respiratory Rate 16 18 Blood Pressure 127/63 Pulse Oximetry 93 92 Fraction of Inspired Oxygen 28 Oxygen Delivery Method Nasal Cannula Oxygen Flow Rate 8 Narrative Exam Narrative: Lungs: Decreased breath sounds but clear to auscultation CV:RRR nl Sl S2 Abd: Soft/ non tender Ext: no edema, multiple eccymosis of arms/legs Psych: more cohernt today Objective Labs Result Diagrams: 07/03/18 05:31 07/03/18 05:31 Labs: Laboratory Results - last 24 hr 07/03/18 07/03/18 07/03/18 05:31 05:31 05:31 WBC 21.8 H RBC 3.46 L Hgb 11.2 L Hct 34.4 L MCV 99.4 MCH 32.4 MCHC 32.6 RDW 14.2 Plt Count 238 Neut % (Auto) 92.0 H Lymph % (Auto) 4.0 L [place] % (Auto) 3.5 Eos % (Auto) 0.2 L Baso % (Auto) 0.3 Neut # (Auto) 59759 H Sodium 140 Potassium 4.2 Chloride 99 Carbon Dioxide 38 H BUN 36 H Creatinine 1.10 H Estimated GFR 48.0 L BUN/Creatinine Ratio 32.7 H Glucose 96 Calcium 9.0 Digoxin 1.1 D Assessment & Plan (1) Acute respiratory failure: Problem details: Patient continues to require oxygen from 2-8 liters. She is hypoxic on room air of 75%-85%. She likely will need to be discharged on oxygen, with increases for activity Current visit: Yes Status: Acute (2) Closed hip fracture requiring operative repair: Problem details: Patient is 9 days status post ORIF of femur fracture with IM nail with Dr. Tovar. Patient will go to SNF for continued recovery managed by hospitalist service. If patient is still here during that time frame of 10-14 days after surgery we should get an AP pelvis and lateral view of femur fracture. Sutures should also be evaluated. If patient goes to SNF today please make sure patient has an appointment for follow-up with our office for next week. Qualifiers: Encounter type: initial encounter Fracture healing: Laterality: left Qualified Code(s): S72.002A - Fracture of unspecified part of neck of left femur, initial encounter for closed fracture Current visit: Yes Status: Acute (3) Osteoporosis: Problem details: Calcium , vit D, bisphosphonate Current visit: Yes Status: Acute (4) COPD (chronic obstructive pulmonary disease): Problem details: Continue nebulizers Current visit: No Status: Acute (5) HTN (hypertension): Problem details: Continue metoprolol and cardizem Current visit: No Status: Acute Plan: Assessment/Plan Narrative: Ready to discharge to SNF soon Quality VTE Deep Vein Thrombosis/Pulmonary Embolism Present on Admission: No
[2018-07-03] MEDS: FUROSEMIDE 20 MG TABLET PO (12:37)
--- NOTE | 2018-07-03 14:59 | PC.NURSE ---
day shift Pt was on 8L O2, titrated down and was down to 4L with sats in mid 90's. MD came in and turned O2 down further to off, pt desatted down to upper 80's at times. placed on 1L and maintained sats in low to mid 90's. hourly rounding provided, call light within reach.
--- NOTE | 2018-07-03 16:22 | PT.IPTN ---
Current Diagnoses Alcohol dependence with withdrawal, unspecified (06/21/18) Essential (primary) hypertension (06/21/18) Unspecified atrial fibrillation (06/21/18) Chronic obstructive pulmonary disease, unspecified (06/21/18) Acute respiratory failure, unspecified whether with hypoxia or hypercapnia (06/21/18) Age-related osteoporosis without current pathological fracture (06/21/18) Urinary tract infection, site not specified (06/21/18) Fracture of unspecified part of neck of left femur, initial encounter for closed fracture (06/21/18) Surgery Performed Operation Date: 06/22/18 16:45 Actual Procedures p Hip IMN(Left) - Hiram Tovar MD Physical Therapy Treatment Note M2 PT-IP Current Condition Start: 06/23/18 14:30 Freq: NEEDED Status: Active Protocol: Document 07/02/18 12:30 [facility] (Rec: 07/02/18 13:13 [facility] [id number]) Physical Therapy Current Condition Current Condition Evaluation Date 06/23/18 Treatment Diagnosis s/p L hip ORIF with intramedullary nailing; difficulty in walking Onset Date 06/22/18 Weight Bearing Status Weight Bearing Status Touch Down Weight Bearing M3 PT-IP Subjective Start: 06/23/18 14:30 Freq: NEEDED Status: Active Protocol: Document 07/03/18 15:40 [facility] (Rec: 07/03/18 16:21 [facility] [id number]) Subjective Physical Therapy Visit Type Type Treatment Note Visit Start Time 15:40 Visit Stop Time 16:03 Total Visit Minutes 23 Physical Therapy Visit Comments Patient Comments Pt agreeable to do therapy. Therapy Pain Assessment Pain When Pain Assessed At Rest Pain Present Pain Present Pain Reported M4 PT-IP Mobility and Gait Start: 06/23/18 14:30 Freq: NEEDED Status: Active Protocol: Document 07/03/18 15:40 [facility] (Rec: 07/03/18 16:21 [facility] [id number]) PT-Bed Mobility Assessment Supine to Sit Supine to Sit Moderate Assistance Head of Bed Elevated Bedrails Sit to Supine Sit to Supine Maximum Assistance 1 Person Assistance Scooting Scooting Up and Down in Bed Dependent PT-Transfer Assessment Comments Mobility Comments Pt improving with bed mobility . Pt able to assist getting to edge of bed by scooting and able to maintain sitting balance SBA during seated knee ext/flx. Gait Assessment Comments Gait Comments not appropriate to assess Stair Climbing Assessment Comments Stair Climbing Comments not appropriate to assess PT-Balance Assessment Sitting Balance and Reactions Static Sitting Balance Ability Good Dynamic Sitting Balance Ability Fair M5 PT-IP Objective Assessments Start: 06/23/18 14:30 Freq: NEEDED Status: Active Protocol: Document 06/23/18 10:40 [facility] (Rec: 06/23/18 14:45 AB [id number]) Orientation Orientation/Cognition Level of Alertness Confusional State Orientation Name Safety Awareness Decreased Safety Awareness Memory Description Short Term Impaired Section Cutter Impaired Gross Range of Motion Lower Extremity ROM Assessment Left Impaired Impairments pain and tightness limiting mobility on LLE Strength Lower Extremity Strength Assessment Bilaterally Impaired M6 PT-IP Treatment Start: 06/23/18 14:30 Freq: NEEDED Status: Active Protocol: Document 07/03/18 15:40 [facility] (Rec: 07/03/18 16:21 [facility] [id number]) Physical Therapy Treatment Exercises Exercises Ankle Pumps Seated Knee Flexion/Extension Education Education Provided Precautions Weight Bearing Status Safety M7 PT-IP Assessment and Plan Start: 06/23/18 14:30 Freq: NEEDED Status: Active Protocol: Document 07/03/18 15:40 [facility] (Rec: 07/03/18 16:21 [facility] [id number]) PT Summary Assessment and Plan Potential Rehabilitation Potential Good Status of Condition at Evaluation Evolving Summary Impairments Pain Strength Balance Bed Mobility Transfers Gait Activity Tolerance Progress Towards Goals Progressing Toward Goals Slow Progress due to Pain Slow Progress due to Activity Tolerance Assessment Summary Pt needed less assist to EOB and pt was SBA for both static and dynamic sitting balance. Goals Bed Mobility Goal Moderate Assistance Transfer Goal Moderate Assistance Front Wheeled Walker Gait Goal Moderate Assistance Front Wheel Walker Gait Distance 20 Days to Meet Goals 5 Frequency of Treatment Frequency Of Treatment Twice a Day Treatment Plan Physical Therapy Treatment Plan Bed Mobility Training Transfer Training Therapeutic Exercise Balance Retraining Other Recommendations and Next Treatment transfers, post-op exercises Focus Recommendations To Nursing Amount of Assist Needed 2 Person Assist Mechanical Lift Discharge Recommendations PT Discharge Recommendations SNF Rehab
[2018-07-03] MEDS: WARFARIN 5 MG TABLET PO (17:28)
[2018-07-03] MEDS: DIGOXIN 0.25 MG TABLET PO (17:28)
[2018-07-03] MEDS: ENOXAPARIN 80 MG/0.8 ML SYRINGE 75 MG SUBCUT (21:38)
[2018-07-03] MEDS: MIRTAZAPINE 15 MG TABLET PO (21:39)
[2018-07-04] VITALS (12 sets, daily range): BP systolic 85–138; BP diastolic 42–82; PULSE 54–115; RESP 17–24; TEMP 36.2–36.7; O2SAT 88–98
--- NOTE | 2018-07-04 | DI.RAD.S_ITS ---
PROCEDURE: XR HIP W PEL IF DONE LT 2V INDICATIONS: evaluate fracture s/p IM nail POD #12 TECHNIQUE: AP pelvis with lateral view(s) of the left hip(s). COMPARISON: [facility], CR, XR HIP W PEL IF DONE LT 2V, 06/21/2018, 11:25. [facility], CR, XR HIP W PEL IF DONE LT 2V, 06/22/2018, 17:16. FINDINGS: Bones: Open reduction and internal fixation of intertrochanteric and subtrochanteric left hip fracture. Compared to the immediate postop fluoroscopy images, the greater trochanteric fracture fragment may be slightly more displaced. Pelvic ring appears intact. There are small lucencies in the right superior and inferior pubic rami. Soft tissues: The visualized bowel gas pattern is normal. No suspicious soft tissue calcifications. IMPRESSION: 1. ORIF of left intertrochanteric/subtrochanteric hip fracture. Slightly increased displacement of the greater trochanteric fracture fragment is noted. 2. Lucencies in the right superior and inferior raquel and might. If there is persistent history of cancer or clinical concern for metastatic disease, a whole body bone scan suggested for followup evaluation. Dictated by: Amanda Castaneda M.D. on 07/04/2018 at 17:28 Approved by: Amanda Castaneda M.D. on 07/05/2018 at 9:52
[2018-07-04] MEDS: OXYCODONE IR 5 MG TABLET 10 MG PO (02:08)
[2018-07-04 06:06] LABS: INR 1.1 (0.9-1.3); Prothrombin Time 12.3 SECONDS (10.1-12.7)
[2018-07-04 06:12] LABS: BUN Creatinine Ratio 26.4 (6-22); Blood Urea Nitrogen 29 mg/dL (7-17); Calcium 9.3 mg/dL (8.4-10.2); Carbon Dioxide 36 mmol/L (22-32); Chloride 101 mmol/L (98-107); Glucose 82 mg/dL (80-110); HEMOLYSIS < 15 (0-50); Potassium 3.5 mmol/L (3.4-5.1); Sodium 141 mmol/L (137-145)
[2018-07-04 06:15] LABS: Add Manual Diff / Slide Review NO; Eosinophils Percent Auto 1.4 % (2-4); Hematocrit 36.3 % (36-46); Hemoglobin 12.1 g/dL (12.0-16.0); Lymphocytes Percent Auto 5.4 % (25-40); Mean Corpuscular HGB Conc 33.4 % (30-36); Mean Corpuscular Hemoglobin 32.5 PG (26-34); Mean Corpuscular Volume 97.4 fL (80-100); Monocytes Percent Auto 3.8 % (3-14); Neutrophils Absolute Auto 19300 /uL (3000-5900); Neutrophils Percent Auto 89.4 % (50-75); Platelet Count 242 X10^3/uL (150-400); Red Blood Cell Count 3.73 X10^6/uL (4.0-5.2); Red Cell Distribution Width 13.9 % (11.6-14.8); White Blood Cell Count 21.6 X10^3/uL (4.5-11.0)
--- NOTE | 2018-07-04 07:36 | PM.PNPO.1 ---
Subjective Date Patient Seen: 07/04/18 Interval history: Patient seen bedside POD #12 s/p left IM nail. Patient is doing well, pain is controlled but is still ambulating poorly 2/2 weakness. Exam Vital Signs (past 8 hours): - 07/04/18 01:00 07/04/18 03:52 07/04/18 06:48 Temperature 97.6 F 98.1 F Pulse Rate 62 73 Respiratory Rate 18 24 Blood Pressure 128/64 128/51 L Pulse Oximetry 94 92 92 Fraction of Inspired Oxygen 28 Oxygen Delivery Method Room Air Oxygen Flow Rate 4 Narrative Exam Narrative: WDWN NAD A&O. Incisions clean, dry, and intact with some old drainage on the dressings, likely secondary to large hematoma surrounding the incisions. NVI in the left lower extremity. Objective Labs Result Diagrams: 07/04/18 05:31 07/04/18 05:31 Labs: Laboratory Results - last 24 hr 07/04/18 07/04/18 07/04/18 05:31 05:31 05:31 WBC 21.6 H RBC 3.73 L Hgb 12.1 Hct 36.3 MCV 97.4 MCH 32.5 MCHC 33.4 RDW 13.9 Plt Count 242 Neut % (Auto) 89.4 H Lymph % (Auto) 5.4 L Becker % (Auto) 3.8 Eos % (Auto) 1.4 L Baso % (Auto) 0.0 Neut # (Auto) 94838 H PT 12.3 INR 1.1 Sodium 141 Potassium 3.5 Chloride 101 Carbon Dioxide 36 H BUN 29 H Creatinine 1.10 H Estimated GFR 48.0 L BUN/Creatinine Ratio 26.4 H Glucose 82 Calcium 9.3 Assessment & Plan Post-op Postoperative Procedures Operation Date: 06/22/18 16:45 Actual Procedures Side Surgeon p Hip IMN Left Hiram Tovar MD 1. Staple removal today, drainage likely 2/2 to large hematoma surrounding incisions 2. X-ray of operative hip ordered 3. Follow up in the office 1 month post-op, no 2 week post-op necessary at this time 4. Consider removal of reid catheter Quality VTE Deep Vein Thrombosis/Pulmonary Embolism Present on Admission: No
--- NOTE | 2018-07-04 08:19 | P.PN_ITS ---
Subjective Date Patient Seen: 07/04/18 Time Patient Seen: 08:18 Interval history: Patient with severe sore throat today. No other complaints or problems. No chest pain. No shortness of breath. Saturations at night when she sleeps. Biggest issue she is a mouth breather. No other significant change. Otherwise seems to be stable. Continued with Casas. Exam Vital Signs (past 8 hours): - 07/04/18 01:00 07/04/18 03:52 07/04/18 06:48 Temperature 97.6 F 98.1 F Pulse Rate 62 73 Respiratory Rate 18 24 Blood Pressure 128/64 128/51 L Pulse Oximetry 94 92 92 Fraction of Inspired Oxygen 28 Oxygen Delivery Method Room Air Oxygen Flow Rate 4 Narrative Exam Narrative: Alert elderly female weak in appearance in no acute distress Oral mucosa with white discharge which is not removable. Mildly erythematous. Neck supple without adenopathy. Lungs are clear. Heart irregular rhythm and controlled rate. Abdomen is soft positive bowel sounds nontender. Extremities without cyanosis clubbing edema. Neurologic exam appears normal. Objective Labs Result Diagrams: 07/04/18 05:31 07/04/18 05:31 Labs: Laboratory Results - last 24 hr 07/04/18 07/04/18 07/04/18 05:31 05:31 05:31 WBC 21.6 H RBC 3.73 L Hgb 12.1 Hct 36.3 MCV 97.4 MCH 32.5 MCHC 33.4 RDW 13.9 Plt Count 242 Neut % (Auto) 89.4 H Lymph % (Auto) 5.4 L Victoria % (Auto) 3.8 Eos % (Auto) 1.4 L Baso % (Auto) 0.0 Neut # (Auto) 83033 H PT 12.3 INR 1.1 Sodium 141 Potassium 3.5 Chloride 101 Carbon Dioxide 36 H BUN 29 H Creatinine 1.10 H Estimated GFR 48.0 L BUN/Creatinine Ratio 26.4 H Glucose 82 Calcium 9.3 Assessment & Plan Plan: Assessment/Plan Narrative: Oral thrush. Will begin Mycelex and re-evaluate in a.m.. Elevated white count. May be related to prednisone although did not come down now that she is off it. No fever. No other significant source that I can see. Pulmonary status seems to be stable. Abdominal exam is normal. She does have yeast in her urine which I will treat with Diflucan. Recheck urine. Will obtain sed rate and CRP and re-evaluate in a.m.. Certainly nothing we can treat with antibiotics at this time. Is stable and no other obvious source will discharge tomorrow. Hypoxia. Acute respiratory failure with probable chronic COPD. I think some of this is probably the fact that she is not much up mobilizing. Her requirements are much better during the day. Would like to get her mobilizing what to see how this goes. She will go home on O2. We will see what the next 24 hr brings. May have some sleep apnea may need to consider this in the near future. Atrial fibrillation. Control overall is adequate. Continue Coumadin. Recheck INR in a.m.. Alcohol abuse. We discussed that she drinks alcohol with certainly cannot be on Coumadin. She feels as if she can't handle that. Certainly through her withdrawal. We will see how things go. DVT prophylaxis on Lovenox and Coumadin. GI prophylaxis not needed at this time. Disposition. Was hoping discharge today. Would like to discontinue Casas recheck urine recheck sed rate and CRP and place on treatment for her thrush and possible urinary yeast infection. Follow up a.m.. Hopefully discharged to [facility] at that time. Quality VTE Deep Vein Thrombosis/Pulmonary Embolism Present on Admission: No
[2018-07-04] MEDS: FLUCONAZOLE 100 MG TABLET 200 MG PO (09:18)
[2018-07-04] MEDS: DOCUSATE 100 MG CAPSULE PO (09:18)
[2018-07-04] MEDS: METOPROLOL 50 MG TABLET 100 MG PO ×2 (09:18→21:13)
[2018-07-04] MEDS: dilTIAZem CD 180 MG CAP PO (09:18)
[2018-07-04] MEDS: CITALOPRAM 20 MG TABLET PO (09:18)
[2018-07-04] MEDS: CLOTRIMAZOLE TROCHE 10 MG PO ×4 (09:18→21:14)
[2018-07-04] MEDS: dilTIAZem CD 120 MG CAP PO (09:19)
[2018-07-04] MEDS: SODIUM CHLORIDE 0.9% FLUSH 10 ML IV ×2 (09:19→21:14)
[2018-07-04] MEDS: FUROSEMIDE 20 MG TABLET PO (09:19)
[2018-07-04] MEDS: ACETAMINOPHEN 325 MG TABLET 650 MG PO (09:20)
[2018-07-04] MEDS: ALBUTEROL/IPRATROPIUM 3 ML AMPUL INH ×3 (10:15→21:55)
[2018-07-04 11:18] LABS: C-Reactive Protein Quant 4.5 mg/dL (<1.0)
[2018-07-04 12:02] LABS: Erythrocyte Sedimentation Rate 23 MM/HR (0-20)
--- NOTE | 2018-07-04 13:25 | CM.DPNOTE ---
DCP/Cont: Per MD, patient to discharge Tuesday. Patient currently on 2L O2 and will require home O2. SW spoke with Lakisha Girard/Shey: Lakisha Girard confirmed that they can still accept the patient at discharge and requested an update on status in morning. Plan: SW to follow closely. Plan remains to discharge to [facility] when medically stable. SW to keep [facility] updated on discharge plan.
--- NOTE | 2018-07-04 13:50 | P.PN_ITS ---
Subjective Interval history: Patient making satisfactory recovery. Will sign off for now Exam Vital Signs (past 8 hours): - 07/04/18 06:48 07/04/18 07:15 07/04/18 10:42 Temperature 97.8 F Pulse Rate 115 H Respiratory Rate 18 Blood Pressure 138/82 Pulse Oximetry 92 90 L 92 07/04/18 10:45 07/04/18 11:00 Temperature 97.8 F Pulse Rate 75 Respiratory Rate 18 Blood Pressure 85/46 L Pulse Oximetry 94 93 Fraction of Inspired Oxygen 28 Oxygen Delivery Method Room Air Oxygen Flow Rate 2 Objective Labs Result Diagrams: 07/04/18 05:31 07/04/18 05:31 Labs: Laboratory Results - last 24 hr 07/04/18 07/04/18 07/04/18 05:31 05:31 05:31 WBC 21.6 H RBC 3.73 L Hgb 12.1 Hct 36.3 MCV 97.4 MCH 32.5 MCHC 33.4 RDW 13.9 Plt Count 242 Neut % (Auto) 89.4 H Lymph % (Auto) 5.4 L Mobile % (Auto) 3.8 Eos % (Auto) 1.4 L Baso % (Auto) 0.0 Neut # (Auto) 69009 H ESR PT 12.3 INR 1.1 Sodium 141 Potassium 3.5 Chloride 101 Carbon Dioxide 36 H BUN 29 H Creatinine 1.10 H Estimated GFR 48.0 L BUN/Creatinine Ratio 26.4 H Glucose 82 Calcium 9.3 C-Reactive Protein 07/04/18 07/04/18 11:34 Unknown WBC RBC Hgb Hct MCV MCH MCHC RDW Plt Count Neut % (Auto) Lymph % (Auto) Mobile % (Auto) Eos % (Auto) Baso % (Auto) Neut # (Auto) ESR 23 H PT INR Sodium Potassium Chloride Carbon Dioxide BUN Creatinine Estimated GFR BUN/Creatinine Ratio Glucose Calcium C-Reactive Protein 4.5 H Quality VTE Deep Vein Thrombosis/Pulmonary Embolism Present on Admission: No
--- NOTE | 2018-07-04 15:05 | PT.IPTN ---
Current Diagnoses Alcohol dependence with withdrawal, unspecified (06/21/18) Essential (primary) hypertension (06/21/18) Unspecified atrial fibrillation (06/21/18) Chronic obstructive pulmonary disease, unspecified (06/21/18) Acute respiratory failure, unspecified whether with hypoxia or hypercapnia (06/21/18) Age-related osteoporosis without current pathological fracture (06/21/18) Urinary tract infection, site not specified (06/21/18) Fracture of unspecified part of neck of left femur, initial encounter for closed fracture (06/21/18) Surgery Performed Operation Date: 06/22/18 16:45 Actual Procedures p Hip IMN(Left) - Hiram Tovar MD Physical Therapy Treatment Note M2 PT-IP Current Condition Start: 06/23/18 14:30 Freq: NEEDED Status: Active Protocol: Document 07/02/18 12:30 RCC (Rec: 07/02/18 13:13 RCC [id number]) Physical Therapy Current Condition Current Condition Evaluation Date 06/23/18 Treatment Diagnosis s/p L hip ORIF with intramedullary nailing; difficulty in walking Onset Date 06/22/18 Weight Bearing Status Weight Bearing Status Touch Down Weight Bearing M3 PT-IP Subjective Start: 06/23/18 14:30 Freq: NEEDED Status: Active Protocol: Document 07/04/18 10:45 CLB (Rec: 07/04/18 15:05 CLB [id number]) Subjective Physical Therapy Visit Type Type Treatment Note Visit Start Time 10:45 Visit Stop Time 11:20 Total Visit Minutes 35 Notes Co-treated with OT Nicki for most of treatment. RN OCCUPATIONAL assisted for standing at sink attempt. Number of BED RUBBER Visits 2 Physical Therapy Visit Comments Patient Comments Pt agreeable to do therapy. Therapy Pain Assessment Pain When Pain Assessed At Rest Pain Present Pain Present Pain Reported M4 PT-IP Mobility and Gait Start: 06/23/18 14:30 Freq: NEEDED Status: Active Protocol: Document 07/04/18 10:45 CLB (Rec: 07/04/18 15:05 CLB [id number]) PT-Bed Mobility Assessment Supine to Sit Supine to Sit Moderate Assistance Head of Bed Elevated Bedrails Scooting Scooting to Edge of Bed Maximum Assistance PT-Transfer Assessment Equipment Transfer Assistive Device Mechanical Lift Transfers Transfer Destination Chair Transfer Technique Mechanical Lift Transfer Ability Level of Assist Maximum Assistance 2 Person Assistance Comments Mobility Comments Pt very sleepy with garbled speech. Pt able to wake up to sit on EOB and attempt sit- stand. Gait Assessment Comments Gait Comments not appropriate to assess Stair Climbing Assessment Comments Stair Climbing Comments not appropriate to assess PT-Balance Assessment Sitting Balance and Reactions Static Sitting Balance Ability Good Dynamic Sitting Balance Ability Fair M5 PT-IP Objective Assessments Start: 06/23/18 14:30 Freq: NEEDED Status: Active Protocol: Document 06/23/18 10:40 AB (Rec: 06/23/18 14:45 AB [id number]) Orientation Orientation/Cognition Level of Alertness Confusional State Orientation Name Safety Awareness Decreased Safety Awareness Memory Description Short Term Impaired Gyn Impaired Gross Range of Motion Lower Extremity ROM Assessment Left Impaired Impairments pain and tightness limiting mobility on LLE Strength Lower Extremity Strength Assessment Bilaterally Impaired M6 PT-IP Treatment Start: 06/23/18 14:30 Freq: NEEDED Status: Active Protocol: Document 07/04/18 10:45 CLB (Rec: 07/04/18 15:05 CLB [id number]) Physical Therapy Treatment Exercises Exercises Ankle Pumps Quad Sets Seated Knee Flexion/Extension Education Education Provided Precautions Weight Bearing Status Safety M7 PT-IP Assessment and Plan Start: 06/23/18 14:30 Freq: NEEDED Status: Active Protocol: Document 07/04/18 10:45 CLB (Rec: 07/04/18 15:05 CLB [id number]) PT Summary Assessment and Plan Potential Rehabilitation Potential Good Status of Condition at Evaluation Evolving Summary Impairments Pain Strength Balance Bed Mobility Transfers Gait Activity Tolerance Progress Towards Goals Progressing Toward Goals Slow Progress due to Pain Slow Progress due to Activity Tolerance Assessment Summary Pt needed Mod A supine-sit and Max A to EOB. Pt attempted to stand with 2 assist but unable to extend knee fully. Pt was transferred with mechanical lift to chair and moved to sink so pt could attempt to solar pv installer front of sink pulling with arm at sink counter. Pt was unable to stand with increased asssit of three and sink for stability. Goals Bed Mobility Goal Moderate Assistance Transfer Goal Moderate Assistance Front Wheeled Walker Gait Goal Moderate Assistance Front Wheel Walker Gait Distance 20 Days to Meet Goals 5 Frequency of Treatment Frequency Of Treatment Twice a Day Treatment Plan Physical Therapy Treatment Plan Bed Mobility Training Transfer Training Therapeutic Exercise Balance Retraining Other Recommendations and Next Treatment transfers, post-op exercises Focus Recommendations To Nursing Amount of Assist Needed 2 Person Assist Mechanical Lift Discharge Recommendations PT Discharge Recommendations SNF Rehab
--- NOTE | 2018-07-04 15:17 | PT.IPTN ---
Current Diagnoses Alcohol dependence with withdrawal, unspecified (06/21/18) Essential (primary) hypertension (06/21/18) Unspecified atrial fibrillation (06/21/18) Chronic obstructive pulmonary disease, unspecified (06/21/18) Acute respiratory failure, unspecified whether with hypoxia or hypercapnia (06/21/18) Age-related osteoporosis without current pathological fracture (06/21/18) Urinary tract infection, site not specified (06/21/18) Fracture of unspecified part of neck of left femur, initial encounter for closed fracture (06/21/18) Surgery Performed Operation Date: 06/22/18 16:45 Actual Procedures p Hip IMN(Left) - Hiram Tovar MD Physical Therapy Treatment Note M2 PT-IP Current Condition Start: 06/23/18 14:30 Freq: NEEDED Status: Active Protocol: Document 07/02/18 12:30 RCC (Rec: 07/02/18 13:13 RCC [email or web address]) Physical Therapy Current Condition Current Condition Evaluation Date 06/23/18 Treatment Diagnosis s/p L hip ORIF with intramedullary nailing; difficulty in walking Onset Date 06/22/18 Weight Bearing Status Weight Bearing Status Touch Down Weight Bearing M3 PT-IP Subjective Start: 06/23/18 14:30 Freq: NEEDED Status: Active Protocol: Document 07/04/18 13:35 CLB (Rec: 07/04/18 15:17 CLB [id number]) Subjective Physical Therapy Visit Type Type Treatment Note Visit Start Time 13:35 Visit Stop Time 13:50 Total Visit Minutes 15 Number of ROUTER MACHINE OPERATOR Visits 3 Physical Therapy Visit Comments Patient Comments Pt wanting to get back to bed. Therapy Pain Assessment Pain When Pain Assessed At Rest Pain Present Pain Present Pain Reported M4 PT-IP Mobility and Gait Start: 06/23/18 14:30 Freq: NEEDED Status: Active Protocol: Document 07/04/18 13:35 CLB (Rec: 07/04/18 15:17 CLB [id number]) PT-Transfer Assessment Equipment Transfer Assistive Device Mechanical Lift Transfers Transfer Destination Bed Transfer Technique Mechanical Lift Transfer Ability Level of Assist Maximum Assistance 2 Person Assistance Comments Mobility Comments Pt was transfered from chair to bed with mechanical lift. Gait Assessment Comments Gait Comments not appropriate to assess Stair Climbing Assessment Comments Stair Climbing Comments not appropriate to assess PT-Balance Assessment Sitting Balance and Reactions Static Sitting Balance Ability Good Dynamic Sitting Balance Ability Fair M5 PT-IP Objective Assessments Start: 06/23/18 14:30 Freq: NEEDED Status: Active Protocol: Document 06/23/18 10:40 AB (Rec: 06/23/18 14:45 AB [id number]) Orientation Orientation/Cognition Level of Alertness Confusional State Orientation Name Safety Awareness Decreased Safety Awareness Memory Description Short Term Impaired Snf Impaired Gross Range of Motion Lower Extremity ROM Assessment Left Impaired Impairments pain and tightness limiting mobility on LLE Strength Lower Extremity Strength Assessment Bilaterally Impaired M6 PT-IP Treatment Start: 06/23/18 14:30 Freq: NEEDED Status: Active Protocol: Document 07/04/18 13:35 CLB (Rec: 07/04/18 15:17 CLB [id number]) Physical Therapy Treatment Exercises Exercises Ankle Pumps Quad Sets Heel Slides Education Education Provided Precautions Weight Bearing Status Safety M7 PT-IP Assessment and Plan Start: 06/23/18 14:30 Freq: NEEDED Status: Active Protocol: Document 07/04/18 13:35 CLB (Rec: 07/04/18 15:17 CLB [id number]) PT Summary Assessment and Plan Potential Rehabilitation Potential Good Status of Condition at Evaluation Evolving Summary Impairments Pain Strength Balance Bed Mobility Transfers Gait Activity Tolerance Progress Towards Goals Progressing Toward Goals Slow Progress due to Pain Slow Progress due to Activity Tolerance Assessment Summary Pt was transfered to bed with mechanical lift. Pt log rolled to right and left Mod A to remove sling. Pt was able to perform ther ex. with increase in ROM of LLE. Goals Bed Mobility Goal Moderate Assistance Transfer Goal Moderate Assistance Front Wheeled Walker Gait Goal Moderate Assistance Front Wheel Walker Gait Distance 20 Days to Meet Goals 5 Frequency of Treatment Frequency Of Treatment Twice a Day Treatment Plan Physical Therapy Treatment Plan Bed Mobility Training Transfer Training Therapeutic Exercise Balance Retraining Other Recommendations and Next Treatment transfers, post-op exercises Focus Recommendations To Nursing Amount of Assist Needed 2 Person Assist Mechanical Lift Discharge Recommendations PT Discharge Recommendations SNF Rehab
--- NOTE | 2018-07-04 15:40 | PC.NURSE ---
day shift pt with increased somnolence, easily arrousable however sleeping more than yesterday. having periods of apnea up to 15 seconds. notified MD and oxycodone stopped. Nocturnal pulse ox study order obtained from . pt had BM, used genie lift to transfer to [facility]. pt tolerated transfer without issue. Graciela removed and steri strips applied. incisions continue to leak serous fluid, PA aware. dressed with Abd pad and tegaderm. hourly rounding provided, call light within reach.
[2018-07-04] MEDS: WARFARIN 5 MG TABLET PO (19:30)
--- NOTE | 2018-07-04 19:43 | PC.NURSE ---
191- Spoke with Dr Hand concerning pt's INR, which is 1.1 and pt takes 5mg PO coumadin daily. Informed to go ahead and give usual dose, 5mg @ 1930. Held digoxin 0.25mg PO; HR-57, BP-100/42. Pt has been A/O, but confused at times. Refused to get up with PT this shift, but said she would in the morning. Spoke with RT to obtain a nocturnal oximetry for pt. Clotrimazole oral tablets for cold sores to bottom of tongue and mid back top of tongue. Left hip drsg, steri strips, ABD pad, and tegadern CDI. cleaned and changed left elbow waynevarnie drsg. Call light in reach and bed alarm on.
[2018-07-04] MEDS: ENOXAPARIN 80 MG/0.8 ML SYRINGE 75 MG SUBCUT (21:13)
[2018-07-04] MEDS: MIRTAZAPINE 15 MG TABLET PO (21:14)
--- NOTE | 2018-07-04 21:58 | RT ---
PT PLACED ON CONTINUOUS P/O FOR OVERNIGHT OXIMETRY, PER ORDER. PT PLACED ON RA. RN UPDATED.
[2018-07-05 00:25] VITALS: BP 110/48; PULSE 68; RESP 18; TEMP 36.6; O2SAT 94
[2018-07-05] MEDS: CLOTRIMAZOLE TROCHE 10 MG PO ×2 (04:58→10:24)
[2018-07-05 05:00] VITALS: BP 116/56; PULSE 77; RESP 19; TEMP 36.6; O2SAT 97
[2018-07-05 05:10] LABS: Appearance Urine UA CLEAR; Bacteria Urine None Seen; Bilirubin Urine UA NEGATIVE (NEGATIVE); Color Urine UA YELLOW; Glucose Urine UA NEGATIVE (Normal); Ketones Urine UA NEGATIVE (NEGATIVE); Leukocyte Esterase Urine UA TRACE (NEGATIVE); Nitrite Urine UA Negative (Negative); Occult Blood Urine UA TRACE-INTACT (Negative); Protein Urine UA NEGATIVE (Negative); Urobilinogen Urine UA 0.2 E.U./dL (0.2)
[2018-07-05 05:12] LABS: RBC Urine 0-1/HPF (0-5/HPF); WBC Urine 5-10/HPF (0-5/HPF)
[2018-07-05 05:13] LABS: Culture Indicated Urine Specimen Cultured
[2018-07-05] MEDS: ACETAMINOPHEN 325 MG TABLET 650 MG PO (05:20)
[2018-07-05 06:06] LABS: Add Manual Diff / Slide Review NO; Basophils Percent Auto 0.2 % (0-2); Eosinophils Percent Auto 1.1 % (2-4); Hemoglobin 11.8 g/dL (12.0-16.0); Lymphocytes Percent Auto 5.5 % (25-40); Mean Corpuscular HGB Conc 33.7 % (30-36); Mean Corpuscular Hemoglobin 32.7 PG (26-34); Monocytes Percent Auto 4.3 % (3-14); Neutrophils Absolute Auto 17700 /uL (3000-5900); Neutrophils Percent Auto 88.9 % (50-75); Platelet Count 226 X10^3/uL (150-400); Red Blood Cell Count 3.61 X10^6/uL (4.0-5.2); Red Cell Distribution Width 14.2 % (11.6-14.8); White Blood Cell Count 19.9 X10^3/uL (4.5-11.0)
[2018-07-05 06:09] LABS: INR 1.2 (0.9-1.3); Prothrombin Time 13.2 SECONDS (10.1-12.7)
[2018-07-05] MEDS: ALBUTEROL/IPRATROPIUM 3 ML AMPUL INH (06:13)
[2018-07-05 06:14] VITALS: PULSE 71; RESP 20; O2SAT 97
[2018-07-05 06:15] LABS: Alanine Aminotransferase 31 IU/L (9-52); Albumin 2.7 g/dL (3.5-5.0); Albumin Globulin Ratio 1.1 (1.0-2.8); Alkaline Phosphatase 70 U/L (38-126); Aspartate Aminotransferase 22 IU/L (14-36); BUN Creatinine Ratio 28.9 (6-22); Bilirubin Total 0.8 mg/dL (0.2-1.3); Blood Urea Nitrogen 26 mg/dL (7-17); Carbon Dioxide 32 mmol/L (22-32); Chloride 103 mmol/L (98-107); Estimated Glomerular Filt Rate > 60.0 mL/min (>60); Globulin 2.4 g/dL (1.7-4.1); Glucose 106 mg/dL (80-110); HEMOLYSIS < 15 (0-50); Potassium 3.4 mmol/L (3.4-5.1); Sodium 141 mmol/L (137-145); Total Protein 5.1 g/dL (6.3-8.2)
[2018-07-05 07:25] VITALS: BP 100/48; PULSE 73; RESP 17; TEMP 36.9; O2SAT 98
--- NOTE | 2018-07-05 07:33 | OT.IP.TRT ---
Addendum entered and electronically signed by Lashell Hoff OT 07/05/18 07:36: Late entry for treatment on 07/04/18 11:14 Original Note: Current Diagnoses Alcohol dependence with withdrawal, unspecified (06/21/18) Essential (primary) hypertension (06/21/18) Unspecified atrial fibrillation (06/21/18) Chronic obstructive pulmonary disease, unspecified (06/21/18) Acute respiratory failure, unspecified whether with hypoxia or hypercapnia (06/21/18) Age-related osteoporosis without current pathological fracture (06/21/18) Urinary tract infection, site not specified (06/21/18) Fracture of unspecified part of neck of left femur, initial encounter for closed fracture (06/21/18) Surgery Performed Operation Date: 06/22/18 16:45 Actual Procedures p Hip IMN(Left) - iHram Tovar MD Occupational Therapy Treatment Note M2 OT-IP Current Condition Start: 06/24/18 11:46 Freq: Status: Active Protocol: Document 06/26/18 10:49 [facility] (Rec: 06/26/18 11:12 [facility] [id number]) Occupational Therapy Current Condition Current Condition Evaluation Date 06/26/18 Treatment Diagnosis weakness,s/p Left hip ORIF Diagnosis Onset Date 06/21/18 Weight Bearing Status Weight Bearing Status Touch Down Weight Bearing M3 OT- IP Subjective and Pain Start: 06/24/18 11:46 Freq: Status: Active Protocol: Document 07/04/18 11:14 PJM (Rec: 07/05/18 07:33 PJM [email or web address]) OT- Subjective Occupational Therapy Visit Type Type Treatment Note Visit Start Time 11:45 Visit Stop Time 11:14 Total Visit Minutes 29 Notes Partial cotx with P.T. for functional mobility. OT Pain Assessment Pain When Pain Assessed After Treatment Pain Present Pain Present Pain Reported Location Left Hip Scale Used does not rate on scale Pain Behaviors Facial Grimacing Guarding Management Techniques Distraction Re-positioning Timing of Activity with Medications M4 OT- IP ADL's Start: 06/24/18 11:46 Freq: Status: Active Protocol: Document 07/04/18 11:14 PJM (Rec: 07/05/18 07:33 PJM [id number]) OT [id number] Comments OT Self-Feeding Comments pt declining to eat breakfast today OT ADL-Grooming General Evaluation Grooming Ability Standby Assistance Areas Needing Assistance Retrieving/Set-up of Grooming Items Face Washing Comments OT Grooming Comments needs verbal ceus to wash face after washcloth presented in bed OT ADL-Dressing General Eval Lower Body Dressing Ability Total Assistance Areas Needing Assistance Shoes Comments OT Dressing Comments pt wearing slip on sandal on R foot to increase height for standing trial M6 OT- IP Functional Cognition Start: 06/24/18 11:46 Freq: Status: Active Protocol: Document 07/04/18 11:14 PJM (Rec: 07/05/18 07:33 PJ [id number]) Cognitive Factors Limiting Selfcare Function Cognitive Ability Level of Alertness Drowsy Attention Span Ability Unable to Sustain Attention Ability to Follow Commands Able to Follow One Step Commands Memory Description Short Term Impaired Safety Awareness Decreased Recall of Precautions Problem Solving Ability Unable to Identify Errors Needs Assist to Identify Solutions Cognitive Comments Cognitive Assessment Comments Pt very drowsy today with some garbled speech. RN reports pt had oxycontin at 2 am. M7 OT- IP Mobility and Balance Start: 06/24/18 11:46 Freq: Status: Active Protocol: Document 07/04/18 11:14 PJM (Rec: 07/05/18 07:33 PJ [id number]) OT- Bed Mobility Assessment Rolling Type of Rolling Roll to Left Level of Assistance Moderate Assistance 1 Person Assistance Supine to Sit Supine to Sit Assist Moderate Assistance 1 Person Assistance Sit to Supine Sit to Supine Assist Head of Bed Elevated Bedrails Scooting Scooting to Edge of Bed Maximum Assistance 1 Person Assistance Head of Bed Elevated Bedrails OT-Transfer Assessment Sit to and From Stand Sit to and from Stand Maximum Assistance 2 Person Assistance Use of Upper Extremities Comments Mobility Comments Worked on standing trials x4 at EOB, then in front of sink after pt transferred to chair via celing lift. 3rd person present for standing trials at sink. OT- Gait Assessment Comments Gait Ability Comments non ambulatory OT- Balance Assessment Sitting Balance and Reactions Static Sitting Balance Ability Fair Dynamic Sitting Balance Ability Fair Standing Balance and Reactions Static Standing Balance Ability Poor M9 OT- IP Assessment and Plan Start: 06/24/18 11:46 Freq: Status: Active Protocol: Document 07/04/18 11:14 PJM (Rec: 07/05/18 07:33 PJ [email or web address]) OT Summary Assessment and Plan Summary Progress Towards Goals Slow Progress due to Pain Slow Progress due to Activity Tolerance Slow Progress due to Cognition Assessment Summary Pt presents with drowsiness and decreased attention today . Speech garbled at times, but pt more alert as session progressed. Pt on 2L O2. Difficult to get accurate O2 reading with sats in mid 80's to high 80's. Up into 90's with cues for deeper breathing . RN aware and feels O2 sensor may be inaccurate on this pt. Pt continues to require assist of 2-3 person for max assist standing attempts. Pt unable to fully extend R knee and has difficulty motor planning sit to stand attempts today. Pt would benefit from use of standing frame in rehab setting. D/C plan is SNF for further rehab services. Goals Grooming Goal Standby Assistance Dressing Goal Minimal Assistance Bathing Goal Minimal Assistance Toilet Transfer Goal Moderate Assistance OT-Other Goals Toilet transfer goal is to BS with assist of 2 Days to Meet Goals 10 Frequency of Treatment Frequency Of Treatment Once a Day Treatment Plan OT Treatment Plan ADL Training Functional Cognition Training Functional Mobility Therapeutic Exercises Patient/Family Education Discharge Planning Discharge Recommendations OT Discharge Recommendations SNF Rehab Home Equipment Needs to be determined
--- NOTE | 2018-07-05 09:15 | CM.DPC ---
Clinicals faxed to Lakisha Batuista
--- NOTE | 2018-07-05 09:18 | CM.DPC ---
Addendum entered by Lily Elam LPN 07/05/18 10:20: Dr. Hester was here and has completed the [place] [facility] [place]. These plus the d/c summary are now faxed. Ambulance is set for 1115 and [facility] is aware. DEREJE Ocampo is updated. She says pt's was in earlier today and she will call him now re the time of d/c. She noted that she was on yesterday and he told her he did go and look [place] [facility] and was pleased with this snf plan. Original Note: DCP: continued: Case received for first time today. Noted that pt has been here since 06/21/18: LOS day 14. CM/CARTON PACKAGING MACHINE OPERATOR staff have been following this case until today. Reviewed their notes and met with pt to confirm [facility] plan. Pt was found to be groggy, said she was going to a facility, did not know which one. Explained and provided brochure [place] [facility] Checked in with therapy staff re ? transport. Pt is at this point having trouble managing her WB precautions. Her safely awareness and general ability to focus seems to fluctuate. She is requiring a mechanical lift with 2+ staff for transfers. Not safe to go to the snf at this point other than by ambulance transport. Dr. Hester is, per Cm team report, now the primary provider and it will be he or a rounding partner who does the snf d/c. Unclear if this will be today. Have spoken with [facility]. She confirms acceptance and says she has not received an update since mid last week. CRISTY Webster will fax this now. P: follow up with pt's spouse re the d/c plan. PASRR was completed by ANA Ocampo. Will fax this now to Lakisha BUENROSTRO.
--- NOTE | 2018-07-05 10:00 | P.DS_ITS ---
History of Present Illness Date Patient Seen: 07/05/18 Time Patient Seen: 09:51 Chief complaint: GLF/ hip injury Narrative: See history and physical Discharge Providers Date of admission: 06/21/18 15:25 Primary care physician: Santiago Hester MD Consults: 06/21/18 17:15 Consult to Boat Tester Routine Comment: patient will need rehab after hip repair 06/22/18 08:45 Consult to Orthopedic Surgery Routine Comment: Dr. Moreira spoke with Dr. Tovar yesterday 06/21/18 Consulting Provider: Hiram Tovar Reason for consultation: GLF, L HIP FX Has provider been notified: Yes 06/22/18 18:58 Consult to Physical Therapy Evaluate & Treat Comment: Physician Instructions: Evaluate and Treat Consult to Respiratory Therapy Evaluate & Treat Comment: Physician Instructions: Evaluate and treat 06/23/18 15:20 Consult to Occupational Therapy Evaluate & Treat Comment: Physician Instructions: Evaluate and treat 06/24/18 13:29 Consult to Speech Therapy Evaluate & Treat Comment: Physician Instructions: Evaluate and treat 06/25/18 15:48 Consult to Respiratory Therapy Evaluate & Treat Comment: bipap per RT. 17:30- may increase epap to 10 Physician Instructions: Evaluate and treat Discharge provider: Santiago Hester MD Summary Discharge Diagnosis: Left hip fracture status post repair Alcohol withdrawal Respiratory failure acute on chronic Pneumonia Elevated white count Atrial fibrillation with poor control [facility] Hospital Course: Patient was admitted to the hospital with consult with orthopedist Left hip fracture. Repair was done on day 1 of hospitalization. Did well. No wound issue. Was struggling to ambulate and was working with physical therapy. Was weak but primarily was weak secondary to lack of strength diffusely secondary to being at home alone and being somewhat sedate. His will need extensive physical therapy and rehab. Alcohol withdrawal. Patient was fine through the 1st 48 hr on days 3 she began having increasing withdrawal. Was needed aggressive benzodiazepine and bent which did not help are mental status and respiratory status. Patient was aggressively managed over the course of the next 3 days and then slowly improved. She has recovered completely now. We discussed alcohol treatment both her and her would like to just do this at home without any other treatment we discussed low likelihood this will work but will be followed as an outpatient. Respiratory failure acute with some probable baseline chronic with history of smoking. Patient had been doing well up until day 3 of her admission when she developed pretty significant hypoxia. It appeared as if it was a combination of pneumonia on x-ray which probably was aspiration, somewhat ARDS and COPD. She was began on clindamycin and Levaquin. There was question whether initial UTI was significant and it was felt that staff was not significant in this course. Originally started on vancomycin for 1 dose but then discontinued. Steroids were managed aggressively in the initial few days. She was on high- flow oxygen for 2-3 days and then slowly started to make that transition. Cultures were negative. Chest x-ray improved. Her oxygen status slowly improved and after a 11 day course of antibiotics discontinued along with steroids. She is slowly done well and had no further issues. She was actually not needing oxygen on day of discharge with excellent sats except for some slight desaturation at night. It is not felt that she needs long-term COPD treatment at this time. Currently not smoking. Aspiration pneumonia. See above but was treated with 11 day course of clindamycin and Levaquin and then discontinued. She has done well without significant issues. Appears to be resolved. Elevated white count. Patient was given steroids during during the course of her admission. She had a normal ESR and mildly elevated CRP on day of discharge. White count was starting to trend down. She had a normal exam with no findings of abnormality and otherwise normal vital signs. It was felt secondary to steroids will be followed in 1 week with follow-up CBC. Atrial fibrillation with RVR. Patient really has been stable over the course of last week. This has been a longstanding issue. Patient has not been really compliant all the time with her medication. She was initially managed with IV Cardizem and switched to oral metoprolol and Cardizem which is her usual and overall has been stable throughout the rest of the course. Some difficulty during the process of prep oxy a but she has been stable echo showed no changes. We have had multiple discussions about Coumadin and she would like to continue she understands the risk of falls. If she falls anymore would probably discontinue she was on 5 mg as an outpatient will continue on 5 continue Lovenox until her INR is elevated will recheck INR in 2 days. Oral thrush with question yeast in urine on Diflucan for 7-10 days should be followed but clinically doing much better. Indwelling Casas. We discussed with patient as soon as she mobilizes enough so she will be needing Casas can be discontinued at rehab center. Metabolic encephalopathy. [place] to be all secondary to combination of infection and what alcohol withdrawal. Now resolved. Status at Discharge Cognitive/behavioral status at discharge: Stable Functional status at discharge: bed bound Overall status at discharge: patient is not back to baseline Time Spent with Patient Greater than 30 minutes Exam Vital Signs (past 8 hours): - 07/05/18 05:00 07/05/18 06:14 07/05/18 07:25 Temperature 97.9 F 98.4 F Pulse Rate 77 71 73 Respiratory Rate 19 20 17 Blood Pressure 116/56 L 100/48 L Pulse Oximetry 97 97 98 Fraction of Inspired Oxygen 28 Oxygen Delivery Method Room Air Oxygen Flow Rate 0 Objective Labs Result Diagrams: 07/05/18 05:36 07/05/18 05:36 Labs: Laboratory Results - last 24 hr 07/04/18 07/04/18 07/05/18 11:34 Unknown 05:00 WBC RBC Hgb Hct MCV MCH MCHC RDW Plt Count Neut % (Auto) Lymph % (Auto) [place] % (Auto) Eos % (Auto) Baso % (Auto) Neut # (Auto) ESR 23 H PT INR Sodium Potassium Chloride Carbon Dioxide BUN Creatinine Estimated GFR BUN/Creatinine Ratio Glucose Calcium Total Bilirubin AST ALT Alkaline Phosphatase C-Reactive Protein 4.5 H Total Protein Albumin Globulin Albumin/Globulin Ratio Urine Color Yellow Urine Appearance Clear Urine pH 7.0 Ur Specific [place] 1.010 Urine Protein Negative Urine Glucose (UA) Negative Urine Ketones Negative Urine Occult Blood Trace-intact Urine Nitrate Negative Urine Bilirubin Negative Urine Urobilinogen 0.2 Ur Leukocyte Esterase Trace H Urine RBC 0-1/hpf Urine WBC 5-10/hpf H Urine Bacteria None seen Urine Yeast 5-10/hpf H Ur Culture Indicated? Specimen cultured Micro UA Comment Not Reportable 07/05/18 07/05/18 07/05/18 05:36 05:36 05:36 WBC 19.9 H RBC 3.61 L Hgb 11.8 L Hct 35.0 L MCV 97.0 MCH 32.7 MCHC 33.7 RDW 14.2 Plt Count 226 Neut % (Auto) 88.9 H Lymph % (Auto) 5.5 L [place] % (Auto) 4.3 Eos % (Auto) 1.1 L Baso % (Auto) 0.2 Neut # (Auto) 28523 H ESR PT 13.2 H INR 1.2 Sodium 141 Potassium 3.4 Chloride 103 Carbon Dioxide 32 BUN 26 H Creatinine 0.90 Estimated GFR > 60.0 BUN/Creatinine Ratio 28.9 H Glucose 106 Calcium 9.0 Total Bilirubin 0.8 AST 22 ALT 31 Alkaline Phosphatase 70 C-Reactive Protein Total Protein 5.1 L Albumin 2.7 L Globulin 2.4 Albumin/Globulin Ratio 1.1 Urine Color Urine Appearance Urine pH Ur Specific [place] Urine Protein Urine Glucose (UA) Urine Ketones Urine Occult Blood Urine Nitrate Urine Bilirubin Urine Urobilinogen Ur Leukocyte Esterase Urine RBC Urine WBC Urine Bacteria Urine Yeast Ur Culture Indicated? Micro UA Comment Discharge Plan Discharge Plan Patient Disposition: SNF Transfer to: [facility] Under care of provider: fashion director party plan salesdirector of career resources: [facility] Labs: Need CBC in 1 week, INR on 07/07/2018 Consult as needed: Dental, Hearing, Mental health, Podiatry and Vision I certify the postop hospital senior living care is medically necessary on a continuing basis for any conditions for which he/ she received care during this hospitalization.: Yes The receiving facility has agreed to accept transfer and provide medical treatment.: Yes Discharge Med Rec/Prescriptions Prescriptions: New fluconazole [Diflucan] 100 mg Tablet 100 mg PO DAILY Qty: 10 RF: 0 acetaminophen 325 mg Tablet 650 mg PO Q4HR PRN (Reason: As Needed For Fever/Mild Pain) Qty: 100 RF: 0 diltiazem HCl 180 mg Capsule,Extended Release 24hr 180 mg PO DAILY Qty: 90 RF: 0 digoxin 250 mcg Tablet 0.25 mg PO DAILY@1700 Qty: 90 RF: 1 diltiazem HCl 120 mg Capsule,Extended Release 24hr 120 mg PO DAILY Qty: 90 RF: 0 bisacodyl 5 mg Tablet,Delayed Release (Dr/Ec) 10 mg PO BID PRN (Reason: Constipation) Qty: 90 RF: 0 enoxaparin [Lovenox] 80 mg/0.8 mL Syringe 75 mg subcut BEDTIME Qty: 14 RF: 0 Continue warfarin [Coumadin] 5 MG tablet 5 mg PO QDAY Qty: 0 RF: 0 diltiazem HCl 300 MG capsule,extended release 24hr 300 mg PO QDAY Qty: 0 RF: 0 metoprolol tartrate 50 MG tablet 100 mg PO BID Qty: 0 RF: 0 citalopram 20 MG tablet 20 mg PO QDAY Qty: 0 RF: 0 mirtazapine 15 MG tablet 15 mg PO HS Qty: 0 RF: 0 furosemide 20 mg tablet 20 mg PO DAILY RF: 0 Follow up/Referrals: Hiram Tovar MD [Physician] - 2 Weeks (Please follow up with our office 10-14 days from surgery) Santiago Hester MD [Primary Care Provider] - 2 Weeks (Or when discharged from rehabilitation center) Discharge Health Status Multidrug resistant organism: No MDRO MDRO Verified by culture: Yes Precautions: [place] Provider Discharge Instructions Diet: Diet as Tolerated Liquid consistency: Normal/Thin Food texture: Regular Activity: As per orthopedist Catheter: 2-way Casas Catheter comment: Can be removed when mobilizing Skin/Wound/Dressing Care Dressing: Please apply coversite dressing prior to [facility] Reason for rehabilitation: Post-operative therapy Rehab type: Physical therapy and Occupational therapy Restrictions to mobility: Hip precautions as per orthopedist Discharge Data Primary Care Provider: Santiago Hester Attending Provider: Santiago Hester Admit Date/Time: 06/21/18 15:25 Quality VTE Deep Vein Thrombosis/Pulmonary Embolism Present on Admission: No
[2018-07-05] MEDS: FUROSEMIDE 20 MG TABLET PO (10:24)
[2018-07-05] MEDS: CITALOPRAM 20 MG TABLET PO (10:24)
[2018-07-05] MEDS: FLUCONAZOLE 100 MG TABLET PO (10:24)
--- NOTE | 2018-07-05 11:13 | PT.IPTN ---
Current Diagnoses Alcohol dependence with withdrawal, unspecified (06/21/18) Essential (primary) hypertension (06/21/18) Unspecified atrial fibrillation (06/21/18) Chronic obstructive pulmonary disease, unspecified (06/21/18) Acute respiratory failure, unspecified whether with hypoxia or hypercapnia (06/21/18) Age-related osteoporosis without current pathological fracture (06/21/18) Urinary tract infection, site not specified (06/21/18) Fracture of unspecified part of neck of left femur, initial encounter for closed fracture (06/21/18) Surgery Performed Operation Date: 06/22/18 16:45 Actual Procedures p Hip IMN(Left) - Hiram Tovar MD Physical Therapy Treatment Note M2 PT-IP Current Condition Start: 06/23/18 14:30 Freq: NEEDED Status: Active Protocol: Document 07/02/18 12:30 RCC (Rec: 07/02/18 13:13 RCC [id number]) Physical Therapy Current Condition Current Condition Evaluation Date 06/23/18 Treatment Diagnosis s/p L hip ORIF with intramedullary nailing; difficulty in walking Onset Date 06/22/18 Weight Bearing Status Weight Bearing Status Touch Down Weight Bearing M3 PT-IP Subjective Start: 06/23/18 14:30 Freq: NEEDED Status: Active Protocol: Document 07/05/18 11:03 FIDELINA (Rec: 07/05/18 11:13 LJ [id number]) Subjective Physical Therapy Visit Type Type Treatment Note Visit Start Time 09:30 Visit Stop Time 09:55 Total Visit Minutes 25 Number of OUTSIDE SALES CONSULTANT Visits 4 Physical Therapy Visit Comments Patient Comments Pt willing to sit at side of bed with therapy M4 PT-IP Mobility and Gait Start: 06/23/18 14:30 Freq: NEEDED Status: Active Protocol: Document 07/05/18 11:03 FIDELINA (Rec: 07/05/18 11:13 LJ [id number]) PT-Bed Mobility Assessment Supine to Sit Supine to Sit Moderate Assistance 2 Person Assistance Head of Bed Elevated Bedrails Sit to Supine Sit to Supine Maximum Assistance 1 Person Assistance Bedrails Scooting Scooting to Edge of Bed Maximum Assistance PT-Transfer Assessment Comments Mobility Comments Pt was very groggy and slightly confused at beginning of treatment. Woke enough to attempt sit<>stand with max assist x 2. Fatigued quickly and declined further therapy Gait Assessment Comments Gait Comments not appropriate to assess Stair Climbing Assessment Comments Stair Climbing Comments not appropriate to assess PT-Balance Assessment Sitting Balance and Reactions Static Sitting Balance Ability Good Dynamic Sitting Balance Ability Fair M5 PT-IP Objective Assessments Start: 06/23/18 14:30 Freq: NEEDED Status: Active Protocol: Document 06/23/18 10:40 AB (Rec: 06/23/18 14:45 AB [id number]) Orientation Orientation/Cognition Level of Alertness Confusional State Orientation Name Safety Awareness Decreased Safety Awareness Memory Description Short Term Impaired Distribution Supervisor Impaired Gross Range of Motion Lower Extremity ROM Assessment Left Impaired Impairments pain and tightness limiting mobility on LLE Strength Lower Extremity Strength Assessment Bilaterally Impaired M6 PT-IP Treatment Start: 06/23/18 14:30 Freq: NEEDED Status: Active Protocol: Document 07/05/18 11:03 FIDELINA (Rec: 07/05/18 11:13 LJ [id number]) Physical Therapy Treatment Exercises Exercises Ankle Pumps Quad Sets Heel Slides Education Education Provided Precautions Weight Bearing Status Safety Other Treatments Other Treatment Performed LAQ sitting EOB with SBA, x10 each leg. full arc RLE, partial arc LLE. M7 PT-IP Assessment and Plan Start: 06/23/18 14:30 Freq: NEEDED Status: Active Protocol: Document 07/05/18 11:03 FIDELINA (Rec: 07/05/18 11:13 LJ [id number]) PT Summary Assessment and Plan Potential Rehabilitation Potential Good Status of Condition at Evaluation Evolving Summary Impairments Pain Strength Balance Bed Mobility Transfers Gait Activity Tolerance Progress Towards Goals Progressing Toward Goals Slow Progress due to Pain Slow Progress due to Activity Tolerance Assessment Summary Pt required mod assist x 2 for bed mobility and HOB raised. Unable to completely execute sit<>stand with Max assist. Attempted x 3 and was able to comply with WB precautions in partial standing. Pt unable to fully control descent back onto bed. Goals Bed Mobility Goal Moderate Assistance Transfer Goal Moderate Assistance Front Wheeled Walker Gait Goal Moderate Assistance Front Wheel Walker Gait Distance 20 Days to Meet Goals 5 Frequency of Treatment Frequency Of Treatment Twice a Day Treatment Plan Physical Therapy Treatment Plan Bed Mobility Training Transfer Training Therapeutic Exercise Balance Retraining Other Recommendations and Next Treatment transfers, post-op exercises Focus Recommendations To Nursing Amount of Assist Needed 2 Person Assist Mechanical Lift Discharge Recommendations PT Discharge Recommendations SNF Rehab
--- NOTE | 2018-07-05 11:36 | PC.NURSE ---
discharge pt to d/c to [facility]. PIV and tele removed prior to d/c. pt took all belongings with her including her purse, rings, phone, tablet and transmission line engineer, clothing. Report called to Elena at [facility]. Casas catheter in place and to remain per MD order until mobility improves. transfered to stretcher for d/c. belongings taken with pt.
== END 2018-07-05 11:40 | DRG 480 ==
LOC: ED 14:39 → ICU 15:48 → AC 06-30 11:14 → ICU 05-14 15:20 → AC 05-14 15:21 → ICU 05-14 15:21
PROVIDERS: Family Medicine; Internal Medicine; Orthopaedic Surgery Orthopaedic Surgery of the Spine; Admitting Provider Internal Medicine; Emergency Provider Emergency Medicine; Family Provider Family Medicine; PCP Family Medicine; Visit Provider Family Medicine
PROC: 0QS706Z Reposition Left Upper Femur with Intramedullary Internal Fixation Device, Open Approach (ICD-10-PCS; CPT 27245; principal; 2018-06-22 16:45)
DX: S72.142A Displaced intertrochanteric fracture of left femur, initial encounter for closed fracture (principal); J69.0 Pneumonitis due to inhalation of food and vomit; A41.9 Sepsis, unspecified organism; G93.41 Metabolic encephalopathy; R65.20 Severe sepsis without septic shock; J96.20 Acute and chronic respiratory failure, unspecified whether with hypoxia or hypercapnia; F10.230 Alcohol dependence with withdrawal, uncomplicated; J80 Acute respiratory distress syndrome; B37.0 Candidal stomatitis; W18.11XA Fall from or off toilet without subsequent striking against object, initial encounter; Y92.002 Bathroom of unspecified non-institutional (private) residence as the place of occurrence of the external cause; I10 Essential (primary) hypertension; M81.0 Age-related osteoporosis without current pathological fracture; I48.2 Chronic atrial fibrillation; Z79.01 Long term (current) use of anticoagulants; J44.9 Chronic obstructive pulmonary disease, unspecified; F17.210 Nicotine dependence, cigarettes, uncomplicated
CPT/HCPCS: 36415; 36569; 36591; 36592; 36600; 51701; 70450; 71045; 71046; 71275; 73502; 76001; 80048; 80053; 80162; 81001; 82550; 82553; 82805; 83735; 83880; 84133; 84145; 84484; 85025; 85027; 85610; 85651; 86140; 87040; 87077; 87086; 87186; 87797; 92526; 92610; 93005; 93307; 94640; 94660; 94762; 96361; 96374; 96375; 96376; 97110; 97162; 97166; 97530; 97535; 99285; J0690; J1100; J1160; J1170; J1642; J1650; J1940; J1956; J2060; J2270; J2405; J2704; J2930; J3010; J3370; Q9957; Q9967